=== PATIENT | male | born 1985 | race Caucasian/White ===

== ENCOUNTER 2020-06-05 14:07 | Outpatient (REF) | payer OTHER, SELFPAY | END 2020-06-05 14:08 | disposition home or self-care (01) | LOC: HO.LAB 14:07 | PROVIDERS: PCP Internal Medicine; Visit Provider Internal Medicine | DX: Z20.822 Contact with and (suspected) exposure to COVID-19 (principal) | CPT/HCPCS: 36415; C9803; U0003 ==

== ENCOUNTER → 2021-06-15 13:44 | Outpatient (BNVA) | payer OTHER, SELFPAY | PROVIDERS: PCP Internal Medicine; Referring Provider Internal Medicine; Visit Provider Surgery | DX: L98.9 Disorder of the skin and subcutaneous tissue, unspecified (principal) | CPT/HCPCS: 99202 ==

== ENCOUNTER 2021-09-10 14:43 | Outpatient (REF) | payer OTHER, SELFPAY ==
[2021-09-10 15:01] LABS: MANUAL DIFF FLAG NO
[2021-09-10 15:55] LABS: Basophils Absolute Auto 0.1 X10*3/uL (0.0-0.2); Basophils Percent Auto 0.8 % (0-2); Eosinophils Absolute Auto 0.3 X10*3/uL (0.0-0.4); Eosinophils Percent Auto 2.7 % (0-4); Hematocrit 44.1 % (42.0-52.0); Hemoglobin 14.3 g/dl (14.0-18.0); Imm Gran Abs Auto 0.04 X10*3/uL (0.00-0.03); Imm Gran Pct Auto 0.4 % (0.0-0.4); Lymphocytes Absolute Auto 3.7 X10*3/uL (1.2-4.9); Lymphocytes Percent Auto 33.4 % (20-40); Mean Corpuscular HGB Conc 32.4 g/dl (31.0-36.0); Mean Corpuscular Hemoglobin 27.6 pg (27.0-33.0); Mean Platelet Volume 10.3 fL (9.4-12.4); Monocytes Absolute Auto 1.1 X10*3/uL (0.1-1.2); Monocytes Percent Auto 10.2 % (2-11); Neutrophils Absolute Auto 5.8 x10*3/uL (2.0-8.3); Neutrophils Percent Auto 52.5 % (45-73); Platelet Count 302 X10*3/uL (160-400); Red Blood Count 5.19 X10*6/uL (4.60-5.80); Red Cell Distribution Width 13.8 % (11.0-16.0)
[2021-09-10 16:13] LABS: Alanine Aminotransferase 250 U/L (0-40); Albumin Level 4.4 g/dL (3.5-5.0); Alkaline Phosphatase 100 U/L (39-117); Anion Gap 15 (12-20); Aspartate Amino Transferase 66 U/L (5-37); Bilirubin Total 0.9 mg/dL (0.0-1.0); Blood Urea Nitrogen 9 mg/dL (9-16); Carbon Dioxide 25 mmol/L (22-29); Chloride 103 mmol/L (96-108); Cholesterol 190 mg/dL; Estimated Glomerular Filt Rate > 60; Glucose Fasting 116 mg/dL (60-99); HDL Cholesterol 30 mg/dL; LDL Cholesterol Calculated 91 mg/dl; Potassium 4.6 mmol/L (3.3-5.1); Sodium 138 mmol/L (135-145); Total Protein 8.1 g/dL (6.5-8.0); Triglycerides 349 mg/dL
[2021-09-10 16:15] LABS: Appearance Urine CLEAR; Color Urine YELLOW; Glucose Urine UA NEG (NEG); Leukocyte Esterase Urine 2+ (NEG); Nitrite Urine NEG (NEG); PH 6.5 (5.0-8.0); Specific Gravity - Urine 1.025 (1.005-1.025); UACC Culture Trigger YES; Urine Blood NEG (NEG); Urine Ketones NEG (NEG); Urine Protein NEG (NEG-TRACE)
[2021-09-10 16:33] LABS: TSH reflex Free T4 0.75 uIU/mL (0.32-4.0)
[2021-09-10 16:42] LABS: RBC Urine 0 /HPF (0); WBC Urine 30-49 /HPF (0-4)
[2021-09-10 16:43] LABS: Bacteria Urine TRACE /LPF
== END 2021-09-10 14:44 | disposition home or self-care (01) ==
LOC: HO.LAB 14:43
PROVIDERS: PCP Internal Medicine; Visit Provider Internal Medicine
DX: J45.40 Moderate persistent asthma, uncomplicated (principal); E55.9 Vitamin D deficiency, unspecified; E78.00 Pure hypercholesterolemia, unspecified
CPT/HCPCS: 36415; 80053; 80061; 81001; 82306; 84443; 85025; 87086

== ENCOUNTER 2022-01-07 12:56 | Outpatient (REF) | payer OTHER, SELFPAY ==
[2022-01-07 13:09] LABS: MANUAL DIFF FLAG NO
[2022-01-07 13:40] LABS: Basophils Absolute Auto 0.1 X10*3/uL (0.0-0.2); Basophils Percent Auto 0.9 % (0-2); Eosinophils Absolute Auto 0.3 X10*3/uL (0.0-0.4); Eosinophils Percent Auto 3.2 % (0-4); Hematocrit 43.3 % (42.0-52.0); Hemoglobin 14.2 g/dl (14.0-18.0); Imm Gran Abs Auto 0.03 X10*3/uL (0.00-0.03); Imm Gran Pct Auto 0.4 % (0.0-0.4); Lymphocytes Absolute Auto 3.6 X10*3/uL (1.2-4.9); Lymphocytes Percent Auto 42.7 % (20-40); Mean Corpuscular HGB Conc 32.8 g/dl (31.0-36.0); Mean Corpuscular Hemoglobin 27.6 pg (27.0-33.0); Mean Corpuscular Volume 84.1 fL (80.0-98.0); Mean Platelet Volume 9.8 fL (9.4-12.4); Monocytes Absolute Auto 0.7 X10*3/uL (0.1-1.2); Monocytes Percent Auto 8.8 % (2-11); Neutrophils Absolute Auto 3.7 x10*3/uL (2.0-8.3); Platelet Count 328 X10*3/uL (160-400); Red Blood Count 5.15 X10*6/uL (4.60-5.80); Red Cell Distribution Width 14.7 % (11.0-16.0); White Blood Count 8.4 X10*3/uL (4.8-10.8)
[2022-01-07 14:02] LABS: Alanine Aminotransferase 121 U/L (0-40); Albumin Level 4.2 g/dL (3.5-5.0); Alkaline Phosphatase 81 U/L (39-117); Anion Gap 14 (12-20); Aspartate Amino Transferase 55 U/L (5-37); Bilirubin Total 0.6 mg/dL (0.0-1.0); Blood Urea Nitrogen 9 mg/dL (9-16); Carbon Dioxide 21 mmol/L (22-29); Chloride 108 mmol/L (96-108); Cholesterol 166 mg/dL; Estimated Glomerular Filt Rate > 60; Glucose Fasting 97 mg/dL (60-99); HDL Cholesterol 34 mg/dL; LDL Cholesterol Calculated 98 mg/dl; Potassium 4.3 mmol/L (3.3-5.1); Sodium 139 mmol/L (135-145); Total Protein 7.6 g/dL (6.5-8.0); Triglycerides 172 mg/dL
[2022-01-07 14:23] LABS: TSH reflex Free T4 0.96 uIU/mL (0.32-4.0); Vitamin D 25-OH Total 13.8 ng/mL (>30)
[2022-01-07 14:24] LABS: Appearance Urine Clear; Color Urine Yellow; Glucose Urine UA Negative (Negative); Leukocyte Esterase Urine Negative (Negative); Nitrite Urine Negative (Negative); PH 5.5 (5.0-8.0); Urine Blood Negative (Negative); Urine Ketones Negative (Negative); Urine Protein Negative (Neg-Trace)
== END 2022-01-07 12:57 | disposition home or self-care (01) ==
LOC: HO.LAB 12:56
PROVIDERS: PCP Internal Medicine; Visit Provider Internal Medicine
DX: E78.00 Pure hypercholesterolemia, unspecified (principal); E55.9 Vitamin D deficiency, unspecified; I10 Essential (primary) hypertension
CPT/HCPCS: 36415; 80053; 80061; 81003; 82306; 84443; 85025

== ENCOUNTER 2022-01-24 10:24 | Outpatient (REF) | payer OTHER, SELFPAY ==
--- NOTE | ~2022-01-24 | US_ITS ---
EXAMINATION: US ABDOMEN COMPLETE CLINICAL INFORMATION: Other specified abnormal findings of blood chemistry. Elevated LFTs. COMPARISON: None TECHNIQUE: Real-time imaging of the abdominal viscera. FINDINGS: PANCREAS: Normal. ABDOMINAL AORTA: The proximal, mid, and distal segments are normal in caliber. INFERIOR VENA CAVA: Visualized portions are normal. LIVER: The liver is normal in size. The liver contour is normal. There is increased liver echogenicity. No focal hepatic lesion. There is no intrahepatic biliary duct dilatation seen. GALLBLADDER: Gallbladder wall thickness is 0.19 cm The gallbladder is physiologically distended without evidence of stones, sludge, polyps, wall thickening or pericholecystic fluid. COMMON BILE DUCT: Normal in caliber measuring 0.3 cm in diameter. RIGHT KIDNEY: Normal. No hydronephrosis. No renal calculi or focal parenchymal lesions. The kidney measures 11.2 cm in maximum dimension. LEFT KIDNEY: Normal. No hydronephrosis. No renal calculi or focal parenchymal lesions. The kidney measures 11.8 cm in maximum dimension. SPLEEN: Normal. The spleen measures 10.7 cm in maximum dimension. FREE FLUID: None. US/US abdomen complete IMPRESSION: There is diffuse hepatic echogenicity. No focal liver lesion seen. Rest of the abdominal ultrasound is unremarkable.
== END 2022-01-24 10:25 | disposition home or self-care (01) ==
LOC: HO.HMGCX 10:24
PROVIDERS: PCP Internal Medicine; Visit Provider Internal Medicine
DX: R79.89 Other specified abnormal findings of blood chemistry (principal)
CPT/HCPCS: 76700

== ENCOUNTER 2022-04-18 13:43 | Outpatient (REF) | payer OTHER, SELFPAY ==
[2022-04-18 13:55] LABS: MANUAL DIFF FLAG NO
[2022-04-18 14:11] LABS: Basophils Absolute Auto 0.1 X10*3/uL (0.0-0.2); Basophils Percent Auto 0.9 % (0-2); Eosinophils Absolute Auto 0.2 X10*3/uL (0.0-0.4); Eosinophils Percent Auto 2.9 % (0-4); Hematocrit 42.5 % (42.0-52.0); Imm Gran Abs Auto 0.04 X10*3/uL (0.00-0.03); Imm Gran Pct Auto 0.5 % (0.0-0.4); Lymphocytes Absolute Auto 3.1 X10*3/uL (1.2-4.9); Lymphocytes Percent Auto 39.7 % (20-40); Mean Corpuscular HGB Conc 32.9 g/dl (31.0-36.0); Mean Corpuscular Hemoglobin 27.6 pg (27.0-33.0); Mean Corpuscular Volume 83.8 fL (80.0-98.0); Mean Platelet Volume 9.9 fL (9.4-12.4); Monocytes Absolute Auto 0.7 X10*3/uL (0.1-1.2); Monocytes Percent Auto 8.8 % (2-11); Neutrophils Absolute Auto 3.7 x10*3/uL (2.0-8.3); Neutrophils Percent Auto 47.2 % (45-73); Platelet Count 315 X10*3/uL (160-400); Red Blood Count 5.07 X10*6/uL (4.60-5.80); Red Cell Distribution Width 13.2 % (11.0-16.0); White Blood Count 7.8 X10*3/uL (4.8-10.8)
[2022-04-18 15:20] LABS: Alanine Aminotransferase 52 U/L (0-40); Albumin Level 4.6 g/dL (3.5-5.0); Alkaline Phosphatase 78 U/L (39-117); Anion Gap 12 (12-20); Aspartate Amino Transferase 25 U/L (5-37); Bilirubin Total 0.5 mg/dL (0.0-1.0); Blood Urea Nitrogen 9 mg/dL (9-16); Calcium 9.8 mg/dL (8.4-10.2); Carbon Dioxide 26 mmol/L (22-29); Chloride 108 mmol/L (96-108); Cholesterol 179 mg/dL; Estimated Glomerular Filt Rate > 60; Glucose Fasting 89 mg/dL (60-99); HDL Cholesterol 29 mg/dL; LDL Cholesterol Calculated 108 mg/dl; Potassium 4.3 mmol/L (3.3-5.1); Sodium 142 mmol/L (135-145); Total Protein 7.8 g/dL (6.5-8.0); Triglycerides 210 mg/dL; Vitamin D 25-OH Total 15.3 ng/mL (>30)
== END 2022-04-18 13:44 | disposition home or self-care (01) ==
LOC: HO.LAB 13:43
PROVIDERS: PCP Internal Medicine; Visit Provider Internal Medicine
DX: E78.00 Pure hypercholesterolemia, unspecified (principal); E55.9 Vitamin D deficiency, unspecified; I10 Essential (primary) hypertension
CPT/HCPCS: 36415; 80053; 80061; 82306; 84443; 85025

== ENCOUNTER 2022-05-31 13:27 | Emergency (ER) | payer OTHER, SELFPAY ==
--- NOTE | ~2022-05-31 | XR_ITS ---
EXAMINATION: XR LUMBOSACRAL SPINE CLINICAL INFORMATION: Pain COMPARISON: None TECHNIQUE: Three views of the lumbosacral spine. FINDINGS: The vertebral bodies and posterior elements are normal. The disc spaces are preserved and the vertebral alignment is normal. The paraspinal soft tissues are normal. XR/XR lumbar spine 2-3V IMPRESSION: No fracture or dislocation.
--- NOTE | ~2022-05-31 | XR_ITS ---
EXAMINATION:XR ankle LT min 3V, XR foot LT 2V VIEWS ACQUIRED: Frontal and lateral left foot and ankle. CLINICAL INFORMATION: Reason for Exam ankle pain. fall COMPARISON: None available at the time of this dictation. FINDINGS: There is no evidence of acute fracture or dislocation. Intertarsal, tarsometatarsal, metatarsophalangeal and interphalangeal joints are intact. Surrounding soft tissues is normal. , Ankle mortise is preserved. Talar dome and tibial plafonds are intact. There is soft tissue swelling around lateral malleolus. There is accessory ossicle near the tip of the lateral malleolus. XR/XR ankle LT min 3V IMPRESSION: Soft tissue swelling around lateral malleolus. No radiographic evidence of acute fracture.
--- NOTE | ~2022-05-31 | XR_ITS ---
EXAMINATION:XR ankle LT min 3V, XR foot LT 2V VIEWS ACQUIRED: Frontal and lateral left foot and ankle. CLINICAL INFORMATION: Reason for Exam ankle pain. fall COMPARISON: None available at the time of this dictation. FINDINGS: There is no evidence of acute fracture or dislocation. Intertarsal, tarsometatarsal, metatarsophalangeal and interphalangeal joints are intact. Surrounding soft tissues is normal. , Ankle mortise is preserved. Talar dome and tibial plafonds are intact. There is soft tissue swelling around lateral malleolus. There is accessory ossicle near the tip of the lateral malleolus. XR/XR foot LT 2V IMPRESSION: Soft tissue swelling around lateral malleolus. No radiographic evidence of acute fracture.
--- NOTE | ~2022-05-31 | XR_ITS ---
EXAMINATION: XR KNEE, LEFT CLINICAL INFORMATION: Pain COMPARISON: None TECHNIQUE: Four views of the left knee. FINDINGS: Bones and soft tissues are normal. No fracture or joint effusion. Alignment is anatomic. Joint spaces are well maintained. No abnormal soft tissue calcification. XR/XR knee LT 4V IMPRESSION: No fracture or dislocation.
[2022-05-31 14:43] VITALS: BP 123/82; PULSE 101; RESP 20; TEMP 35.7; O2SAT 96; BMI 33.2
--- NOTE | 2022-05-31 14:45 | ED.GENADULT ---
HPI - General Adult General Chief complaint: Back Pain/Injury <KALLI Gutierrez - Last Filed: 05/31/22 19:50> Stated complaint: Fall/Lower back pain/L ankle inj <KALLI Gutierrez - Last Filed: 05/31/22 19:50> Time Seen by Provider: 05/31/22 16:16 <KALLI Gutierrez - Last Filed: 05/31/22 19:50> Source: patient <KALLI Vega - Last Filed: 05/31/22 18:56> Mode of arrival: ambulatory <KALLI Vega - Last Filed: 05/31/22 18:56> History of Present Illness HPI narrative: 36-year-old male with a past medical history of asthma, HLD, paranoid schizophrenia, vitamin-D deficiency, presenting to the ED complaining of low back pain, left knee and left ankle pain s/p mechanical trip and fall 5 days ago. Denies symptoms prior to fall, denies head trauma or LOC. reports difficulty ambulating secondary to pain. Denies headache, chest pain/shortness of breath, numbness/tingling, urinary incontinence/retention, fever <KALLI Vega - Last Filed: 05/31/22 18:56> Onset (ago): day(s) <KALLI Vega - Last Filed: 05/31/22 18:56> Related Data Home medications: Home Medications Medication Instructions Recorded Confirmed albuterol sulfate 90 mcg/actuation 2 puff inhalation Q6H PRN 09/15/21 01/10/22 aerosol inhaler docusate sodium 100 mg capsule 100 mg PO BID PRN constipation 09/15/21 01/10/22 fluticasone 100 mcg-salmeterol 50 1 inh inhalation BID 09/15/21 01/10/22 mcg/dose blistr powdr for inhalation (Advair Diskus) haloperidol decanoate 100 mg/mL 100 mg IM .COMPLEX 09/15/21 01/10/22 intramuscular solution naloxone 4 mg/actuation nasal 4 mg intranasal Q2M PRN 09/15/21 01/10/22 spray (Narcan) Previous Rx's Medication Instructions Recorded omeprazole 20 mg capsule,delayed 20 mg PO BID #180 caps 10/03/20 release cholecalciferol (vitamin D3) 50 50 mcg PO DAILY 90 days #90 caps 09/15/21 mcg (2,000 unit) capsule sertraline 100 mg tablet 100 mg PO DAILY #30 tabs 11/08/21 cholecalciferol (vitamin D3) 50 50 mcg PO DAILY 90 days #90 caps 01/10/22 mcg (2,000 unit) capsule fenofibrate 160 mg tablet 160 mg PO DAILY 90 days #90 tabs 02/02/22 benztropine 2 mg tablet 2 mg PO BEDTIME #30 tabs 04/12/22 acetaminophen 500 mg tablet 500 mg PO Q6H PRN fever or pain 05/31/22 (Tylenol Extra Strength) #14 tabs cyclobenzaprine 5 mg tablet 5 mg PO Q8H PRN pain (scale score 05/31/22 7-10) 5 days #14 tabs lidocaine 5 % topical patch 1 patch topical DAILY PRN pain #30 05/31/22 (Lidoderm) ea <KALLI Gutierrez - Last Filed: 05/31/22 19:50> Allergies/adverse reactions: Allergies Allergy/AdvReac Type Severity Reaction Status Date / Time paprika Allergy Severe DIFFICULTY Verified 01/10/22 15:28 BREATHING shrimp Allergy Severe ANAPHYLAXIS Verified 01/10/22 15:28 cranberry [CRANBERRY] Allergy Mild SWELLING Verified 01/10/22 15:28 OF HIS EAR strawberry [STRAWBERRY] Allergy Mild SWELLING Verified 01/10/22 15:28 OF HIS EAR cat dander [CATS] Allergy Unknown WATERY,ITCHY Verified 01/10/22 15:28 EYES clams [CLAMS] Allergy Unknown UNK Verified 01/10/22 15:28 MARINARA Allergy Severe ANAPHYLAXIS Uncoded 01/10/22 15:28 ibuprofes Allergy Unknown renal Uncoded 01/10/22 15:28 insufficiency paprika, seafood, Allergy Unknown unknown Uncoded 01/10/22 15:28 strawberries SEAFOOD Allergy Unknown UNKNOWN Uncoded 01/10/22 15:28 <KALLI Gutierrez - Last Filed: 05/31/22 19:50> Review of Systems Review of Systems: Constitutional: No Fever, No Chills ENT/Mouth: No Ear Pain, No Nasal Congestion, No sore throat, No Rhinorrhea, No Swallowing Difficulty Cardiovascular: No Chest Pain, No SOB Respiratory: No Cough, No Sputum, No Wheezing Gastrointestinal: No Nausea, No Vomiting, No Diarrhea, No Constipation, No Abdominal pain Genitourinary: No Dysuria, No Urinary Frequency, No Hematuria, No Urinary Incontinence/retention Musculoskeletal: + joint pain, No Myalgias, + Joint Swelling Skin: No Skin Lesions, No rash Neuro: No Weakness, No Numbness, No Paresthesias <KALLI Vega - Last Filed: 05/31/22 18:56> Yes all other systems are reviewed and are negative <KALLI Vega - Last Filed: 05/31/22 18:56> Constitutional: Constitutional: Reports as per HPI <KALLI eVga - Last Filed: 05/31/22 18:56> Neurologic: Denies Sensory deficit (Neuro) <KALLI Vega - Last Filed: 05/31/22 18:56> PMFSH Past Medical History Attestation statement: The following information was validated with the patient. <KALLI Vega - Last Filed: 05/31/22 18:56> Medical History: Medical History Asthma Hypertriglyceridemia Obesity (BMI 30-39.9) Paranoid schizophrenia Smoker Vitamin D deficiency <KALLI Gutierrez - Last Filed: 05/31/22 19:50> Surgical History: Surgical History No pertinent past surgical history <KALLI Gutierrez - Last Filed: 05/31/22 19:50> Family History Family History: Family History Father Medical history unknown Mother Medical history unknown Family/Other FH: mental illness <KALLI Gutierrez - Last Filed: 05/31/22 19:50> Social History Social History: Social History Housing: Apartment Alcohol intake: current Alcohol intake frequency: holidays/special occasions only Patient Tobacco Use Status: Current everyday Tobacco user Cigarettes Per Day: 3 Second Hand Smoke Exposure: Yes Advance Directives: No Advance Directives Information Provided: No service: No Current occupational status: disabled Cognitive needs: No Hearing needs: No Vision needs: No <KALLI Gutierrez Last Filed: 05/31/22 19:50> Physical Exam ED Vital Signs: Vital Signs - 24 hr 05/31/22 14:43 Temperature 96.3 F L Pulse Rate 101 H Respiratory Rate 20 Blood Pressure 123/82 Pulse Oximetry 96 Oxygen Delivery Method Room Air BMI result Body Mass Index 33.2 <KALLI Gutierrez - Last Filed: 05/31/22 19:50> Vital Signs - 24 hr 05/31/22 14:43 Temperature 96.3 F L Pulse Rate 101 H Respiratory Rate 20 Blood Pressure 123/82 Pulse Oximetry 96 Oxygen Delivery Method Room Air BMI result Body Mass Index 33.2 <KALLI Vega - Last Filed: 05/31/22 18:56> Const General: cooperative, healthy appearing and no acute distress <KALLI Vega - Last Filed: 05/31/22 18:56> Orientation/consciousness: patient oriented x3 <KALLI Vega - Last Filed: 05/31/22 18:56> Limitations: no limitations <KALLI Vega - Last Filed: 05/31/22 18:56> HENMT Head: Yes normal to inspection and Yes atraumatic <KALLI Vega - Last Filed: 05/31/22 18:56> Ears: hearing grossly normal bilaterally <KALLI Vega - Last Filed: 05/31/22 18:56> General nose exam: Normal external nose present <KALLI Vega - Last Filed: 05/31/22 18:56> Face and sinus: Yes normal facial exam <KALLI Vega - Last Filed: 05/31/22 18:56> Eyes General: appearance normal, both eyes and all related structures <KALLI Vega - Last Filed: 05/31/22 18:56> EOM: EOMs intact bilaterally <KALLI Vega - Last Filed: 05/31/22 18:56> Neck Neck: Yes normal visual inspection and Yes no meningeal signs <KALLI Vega - Last Filed: 05/31/22 18:56> Resp Effort & Inspection: normal respiratory effort and no respiratory distress <Gail Santos PA - Last Filed: 05/31/22 18:56> Cardio Rate: regular rate <Gail Danielle PA - Last Filed: 05/31/22 18:56> Heart sounds: S1 normal heart sound present and S2 normal heart sound present <Gail Santos PA - Last Filed: 05/31/22 18:56> GI Inspection: Yes normal to inspection <Gail Santos PA - Last Filed: 05/31/22 18:56> Palpation (GI): Soft to palpation, nontender, no guarding and not rigid <Gail Poulteresat PA - Last Filed: 05/31/22 18:56> Back/Spine/Pelvis Other: No midline thoracic/lumbar spinous tenderness/step-off or deformity. + bilateral lower lumbar MSK tenderness <Gail Santos PA - Last Filed: 05/31/22 18:56> Skin Rashes: no rashes <Gail Santos PA - Last Filed: 05/31/22 18:56> Wounds: no wounds <Gail Santos, PA - Last Filed: 05/31/22 18:56> Neuro Other: Strength intact throughout. No saddle anesthesia. Sensation intact to light touch. Neurovascular intact distally. Ambulating with limping gait <Gail Santos PA - Last Filed: 05/31/22 18:56> General: patient oriented x3, tone normal and no meningeal signs <Gail Santos PA - Last Filed: 05/31/22 18:56> Gait exam (Neuro): Normal gait present <Gail Santos PA - Last Filed: 05/31/22 18:56> Motor exam (neuro): 5/5 motor strength present throughout <Gail Samsont PA - Last Filed: 05/31/22 18:56> Sensory Exam: No Sensory deficit (Neuro) <Gail Santos PA - Last Filed: 05/31/22 18:56> Extrem Other: Left ankle with noted swelling and diffuse tenderness greatest to lateral malleolus. Mild healing ecchymosis. Foot, tib/fib and knee nontender. Neurovascular intact distally. <Gail Santos PA - Last Filed: 05/31/22 18:56> Course Course Course Narrative: RME: 36 yold male presents to the ED lower back pain/left ankle/knee pain since monday due to falling after tripping on the street. Patient denies any head injury or LOC. Images ordered <KALLI Gutierrez - Last Filed: 05/31/22 19:50> RME: 36 yold male presents to the ED lower back pain/left ankle/knee pain since monday due to falling after tripping on the street. Patient denies any head injury or LOC. Images ordered XR lumbar spine 2-3V IMPRESSION: No fracture or dislocation. XR knee LT 4V IMPRESSION: No fracture or dislocation. XR ankle LT min 3V/XR foot LT 2V IMPRESSION: Soft tissue swelling around lateral malleolus. ? No radiographic evidence of acute fracture >> patient placed in Aircast Results discussed with patient including worrisome signs and symptoms and strict return precautions, and when to return to the emergency department. They verbalized understanding and feel safe for discharge at this time. <KALLI Vega - Last Filed: 05/31/22 18:56> Medications Administered Discontinued Medications Generic Name Dose Route Start Last Admin Trade Name Freq PRN Reason Stop Dose Admin Cyclobenzaprine HCl 10 mg 05/31/22 16:44 05/31/22 17:12 Cyclobenzaprine Hcl 10 Mg Tablet PO 05/31/22 16:45 10 mg ONCE ONE Administration Ketorolac Tromethamine 30 mg 05/31/22 16:44 05/31/22 17:13 Ketorolac Tromethamine 30 Mg/Ml Vial IM 05/31/22 16:45 30 mg ONCE ONE Administration Lidocaine 1 patch 05/31/22 16:44 05/31/22 17:16 Lidocaine 4 % Patch Adh..Patch TRANSDERMA 05/31/22 16:45 1 patch ONCE ONE Administration Protocol <KALLI Gutierrez - Last Filed: 05/31/22 19:50> Medications Administered Discontinued Medications Generic Name Dose Route Start Last Admin Trade Name Freq PRN Reason Stop Dose Admin Cyclobenzaprine HCl 10 mg 05/31/22 16:44 05/31/22 17:12 Cyclobenzaprine Hcl 10 Mg Tablet PO 05/31/22 16:45 10 mg ONCE ONE Administration Ketorolac Tromethamine 30 mg 05/31/22 16:44 05/31/22 17:13 Ketorolac Tromethamine 30 Mg/Ml Vial IM 05/31/22 16:45 30 mg ONCE ONE Administration Lidocaine 1 patch 05/31/22 16:44 05/31/22 17:16 Lidocaine 4 % Patch Adh..Patch TRANSDERMA 05/31/22 16:45 1 patch ONCE ONE Administration Protocol <KALLI Vega Last Filed: 05/31/22 18:56> Procedures Orthopedic Splinting/Casting Injury #1: Side: left <KALLI Vega - Last Filed: 05/31/22 18:56> Lower Extremity Injury Location: ankle <KALLI Vega Last Filed: 05/31/22 18:56> Lower Extremity Immobilizer: AirCast <KALLI Vega Last Filed: 05/31/22 18:56> Other Orthopedic Equipment: crutches <KALLI Vega Last Filed: 05/31/22 18:56> Medical Decision Making Medical Decision Making MDM Narrative: 36-year-old male with a past medical history of asthma, HLD, paranoid schizophrenia, vitamin-D deficiency, presenting to the ED complaining of low back pain, left knee and left ankle pain s/p mechanical trip and fall 5 days ago. On exam mildly tachycardic likely from pain, no midline spinous tenderness throughout, no red flag symptoms, ambulating with limping gait, left ankle swelling noted as above. Concern for MSK pain/strain vs tendon/ligamental injuries. Rule out fracture. Low suspicion for cauda equina/cord compression or epidural abscess Plan: X-rays ordered in triage Please refer to course for remaining clinical decision making, interpretation of labs/imaging results, and discussions with consultants and/or family members. <KALLI Vega Last Filed: 05/31/22 18:56> Differential Diagnosis Differential Diagnoses: The differential diagnosis associated with the presentation includes <KALLI Vega Last Filed: 05/31/22 18:56> As above <KALLI Vega Last Filed: 05/31/22 18:56> Radiology Impression Discussion of test interpretation with radiology: I have reviewed the radiologist's reading. <KALLI Vega Last Filed: 05/31/22 18:56> Prescription Management I considered prescription management with: Pain Medication <KALLI Vega - Last Filed: 05/31/22 18:56> Discharge Plan Discharge Clinical Impression: Ankle sprain, Back pain <KALLI Gutierrez Last Filed: 05/31/22 19:50> Patient Disposition: Home, Self-Care <KALLI Gutierrez Last Filed: 05/31/22 19:50> Instructions: Ankle Sprain (ED), Back Pain (ED) <KALLI Gutierrez Last Filed: 05/31/22 19:50> Additional Instructions: Your x-rays do not show any fractures. you sprained your ankle. Wear Aircast at home as needed. Use crutches as needed. Ice and elevated Follow up with your doctor Your pain is likely musculoskeletal Flexeril is a muscle relaxer, take at night as it makes you drowsy, do not drive, drink alcohol, or operate machinery while taking it Lidoderm patches are numbing patches, apply to painful area In addition take Tylenol at home If symptoms persist or worsen, pain becomes unbearable, you developed urinary retention or incontinence, or weakness return to the ED <KALLI Gutierrez Last Filed: 05/31/22 19:50> Prescriptions: New acetaminophen [Tylenol Extra Strength] 500 mg tablet 500 mg PO Q6H PRN (Reason: fever or pain) Qty: 14 0RF lidocaine [Lidoderm] 5 % adhesive patch,medicated 1 patch topical DAILY MDD remove after 12 hours PRN (Reason: pain) Qty: 30 0RF Rx Instructions: leave on most painful area for up to 12 hrs cyclobenzaprine 5 mg tablet 5 mg PO Q8H PRN (Reason: pain (scale score 7-10)) 5 Days Qty: 14 0RF No Action omeprazole 20 mg capsule,delayed release(DR/EC) 20 mg PO BID Qty: 180 1RF sertraline 100 mg tablet 100 mg PO DAILY Qty: 30 5RF fenofibrate 160 mg tablet 160 mg PO DAILY 90 Days Qty: 90 3RF benztropine 2 mg tablet 2 mg PO BEDTIME Qty: 30 0RF Label Comments: EPS Rx Instructions: Kemal - for EPS cholecalciferol (vitamin D3) 50 mcg (2,000 unit) capsule 50 mcg PO DAILY 90 Days Qty: 90 3RF docusate sodium 100 mg capsule 100 mg PO BID PRN (Reason: constipation) fluticasone propion-salmeterol [Advair Diskus] 100-50 mcg/dose blister with device 1 inh inhalation BID albuterol sulfate 90 mcg/actuation HFA aerosol inhaler 2 puff inhalation Q6H PRN naloxone [Narcan] 4 mg/actuation spray,non-aerosol 4 mg intranasal Q2M PRN Rx Instructions: spray 1 dose into ONE nostril; alternate nostrils w each dose until help arrives haloperidol decanoate 100 mg/mL solution 100 mg IM .COMPLEX Label Comments: thought disorder Rx Instructions: 100 mg IM ONCE EVERY 28 DAYS; cholecalciferol (vitamin D3) 50 mcg (2,000 unit) capsule 50 mcg PO DAILY 90 Days Qty: 90 3RF <KALLI Gutierrez - Last Filed: 05/31/22 19:50> Referrals: Cresencio Monahan MD [Primary Care Provider] - 3 days <KALLI Gutierrez - Last Filed: 05/31/22 19:50> Stand Alone Forms: Work/School Release <KALLI Gutierrez - Last Filed: 05/31/22 19:50> Interventions: ED Discharge Assessment Last Done: 05/31/22 17:40 <KALLI Gutierrez - Last Filed: 05/31/22 19:50> Discharge Date/Time: 05/31/22 17:41 <KALLI Gutierrez - Last Filed: 05/31/22 19:50>
[2022-05-31] MEDS: Cyclobenzaprine HCl 10 MG TABLET PO (17:12)
[2022-05-31] MEDS: Ketorolac Tromethamine 30 MG/ML VIAL IM (17:13)
--- NOTE | 2022-05-31 17:15 | MHC.EDTECH ---
pt was asked if he knew how to use crutches upon crutch training pt stated they he already knows how to use them. RN and provider aware
[2022-05-31] MEDS: Lidocaine 4 % Patch ADH..PATCH 1 PATCH TRANSDERMA (17:16)
== END 2022-05-31 17:41 | disposition home or self-care (01) ==
PROVIDERS: Emergency Provider Internal Medicine; PCP Internal Medicine
DX: S93.402A Sprain of unspecified ligament of left ankle, initial encounter (principal); M54.50 Low back pain, unspecified; F20.0 Paranoid schizophrenia; W01.0XXA Fall on same level from slipping, tripping and stumbling without subsequent striking against object, initial encounter; Y93.9 Activity, unspecified; Y92.9 Unspecified place or not applicable; Y99.9 Unspecified external cause status; Z79.899 Other long term (current) drug therapy; F17.210 Nicotine dependence, cigarettes, uncomplicated; Z71.6 Tobacco abuse counseling
CPT/HCPCS: 29515; 72100; 73564; 73610; 73620; 96372; 99283; 99284; J1885

== ENCOUNTER 2022-09-27 11:08 | Outpatient (REF) | payer OTHER, SELFPAY ==
[2022-09-27 11:24] LABS: MANUAL DIFF FLAG NO
[2022-09-27 12:21] LABS: Basophils Absolute Auto 0.1 X10*3/uL (0.0-0.2); Basophils Percent Auto 1.1 % (0-2); Eosinophils Absolute Auto 0.3 X10*3/uL (0.0-0.4); Eosinophils Percent Auto 2.9 % (0-4); Hematocrit 41.5 % (42.0-52.0); Hemoglobin 13.5 g/dl (14.0-18.0); Imm Gran Abs Auto 0.03 X10*3/uL (0.00-0.03); Imm Gran Pct Auto 0.3 % (0.0-0.4); Lymphocytes Absolute Auto 3.8 X10*3/uL (1.2-4.9); Lymphocytes Percent Auto 39.8 % (20-40); Mean Corpuscular HGB Conc 32.5 g/dl (31.0-36.0); Mean Corpuscular Hemoglobin 27.3 pg (27.0-33.0); Mean Corpuscular Volume 83.8 fL (80.0-98.0); Mean Platelet Volume 10.3 fL (9.4-12.4); Monocytes Absolute Auto 0.7 X10*3/uL (0.1-1.2); Monocytes Percent Auto 6.8 % (2-11); Neutrophils Absolute Auto 4.7 x10*3/uL (2.0-8.3); Neutrophils Percent Auto 49.1 % (45-73); Platelet Count 358 X10*3/uL (160-400); Red Blood Count 4.95 X10*6/uL (4.60-5.80); Red Cell Distribution Width 14.1 % (11.0-16.0); White Blood Count 9.6 X10*3/uL (4.8-10.8)
[2022-09-27 12:33] LABS: Appearance Urine Clear; Color Urine Yellow; Glucose Urine UA Negative (Negative); Leukocyte Esterase Urine Trace (Negative); Nitrite Urine Negative (Negative); PH 6.5 (5.0-9.0); Specific Gravity - Urine 1.015 (1.005-1.025); UMIC TRIGGER UACC YES; Urine Blood Negative (Negative); Urine Ketones Negative (Negative); Urine Protein Negative (Neg-Trace)
[2022-09-27 12:38] LABS: Bacteria Urine None Seen (None Seen); Hyaline Casts Urine 0-2 /LPF (0-2); RBC Urine 0-2 /HPF (0-2); Squamous Epithelial Cell Urine 0-2 /HPF (0-2); WBC Urine 0-5 /HPF (0-5)
[2022-09-27 13:20] LABS: Alanine Aminotransferase 23 U/L (0-40); Albumin Level 4.3 g/dL (3.5-5.0); Alkaline Phosphatase 63 U/L (39-117); Anion Gap 12 (12-20); Aspartate Amino Transferase 15 U/L (5-37); Bilirubin Total 0.6 mg/dL (0.0-1.0); Blood Urea Nitrogen 9 mg/dL (9-16); Calcium 9.5 mg/dL (8.4-10.2); Carbon Dioxide 24 mmol/L (22-29); Chloride 106 mmol/L (96-108); Cholesterol 189 mg/dL; Estimated Glomerular Filt Rate > 60; Glucose Fasting 124 mg/dL (60-99); HDL Cholesterol 28 mg/dL; LDL Cholesterol Calculated 127 mg/dl; Potassium 4.1 mmol/L (3.3-5.1); Sodium 138 mmol/L (135-145); Total Protein 7.4 g/dL (6.5-8.0); Triglycerides 172 mg/dL; Vitamin D 25-OH Total 25.1 ng/mL (>30)
== END 2022-09-27 11:09 | disposition home or self-care (01) ==
LOC: HO.LAB 11:08
PROVIDERS: PCP Internal Medicine; Visit Provider Internal Medicine
DX: I10 Essential (primary) hypertension (principal); E55.9 Vitamin D deficiency, unspecified; E78.00 Pure hypercholesterolemia, unspecified
CPT/HCPCS: 36415; 80053; 80061; 81001; 82306; 84443; 85025

== ENCOUNTER 2022-11-25 20:26 | Inpatient (IN) | payer OTHER, SELFPAY ==
--- NOTE | 2022-11-25 20:53 | ED_ITS ---
HPI - Chest Pain General Chief Complaint: Psychiatric Symptoms Stated Complaint: Chest pain/possible od? Time Seen by Provider: 11/26/22 03:16 Source: patient Mode of arrival: ambulatory Limitations: no limitations History of Present Illness HPI narrative: Patient smoked marijuana and felt his body get tight and was concerned that he was going to Timing of current episode: constant Risk Factors Coronary artery disease risk factors: none Related Data Home Medications Medication Instructions Recorded Confirmed benztropine 2 mg tablet 2 mg PO BEDTIME 11/26/22 11/26/22 fenofibrate 160 mg tablet 160 mg PO DAILY 11/26/22 11/26/22 haloperidol 10 mg tablet 10 mg PO BEDTIME 11/26/22 11/26/22 haloperidol decanoate 100 mg/mL 100 mg IM Q4W 11/26/22 11/26/22 intramuscular solution sertraline 100 mg tablet 100 mg PO DAILY 11/26/22 11/26/22 Allergies Allergy/AdvReac Type Severity Reaction Status Date / Time paprika Allergy Severe DIFFICULTY Verified 11/25/22 20:54 BREATHING shrimp Allergy Severe ANAPHYLAXIS Verified 11/25/22 20:54 cranberry [CRANBERRY] Allergy Mild SWELLING Verified 11/25/22 20:54 OF HIS EAR strawberry [STRAWBERRY] Allergy Mild SWELLING Verified 11/25/22 20:54 OF HIS EAR cat dander [CATS] Allergy Unknown WATERY,ITCHY Verified 11/25/22 20:54 EYES clams [CLAMS] Allergy Unknown UNK Verified 11/25/22 20:54 MARINARA Allergy Severe ANAPHYLAXIS Uncoded 11/25/22 20:54 ibuprofes Allergy Unknown renal Uncoded 11/25/22 20:54 insufficiency paprika, seafood, Allergy Unknown unknown Uncoded 11/25/22 20:54 strawberries SEAFOOD Allergy Unknown UNKNOWN Uncoded 11/25/22 20:54 Review of Systems Review of Systems: Yes all other systems are reviewed and are negative Neurologic: Denies Sensory deficit (Neuro) PMFSH Past Medical History Medical History Asthma Hypertriglyceridemia Obesity (BMI 30-39.9) Paranoid schizophrenia Smoker Vitamin D deficiency Surgical History No pertinent past surgical history Family History Family History Father Medical history unknown Mother Medical history unknown Family/Other FH: mental illness Social History Social History Housing: Apartment Alcohol intake: current Alcohol intake frequency: a few times a week Patient Tobacco Use Status: Current everyday Tobacco user Cigarettes Per Day: 1 Smoked in Last 30 Days: Yes e-Cigarette/Vaping Use: Never Used Second Hand Smoke Exposure: Yes Use of substances other than those prescribed or required for medical reasons: Yes Substance Use Type: Crack/Cocaine, Heroin and Marijuana Advance Directives: No Advance Directives Information Provided: Yes Healthcare Proxy: No Guardian: Yes service: No Current occupational status: disabled Cognitive needs: No Hearing needs: No Vision needs: No Physical Exam Vital Signs: Vital Signs: Last Vital Signs Temp 97.2 F 11/26/22 14:58 Pulse 53 11/26/22 14:58 Resp 16 11/26/22 14:58 BP 112/68 11/26/22 14:58 Pulse Ox 99 11/26/22 14:58 O2 Del Method Room Air 11/26/22 14:58 BMI result Body Mass Index 33.2 Const: Other: flat affect Nutritional Appearance: average body habitus Orientation/consciousness: oriented to person and patient oriented x3 Limitations: no limitations HEENT: Head: Yes normal to inspection Ears: external ears normal General nose exam: Normal external nose present Mouth: Normal oral and palatal mucosa present and oropharynx normal Throat: Yes posterior oropharynx normal Eyes: General: appearance normal, both eyes and all related structures Neck: Other: supple Neck: Yes normal visual inspection Chest: Chest palpation & inspection: normal inspection of the chest Resp: Auscultation: clear to auscultation bilaterally Cardio: Jugular venous distension: no JVD Rate: regular rate Rhythm: regular rhythm Heart sounds: S1 normal heart sound present and S2 normal heart sound present GI: Inspection: Yes normal to inspection Palpation (GI): Soft to palpation, nontender and No hepatosplenomegaly present Auscultation: normal bowel sounds : General: Yes no CVA tenderness Back/Spine/Pelvis: Back: no CVA tenderness Skin: General skin exam: no rashes or lesions noted Neuro: General: oriented to person and patient oriented x3 Cranial nerves: Yes CN's II-XII intact bilaterally Motor exam (neuro): 5/5 motor strength present throughout Sensory Exam: No Sensory deficit (Neuro) Extrem: General: Yes normal to inspection Psych: Other: flat blunted affect Course Course Course Narrative: RME: 37yo M w/PMHx anemia, asthma, paranoid schizophrenia, c/o chest tightness, tight body s/p smoking marijuana that he believes was laced w/heroin. Denies IVDA or ETOH. I think someone is casting a spell on me, also reports AH. denies SI/HI EKG, labs, [place], Tox screen ordered Full HPI, ROS and PE to be performed by primary ED provider. Reevaluation(s) Reevaluation #1: physician observation started at 7:15am. The reason is to see if his paranoia improves or if he will need to be admitted Time: 07:19 Reevaluation #2: Continue physician observation, patient with auditory hallucinations and a positive UDS, no acute events overnight, pending care team evaluation. Time: 07:22 Medications Administered Generic Name Dose Route Start Last Admin Trade Name Freq PRN Reason Stop Dose Admin Fenofibrate 160 mg 11/26/22 09:00 11/26/22 09:42 Fenofibrate 160 Mg Tablet PO 160 mg DAILY LOGAN Administration Sertraline HCl 100 mg 11/26/22 09:00 11/26/22 08:15 Sertraline Hcl 100 Mg Tablet PO 100 mg DAILY LOGAN Administration Medical Decision Making Differential Diagnosis Differential Diagnoses: The differential diagnosis associated with the presentation includes (polysubstance abuse, cardiac ischemia, schizophrenia were all considered) Admission/Observation Consideration of admission/observation: Escalation of care including admission/observation considered (upon arrival this patient who is hearing voices and using drugs was considered for admission) Consult Healthcare Provider Management of the patient was discussed with: Behavioral Health Provider Lab Data MDM Lab Attestation statement: I reviewed the patient's lab results. (no evidence of cardiac ischemia, multiple drug use) 11/25/22 21:22 11/25/22 21: Labs: Lab Results 11/25/22 11/25/22 11/25/22 Range/Units 21:22 21:22 21: WBC 10.1 (4.8-10.8) X10*3/uL RBC 4.84 (4.60-5.80) X10*6/uL Hgb 13.3 L (14.0-18.0) g/dl Hct 40.2 L (42.0-52.0) % MCV 83.1 (80.0-98.0) fL MCH 27.5 (27.0-33.0) pg MCHC 33.1 (31.0-36.0) g/dl RDW 14.3 (11.0-16.0) % Plt Count 309 (160-400) X10*3/uL MPV 10.0 (9.4-12.4) fL Immature Gran % (Auto) 0.3 (0.0-0.4) % Neut % (Auto) 67.7 (45-73) % Lymph % (Auto) 22.6 (20-40) % [place] % (Auto) 8.1 (2-11) % Eos % (Auto) 0.8 (0-4) % Baso % (Auto) 0.5 (0-2) % Lymph # (Auto) 2.3 (1.2-4.9) X10*3/uL [place] # (Auto) 0.8 (0.1-1.2) X10*3/uL Eos # (Auto) 0.1 (0.0-0.4) X10*3/uL Baso # (Auto) 0.1 (0.0-0.2) X10*3/uL Abs Immat Gran (auto) 0.03 (0.00-0.03) X10*3/uL Absolute Neuts (auto) 6.9 (2.0-8.3) x10*3/uL Absolute Nucleated RBC 0.000 (0.0-0.012) X10*3/uL Nucleated RBC % (auto) 0.0 (0.0-0.2) /100WBC Sodium 137 (135-145) mmol/L Potassium 3.4 (3.3-5.1) mmol/L Chloride 106 (96-108) mmol/L Carbon Dioxide 21 L (22-29) mmol/L Anion Gap 13 (12-20) BUN 14 (9-16) mg/dL Creatinine 1.18 (0.5-1.4) mg/dL Estim Creat Clear Calc 98.9 Estimated GFR > 60 Random Glucose 110 (60-115) mg/dL Calcium 10.1 D (8.4-10.2) mg/dL Magnesium 2.0 (1.6-2.6) mg/dL Total Bilirubin 0.3 (0.0-1.0) mg/dL Direct Bilirubin 0.2 (0.0-0.5) mg/dL AST 21 (5-37) U/L ALT 17 (0-40) U/L Alkaline Phosphatase 71 (39-117) U/L Total Protein 8.4 H (6.5-8.0) g/dL Albumin 4.8 (3.5-5.0) g/dL Urine Color Urine Appearance Urine pH (5.0-9.0) Ur Specific [place] (1.005-1.025) Urine Protein (Neg-Trace) mg/dL Urine Glucose (UA) (Negative) mg/dL Urine Ketones (Negative) mg/dL Urine Blood (Negative) Urine Nitrite (Negative) Ur Leukocyte Esterase (Negative) Salicylates < 5.0 L (15-30) mg/dL Urine Opiates Screen (Not Detect) Urine Fentanyl Screen (Not Detect) Acetaminophen < 17 (<30) mcg/mL Ur Barbiturates Screen (Not Detect) Ur Phencyclidine Scrn (Not Detect) Ur Amphetamines Screen (Not Detect) U Benzodiazepines Scrn (Not Detect) Urine Cocaine Screen (Not Detect) U Marijuana (THC) Screen (Not Detect) Ethyl Alcohol < 10 mg/dL COVID-19 ([facility]) (Negative) COVID-19 Clin Com 11/26/22 11/26/22 11/26/22 Range/Units 00:04 00:04 12:17 WBC (4.8-10.8) X10*3/uL RBC (4.60-5.80) X10*6/uL Hgb (14.0-18.0) g/dl Hct (42.0-52.0) % MCV (80.0-98.0) fL MCH (27.0-33.0) pg MCHC (31.0-36.0) g/dl RDW (11.0-16.0) % Plt Count (160-400) X10*3/uL MPV (9.4-12.4) fL Immature Gran % (Auto) (0.0-0.4) % Neut % (Auto) (45-73) % Lymph % (Auto) (20-40) % [place] % (Auto) (2-11) % Eos % (Auto) (0-4) % Baso % (Auto) (0-2) % Lymph # (Auto) (1.2-4.9) X10*3/uL [place] # (Auto) (0.1-1.2) X10*3/uL Eos # (Auto) (0.0-0.4) X10*3/uL Baso # (Auto) (0.0-0.2) X10*3/uL Abs Immat Gran (auto) (0.00-0.03) X10*3/uL Absolute Neuts (auto) (2.0-8.3) x10*3/uL Absolute Nucleated RBC (0.0-0.012) X10*3/uL Nucleated RBC % (auto) (0.0-0.2) /100WBC Sodium (135-145) mmol/L Potassium (3.3-5.1) mmol/L Chloride (96-108) mmol/L Carbon Dioxide (22-29) mmol/L Anion Gap (12-20) BUN (9-16) mg/dL Creatinine (0.5-1.4) mg/dL Estim Creat Clear Calc Estimated GFR Random Glucose (60-115) mg/dL Calcium (8.4-10.2) mg/dL Magnesium (1.6-2.6) mg/dL Total Bilirubin (0.0-1.0) mg/dL Direct Bilirubin (0.0-0.5) mg/dL AST (5-37) U/L ALT (0-40) U/L Alkaline Phosphatase (39-117) U/L Total Protein (6.5-8.0) g/dL Albumin (3.5-5.0) g/dL Urine Color Yellow Urine Appearance Clear Urine pH 5.5 (5.0-9.0) Ur Specific [place] >= 1.030 H (1.005-1.025) Urine Protein Trace (Neg-Trace) mg/dL Urine Glucose (UA) Negative (Negative) mg/dL Urine Ketones Trace (Negative) mg/dL Urine Blood Negative (Negative) Urine Nitrite Negative (Negative) Ur Leukocyte Esterase Negative (Negative) Salicylates (15-30) mg/dL Urine Opiates Screen Not Detected (Not Detect) Urine Fentanyl Screen POSITIVE H (Not Detect) Acetaminophen (<30) mcg/mL Ur Barbiturates Screen Not Detected (Not Detect) Ur Phencyclidine Scrn POSITIVE H (Not Detect) Ur Amphetamines Screen Not Detected (Not Detect) U Benzodiazepines Scrn Not Detected (Not Detect) Urine Cocaine Screen POSITIVE H (Not Detect) U Marijuana (THC) Screen POSITIVE H (Not Detect) Ethyl Alcohol mg/dL COVID-19 ([facility]) Negative (Negative) COVID-19 Clin Com See Note Independent Interpretation I performed an independent interpretation of an: EKG (sinus [address] or twave changes) Independent Historian Clinical information obtained from an independent historian. History obtained from or confirmed by: EMS Chronic Conditions Patient?s care impacted by: Other (schizophrenia) Discharge Plan Discharge Clinical Impression: Paranoid schizophrenia, Acute paranoia Patient Disposition: Admitted As Inpatient Interventions: Bartholomew-Suicide Risk Severity Scale Last Done: 11/26/22 13:31
[2022-11-25 20:54] VITALS: BP 133/86; PULSE 103; RESP 17; TEMP 36.6; O2SAT 96; BMI 33.2
--- NOTE | 2022-11-25 20:57 | ECG_ITS ---
Test Reason : CHEST PAIN Blood Pressure : / mmHG Vent. Rate : 090 BPM Atrial Rate : 090 BPM P-R Int : 140 ms QRS Dur : 082 ms QT Int : 376 ms P-R-T Axes : 080 019 057 degrees QTc Int : 459 ms Normal sinus rhythm Normal ECG When compared with ECG of 19-AUG-2019 12:15, Vent. rate has increased BY 30 BPM Referred By: Gail Santos Electronically Signed By:MARCELA APNDA MD
[2022-11-25 21:42] LABS: MANUAL DIFF FLAG NO
[2022-11-25 21:53] LABS: Basophils Absolute Auto 0.1 X10*3/uL (0.0-0.2); Basophils Percent Auto 0.5 % (0-2); Eosinophils Absolute Auto 0.1 X10*3/uL (0.0-0.4); Eosinophils Percent Auto 0.8 % (0-4); Hematocrit 40.2 % (42.0-52.0); Hemoglobin 13.3 g/dl (14.0-18.0); Imm Gran Abs Auto 0.03 X10*3/uL (0.00-0.03); Imm Gran Pct Auto 0.3 % (0.0-0.4); Lymphocytes Absolute Auto 2.3 X10*3/uL (1.2-4.9); Lymphocytes Percent Auto 22.6 % (20-40); Mean Corpuscular HGB Conc 33.1 g/dl (31.0-36.0); Mean Corpuscular Hemoglobin 27.5 pg (27.0-33.0); Mean Corpuscular Volume 83.1 fL (80.0-98.0); Monocytes Absolute Auto 0.8 X10*3/uL (0.1-1.2); Monocytes Percent Auto 8.1 % (2-11); Neutrophils Absolute Auto 6.9 x10*3/uL (2.0-8.3); Neutrophils Percent Auto 67.7 % (45-73); Platelet Count 309 X10*3/uL (160-400); Red Blood Count 4.84 X10*6/uL (4.60-5.80); Red Cell Distribution Width 14.3 % (11.0-16.0); White Blood Count 10.1 X10*3/uL (4.8-10.8)
[2022-11-25 21:59] LABS: Acetaminophen LAB < 17 mcg/mL (<30); Salicylate < 5.0 mg/dL (15-30)
[2022-11-25 22:04] LABS: Alanine Aminotransferase 17 U/L (0-40); Albumin Level 4.8 g/dL (3.5-5.0); Alkaline Phosphatase 71 U/L (39-117); Anion Gap 13 (12-20); Aspartate Amino Transferase 21 U/L (5-37); Bilirubin Direct 0.2 mg/dL (0.0-0.5); Bilirubin Total 0.3 mg/dL (0.0-1.0); Blood Urea Nitrogen 14 mg/dL (9-16); Calcium 10.1 mg/dL (8.4-10.2); Carbon Dioxide 21 mmol/L (22-29); Chloride 106 mmol/L (96-108); Creatinine Clr Calc Pharmacy 98.9; Estimated Glomerular Filt Rate > 60; Ethanol < 10 mg/dL; Glucose Random 110 mg/dL (60-115); Potassium 3.4 mmol/L (3.3-5.1); Sodium 137 mmol/L (135-145); Total Protein 8.4 g/dL (6.5-8.0)
[2022-11-26 00:23] LABS: Amphetamine Screen Urine Not Detected (Not Detect); Barbiturates, Urine Not Detected (Not Detect); Benzodiazepines Screen Urine Not Detected (Not Detect); Cannabinoid Screen Urine POSITIVE (Not Detect); Cocaine Screen Urine POSITIVE (Not Detect); Fentanyl, urine POSITIVE (Not Detect); Opiate Screen Urine Not Detected (Not Detect); Phencyclidine Screen Urine POSITIVE (Not Detect)
[2022-11-26 02:14] VITALS: BP 114/68; PULSE 60; RESP 18; TEMP 36.6; O2SAT 98
--- NOTE | 2022-11-26 04:01 | PC.NURSE ---
pt rang call noble. pt reports hearing voices, states voices are telling him someone is trying to kill me . this rn made dr chapa aware of pt statement as well as charge manager. pt moved to pod
[2022-11-26 04:23] LABS: Appearance Urine Clear; Color Urine Yellow; Glucose Urine UA Negative (Negative); Leukocyte Esterase Urine Negative (Negative); Nitrite Urine Negative (Negative); PH 5.5 (5.0-9.0); Specific Gravity - Urine >= 1.030 (1.005-1.025); Urine Blood Negative (Negative); Urine Ketones Trace mg/dL (Negative); Urine Protein Trace mg/dL (Neg-Trace)
--- NOTE | 2022-11-26 05:36 | PC.NURSE ---
Patient just got transferred from main ED, independent ambulation, appetite good, med rec completed/pending provider's approval, patient reported he was compliant with his medication, labs completed/resulted, care consult ordered for /pending evaluation, VSS, will continue to monitor.
--- NOTE | 2022-11-26 07:40 | PC.NURSE ---
Resumed care of patient, he is currently resting, but he has been up walking the unit and eating breakfast, all needs met at this time, Safety measures in place, awaiting care team ritesh
[2022-11-26 07:48] VITALS: BP 123/71; PULSE 62; RESP 16; TEMP 37.1; O2SAT 98
[2022-11-26] MEDS: Sertraline HCL 100 MG TABLET PO (08:15)
[2022-11-26] MEDS: Fenofibrate 160 MG TABLET PO (09:42)
[2022-11-26 12:53] LABS: IDNOW Serial# BCCEAD1C
[2022-11-26 12:54] LABS: COVID-19 Test Negative (Negative)
[2022-11-26 14:58] VITALS: BP 112/68; PULSE 53; RESP 16; TEMP 36.2; O2SAT 99
[2022-11-26] MEDS: HaloperidoL 5 MG TABLET 10 MG PO (21:40)
[2022-11-26] MEDS: Benztropine Mesylate 1 MG TABLET 2 MG PO (21:40)
[2022-11-26] MEDS: hydrOXYzine HCL 25 MG TABLET PO (21:40)
--- NOTE | 2022-11-26 23:40 | PC.ADMIT ---
Patient is a 37 year old male, admitted from [facility] on at 2115 on a CV due to increasing paranoia and delusions.Patient reports auditory and visual hallucinations, stating ?people are after me, they?re casting spells.? Patient believes that the marijuana that he recently smoked was laced. No other substance use. Patient reports social drinking, last drink having been on November 15, 2022. Toxicology came back positive for? Patient has been admitted to in 2014, 2016 and 2019. Patient has documented history of schizophrenia. Upon arrival to the unit, patient has neat appearance, alert and oriented x 3, pleasant upon approach, appears anxious. Denies SI/HI, reports AH/VH, seeing shadows and animals, and hearing whispers around him. Cooperative throughout admission process. Medication compliant.
[2022-11-27 06:00] VITALS: BP 119/62; PULSE 92; RESP 16; TEMP 36.4; O2SAT 96
[2022-11-27 07:24] LABS: Alanine Aminotransferase 16 U/L (0-40); Albumin Level 4.4 g/dL (3.5-5.0); Alkaline Phosphatase 71 U/L (39-117); Anion Gap 14 (12-20); Aspartate Amino Transferase 18 U/L (5-37); Bilirubin Total 0.4 mg/dL (0.0-1.0); Blood Urea Nitrogen 12 mg/dL (9-16); Calcium 9.8 mg/dL (8.4-10.2); Carbon Dioxide 23 mmol/L (22-29); Chloride 108 mmol/L (96-108); Cholesterol 147 mg/dL; Creatinine Clr Calc Pharmacy 104.2; Estimated Glomerular Filt Rate > 60; Glucose Fasting 85 mg/dL (60-99); HDL Cholesterol 34 mg/dL; LDL Cholesterol Calculated 89 mg/dl; Sodium 141 mmol/L (135-145); Total Protein 7.8 g/dL (6.5-8.0); Triglycerides 122 mg/dL
[2022-11-27] MEDS: Sertraline HCL 100 MG TABLET PO (08:43)
[2022-11-27] MEDS: Fenofibrate 160 MG TABLET PO (08:43)
--- NOTE | 2022-11-27 10:07 | HO.PSYADMNOT ---
HPI Date of Service: 11/27/22 Chief Complaint: Paranoia Sources of Information: patient interviewed, chart reviewed and crisis/core team assessment reviewed HPI Subjective Notes: [place] Warning and Conditional Voluntary Narrative: Patient is a 37-year-old male with history of schizophrenia, anemia, typically stable on Haldol Decanoate who presents for acute increase in paranoid delusions and auditory hallucinations in the face of having smoked a blunt that was laced. Patient reports that over the past months he has been overall fine, his regular self. He says that typically auditory hallucinations are almost absent and that he is up-to-date on his Haldol Decanoate. Patient says that this past Monday after smoking cannabis, with what he believes was laced with fentanyl (and apparently PCP which was on his UDS) he suddenly started having paranoid delusions that someone was cast is spell on him, that he was being followed and started hearing voices about casting spells. He said his body got tight and he felt as if he was going to , thus coming to the emergency room. Patient says that he is feeling more calm now and auditory hallucinations are starting to subside back to low levels. He denies any SI and denies any history of attempts. Patient denies any other substance abuse other than cannabis; he denies any manic type episodes or behaviors. He reports he has a history of depression and anxiety but both of these are fairly well controlled; he reports history of trauma but denies PTSD symptoms. Patient said he got his last Haldol deck on 11/11. He is not sure if he also takes p.o. Haldol. Past Psychiatric History: Past psychiatric admissions, several at [facility], last [address] Rico Medical Evaluation Reviewed: Yes [facility] Medical History (Updated 11/28/22 @ 11:39 by Magno Velazquez MD) Asthma Cannabis use disorder Hypertriglyceridemia Obesity (BMI 30-39.9) Paranoid schizophrenia Schizoaffective disorder, depressive type Smoker Vitamin D deficiency Surgical History No pertinent past surgical history Family History: Sister: Bipolar Social History: Has children, 8 and 10 years old; not sure of involvement Patient has a good relationship with his mother who lives locally; good relationship with his father who lives in [place] Patient lives alone in his own apartment; collects SSDI Substance History: Cannabis Trauma History: Endorses history of trauma but does not disclose Diagnostics Vital Signs (24Hr): Vital Signs - 24 hr 11/26/22 14:58 11/27/22 06:00 Temperature 97.2 F 97.6 F Pulse Rate 53 92 Respiratory Rate 16 16 Blood Pressure 112/68 119/62 Pulse Oximetry 99 96 Oxygen Delivery Method Room Air Room Air BMI result Body Mass Index 33.2 Labs 11/25/22 21:22 11/27/22 06:44 Labs: Laboratory Results - last 48 hr 11/25/22 11/25/22 11/25/22 21:22 21:22 21:22 WBC 10.1 RBC 4.84 Hgb 13.3 L Hct 40.2 L MCV 83.1 MCH 27.5 MCHC 33.1 RDW 14.3 Plt Count 309 MPV 10.0 Immature Gran % (Auto) 0.3 Neut % (Auto) 67.7 Lymph % (Auto) 22.6 [place] % (Auto) 8.1 Eos % (Auto) 0.8 Baso % (Auto) 0.5 Lymph # (Auto) 2.3 [place] # (Auto) 0.8 Eos # (Auto) 0.1 Baso # (Auto) 0.1 Abs Immat Gran (auto) 0.03 Absolute Neuts (auto) 6.9 Absolute Nucleated RBC 0.000 Nucleated RBC % (auto) 0.0 Sodium 137 Potassium 3.4 Chloride 106 Carbon Dioxide 21 L Anion Gap 13 BUN 14 Creatinine 1.18 Estim Creat Clear Calc 98.9 Estimated GFR > 60 Random Glucose 110 Fasting Glucose Calcium 10.1 D Magnesium 2.0 Total Bilirubin 0.3 Direct Bilirubin 0.2 AST 21 ALT 17 Alkaline Phosphatase 71 Total Protein 8.4 H Albumin 4.8 Triglycerides Cholesterol LDL Cholesterol, Calc HDL Cholesterol Urine Color Urine Appearance Urine pH Ur Specific [place] Urine Protein Urine Glucose (UA) Urine Ketones Urine Blood Urine Nitrite Ur Leukocyte Esterase Salicylates < 5.0 L Urine Opiates Screen Urine Fentanyl Screen Acetaminophen < 17 Ur Barbiturates Screen Ur Phencyclidine Scrn Ur Amphetamines Screen U Benzodiazepines Scrn Urine Cocaine Screen U Marijuana (THC) Screen Ethyl Alcohol < 10 COVID-19 ([facility]) COVID-19 Clin Com 11/26/22 11/26/22 11/26/22 00:04 00:04 12:17 WBC RBC Hgb Hct MCV MCH MCHC RDW Plt Count MPV Immature Gran % (Auto) Neut % (Auto) Lymph % (Auto) [place] % (Auto) Eos % (Auto) Baso % (Auto) Lymph # (Auto) [place] # (Auto) Eos # (Auto) Baso # (Auto) Abs Immat Gran (auto) Absolute Neuts (auto) Absolute Nucleated RBC Nucleated RBC % (auto) Sodium Potassium Chloride Carbon Dioxide Anion Gap BUN Creatinine Estim Creat Clear Calc Estimated GFR Random Glucose Fasting Glucose Calcium Magnesium Total Bilirubin Direct Bilirubin AST ALT Alkaline Phosphatase Total Protein Albumin Triglycerides Cholesterol LDL Cholesterol, Calc HDL Cholesterol Urine Color Yellow Urine Appearance Clear Urine pH 5.5 Ur Specific [place] >= 1.030 H Urine Protein Trace Urine Glucose (UA) Negative Urine Ketones Trace Urine Blood Negative Urine Nitrite Negative Ur Leukocyte Esterase Negative Salicylates Urine Opiates Screen Not Detected Urine Fentanyl Screen POSITIVE H Acetaminophen Ur Barbiturates Screen Not Detected Ur Phencyclidine Scrn POSITIVE H Ur Amphetamines Screen Not Detected U Benzodiazepines Scrn Not Detected Urine Cocaine Screen POSITIVE H U Marijuana (THC) Screen POSITIVE H Ethyl Alcohol COVID-19 ([facility]) Negative COVID-19 Clin Com See Note 11/27/22 06:44 WBC RBC Hgb Hct MCV MCH MCHC RDW Plt Count MPV Immature Gran % (Auto) Neut % (Auto) Lymph % (Auto) [place] % (Auto) Eos % (Auto) Baso % (Auto) Lymph # (Auto) [place] # (Auto) Eos # (Auto) Baso # (Auto) Abs Immat Gran (auto) Absolute Neuts (auto) Absolute Nucleated RBC Nucleated RBC % (auto) Sodium 141 Potassium 4.0 Chloride 108 Carbon Dioxide 23 Anion Gap 14 BUN 12 Creatinine 1.12 Estim Creat Clear Calc 104.2 Estimated GFR > 60 Random Glucose Fasting Glucose 85 Calcium 9.8 Magnesium Total Bilirubin 0.4 Direct Bilirubin AST 18 ALT 16 Alkaline Phosphatase 71 Total Protein 7.8 Albumin 4.4 Triglycerides 122 Cholesterol 147 LDL Cholesterol, Calc 89 HDL Cholesterol 34 Urine Color Urine Appearance Urine pH Ur Specific [place] Urine Protein Urine Glucose (UA) Urine Ketones Urine Blood Urine Nitrite Ur Leukocyte Esterase Salicylates Urine Opiates Screen Urine Fentanyl Screen Acetaminophen Ur Barbiturates Screen Ur Phencyclidine Scrn Ur Amphetamines Screen U Benzodiazepines Scrn Urine Cocaine Screen U Marijuana (THC) Screen Ethyl Alcohol COVID-19 ([facility]) COVID-19 Clin Com Meds/Allergies Meds Home Medications Medication Instructions Recorded Confirmed Type benztropine 2 mg tablet 2 mg PO BEDTIME 11/26/22 11/26/22 History fenofibrate 160 mg tablet 160 mg PO DAILY 11/26/22 11/26/22 History haloperidol 10 mg tablet 10 mg PO BEDTIME 11/26/22 11/26/22 History haloperidol decanoate 100 mg/mL 100 mg IM Q4W 11/26/22 11/26/22 History intramuscular solution sertraline 100 mg tablet 100 mg PO DAILY 11/26/22 11/26/22 History Allergies Allergies Allergy/AdvReac Type Severity Reaction Status Date / Time paprika Allergy Severe DIFFICULTY Verified 11/25/22 20:54 BREATHING shrimp Allergy Severe ANAPHYLAXIS Verified 11/25/22 20:54 cranberry [CRANBERRY] Allergy Mild SWELLING Verified 11/25/22 20:54 OF HIS EAR strawberry [STRAWBERRY] Allergy Mild SWELLING Verified 11/25/22 20:54 OF HIS EAR cat dander [CATS] Allergy Unknown WATERY,ITCHY Verified 11/25/22 20:54 EYES clams [CLAMS] Allergy Unknown UNK Verified 11/25/22 20:54 MARINARA Allergy Severe ANAPHYLAXIS Uncoded 11/25/22 20:54 ibuprofes Allergy Unknown renal Uncoded 11/25/22 20:54 insufficiency paprika, seafood, Allergy Unknown unknown Uncoded 11/25/22 20:54 strawberries SEAFOOD Allergy Unknown UNKNOWN Uncoded 11/25/22 20:54 Mental Status Exam Mental Status Exam Narrative: Pt is alert and oriented; behavior is cooperative calm; patient is not in distress; dressed in hospital attire with full, unkempt villar, marginal hygiene; mood is described as okay and affect blunted; eye contact staring but not intensely; Speech is with some latency; otherwise a little soft but normal rate and prosody; some psychomotor retardation present; thought process with thought blocking but otherwise goal directed; Thought content is on tx, understanding context of increased psychotic symptoms; otherwise pertinent to relevant topics and dissipating delusional paranoid ideations; denies any SI/HI. Intermittent AH. Patients insight and judgment appear impaired but improving. Assessment & Plan Assessment & Plan (1) Schizoaffective disorder, depressive type: Status: Acute Code(s): F25.1 - Schizoaffective disorder, depressive type (2) Cannabis use disorder: Status: Acute Code(s): F12.90 - Cannabis use, unspecified, uncomplicated Plan Patient is a 37-year-old male with history of schizophrenia, anemia, typically stable on Haldol Decanoate who presents for acute increase in paranoid delusions and auditory hallucinations in the face of having smoked a blunt that was laced. -patient reports that he is normally stable on Haldol Decanoate which she is up-to-date on; reports sudden increased severe psychotic symptoms due to laced cannabis. Reports he started to feel back to his regular self. Will diagnosed with schizoaffective disorder since he reports history of depression in addition to chronic psychotic symptoms -no SI, no HI; AH resolving; paranoid delusions resolving. Has outpatient providers set up has his own apartment. Supportive mother -will gather collateral and monitor Plan: CV Q 15 minute checks Continue Haldol deck Q monthly; next dose due at end of November Continue Haldol 10 mg q.h.s.; recent script for this Continue Zoloft 100 mg daily Continue benztropine 2 mg q.h.s. Will gather collateral Patient educated on: diagnosis and medication risk/benefits Informed Consent: understands Reason for continued inpatient stay Substantial Risk for: rapid decompensation Statement Statement: I have reviewed the history and physical and performed a pertinent examination on my patient. No changes have occurred unless specified. If the History and Physical was not performed prior to admission, the Hospitalist's service will be consulted for completing the admission physical. Time Spent With Patient Time: Total time managing care of this patient today ____ minutes.
[2022-11-27] MEDS: Benztropine Mesylate 1 MG TABLET 2 MG PO (21:10)
[2022-11-27] MEDS: HaloperidoL 5 MG TABLET 10 MG PO (21:10)
[2022-11-27 22:08] VITALS: BP 135/72; PULSE 65; RESP 16; TEMP 36.1; O2SAT 97
[2022-11-27] MEDS: traZODone HCL 50 MG TABLET PO (23:02)
[2022-11-28 08:00] VITALS: BP 118/74; PULSE 60; RESP 16; TEMP 36.4; O2SAT 98
[2022-11-28] MEDS: Sertraline HCL 100 MG TABLET PO (08:48)
[2022-11-28] MEDS: Fenofibrate 160 MG TABLET PO (08:48)
--- NOTE | 2022-11-28 10:19 | P.PNPSI_ITS ---
Subjective Subjective Date of Service: 11/28/22 Reason For Visit: Paranoia Interim History: met with patient; discussed with team No change in presentation; pt says AH resolved and doing better; put in 3 day notice. Says he's on [facility] order for Haldol. Discussed recent script for Haldol 10 mg q.h.s. which patient says he is not remembering but says if the prescriptions there he will continue to take it and discussed with outpatient provider Mental Status Exam Mental Status Exam Narrative: Pt is alert and oriented; behavior is cooperative, calm; patient is not in dist ress; dressed in hospital attire with full, unkempt villar, marginal hygiene; mood is described as okay and affect blunted; eye contact staring but not intensely; Speech is with some latency; otherwise a little soft but normal rate and prosody; some psychomotor retardation present; thought process with thought blocking but otherwise goal directed; Thought content is on tx; otherwise pertinent to relevant topics; no expressed delusional thinking; denies any SI/HI. Denies AH. Patients insight and judgment appear impaired but improving and likely at baseline. Diagnostics Vital Signs (24Hr): Vital Signs - 24 hr 11/27/22 22:08 11/28/22 08:00 Temperature 96.9 F 97.6 F Pulse Rate 65 60 Respiratory Rate 16 16 Blood Pressure 135/72 118/74 Pulse Oximetry 97 98 Oxygen Delivery Method Room Air Room Air BMI result Body Mass Index 33.2 Labs 11/25/22 21:22 11/27/22 06:44 Labs: Laboratory Results - last 48 hr 11/26/22 11/27/22 12:17 06:44 Sodium 141 Potassium 4.0 Chloride 108 Carbon Dioxide 23 Anion Gap 14 BUN 12 Creatinine 1.12 Estim Creat Clear Calc 104.2 Estimated GFR > 60 Fasting Glucose 85 Calcium 9.8 Total Bilirubin 0.4 AST 18 ALT 16 Alkaline Phosphatase 71 Total Protein 7.8 Albumin 4.4 Triglycerides 122 Cholesterol 147 LDL Cholesterol, Calc 89 HDL Cholesterol 34 COVID-19 ([facility]) Negative COVID-19 Clin Com See Note Medications Medications Current Medications Acetaminophen (Acetaminophen 325 Mg Tablet) 650 mg PO Q6H PRN PRN Reason: Headache/Pain Mild Scale (1-3) Al Hydroxide/Mg Hydroxide (Magnesium Hydrox/Alum Hydrox 30 Ml Oral.Susp) 30 ml PO Q6H PRN PRN Reason: Heartburn/Nausea Benztropine Mesylate (Benztropine Mesylate 1 Mg Tablet) 2 mg PO BEDTIME [facility] Last Admin: 11/27/22 21:10 Dose: 2 mg Fenofibrate (Fenofibrate 160 Mg Tablet) 160 mg PO DAILY [facility] Last Admin: 11/28/22 08:48 Dose: 160 mg Haloperidol (Haloperidol 5 Mg Tablet) 10 mg PO BEDTIME [facility] Last Admin: 11/27/22 21:10 Dose: 10 mg Haloperidol Decanoate (Haloperidol Decanoate 50 Mg/Ml Ampul) 100 mg IM Q28D [facility] Hydroxyzine HCl (Hydroxyzine Hcl 25 Mg Tablet) 25 mg PO Q6H PRN PRN Reason: Anxiety Last Admin: 11/26/22 21:40 Dose: 25 mg Magnesium Hydroxide (Milk Of Magnesia 30 Ml Oral.Susp) 30 ml PO DAILY PRN PRN Reason: Constipation Nicotine Polacrilex (Nicotine Polacrilex 2 Mg Gum) 2 mg BUCCAL Q2H PRN PRN Reason: Nicotine Cravings Sertraline HCl (Sertraline Hcl 100 Mg Tablet) 100 mg PO DAILY [facility] Last Admin: 11/28/22 08:48 Dose: 100 mg Trazodone HCl (Trazodone Hcl 50 Mg Tablet) 50 mg PO BEDTIME MRX1 PRN PRN Reason: Insomnia Last Admin: 11/27/22 23:02 Dose: 50 mg Allergies Allergies Allergy/AdvReac Type Severity Reaction Status Date / Time paprika Allergy Severe DIFFICULTY Verified 11/25/22 20:54 BREATHING shrimp Allergy Severe ANAPHYLAXIS Verified 11/25/22 20:54 cranberry [CRANBERRY] Allergy Mild SWELLING Verified 11/25/22 20:54 OF HIS EAR strawberry [STRAWBERRY] Allergy Mild SWELLING Verified 11/25/22 20:54 OF HIS EAR cat dander [CATS] Allergy Unknown WATERY,ITCHY Verified 11/25/22 20:54 EYES clams [CLAMS] Allergy Unknown UNK Verified 11/25/22 20:54 MARINARA Allergy Severe ANAPHYLAXIS Uncoded 11/25/22 20:54 ibuprofes Allergy Unknown renal Uncoded 11/25/22 20:54 insufficiency paprika, seafood, Allergy Unknown unknown Uncoded 11/25/22 20:54 strawberries SEAFOOD Allergy Unknown UNKNOWN Uncoded 07/14/23 20:54 Assessment & Plan Assessment & Plan (1) Schizoaffective disorder, depressive type: Status: Acute Code(s): F25.1 - Schizoaffective disorder, depressive type (2) Cannabis use disorder: Status: Acute Code(s): F12.90 - Cannabis use, unspecified, uncomplicated Plan Patient is a 37-year-old male with history of schizophrenia, anemia, typically stable on Haldol Decanoate who presents for acute increase in paranoid delusions and auditory hallucinations in the face of having smoked a blunt that was laced. -patient reports that he is normally stable on Haldol Decanoate which she is up-to-date on; reports sudden increased severe psychotic symptoms due to laced cannabis. Reports he started to feel back to his regular self. Will diagnosed with schizoaffective disorder since he reports history of depression in addition to chronic psychotic symptoms -no SI, no HI; AH resolving; paranoid delusions resolving. Has outpatient providers set up has his own apartment. Supportive mother -will gather collateral and monitor Hospital course: 11/28 patient reports AVH remains resolved; no paranoid concerns and no expressed delusional thinking. Remains reticent but patient says this is his regular self. He signed a 3 day notice. It is possible that patient is at baseline however he remains with thought blocking and speech latency so will continue treatment to make sure he remains stable. Plan: Three day notice Q 15 minute checks Continue Haldol deck Q monthly; next dose due at end of November Continue Haldol 10 mg q.h.s.; recent script for this Continue Zoloft 100 mg daily Continue benztropine 2 mg q.h.s. Patient educated on: diagnosis and medication risk/benefits Informed Consent: understands Reason for continued inpatient stay Substantial Risk for: rapid decompensation and med/psych decompensation Time Spent With Patient Time: Total time managing care of this patient today ____ minutes.
--- NOTE | 2022-11-28 13:28 | PC.NURSE ---
pt signed a 3day notice 11/28/22, up on 12/01/22. MIKY, BELEM, and aware
[2022-11-28] MEDS: hydrOXYzine HCL 25 MG TABLET PO (14:24)
[2022-11-28 16:16] VITALS: BP 131/79; PULSE 59; RESP 18; TEMP 36.4; O2SAT 98
[2022-11-28] MEDS: Benztropine Mesylate 1 MG TABLET 2 MG PO (21:23)
[2022-11-28] MEDS: HaloperidoL 5 MG TABLET 10 MG PO (21:24)
[2022-11-28] MEDS: traZODone HCL 50 MG TABLET PO (23:06)
[2022-11-29 06:00] VITALS: BP 117/73; PULSE 59; RESP 16; TEMP 36.1; O2SAT 97
[2022-11-29] MEDS: Fenofibrate 160 MG TABLET PO (08:36)
[2022-11-29] MEDS: Sertraline HCL 100 MG TABLET PO (08:36)
--- NOTE | 2022-11-29 10:23 | HO.PSYCHPN ---
Subjective Subjective Date of Service: 11/29/22 Reason For Visit: Paranoia Interim History: Met with patient; discussed with team Patient reports that he is doing fine. Denies AH, says he is at his regular self. Intermittently said in the milieu with peers though not much interaction. No complaints and no requests Mental Status Exam Mental Status Exam Narrative: Pt is alert and oriented; behavior is calm, cooperative though difficult with which to engage; patient is not in distress; dressed in hospital attire with full, unkempt villar, marginal hygiene; mood is described as okay and affect blunted; eye contact staring but not intensely; Speech is with some latency; otherwise a little soft but normal rate and prosody; some psychomotor retardation present; thought process with thought blocking but otherwise goal directed; Thought content is on tx; otherwise pertinent to relevant topics; no expressed delusional thinking; denies any SI/HI. Denies AH. Patients insight and judgment appear impaired but improving and likely at baseline. Diagnostics Vital Signs (24Hr): Vital Signs - 24 hr 11/28/22 16:16 11/29/22 06:00 Temperature 97.6 F 96.9 F Pulse Rate 59 59 Respiratory Rate 18 16 Blood Pressure 131/79 117/73 Pulse Oximetry 98 97 Oxygen Delivery Method Room Air Room Air BMI result Body Mass Index 33.2 Labs 11/25/22 21:22 11/27/22 06:44 Medications Medications Current Medications Acetaminophen (Acetaminophen 325 Mg Tablet) 650 mg PO Q6H PRN PRN Reason: Headache/Pain Mild Scale (1-3) Al Hydroxide/Mg Hydroxide (Magnesium Hydrox/Alum Hydrox 30 Ml Oral.Susp) 30 ml PO Q6H PRN PRN Reason: Heartburn/Nausea Benztropine Mesylate (Benztropine Mesylate 1 Mg Tablet) 2 mg PO BEDTIME [facility] Last Admin: 11/28/22 21:23 Dose: 2 mg Fenofibrate (Fenofibrate 160 Mg Tablet) 160 mg PO DAILY [facility] Last Admin: 11/29/22 08:36 Dose: 160 mg Haloperidol (Haloperidol 5 Mg Tablet) 10 mg PO BEDTIME [facility] Last Admin: 11/28/22 21:24 Dose: 10 mg Haloperidol Decanoate (Haloperidol Decanoate 50 Mg/Ml Ampul) 100 mg IM Q28D [facility] Hydroxyzine HCl (Hydroxyzine Hcl 25 Mg Tablet) 25 mg PO Q6H PRN PRN Reason: Anxiety Last Admin: 11/28/22 14:24 Dose: 25 mg Magnesium Hydroxide (Milk Of Magnesia 30 Ml Oral.Susp) 30 ml PO DAILY PRN PRN Reason: Constipation Nicotine Polacrilex (Nicotine Polacrilex 2 Mg Gum) 2 mg BUCCAL Q2H PRN PRN Reason: Nicotine Cravings Sertraline HCl (Sertraline Hcl 100 Mg Tablet) 100 mg PO DAILY [facility] Last Admin: 11/29/22 08:36 Dose: 100 mg Trazodone HCl (Trazodone Hcl 50 Mg Tablet) 50 mg PO BEDTIME MRX1 PRN PRN Reason: Insomnia Last Admin: 11/28/22 23:06 Dose: 50 mg Allergies Allergies Allergy/AdvReac Type Severity Reaction Status Date / Time paprika Allergy Severe DIFFICULTY Verified 11/25/22 20:54 BREATHING shrimp Allergy Severe ANAPHYLAXIS Verified 11/25/22 20:54 cranberry [CRANBERRY] Allergy Mild SWELLING Verified 11/25/22 20:54 OF HIS EAR strawberry [STRAWBERRY] Allergy Mild SWELLING Verified 11/25/22 20:54 OF HIS EAR cat dander [CATS] Allergy Unknown WATERY,ITCHY Verified 11/25/22 20:54 EYES clams [CLAMS] Allergy Unknown UNK Verified 11/25/22 20:54 MARINARA Allergy Severe ANAPHYLAXIS Uncoded 11/25/22 20:54 ibuprofes Allergy Unknown renal Uncoded 11/25/22 20:54 insufficiency paprika, seafood, Allergy Unknown unknown Uncoded 11/25/22 20:54 strawberries SEAFOOD Allergy Unknown UNKNOWN Uncoded 11/25/22 20:54 Assessment & Plan Assessment & Plan (1) Schizoaffective disorder, depressive type: Status: Acute Code(s): F25.1 - Schizoaffective disorder, depressive type (2) Cannabis use disorder: Status: Acute Code(s): F12.90 - Cannabis use, unspecified, uncomplicated Plan Patient is a 37-year-old male with history of schizophrenia, anemia, typically stable on Haldol Decanoate who presents for acute increase in paranoid delusions and auditory hallucinations in the face of having smoked a blunt that was laced. -patient reports that he is normally stable on Haldol Decanoate which she is up-to-date on; reports sudden increased severe psychotic symptoms due to laced cannabis. Reports he started to feel back to his regular self. Will diagnosed with schizoaffective disorder since he reports history of depression in addition to chronic psychotic symptoms -no SI, no HI; AH resolving; paranoid delusions resolving. Has outpatient providers set up has his own apartment. Supportive mother -will gather collateral and monitor Hospital course: 11/28 patient reports AVH remains resolved; no paranoid concerns and no expressed delusional thinking. Remains reticent but patient says this is his regular self. He signed a 3 day notice. It is possible that patient is at baseline however he remains with thought blocking and speech latency so will continue treatment to make sure he remains stable. 11/29 no change in presentation; continue current treatment plan Plan: CV Q 15 minute checks Continue Haldol deck Q monthly; next dose due at end of November Continue Haldol 10 mg q.h.s.; recent script for this Continue Zoloft 100 mg daily Continue benztropine 2 mg q.h.s. Will gather collateral Patient educated on: diagnosis Informed Consent: understands Reason for continued inpatient stay Substantial Risk for: stable for discharge Time Spent With Patient Time: Total time managing care of this patient today ____ minutes.
[2022-11-29] MEDS: hydrOXYzine HCL 25 MG TABLET PO (16:07)
[2022-11-29 17:02] VITALS: BP 121/72; PULSE 71; RESP 16; TEMP 36.2; O2SAT 97
[2022-11-29] MEDS: Benztropine Mesylate 1 MG TABLET 2 MG PO (20:01)
[2022-11-29] MEDS: HaloperidoL 5 MG TABLET 10 MG PO (20:01)
[2022-11-29] MEDS: traZODone HCL 50 MG TABLET PO (23:15)
[2022-11-30 09:18] VITALS: BP 118/74; PULSE 68; RESP 18; TEMP 36.4; O2SAT 98
[2022-11-30] MEDS: Sertraline HCL 100 MG TABLET PO (09:30)
[2022-11-30] MEDS: Fenofibrate 160 MG TABLET PO (09:30)
--- NOTE | 2022-11-30 13:04 | P.PNPSI_ITS ---
Subjective Subjective Date of Service: 11/30/22 Reason For Visit: Paranoia Interim History: Met with patient; discussed with team Patient lying in bed awake. Says he is fine and remains without AH and feeling ready to discharge tomorrow. Patient had reported depression to other staff. Combustion Engineer inquired and patient said he is always a little depressed. Combustion Engineer discussed medication management and offered to increase his Zoloft however patient declined and says he wants to leave his medications as they are. No other requests or complaints Mental Status Exam Mental Status Exam Narrative: Pt is alert and oriented; behavior is calm, cooperative though difficult with which to engage; patient is not in distress; dressed in hospital attire with full, unkempt villar, marginal hygiene; mood is described as okay and affect blunted; eye contact staring but not intensely; Speech is with some latency; otherwise a little soft but normal rate and prosody; some psychomotor ret ardation present; thought process with thought blocking but otherwise goal directed; Thought content is on tx; otherwise pertinent to relevant topics; no expressed delusional thinking; denies any SI/HI. Denies AH. Patients insight and judgment appear impaired but adequate and at baseline. Diagnostics Vital Signs (24Hr): Vital Signs - 24 hr 11/29/22 17:02 11/30/22 09:18 Temperature 97.1 F 97.6 F Pulse Rate 71 68 Respiratory Rate 16 18 Blood Pressure 121/72 118/74 Pulse Oximetry 97 98 Oxygen Delivery Method Room Air Room Air BMI result Body Mass Index 33.2 Labs 11/25/22 21:22 11/27/22 06:44 Medications Medications Current Medications Acetaminophen (Acetaminophen 325 Mg Tablet) 650 mg PO Q6H PRN PRN Reason: Headache/Pain Mild Scale (1-3) Al Hydroxide/Mg Hydroxide (Magnesium Hydrox/Alum Hydrox 30 Ml Oral.Susp) 30 ml PO Q6H PRN PRN Reason: Heartburn/Nausea Benztropine Mesylate (Benztropine Mesylate 1 Mg Tablet) 2 mg PO BEDTIME [facility] Last Admin: 11/29/22 20:01 Dose: 2 mg Fenofibrate (Fenofibrate 160 Mg Tablet) 160 mg PO DAILY [facility] Last Admin: 11/30/22 09:30 Dose: 160 mg Haloperidol (Haloperidol 5 Mg Tablet) 10 mg PO BEDTIME [facility] Last Admin: 11/29/22 20:01 Dose: 10 mg Haloperidol Decanoate (Haloperidol Decanoate 50 Mg/Ml Ampul) 100 mg IM Q28D [facility] Hydroxyzine HCl (Hydroxyzine Hcl 25 Mg Tablet) 25 mg PO Q6H PRN PRN Reason: Anxiety Last Admin: 11/29/22 16:07 Dose: 25 mg Magnesium Hydroxide (Milk Of Magnesia 30 Ml Oral.Susp) 30 ml PO DAILY PRN PRN Reason: Constipation Nicotine Polacrilex (Nicotine Polacrilex 2 Mg Gum) 2 mg BUCCAL Q2H PRN PRN Reason: Nicotine Cravings Sertraline HCl (Sertraline Hcl 100 Mg Tablet) 100 mg PO DAILY [facility] Last Admin: 11/30/22 09:30 Dose: 100 mg Trazodone HCl (Trazodone Hcl 50 Mg Tablet) 50 mg PO BEDTIME MRX1 PRN PRN Reason: Insomnia Last Admin: 11/29/22 23:15 Dose: 50 mg Allergies Allergies Allergy/AdvReac Type Severity Reaction Status Date / Time paprika Allergy Severe DIFFICULTY Verified 11/25/22 20:54 BREATHING shrimp Allergy Severe ANAPHYLAXIS Verified 11/25/22 20:54 cranberry [CRANBERRY] Allergy Mild SWELLING Verified 11/25/22 20:54 OF HIS EAR strawberry [STRAWBERRY] Allergy Mild SWELLING Verified 11/25/22 20:54 OF HIS EAR cat dander [CATS] Allergy Unknown WATERY,ITCHY Verified 11/25/22 20:54 EYES clams [CLAMS] Allergy Unknown UNK Verified 11/25/22 20:54 MARINARA Allergy Severe ANAPHYLAXIS Uncoded 11/25/22 20:54 ibuprofes Allergy Unknown renal Uncoded 11/25/22 20:54 insufficiency paprika, seafood, Allergy Unknown unknown Uncoded 11/25/22 20:54 strawberries SEAFOOD Allergy Unknown UNKNOWN Uncoded 11/25/22 20:54 Assessment & Plan Assessment & Plan (1) Schizoaffective disorder, depressive type: Status: Acute Code(s): F25.1 - Schizoaffective disorder, depressive type (2) Cannabis use disorder: Status: Acute Code(s): F12.90 - Cannabis use, unspecified, uncomplicated Plan Patient is a 37-year-old male with history of schizophrenia, anemia, typically stable on Haldol Decanoate who presents for acute increase in paranoid delusions and auditory hallucinations in the face of having smoked a blunt that was laced. -patient reports that he is normally stable on Haldol Decanoate which she is up-to-date on; reports sudden increased severe psychotic symptoms due to laced cannabis. Reports he started to feel back to his regular self. Will diagnosed with schizoaffective disorder since he reports history of depression in addition to chronic psychotic symptoms -no SI, no HI; AH resolving; paranoid delusions resolving. Has outpatient providers set up has his own apartment. Supportive mother -will gather collateral and monitor Hospital course: 11/28 patient reports AVH remains resolved; no paranoid concerns and no expressed delusional thinking. Remains reticent but patient says this is his regular self. He signed a 3 day notice. It is possible that patient is at baseline however he remains with thought blocking and speech latency so will continue treatment to make sure he remains stable. 11/29 no change in presentation; continue current treatment plan 11/30 patient remains in good behavioral and impulse control; very likely at [facility]. Does not want any medication management. Patient feels he has returned to his regular self; 3 day notice due tomorrow and he is not in imminent risk for harm to self or others. Has appointments in the community; will proceed with discharge planning -patient has [facility] Plan: Three day notice Q 15 minute checks may have [facility] order Continue Haldol deck Q monthly; next dose due at end of November Continue Haldol 10 mg q.h.s.; recent script for this Continue Zoloft 100 mg daily Continue benztropine 2 mg q.h.s. Patient educated on: diagnosis and medication risk/benefits Informed Consent: understands Reason for continued inpatient stay Substantial Risk for: stable for discharge Time Spent With Patient Time: Total time managing care of this patient today ____ minutes.
[2022-11-30 19:21] VITALS: BP 110/70; PULSE 68; TEMP 36.4
[2022-11-30] MEDS: Benztropine Mesylate 1 MG TABLET 2 MG PO (20:51)
[2022-11-30] MEDS: HaloperidoL 5 MG TABLET 10 MG PO (20:51)
[2022-11-30] MEDS: traZODone HCL 50 MG TABLET PO (23:07)
[2022-12-01 06:00] VITALS: BP 117/77; PULSE 86; RESP 18
[2022-12-01] MEDS: Fenofibrate 160 MG TABLET PO (08:29)
[2022-12-01] MEDS: Sertraline HCL 100 MG TABLET PO (08:29)
--- NOTE | 2022-12-01 10:34 | PM.PSYDC ---
DS: Providers Provider Date of Service: 12/01/22 Date of admission: 11/26/22 20:03 Date of discharge: 12/01/22 Primary care physician: Cresencio Monahan MD Attending physician on admission: Magno Velazquez Consults: 11/26/22 03:23 Consult to Crisis Stat Reason for consultation: paranoid schizophrenia hearing voices Has provider been notified: No Attending physician on discharge: Magno Velazquez DS: Diagnosis Discharge Diagnosis (1) Schizoaffective disorder, depressive type: Status: Acute (2) Cannabis use disorder: Status: Acute DS: Medications Discharge Medications Home Medications: Home Medications Medication Instructions Recorded Confirmed benztropine 2 mg tablet 2 mg PO BEDTIME 11/26/22 11/26/22 fenofibrate 160 mg tablet 160 mg PO DAILY 11/26/22 11/26/22 haloperidol 10 mg tablet 10 mg PO BEDTIME 11/26/22 11/26/22 haloperidol decanoate 100 mg/mL 100 mg IM Q4W 11/26/22 11/26/22 intramuscular solution sertraline 100 mg tablet 100 mg PO DAILY 11/26/22 11/26/22 Mental Status Exam Mental Status Exam Narrative: Pt is alert and oriented; behavior is calm, cooperative though difficult with which to engage; patient is not in distress; dressed in hospital attire with full, unkempt villar; mood is described as okay and affect blunted; eye contact stares but not intense; Speech is with some latency; otherwise a little soft but normal rate and prosody; some psychomotor retardation present; thought process with thought blocking but otherwise goal directed; Thought content is on tx; otherwise pertinent to relevant topics; no expressed delusional thinking; denies any SI/HI. Denies AH. Patients insight and judgment appear impaired but adequate and at baseline. Data Data Completed and Pending Completed studies during hospitalization [Text1]: 11/25/22 11/25/22 11/25/22 21:22 21:22 21:22 WBC 10.1 RBC 4.84 Hgb 13.3 L Hct 40.2 L MCV 83.1 MCH 27.5 MCHC 33.1 RDW 14.3 Plt Count 309 MPV 10.0 Immature Gran % (Auto) 0.3 Neut % (Auto) 67.7 Lymph % (Auto) 22.6 [place] % (Auto) 8.1 Eos % (Auto) 0.8 Baso % (Auto) 0.5 Lymph # (Auto) 2.3 [place] # (Auto) 0.8 Eos # (Auto) 0.1 Baso # (Auto) 0.1 Abs Immat Gran (auto) 0.03 Absolute Neuts (auto) 6.9 Absolute Nucleated RBC 0.000 Nucleated RBC % (auto) 0.0 Sodium 137 Potassium 3.4 Chloride 106 Carbon Dioxide 21 L Anion Gap 13 BUN 14 Creatinine 1.18 Estim Creat Clear Calc 98.9 Estimated GFR > 60 Random Glucose 110 Fasting Glucose Calcium 10.1 D Magnesium 2.0 Total Bilirubin 0.3 Direct Bilirubin 0.2 AST 21 ALT 17 Alkaline Phosphatase 71 Total Protein 8.4 H Albumin 4.8 Triglycerides Cholesterol LDL Cholesterol, Calc HDL Cholesterol Urine Color Urine Appearance Urine pH Ur Specific [place] Urine Protein Urine Glucose (UA) Urine Ketones Urine Blood Urine Nitrite Ur Leukocyte Esterase Salicylates < 5.0 L Urine Opiates Screen Urine Fentanyl Screen Acetaminophen < 17 Ur Barbiturates Screen Ur Phencyclidine Scrn Ur Amphetamines Screen U Benzodiazepines Scrn Urine Cocaine Screen U Marijuana (THC) Screen Ethyl Alcohol < 10 COVID-19 ([facility]) COVID-19 Clin Com 11/26/22 11/26/22 11/26/22 00:04 00:04 12:17 WBC RBC Hgb Hct MCV MCH MCHC RDW Plt Count MPV Immature Gran % (Auto) Neut % (Auto) Lymph % (Auto) [place] % (Auto) Eos % (Auto) Baso % (Auto) Lymph # (Auto) [place] # (Auto) Eos # (Auto) Baso # (Auto) Abs Immat Gran (auto) Absolute Neuts (auto) Absolute Nucleated RBC Nucleated RBC % (auto) Sodium Potassium Chloride Carbon Dioxide Anion Gap BUN Creatinine Estim Creat Clear Calc Estimated GFR Random Glucose Fasting Glucose Calcium Magnesium Total Bilirubin Direct Bilirubin AST ALT Alkaline Phosphatase Total Protein Albumin Triglycerides Cholesterol LDL Cholesterol, Calc HDL Cholesterol Urine Color Yellow Urine Appearance Clear Urine pH 5.5 Ur Specific [place] >= 1.030 H Urine Protein Trace Urine Glucose (UA) Negative Urine Ketones Trace Urine Blood Negative Urine Nitrite Negative Ur Leukocyte Esterase Negative Salicylates Urine Opiates Screen Not Detected Urine Fentanyl Screen POSITIVE H Acetaminophen Ur Barbiturates Screen Not Detected Ur Phencyclidine Scrn POSITIVE H Ur Amphetamines Screen Not Detected U Benzodiazepines Scrn Not Detected Urine Cocaine Screen POSITIVE H U Marijuana (THC) Screen POSITIVE H Ethyl Alcohol COVID-19 ([facility]) Negative COVID-19 Clin Com See Note 11/27/22 06:44 WBC RBC Hgb Hct MCV MCH MCHC RDW Plt Count MPV Immature Gran % (Auto) Neut % (Auto) Lymph % (Auto) [place] % (Auto) Eos % (Auto) Baso % (Auto) Lymph # (Auto) [place] # (Auto) Eos # (Auto) Baso # (Auto) Abs Immat Gran (auto) Absolute Neuts (auto) Absolute Nucleated RBC Nucleated RBC % (auto) Sodium 141 Potassium 4.0 Chloride 108 Carbon Dioxide 23 Anion Gap 14 BUN 12 Creatinine 1.12 Estim Creat Clear Calc 104.2 Estimated GFR > 60 Random Glucose Fasting Glucose 85 Calcium 9.8 Magnesium Total Bilirubin 0.4 Direct Bilirubin AST 18 ALT 16 Alkaline Phosphatase 71 Total Protein 7.8 Albumin 4.4 Triglycerides 122 Cholesterol 147 LDL Cholesterol, Calc 89 HDL Cholesterol 34 Urine Color Urine Appearance Urine pH Ur Specific [place] Urine Protein Urine Glucose (UA) Urine Ketones Urine Blood Urine Nitrite Ur Leukocyte Esterase Salicylates Urine Opiates Screen Urine Fentanyl Screen Acetaminophen Ur Barbiturates Screen Ur Phencyclidine Scrn Ur Amphetamines Screen U Benzodiazepines Scrn Urine Cocaine Screen U Marijuana (THC) Screen Ethyl Alcohol COVID-19 ([facility]) COVID-19 Clin Com DS: Summary Hospital Course Hospital Course: HPI: Patient is a 37-year-old male with history of schizophrenia, anemia, typically stable on Haldol Decanoate who presents for acute increase in paranoid delusions and auditory hallucinations in the face of having smoked a blunt that was laced. -patient reports that he is normally stable on Haldol Decanoate on which he is up-to-date; reports sudden increased severe psychotic symptoms due to laced cannabis.? Reports he is starting to feel back to his regular self.? Will diagnose with schizoaffective disorder since he reports history of depression in addition to chronic psychotic symptoms -no SI/HI; AH resolving; paranoid delusions resolving.? Has outpatient providers set up has his own apartment.? Supportive mother Hospital course: 11/28 patient reports AVH remains resolved; no paranoid concerns and no expressed delusional thinking.? Remains reticent but patient says this is his regular self.? He signed a 3 day notice.?He remains with thought blocking and speech latency though this is likely baseline. Throughout his time on the unit, he was in good behavioral and impulse control. He mostly kept to himself, sitting around peers but not really engaging with others. He maintained that he is back to his regular self and that AVH resolved. Pt did share he has depression, but he did not want any increase in Zoloft or further medication management. Pt's 3 day notice came due. Pt remained in good behavioral control, has outpatient support and VNA already in place. His mother is picking him up and returning home. Patient is not in imminent risk for harm to himself or others and request for discharge honored. Time spent discussing smoking cessation with patient: 3 to 10 minutes Status at Discharge Functional status at discharge: independent ambulation Overall status at discharge: patient is back to baseline Time Spent with Patient Time attestation: Total time managing care of this patient today ____ minutes. Time spent: Less than 30 minutes Discharge Plan Discharge Anticipated Discharge Date/Time: 12/01/22 11:30 Patient Disposition: Home, Self-Care Discharge Diagnosis: Schizoaffective disorder, depressed type Referrals: [facility] [Other] - 1 Week (fax- Visiting RN to restart at D/C ) [facility] Intake for Services Cyndi Padron [Other] - 12/05/22 8:00 am [facility] Psychiatry Cesar Rico [Other] - 12/23/22 9:00 am (Telehealth) Cresencio Monahan MD [Primary Care Provider] - 1 Week Discharge Medications: Continued haloperidol decanoate 100 mg/mL solution 100 mg IM Q4W sertraline 100 mg tablet 100 mg PO DAILY haloperidol 10 mg tablet 10 mg PO BEDTIME benztropine 2 mg tablet 2 mg PO BEDTIME fenofibrate 160 mg tablet 160 mg PO DAILY Discharge Orders: Discharge Order (Routine); Ordered 12/01/22 Ordered By: Magno Velazquez Diet: Regular diet Activity on Discharge: As tolerated Stand Alone Forms: Patient Portal Discharge page Care Plan Goals: Maintain mood and safe behaviors Take medications as prescribed Continue to pursue sobriety Practice coping skills Continue with outpatient providers and reach out to them as needed Health Concerns: Mood stability and behaviors Cannabis abuse Plan of Treatment: Follow up with your Psychiatric provider and other outpatient providers regarding above concerns Take medications as prescribed Assessment: Risk assessment at time of discharge:? Patient was interviewed prior to discharge and found to be fully oriented and without any SI or HI. Patient has insight and demonstrates good judgment in terms of wanting to pursue treatment. Patient is not in imminent risk of harm to self or others and has a safety plan that includes presenting to the closest ER or calling 911 if feeling unsafe.? Patient has been observed closely by nursing and unit staff throughout admission; patient has not engaged in any behaviors that suggest dangerousness to self or others and has demonstrated appropriate behaviors and impulse control
== END 2022-12-01 11:25 | disposition home or self-care (01) | DRG 885 ==
LOC: HO.ED 11-26 12:54 → HO.PM5 11-26 20:30
PROVIDERS: Physician Assistant; Student in an Organized Health Care Education/Training Program; Admitting Provider Psychiatry & Neurology Psychiatry; Emergency Provider Emergency Medicine; PCP Internal Medicine; Visit Provider Psychiatry & Neurology Psychiatry
DX: F25.1 Schizoaffective disorder, depressive type (principal); F12.10 Cannabis abuse, uncomplicated; Z79.899 Other long term (current) drug therapy
CPT/HCPCS: 36415; 80048; 80053; 80061; 80076; 80143; 80179; 80307; 81003; 83735; 85025; 87635; 93005; 99285; S9485

== ENCOUNTER → 2022-11-25 20:57 | Outpatient (BNV) | payer OTHER, SELFPAY | PROVIDERS: Emergency Provider Emergency Medicine; PCP Internal Medicine; Visit Provider Internal Medicine Cardiovascular Disease | DX: R07.9 Chest pain, unspecified (principal) | CPT/HCPCS: 93010 ==

== ENCOUNTER → 2022-11-26 20:03 | Outpatient (BNV) | payer OTHER, SELFPAY | PROVIDERS: Admitting Provider Psychiatry & Neurology Psychiatry; Emergency Provider Emergency Medicine; PCP Internal Medicine; Visit Provider Psychiatry & Neurology Psychiatry | DX: F25.1 Schizoaffective disorder, depressive type (principal); F12.90 Cannabis use, unspecified, uncomplicated | CPT/HCPCS: 90792; 99232; 99238 ==

== ENCOUNTER 2022-12-21 10:27 | Outpatient (AMB) | payer OTHER, SELFPAY ==
[2022-12-21 10:30] VITALS: BP 120/82; PULSE 72; O2SAT 99; BMI 32.5
--- NOTE | 2022-12-21 10:30 | MHC.PC.OV ---
Vital Signs 12/21/22 10:30 Height 5 ft 9 in Weight 99.79 kg BMI 32.5 BP 120/82 Blood Pressure Location Lt brachial Position Sitting Pulse 72 Pulse Source Pulse Oximeter Temp Source Skin Pulse Oximetry (%) 99 Oxygen Delivery Method Room Air Intake Visit Reasons: discharge follow up Intake Note: Patient is here to follow-up after [place] [facility] [place] Crm Analyst Required: No Allergies paprika Allergy (Severe, Verified 12/21/22 10:30) DIFFICULTY BREATHING shrimp Allergy (Severe, Verified 12/21/22 10:30) ANAPHYLAXIS cranberry [CRANBERRY] Allergy (Mild, Verified 12/21/22 10:30) SWELLING OF HIS EAR strawberry [STRAWBERRY] Allergy (Mild, Verified 12/21/22 10:30) SWELLING OF HIS EAR cat dander [CATS] Allergy (Unknown, Verified 12/21/22 10:30) WATERY,ITCHY EYES clams [CLAMS] Allergy (Unknown, Verified 12/21/22 10:30) UNK MARINARA Allergy (Severe, Uncoded 12/21/22 10:30) ANAPHYLAXIS ibuprofes Allergy (Unknown, Uncoded 12/21/22 10:30) renal insufficiency paprika, seafood, strawberries Allergy (Unknown, Uncoded 12/21/22 10:30) unknown SEAFOOD Allergy (Unknown, Uncoded 12/21/22 10:30) UNKNOWN Tobacco use date assessed: 12/21/22 Dental Screening Dental Screen Date: 12/21/22 HPI HPI Comments History of Present Illness Details 37-year-old male with history of schizoaffective disorder presents to the office for post hospital evaluation. He was admitted to [facility] from 11/26- due to increased paranoia with auditory hallucinations. He had been compliant on both his Haldol and Decanoate but reports having smoked marijuana that he felt was laced. Auditory hallucinations resolved without further medication adjustment and he felt well on discharge without any auditory or visual hallucinations or suicidal ideation. He was discharged on decanoate and Haldol. He states he is always depressed but does not feel overly bothered by this and continues to deny any SI/HI in the office today. He does follow outpatient with Dr. Rico in psychiatry and currently is scheduled for intake for therapy at [facility] [place]]. He does not work as he is on disability but does feel he has good social supports and hobbies that include movies, TV, and sports. [facility] Medical History Asthma Cannabis use disorder Hypertriglyceridemia Obesity (BMI 30-39.9) Paranoid schizophrenia Schizoaffective disorder, depressive type Smoker Vitamin D deficiency Surgical History No pertinent past surgical history Family History Father Medical history unknown Mother Medical history unknown Family/Other FH: mental illness Social History Household Members: None Housing: Apartment Do you presently have visiting nurse or other home services: No Alcohol intake: current Alcohol intake frequency: a few times a week Patient Tobacco Use Status: Current everyday Tobacco user Tobacco use type: Cigarette Cigarettes Per Day: 3 e-Cigarette/Vaping Use: Never Used Second Hand Smoke Exposure: Yes Substance Use Type: Former Substance User and Marijuana Advance Directives: No Advance Directives Information Provided: No service: No Current occupational status: disabled Sexual orientation: Straight/Heterosexual Cognitive needs: No Hearing needs: No Vision needs: No Questionnaire Thrive Questionnaire Date Thrive assessed: 10/28/22 AUDIT C Alcohol Use Questionnaire (AUDIT-C) 1. How often do you have a drink containing alcohol?: Never 3. How often do you have six or more drinks on one occasion?: Never Total Score: 0 Score Reviewed/Action Taken: Yes JULIA-7 AMB Questionnaire JULIA-7 Date JULIA - 7 assessed: 10/28/22 Source: Developed by Drs. Tye Garcia, Yoanna White, Tio Richards and colleagues, with an educational alejandro from [employer]. Physical exam (Primary Care) Vital Signs: Last Vital Signs Pulse 72 12/21/22 10:30 BP 120/82 12/21/22 10:30 Pulse Ox 99 12/21/22 10:30 Oxygen Delivery Method Room Air 12/21/22 10:30 BMI result Body Mass Index 32.5 Tobacco/Smoking Status: Tobacco use Status Tobacco use date assessed 12/21/22 12/21/22 10:31 Patient Tobacco Use Status Current everyday Tobacco 12/21/22 10:31 Tobacco use type Cigarette 12/21/22 10:31 e-Cigarette/Vaping Use Never Used 12/21/22 10:31 Thrive Assessment: Date of Thrive Assessment Date Thrive assessed 10/28/22 12/21/22 10:31 Const Other: Constitutional - Awake and Alert, No apparent distress Eyes - PERRLA, EOMI Cardiovascular - S1S2, RRR, No edema Respiratory - Normal lung expansion, Normal respiratory effort, No respiratory distress, CTA bilaterally Extremities - no calf tenderness bilaterally, no swelling Skin - Warm/Dry Neurological - Alert & oriented x3 Psychological - flat affect, mood appropriate,no ah.vh Results Reviewed Results Reviewed: Reviewed DC summary, cbc, bmp, ekg Assessment and Plan Assessment & Plan (1) Schizoaffective disorder, depressive type: Code(s): F25.1 - Schizoaffective disorder, depressive type Plan: Pt reports feeling stable at this time. Denying any SI/HI or AH.VH currently. He has upcoming appointment with Dr. Rico as well as intake at [facility] [place] which she is advised to attend. He will continue on haloperidol decanoate and Haldol nightly along with benztropine. No evidence of tardive dyskinesia at visit. Follow-up with PCP as scheduled Coding Level of Care Code Est Pt Level 4 (71955) Diagnoses Schizoaffective disorder, depressive type F25.1
== END 2022-12-21 11:33 | disposition home or self-care (01) ==
PROVIDERS: PCP Internal Medicine; Visit Provider Physician Assistant
DX: F25.1 Schizoaffective disorder, depressive type (principal)
CPT/HCPCS: 99214

== ENCOUNTER 2022-12-23 01:21 | Emergency (ER) | payer OTHER, SELFPAY ==
[2022-12-23 01:27] VITALS: BP 131/70; PULSE 79; RESP 18; TEMP 36.7; O2SAT 98
[2022-12-23 02:29] LABS: Amphetamine Screen Urine Not Detected (Not Detect); Barbiturates, Urine Not Detected (Not Detect); Benzodiazepines Screen Urine Not Detected (Not Detect); Cannabinoid Screen Urine POSITIVE (Not Detect); Cocaine Screen Urine POSITIVE (Not Detect); Fentanyl, urine POSITIVE (Not Detect); Opiate Screen Urine Not Detected (Not Detect); Phencyclidine Screen Urine Not Detected (Not Detect)
--- NOTE | 2022-12-23 02:44 | ED_ITS ---
HPI - Overdose General Chief Complaint: Overdose Stated Complaint: Overdose Time Seen by Provider: 12/23/22 01:53 Source: patient Mode of arrival: ambulatory Limitations: no limitations History of Present Illness HPI Narrative: Patient with history of substance abuse took heroin earlier today does not remember after that EMS gave him 4 mg of Narcan after arrival patient is saturating 95% at room air Related Data Home Medications Medication Instructions Recorded Confirmed benztropine 2 mg tablet 2 mg PO BEDTIME 11/26/22 11/26/22 fenofibrate 160 mg tablet 160 mg PO DAILY 11/26/22 11/26/22 haloperidol 10 mg tablet 10 mg PO BEDTIME 11/26/22 11/26/22 haloperidol decanoate 100 mg/mL 100 mg IM Q4W 11/26/22 11/26/22 intramuscular solution sertraline 100 mg tablet 100 mg PO DAILY 11/26/22 11/26/22 Allergies Allergy/AdvReac Type Severity Reaction Status Date / Time paprika Allergy Severe DIFFICULTY Verified 12/21/22 10:30 BREATHING shrimp Allergy Severe ANAPHYLAXIS Verified 12/21/22 10:30 cranberry [CRANBERRY] Allergy Mild SWELLING Verified 12/21/22 10:30 OF HIS EAR strawberry [STRAWBERRY] Allergy Mild SWELLING Verified 12/21/22 10:30 OF HIS EAR cat dander [CATS] Allergy Unknown WATERY,ITCHY Verified 12/21/22 10:30 EYES clams [CLAMS] Allergy Unknown UNK Verified 12/21/22 10:30 MARINARA Allergy Severe ANAPHYLAXIS Uncoded 12/21/22 10:30 ibuprofes Allergy Unknown renal Uncoded 12/21/22 10:30 insufficiency paprika, seafood, Allergy Unknown unknown Uncoded 12/21/22 10:30 strawberries SEAFOOD Allergy Unknown UNKNOWN Uncoded 12/21/22 10:30 Review of Systems Review of Systems: Yes all other systems are reviewed and are negative PMFSH Past Medical History Medical History Asthma Cannabis use disorder Hypertriglyceridemia Obesity (BMI 30-39.9) Paranoid schizophrenia Schizoaffective disorder, depressive type Smoker Vitamin D deficiency Surgical History No pertinent past surgical history Family History Family History Father Medical history unknown Mother Medical history unknown Family/Other FH: mental illness Social History Social History Household Members: None Housing: Apartment Do you presently have visiting nurse or other home services: No Alcohol intake: current Alcohol intake frequency: a few times a week Patient Tobacco Use Status: Current everyday Tobacco user Tobacco use type: Cigarette Cigarettes Per Day: 3 e-Cigarette/Vaping Use: Never Used Second Hand Smoke Exposure: Yes Substance Use Type: Former Substance User and Marijuana Advance Directives: No Advance Directives Information Provided: No service: No Current occupational status: disabled Sexual orientation: Straight/Heterosexual Cognitive needs: No Hearing needs: No Vision needs: No Physical Exam Vital Signs: Vital Signs: Last Vital Signs Temp 98.1 F 12/23/22 02:48 Pulse 68 12/23/22 02:48 Resp 18 12/23/22 02:48 BP 105/64 12/23/22 02:48 Pulse Ox 95 12/23/22 02:48 O2 Del Method Room Air 12/23/22 02:48 BMI result Body Mass Index 32.5 Appearance: Alert. Oriented X3. No acute distress. Eyes: PERRLA, No Nystagmus ENT: Pharynx normal. Oral Mucosa moist Neck: Normal inspection. Neck supple. CVS: Normal heart rate and rhythm. Pulses normal. Respiratory: No respiratory distress. Equal air entry bilateral, no wheezing/rales/rhonchi Abdomen: Soft and nontender. Bowel sounds are present, no mass palpable, no CVA tenderness Skin: Skin warm and dry. Normal skin color. Normal skin turgor. Extremities: No lower extremity edema. No calf tenderness Neuro: Oriented X 3. No motor deficit. No sensory deficit.No cerebellar signs , cranial nerves II-XII intact Medical Decision Making Medical Decision Making MDM Narrative: Patient accidental opiate overdose responded to Narcan saturating 95% on room air ambulatory at this time will discharge patient home advised to follow a detox Lab Data [facility] Lab Attestation statement: I reviewed the patient's lab results. Labs: Lab Results 12/23/22 Range/Units 02:13 Urine Opiates Screen Not Detected (Not Detect) Urine Fentanyl Screen POSITIVE H (Not Detect) Ur Barbiturates Screen Not Detected (Not Detect) Ur Phencyclidine Scrn Not Detected (Not Detect) Ur Amphetamines Screen Not Detected (Not Detect) U Benzodiazepines Scrn Not Detected (Not Detect) Urine Cocaine Screen POSITIVE H (Not Detect) U Marijuana (THC) Screen POSITIVE H (Not Detect) Discharge Plan Discharge Clinical Impression: Polysubstance abuse Patient Disposition: Home, Self-Care Instructions: Polysubstance Abuse (ED) Additional Instructions: Follow-up with detox Do not use opiates/fentanyl Prescriptions: No Action haloperidol decanoate 100 mg/mL solution 100 mg IM Q4W sertraline 100 mg tablet 100 mg PO DAILY haloperidol 10 mg tablet 10 mg PO BEDTIME benztropine 2 mg tablet 2 mg PO BEDTIME fenofibrate 160 mg tablet 160 mg PO DAILY Interventions: ED Discharge Assessment Last Done: 12/23/22 03:30 Discharge Date/Time: 12/23/22 03:33
[2022-12-23 02:48] VITALS: BP 105/64; PULSE 68; RESP 18; TEMP 36.7; O2SAT 95
[2022-12-23 02:51] VITALS: BP 125/86; PULSE 100; O2SAT 95; BMI 32.5
--- NOTE | 2022-12-23 03:09 | PC.NURSE ---
Took report from off-going RN. Pt is presently sleeping, appears comfortable in bed. Arousable with verbal stimuli. Will continue to monitor.
== END 2022-12-23 03:33 | disposition home or self-care (01) ==
PROVIDERS: Emergency Provider Internal Medicine; PCP Internal Medicine
DX: F19.10 Other psychoactive substance abuse, uncomplicated (principal); F25.1 Schizoaffective disorder, depressive type; D64.9 Anemia, unspecified; J45.909 Unspecified asthma, uncomplicated; F17.210 Nicotine dependence, cigarettes, uncomplicated; F12.90 Cannabis use, unspecified, uncomplicated; E66.9 Obesity, unspecified; Z68.32 Body mass index [BMI] 32.0-32.9, adult; Z79.899 Other long term (current) drug therapy
CPT/HCPCS: 80307; 99284; 99285

== ENCOUNTER 2023-02-07 12:36 | Outpatient (REF) | payer OTHER, SELFPAY ==
[2023-02-07 12:48] LABS: MANUAL DIFF FLAG NO
[2023-02-07 13:20] LABS: Basophils Absolute Auto 0.1 X10*3/uL (0.0-0.2); Basophils Percent Auto 0.8 % (0-2); Eosinophils Absolute Auto 0.3 X10*3/uL (0.0-0.4); Eosinophils Percent Auto 2.3 % (0-4); Hematocrit 42.4 % (42.0-52.0); Hemoglobin 13.8 g/dl (14.0-18.0); Imm Gran Abs Auto 0.03 X10*3/uL (0.00-0.03); Imm Gran Pct Auto 0.3 % (0.0-0.4); Lymphocytes Absolute Auto 4.7 X10*3/uL (1.2-4.9); Lymphocytes Percent Auto 43.4 % (20-40); Mean Corpuscular HGB Conc 32.5 g/dl (31.0-36.0); Mean Corpuscular Hemoglobin 27.6 pg (27.0-33.0); Mean Corpuscular Volume 84.8 fL (80.0-98.0); Mean Platelet Volume 10.3 fL (9.4-12.4); Monocytes Absolute Auto 0.8 X10*3/uL (0.1-1.2); Monocytes Percent Auto 7.4 % (2-11); Neutrophils Absolute Auto 4.9 x10*3/uL (2.0-8.3); Neutrophils Percent Auto 45.8 % (45-73); Platelet Count 317 X10*3/uL (160-400); Red Cell Distribution Width 13.8 % (11.0-16.0); White Blood Count 10.8 X10*3/uL (4.8-10.8)
[2023-02-07 13:39] LABS: Appearance Urine Clear; Color Urine Yellow; Glucose Urine UA Negative (Negative); Leukocyte Esterase Urine Trace (Negative); Nitrite Urine Negative (Negative); Specific Gravity - Urine <= 1.005 (1.005-1.025); UMIC TRIGGER UACC YES; Urine Blood Negative (Negative); Urine Ketones Negative (Negative); Urine Protein Negative (Neg-Trace)
[2023-02-07 13:43] LABS: Bacteria Urine None Seen (None Seen); Hyaline Casts Urine 0-2 /LPF (0-2); RBC Urine 0-2 /HPF (0-2); Squamous Epithelial Cell Urine 0-2 /HPF (0-2); WBC Urine 0-5 /HPF (0-5)
[2023-02-07 14:50] LABS: Alanine Aminotransferase 11 U/L (0-40); Albumin Level 4.5 g/dL (3.5-5.0); Alkaline Phosphatase 76 U/L (39-117); Anion Gap 13 (12-20); Aspartate Amino Transferase 15 U/L (5-37); Bilirubin Total 0.8 mg/dL (0.0-1.0); Blood Urea Nitrogen 6 mg/dL (9-16); Calcium 9.7 mg/dL (8.4-10.2); Carbon Dioxide 25 mmol/L (22-29); Chloride 106 mmol/L (96-108); Cholesterol 161 mg/dL (<200); Estimated Glomerular Filt Rate > 60; Glucose Fasting 91 mg/dL (60-99); HDL Cholesterol 32 mg/dL (>40); LDL Cholesterol Calculated 84 mg/dL (<100); Potassium 3.5 mmol/L (3.3-5.1); Sodium 140 mmol/L (135-145); Total Protein 7.8 g/dL (6.5-8.0); Triglycerides 228 mg/dL (<150)
[2023-02-07 14:57] LABS: TSH reflex Free T4 1.57 uIU/mL (0.32-4.0)
[2023-02-07 15:03] LABS: Estimated Average Glucose 97 mg/dL
== END 2023-02-07 12:37 | disposition home or self-care (01) ==
LOC: HO.LAB 12:36
PROVIDERS: PCP Internal Medicine; Visit Provider Internal Medicine
DX: I10 Essential (primary) hypertension (principal); R73.01 Impaired fasting glucose; E78.00 Pure hypercholesterolemia, unspecified; E55.9 Vitamin D deficiency, unspecified
CPT/HCPCS: 36415; 80053; 80061; 81001; 82306; 83036; 84443; 85025

== ENCOUNTER 2023-02-14 12:11 | Outpatient (REF) | payer OTHER, SELFPAY ==
[2023-02-14 14:52] LABS: Appearance Urine Clear; Color Urine Yellow; Glucose Urine UA Negative (Negative); Leukocyte Esterase Urine Negative (Negative); Nitrite Urine Negative (Negative); PH 5.5 (5.0-9.0); Specific Gravity - Urine 1.025 (1.005-1.025); Urine Blood Negative (Negative); Urine Ketones Negative (Negative); Urine Protein Trace mg/dL (Neg-Trace)
== END 2023-02-14 12:12 | disposition home or self-care (01) ==
LOC: HO.LAB 12:11
PROVIDERS: PCP Internal Medicine; Visit Provider Internal Medicine
DX: R30.0 Dysuria (principal)
CPT/HCPCS: 81003

== ENCOUNTER 2023-02-24 11:35 | Outpatient (REF) | payer OTHER, SELFPAY ==
[2023-02-24 14:33] LABS: Amphetamine Screen Urine Not Detected (Not Detect); Barbiturates, Urine Not Detected (Not Detect); Benzodiazepines Screen Urine Not Detected (Not Detect); Cannabinoid Screen Urine POSITIVE (Not Detect); Cocaine Screen Urine POSITIVE (Not Detect); Fentanyl, urine POSITIVE (Not Detect); Opiate Screen Urine Not Detected (Not Detect); Phencyclidine Screen Urine Not Detected (Not Detect)
== END 2023-02-24 11:36 | disposition home or self-care (01) ==
LOC: HO.LAB 11:35
PROVIDERS: Visit Provider Psychiatry & Neurology Psychiatry
DX: F19.11 Other psychoactive substance abuse, in remission (principal); Z79.899 Other long term (current) drug therapy
CPT/HCPCS: 80307

== ENCOUNTER 2023-03-10 14:13 | Outpatient (REF) | payer OTHER, SELFPAY ==
[2023-03-10 15:32] LABS: Appearance Urine Clear; Color Urine Yellow; Glucose Urine UA Negative (Negative); Leukocyte Esterase Urine Negative (Negative); Nitrite Urine Negative (Negative); PH 7.5 (5.0-9.0); Specific Gravity - Urine 1.015 (1.005-1.025); Urine Blood Negative (Negative); Urine Ketones Negative (Negative); Urine Protein Negative (Neg-Trace)
== END 2023-03-10 14:14 | disposition home or self-care (01) ==
LOC: HO.LAB 14:13
PROVIDERS: PCP Internal Medicine; Visit Provider Internal Medicine
DX: Z13.89 Encounter for screening for other disorder (principal)
CPT/HCPCS: 81003

== ENCOUNTER 2023-03-13 12:18 | Outpatient (AMB) | payer OTHER, SELFPAY ==
[2023-03-13 12:23] VITALS: BP 120/72; PULSE 96; O2SAT 98; BMI 29.8
--- NOTE | 2023-03-13 12:23 | A.OFFPC_ITS ---
Vital Signs 03/13/23 12:23 Height 5 ft 9 in Weight 202 lb BMI 29.8 BP 120/72 Blood Pressure Location Lt brachial Position Sitting Pulse 96 Pulse Source Pulse Oximeter Pulse Oximetry (%) 98 Oxygen Delivery Method Room Air Intake Visit Reasons: 3 Month Follow Up Intake Note: Patient here for a 3 month follow up Dressing Room Attendant Required: No Accompanied by: Self / Same As Patient Allergies paprika Allergy (Severe, Verified 03/13/23 12:33) DIFFICULTY BREATHING shrimp Allergy (Severe, Verified 03/13/23 12:33) ANAPHYLAXIS cranberry [CRANBERRY] Allergy (Mild, Verified 03/13/23 12:33) SWELLING OF HIS EAR strawberry [STRAWBERRY] Allergy (Mild, Verified 03/13/23 12:33) SWELLING OF HIS EAR cat dander [CATS] Allergy (Unknown, Verified 03/13/23 12:33) WATERY,ITCHY EYES clams [CLAMS] Allergy (Unknown, Verified 03/13/23 12:33) UNK MARINARA Allergy (Severe, Uncoded 12/21/22 10:30) ANAPHYLAXIS ibuprofes Allergy (Unknown, Uncoded 12/21/22 10:30) renal insufficiency paprika, seafood, strawberries Allergy (Unknown, Uncoded 12/21/22 10:30) unknown SEAFOOD Allergy (Unknown, Uncoded 12/21/22 10:30) UNKNOWN Medication List - Last Reconciled 03/13/23 by PENNY Cornejo benztropine 2 mg PO BEDTIME haloperidol 10 mg PO BEDTIME haloperidol decanoate 100 mg IM Q4W sertraline 100 mg PO DAILY Tobacco use date assessed: 12/21/22 Dental Screening Dental Screen Date: 03/13/23 Did you have a dental visit in the last 12 months?: No Did you have a dental problem in the last 6 months where you did not have access to dental care?: No Was dental information given to patient?: Yes HPI HPI Comments History of Present Illness Details 37-year-old male past medical history si gnificant for asthma, hypertriglyceridemia, obesity, impaired glucose tolerance, elevated lfts, schizoaffective disorder. Labs reviewed with patient in office. Patient advised follow low-cholesterol diet and decrease alcohol consumption due to elevated triglycerides. Patient continues to follow with psychiatry. Patient presents today for follow-up visit. Patient denies any acute concerns. [facility] Medical History Asthma Cannabis use disorder Hypertriglyceridemia Obesity (BMI 30-39.9) Paranoid schizophrenia Schizoaffective disorder, depressive type Smoker Vitamin D deficiency Surgical History No pertinent past surgical history Family History (Updated 03/13/23 @ 12:25 by LEON Manzanares) Father Medical history unknown Mother Medical history unknown Family/Other FH: mental illness Social History Household Members: None Housing: Apartment Do you presently have visiting nurse or other home services: No Alcohol intake: current Alcohol intake frequency: a few times a week Patient Tobacco Use Status: Current everyday Tobacco user Tobacco use type: Cigarette Cigarettes Per Day: 3 e-Cigarette/Vaping Use: Never Used Second Hand Smoke Exposure: Yes Substance Use Type: Former Substance User and Marijuana service: No Current occupational status: disabled Sexual orientation: Straight/Heterosexual Cognitive needs: No Hearing needs: No Vision needs: No Questionnaire Thrive Questionnaire Date Thrive assessed: 10/28/22 JULIA-7 AMB Questionnaire JULIA-7 Date JULIA - 7 assessed: 10/28/22 Source: Developed by Drs. Tye Garcia, Yoanna White, Tio Richards and colleagues, with an educational alejandro from [employer]. Review of Systems Const Denies chills, Denies fatigue, Denies fever(s) and Denies poor appetite Eyes Denies no additional complaints ENT Reports Normal hearing present Card Denies chest pain, Denies syncope, Denies rapid heart rate and Denies dyspnea Resp Denies cough and Denies dyspnea GI Denies change in stool character, Denies constipation, Denies diarrhea, Denies nausea and Denies vomiting Denies dysuria, Denies urinary frequency and Denies urinary urgency Neuro Reports Normal hearing present, Denies confusion and Denies syncope Psych Denies confusion Endo Denies fatigue Physical exam (Primary Care) Vital Signs: Last Vital Signs Pulse 96 03/13/23 12:23 BP 120/72 03/13/23 12:23 Pulse Ox 98 03/13/23 12:23 Oxygen Delivery Method Room Air 03/13/23 12:23 BMI result Body Mass Index 29.8 Tobacco/Smoking Status: Tobacco use Status Tobacco use date assessed 12/21/22 03/13/23 12:27 Patient Tobacco Use Status Current everyday Tobacco 03/13/23 12:27 Tobacco use type Cigarette 03/13/23 12:27 e-Cigarette/Vaping Use Never Used 03/13/23 12:27 Thrive Assessment: Date of Thrive Assessment Date Thrive assessed 10/28/22 03/13/23 12:27 Const General: No confusion Orientation/consciousness: No confusion HENMT Head: Yes normocephalic and Yes atraumatic Eyes Conjunctivae: conjunctivae normal Chest Chest palpation & inspection: normal inspection of the chest Resp Effort & Inspection: normal respiratory effort Auscultation: clear to auscultation bilaterally, no crackles, no rhonchi and no wheezes Cardio Rate: regular rate Rhythm: regular rhythm Heart sounds: S1 normal heart sound present and S2 normal heart sound present Peripheral pulses: dorsalis pedis present GI Inspection: Yes normal to inspection General: Yes no CVA tenderness Back/Spine/Pelvis Back: no CVA tenderness Neuro General: No confusion Cranial nerves: Yes Normal hearing present Extrem General: No edema Office Procedures Flu Questionnaire Does the patient have a severe egg allergy?: No Immunizations flu vacc [id number] 6mos up(PF) 60 mcg(15 mcgx4)/0.5 mL IM syringe Performing Provider: PENNY Cornejo [facility] Documented (not given) by: LEON Manzanares on 03/13/23 12:29 Reason Not Given: Patient Refused Assessment and Plan Assessment & Plan (1) Schizoaffective disorder, depressive type: Code(s): F25.1 - Schizoaffective disorder, depressive type Plan: Continue to follow with psychiatry. Continue on current medications. (2) Hypertriglyceridemia: Code(s): E78.1 - Pure hyperglyceridemia Plan: Patient advised to follow low-cholesterol diet and refrain from alcohol consumption to decrease triglyceride levels (3) Smoker: Code(s): F17.200 - Nicotine dependence, unspecified, uncomplicated Plan: Strongly advised to stop. Plan Follow-up with PCP in 4 months Orders: Orders Influenza [id number] Immunization Today Z23 - Encounter for immunization Coding Level of Care Code Est Pt Level 3 (99619) Diagnoses Schizoaffective disorder, depressive type F25.1 Hypertriglyceridemia E78.1 Smoker F17.200
== END 2023-03-13 12:38 | disposition home or self-care (01) ==
PROVIDERS: PCP Internal Medicine; Visit Provider Nurse Practitioner Family
DX: F25.1 Schizoaffective disorder, depressive type (principal); E78.1 Pure hyperglyceridemia; F17.200 Nicotine dependence, unspecified, uncomplicated
CPT/HCPCS: 99213

== ENCOUNTER 2023-03-21 13:28 | Outpatient (REF) | payer OTHER, SELFPAY ==
[2023-03-21 14:27] LABS: Amphetamine Screen Urine Not Detected (Not Detect); Barbiturates, Urine Not Detected (Not Detect); Benzodiazepines Screen Urine Not Detected (Not Detect); Cannabinoid Screen Urine POSITIVE (Not Detect); Cocaine Screen Urine POSITIVE (Not Detect); Fentanyl, urine POSITIVE (Not Detect); Opiate Screen Urine Not Detected (Not Detect); Phencyclidine Screen Urine Not Detected (Not Detect)
== END 2023-03-21 13:29 | disposition home or self-care (01) ==
LOC: HO.LAB 13:28
PROVIDERS: PCP Internal Medicine; Visit Provider Psychiatry & Neurology Psychiatry
DX: F19.11 Other psychoactive substance abuse, in remission (principal); Z79.899 Other long term (current) drug therapy
CPT/HCPCS: 80307

== ENCOUNTER 2023-04-12 12:10 | Outpatient (REF) | payer OTHER, SELFPAY ==
[2023-04-12 14:14] LABS: Amphetamine Screen Urine Not Detected (Not Detect); Barbiturates, Urine Not Detected (Not Detect); Benzodiazepines Screen Urine Not Detected (Not Detect); Cannabinoid Screen Urine POSITIVE (Not Detect); Cocaine Screen Urine POSITIVE (Not Detect); Fentanyl, urine POSITIVE (Not Detect); Opiate Screen Urine Not Detected (Not Detect); Phencyclidine Screen Urine Not Detected (Not Detect)
== END 2023-04-12 12:11 | disposition home or self-care (01) ==
LOC: HO.LABR 12:10
PROVIDERS: PCP Internal Medicine; Visit Provider Psychiatry & Neurology Psychiatry
DX: Z79.899 Other long term (current) drug therapy (principal); F19.11 Other psychoactive substance abuse, in remission
CPT/HCPCS: 80307

== ENCOUNTER 2023-04-14 13:37 | Inpatient (IN) | payer OTHER, SELFPAY ==
--- NOTE | ~2023-04-14 | XR_ITS ---
EXAMINATION: XR CHEST CLINICAL INFORMATION: Chest pain. COMPARISON: 12/20/2017. TECHNIQUE: Frontal view of the chest was obtained. FINDINGS: The cardiomediastinal silhouette is within normal limits and stable. There is no focal lung consolidation or pleural effusion. There is a healing or partially healed fracture of the distal right clavicle. Soft tissues are unremarkable. XR/XR chest 1V IMPRESSION: No active cardiopulmonary disease.
--- NOTE | 2023-04-14 13:51 | ECG_ITS ---
Test Reason : CP Blood Pressure : / mmHG Vent. Rate : 074 BPM Atrial Rate : 074 BPM P-R Int : 144 ms QRS Dur : 084 ms QT Int : 396 ms P-R-T Axes : 064 031 058 degrees QTc Int : 439 ms Normal sinus rhythm Normal ECG When compared with ECG of 25-NOV-2022 21:12, No significant change was found Referred By: Kerry Arroyo Electronically Signed By:MARCELA PANDA MD
[2023-04-14 13:55] VITALS: BP 180/108; PULSE 99; O2SAT 97
[2023-04-14 14:06] VITALS: BP 156/86; PULSE 82; RESP 18; TEMP 36.8; O2SAT 99; BMI 30.4
--- NOTE | 2023-04-14 14:18 | ED.GENADULT ---
HPI - General Adult General Chief complaint: Behavioral Concerns Stated complaint: DRUG USE Time Seen by Provider: 04/14/23 14:36 Source: patient Mode of arrival: ambulatory Limitations: no limitations History of Present Illness HPI narrative: This is a 37-year-old male presenting to the emergency department with substernal chest discomfort since last night, patient reports he has been using cocaine since last night last use was prior to arrival he used ?1 bump ?. He reports he wants to stop using cocaine. According to EMS patient's home nurse went to go in they were concerned he was having an acute psychotic episode such as schizophrenia patient comes into the department with a bizarre affect. They complaints of current substernal chest pressure nonradiating, reports this started yesterday. Not associated with shortness of breath. Denies any other drugs, tobacco, alcohol. Denies medical complaints other than chest pain. Denies fevers, chills, shortness of breath, nausea, vomiting, abdominal pain. Denies SI/HI Related Data Home Medications Medication Instructions Recorded Confirmed benztropine 2 mg tablet 2 mg PO BEDTIME 04/14/23 04/14/23 buprenorphine 8 mg-naloxone 2 mg 30 mg sublingual DAILY 04/14/23 04/14/23 sublingual film haloperidol 10 mg tablet 10 mg PO BEDTIME 04/14/23 04/14/23 sertraline 100 mg tablet 100 mg PO DAILY 04/14/23 04/14/23 Allergies Allergy/AdvReac Type Severity Reaction Status Date / Time paprika Allergy Severe DIFFICULTY Verified 03/13/23 12:33 BREATHING shrimp Allergy Severe ANAPHYLAXIS Verified 03/13/23 12:33 cranberry [CRANBERRY] Allergy Mild SWELLING Verified 03/13/23 12:33 OF HIS EAR strawberry [STRAWBERRY] Allergy Mild SWELLING Verified 03/13/23 12:33 OF HIS EAR cat dander [CATS] Allergy Unknown WATERY,ITCHY Verified 03/13/23 12:33 EYES clams [CLAMS] Allergy Unknown UNK Verified 03/13/23 12:33 MARINARA Allergy Severe ANAPHYLAXIS Uncoded 12/21/22 10:30 ibuprofes Allergy Unknown renal Uncoded 12/21/22 10:30 insufficiency paprika, seafood, Allergy Unknown unknown Uncoded 12/21/22 10:30 strawberries SEAFOOD Allergy Unknown UNKNOWN Uncoded 12/21/22 10:30 Review of Systems Review of Systems: Constitutional : No Weight loss, No Fever, No Chills, No Fatigue, No Malaise ENT/Mouth : No sore throat, No Rhinorrhea Eyes: No Eye Pain, No Swelling, No Redness Cardiovascular : + Chest Pain, No SOB, No Dyspnea on Exertion, No Orthopnea, No Edema, No Palpitations Respiratory : No Cough, No Sputum, No Wheezing Gastrointestinal : No Nausea, No Vomiting, No Diarrhea, No Constipation, No abdominal Pain, No Hematochezia, No Melena Genitourinary : No Dysuria, No Urinary Frequency, No Hematuria, Musculoskeletal : No joint pain, No Myalgias, No Joint Swelling Skin : No Skin Lesions, No rash Neuro : No Weakness, No Numbness, No Dizziness, No Headache Psych : No Anxiety/Panic, No Depression, No SI/HI All other systems reviewed and are negative Yes all other systems are reviewed and are negative PMFSH Past Medical History Attestation statement: The following information was validated with the patient. Source: old records reviewed and nursing notes reviewed Medical History Asthma Cannabis use disorder Hypertriglyceridemia Obesity (BMI 30-39.9) Paranoid schizophrenia Schizoaffective disorder, depressive type Smoker Vitamin D deficiency Surgical History No pertinent past surgical history Family History Family History (Updated 03/13/23 @ 12:25 by LEON Manzanares) Father Medical history unknown Mother Medical history unknown Family/Other FH: mental illness Social History Social History Household Members: None Housing: Apartment Do you presently have visiting nurse or other home services: No Alcohol intake: current Alcohol intake frequency: a few times a week Patient Tobacco Use Status: Current everyday Tobacco user Tobacco use type: Cigarette Cigarettes Per Day: 3 e-Cigarette/Vaping Use: Never Used Second Hand Smoke Exposure: Yes Substance Use Type: Former Substance User and Marijuana Advance Directives: No Advance Directives Information Provided: No service: No Current occupational status: disabled Sexual orientation: Straight/Heterosexual Cognitive needs: No Hearing needs: No Vision needs: No Physical Exam ED Vital Signs: Vital Signs - 24 hr 04/14/23 14:06 Temperature 98.3 F Pulse Rate 82 Respiratory Rate 18 Blood Pressure 156/86 H Pulse Oximetry 99 Oxygen Delivery Method Room Air BMI result Body Mass Index 30.4 vss Appearance: Alert.? Oriented X3.? No acute distress.?Bizzare Affect Head: Normocephalic, atraumatic, no step-offs or deformities Eyes: Pupils equal, round and reactive to light.? ENT: Pharynx normal.? Neck: Normal inspection.? Neck supple.? CVS: Normal heart rate and rhythm.? Pulses normal.? Respiratory: No respiratory distress.? Breath sounds normal.? Abdomen: Soft and nontender.? Skin: Skin warm and dry.? Normal skin color.? Normal skin turgor.? Extremities: No lower extremity edema.? No calf ttp. 5/5 strength to bilateral upper and lower extremities Neuro: Oriented X 3.? No motor deficit.? No sensory deficit. CN 2-12 intact Course Reevaluation(s) Reevaluation #1: CBC appears to be around patient's baseline. Chemistry unremarkable. Troponin negative, EKG nonischemic. Chest x-ray unremarkable. Patient's urine pending. Time: 15:06 Reevaluation #2: At this time patient to be placed into observation to allow more time to be evaluated by care team. Patient common cooperative alert and oriented x4, not suicidal or homicidal. Plan is for care team evaluation Sign out to Brandon VYAS Time: 15:51 Medical Decision Making Medical Decision Making [facility] Narrative: 1421 37-year-old male presents status post drug use, requesting detox, complaining of substernal chest pressure Physical examination benign Concerns for cocaine induced chest pain versus noncardiac related chest pain versus acute schizophrenia versus acute psychosis versus paranoia vs polysubstance. Unlikely metabolic derangements, ACS, pulmonary embolism, endocarditis. Plan at this time medical clearance evaluation by behavioral health team Differential Diagnosis Differential Diagnoses: The differential diagnosis associated with the presentation includes Concerns for cocaine induced chest pain versus noncardiac related chest pain versus acute schizophrenia versus acute psychosis versus paranoia vs polysubstance. . Unlikely metabolic derangements, ACS, pulmonary embolism, endocarditis. Admission/Observation Consideration of admission/observation: Escalation of care including admission/observation considered possible psychh Consult Healthcare Provider Management of the patient was discussed with: Behavioral Health Provider Lab Data [facility] Lab Attestation statement: I reviewed the patient's lab results. 04/14/23 14:25 04/14/23 14:25 Labs: Lab Results 04/14/23 Range/Units 14:25 WBC 9.8 (4.8-10.8) X10*3/uL RBC 4.23 L (4.60-5.80) X10*6/uL Hgb 11.7 L (14.0-18.0) g/dl Hct 35.8 L (42.0-52.0) % MCV 84.6 (80.0-98.0) fL MCH 27.7 (27.0-33.0) pg MCHC 32.7 (31.0-36.0) g/dl RDW 14.4 (11.0-16.0) % Plt Count 277 (160-400) X10*3/uL MPV 9.7 (9.4-12.4) fL Immature Gran % (Auto) 0.2 (0.0-0.4) % Neut % (Auto) 69.5 (45-73) % Lymph % (Auto) 19.1 L (20-40) % [place] % (Auto) 10.2 (2-11) % Eos % (Auto) 0.5 (0-4) % Baso % (Auto) 0.5 (0-2) % Lymph # (Auto) 1.9 (1.2-4.9) X10*3/uL [place] # (Auto) 1.0 (0.1-1.2) X10*3/uL Eos # (Auto) 0.1 (0.0-0.4) X10*3/uL Baso # (Auto) 0.1 (0.0-0.2) X10*3/uL Abs Immat Gran (auto) 0.02 (0.00-0.03) X10*3/uL Absolute Neuts (auto) 6.8 (2.0-8.3) x10*3/uL Absolute Nucleated RBC 0.000 (0.0-0.012) X10*3/uL Nucleated RBC % (auto) 0.0 (0.0-0.2) /100WBC Sodium 140 (135-145) mmol/L Potassium 3.7 (3.3-5.1) mmol/L Chloride 106 (96-108) mmol/L Carbon Dioxide 26 (22-29) mmol/L Anion Gap 12 (12-20) BUN 11 (9-16) mg/dL Creatinine 1.06 (0.5-1.4) mg/dL Estim Creat Clear Calc 102.3 Estimated GFR > 60 Random Glucose 89 (60-115) mg/dL Calcium 9.8 (8.4-10.2) mg/dL Magnesium 2.1 (1.6-2.6) mg/dL Total Bilirubin 0.4 (0.0-1.0) mg/dL AST 15 (5-37) U/L ALT 10 (0-40) U/L Alkaline Phosphatase 64 (39-117) U/L Troponin I High Sens 8.0 (<3.5-35.0) ng/L Total Protein 7.5 (6.5-8.0) g/dL Albumin 4.3 (3.5-5.0) g/dL Independent Interpretation I performed an independent interpretation of an: EKG Radiology Impression Discussion of test interpretation with radiology: I have reviewed the radiologist's reading. Critical Care Time Critical Care Time Critical Care Time: No Discharge Plan Discharge Clinical Impression: Chest pain, Cocaine abuse Patient Disposition: Still a Patient Prescriptions: No Action sertraline 100 mg tablet 100 mg PO DAILY haloperidol 10 mg tablet 10 mg PO BEDTIME benztropine 2 mg tablet 2 mg PO BEDTIME buprenorphine-naloxone 8-2 mg film 30 mg sublingual DAILY
[2023-04-14 14:30] LABS: MANUAL DIFF FLAG NO
[2023-04-14 14:32] LABS: Basophils Absolute Auto 0.1 X10*3/uL (0.0-0.2); Basophils Percent Auto 0.5 % (0-2); Eosinophils Absolute Auto 0.1 X10*3/uL (0.0-0.4); Eosinophils Percent Auto 0.5 % (0-4); Hematocrit 35.8 % (42.0-52.0); Hemoglobin 11.7 g/dl (14.0-18.0); Imm Gran Abs Auto 0.02 X10*3/uL (0.00-0.03); Imm Gran Pct Auto 0.2 % (0.0-0.4); Lymphocytes Absolute Auto 1.9 X10*3/uL (1.2-4.9); Lymphocytes Percent Auto 19.1 % (20-40); Mean Corpuscular HGB Conc 32.7 g/dl (31.0-36.0); Mean Corpuscular Hemoglobin 27.7 pg (27.0-33.0); Mean Corpuscular Volume 84.6 fL (80.0-98.0); Mean Platelet Volume 9.7 fL (9.4-12.4); Monocytes Percent Auto 10.2 % (2-11); Neutrophils Absolute Auto 6.8 x10*3/uL (2.0-8.3); Neutrophils Percent Auto 69.5 % (45-73); Platelet Count 277 X10*3/uL (160-400); Red Blood Count 4.23 X10*6/uL (4.60-5.80); Red Cell Distribution Width 14.4 % (11.0-16.0); White Blood Count 9.8 X10*3/uL (4.8-10.8)
[2023-04-14 14:44] LABS: Alanine Aminotransferase 10 U/L (0-40); Albumin Level 4.3 g/dL (3.5-5.0); Alkaline Phosphatase 64 U/L (39-117); Anion Gap 12 (12-20); Aspartate Amino Transferase 15 U/L (5-37); Bilirubin Total 0.4 mg/dL (0.0-1.0); Blood Urea Nitrogen 11 mg/dL (9-16); Calcium 9.8 mg/dL (8.4-10.2); Carbon Dioxide 26 mmol/L (22-29); Chloride 106 mmol/L (96-108); Creatinine Clr Calc Pharmacy 102.3; Estimated Glomerular Filt Rate > 60; Glucose Random 89 mg/dL (60-115); Magnesium 2.1 mg/dL (1.6-2.6); Potassium 3.7 mmol/L (3.3-5.1); Sodium 140 mmol/L (135-145); Total Protein 7.5 g/dL (6.5-8.0)
--- NOTE | 2023-04-14 15:46 | PC.NURSE ---
patient is alert and able to make needs known. Patient came from main ED. Changeover completed. Belongings secured. Patient in room resting at this time.
[2023-04-14 16:19] LABS: Appearance Urine Clear; Color Urine Yellow; Glucose Urine UA Negative (Negative); Leukocyte Esterase Urine Negative (Negative); Nitrite Urine Negative (Negative); PH 5.5 (5.0-9.0); Specific Gravity - Urine >= 1.030 (1.005-1.025); Urine Blood Negative (Negative); Urine Ketones Negative (Negative); Urine Protein Trace mg/dL (Neg-Trace)
[2023-04-14 16:31] LABS: Amphetamine Screen Urine Not Detected (Not Detect); Barbiturates, Urine Not Detected (Not Detect); Benzodiazepines Screen Urine Not Detected (Not Detect); Cannabinoid Screen Urine POSITIVE (Not Detect); Cocaine Screen Urine POSITIVE (Not Detect); Fentanyl, urine POSITIVE (Not Detect); Opiate Screen Urine POSITIVE (Not Detect); Phencyclidine Screen Urine Not Detected (Not Detect)
--- NOTE | 2023-04-14 16:51 | MHC.CARE ---
Zaida is the nurse that works with the pt and was concerned about him as he appeared to be off his baseline as he was more talkative than usual and under the influence. She is concerned about his housing situation as she believes it would not be safe for him to return there. There were talks that the pt may move back n with his mother. Zaida and the pt talked about possible detox. Zaida's number is [phone].
--- NOTE | 2023-04-14 19:41 | PC.NURSE ---
This RN spoke with pts mother. Pts mother called stating that someone called her and said it was Nunu Subramanian. Per Dr. Subramanian did not call pts mom and has not been following pt. This RN explained to pts mom not sure who called her as there are no notes in the system. Pts mom asking for son to call her. Pt currently resting. Plan of care ongoing.
--- NOTE | 2023-04-14 20:09 | PC.NURSE ---
Pt ambulates to the restroom with a steady gait. Pt given phone to call mom. Plan of care ongoing.
[2023-04-14 20:15] LABS: Ethanol < 10 mg/dL
[2023-04-14 20:31] LABS: Acetaminophen LAB < 3 mcg/mL (<30); Salicylate < 5.0 mg/dL (15-30)
[2023-04-14 20:58] LABS: COVID-19 Test Negative (Negative); IDNOW Serial# 08D9AD1C
[2023-04-14] MEDS: hydrOXYzine HCL 25 MG TABLET PO (23:47)
[2023-04-14] MEDS: traZODone HCL 50 MG TABLET PO (23:47)
[2023-04-14 23:49] VITALS: BMI 30.6
[2023-04-14 23:50] VITALS: BP 118/71; PULSE 56; RESP 14; TEMP 36.1; O2SAT 97
--- NOTE | 2023-04-15 03:39 | PC.ADMIT ---
this is one of many inpatient behavioral health admissions for this 37 year old male. legal:CV. DX: schizoaffective d/o, stimulant use d/o. patient was a referral to [facility] VIA the CARE team from the ER. nurse to nurse, collateral information obtained prior to admission. patient was referred to crisis by his VNA. patient lives with his mother and has multiple providers. patient is delusional, speaking of his ''kidney's dying'' ''I need to be careful, I know there are elements out there waiting to harm us all'' patient has a [place] + for marijuana, opiates, fentanyl, cocaine. denies drinking. reports that he does not use pills or heroin and [place]OD results reviewed stated ''it's probably in the marijuana I use'' was wide eyed during assessment, was able to sit and tolerate interview. some restlessness noted in legs bouncing legs noted. reported + AH but did not elaborate other than stating ''they are with me all the time'' denies SI/HI. no new medical issues. oriented to unit. treatment plan issues review. safety tool initiated.
--- NOTE | 2023-04-15 03:47 | PC.ADMIT ---
skin check done on admission. medication reconciliation completed in the emergency room.
[2023-04-15 06:00] VITALS: BP 111/70; PULSE 70; TEMP 36.1; O2SAT 99
[2023-04-15 08:25] LABS: Estimated Average Glucose 100 mg/dL; Hemoglobin A1c % 5.1 % (<6.0)
[2023-04-15] MEDS: Sertraline HCL 100 MG TABLET PO (08:52)
[2023-04-15 08:53] LABS: Alanine Aminotransferase 15 U/L (0-40); Albumin Level 3.7 g/dL (3.5-5.0); Alkaline Phosphatase 63 U/L (39-117); Anion Gap 13 (12-20); Aspartate Amino Transferase 17 U/L (5-37); Bilirubin Total 0.3 mg/dL (0.0-1.0); Blood Urea Nitrogen 12 mg/dL (9-16); Calcium 8.9 mg/dL (8.4-10.2); Carbon Dioxide 26 mmol/L (22-29); Chloride 108 mmol/L (96-108); Cholesterol 138 mg/dL (<200); Creatinine Clr Calc Pharmacy 107.6; Estimated Glomerular Filt Rate > 60; Glucose Fasting 125 mg/dL (60-99); HDL Cholesterol 32 mg/dL (>40); Iron 73 mcg/dL (45-160); LDL Cholesterol Calculated 80 mg/dL (<100); Magnesium 2.1 mg/dL (1.6-2.6); Percent Iron Saturation 31 % (15-50); Potassium 3.9 mmol/L (3.3-5.1); Sodium 143 mmol/L (135-145); Total Iron Binding Capacity 237 mcg/dL (228-428); Total Protein 6.6 g/dL (6.5-8.0); Triglycerides 131 mg/dL (<150); Unsaturated Iron Binding 164 ug/dL
[2023-04-15 09:11] LABS: Free T4 (Free Thyroxine) 1.04 ng/dL (0.71-1.85); Thyroid Stimulating Hormone 0.79 uIU/mL (0.32-4.0)
[2023-04-15 09:17] LABS: Folate 4.7 ng/mL (> or = 4.0); Vitamin B12 385 pg/mL (200-900)
--- NOTE | 2023-04-15 13:05 | P.HPPS_ITS ---
HPI Date of Service: 04/15/23 Chief Complaint: Schizoaffective disorder Sources of Information: patient interviewed, chart reviewed and crisis/core team assessment reviewed HPI Subjective Notes: Conditional Voluntary Medical Problems Affecting Mental Status: No Narrative: As per ED notes: patient's home nurse went to go in they were concerned he was having an acute psychotic episode such as schizophrenia patient comes into the department with a bizarre affect. Today patient reports that his visiting nurse referred him. He was guarded during evaluation. Did endorse though feeling paranoid that he was being harmed outside of the hospital. Reports he was also worried about his mental state. Did endorse auditory hallucinations and hearing people cast spells on him. Denied command hallucinations. Denies suicidal thoughts. Denied depression. Reports he has not been on medications, did not know what he had been on in the past, was unable to identify most recent prescriber is. Did endorse having a diagnosis of paranoid schizophrenia and that he agreed with this diagnosis. Was unsure when his last hospitalization was. Denies history of suicide attempts. Past Psychiatric History: Reports he has not been on medications, did not know what he had been on in the past, was unable to identify most recent prescriber is. Did endorse having a diagnosis of paranoid schizophrenia and that he agreed with this diagnosis. Was unsure when his last hospitalization was. Denies history of suicide attempts. Medical Evaluation Reviewed: Yes [facility] Medical History Asthma Cannabis use disorder Hypertriglyceridemia Obesity (BMI 30-39.9) Paranoid schizophrenia Schizoaffective disorder, depressive type Smoker Vitamin D deficiency Surgical History No pertinent past surgical history Family History: Sister: Bipolar Social History: patient stated not having any children. Lives with mom. Single. Denied legal issues. Noted in record: Has children, 8 and 10 years old; not sure of involvement......collects SSDI Substance History: Utilizes cocaine and marijuana weekly. Reports fentanyl was found on his tox screen as marijuana was laced. Longest period of sobriety was 9 years up until 5 years ago. Trauma History: Endorses history of trauma but does not disclose Diagnostics Vital Signs (24Hr): Vital Signs - 24 hr 04/14/23 14:06 04/14/23 23:50 04/15/23 06:00 Temperature 98.3 F 97.0 F 97.0 F Pulse Rate 82 56 70 Respiratory Rate 18 14 Blood Pressure 156/86 H 118/71 111/70 Pulse Oximetry 99 97 99 Oxygen Delivery Method Room Air Room Air Room Air BMI result Body Mass Index 30.6 Labs 04/14/23 14:25 04/15/23 07:51 Labs: Laboratory Results - last 48 hr 04/14/23 04/14/23 04/14/23 14:25 16:11 20:35 WBC 9.8 RBC 4.23 L Hgb 11.7 L Hct 35.8 L MCV 84.6 MCH 27.7 MCHC 32.7 RDW 14.4 Plt Count 277 MPV 9.7 Immature Gran % (Auto) 0.2 Neut % (Auto) 69.5 Lymph % (Auto) 19.1 L [place] % (Auto) 10.2 Eos % (Auto) 0.5 Baso % (Auto) 0.5 Lymph # (Auto) 1.9 [place] # (Auto) 1.0 Eos # (Auto) 0.1 Baso # (Auto) 0.1 Abs Immat Gran (auto) 0.02 Absolute Neuts (auto) 6.8 Absolute Nucleated RBC 0.000 Nucleated RBC % (auto) 0.0 Sodium 140 Potassium 3.7 Chloride 106 Carbon Dioxide 26 Anion Gap 12 BUN 11 Creatinine 1.06 Estim Creat Clear Calc 102.3 Estimated GFR > 60 Random Glucose 89 Fasting Glucose Estimat Average Glucose Hemoglobin A1c % Calcium 9.8 Magnesium 2.1 Iron TIBC % Saturation Unsat Iron Binding Total Bilirubin 0.4 AST 15 ALT 10 Alkaline Phosphatase 64 Troponin I High Sens 8.0 Total Protein 7.5 Albumin 4.3 Triglycerides Cholesterol LDL Cholesterol, Calc HDL Cholesterol Vitamin B12 Folate TSH Free T4 Urine Color Yellow Urine Appearance Clear Urine pH 5.5 Ur Specific [place] >= 1.030 H Urine Protein Trace Urine Glucose (UA) Negative Urine Ketones Negative Urine Blood Negative Urine Nitrite Negative Ur Leukocyte Esterase Negative Salicylates < 5.0 L Urine Opiates Screen POSITIVE H Urine Fentanyl Screen POSITIVE H Acetaminophen < 3 Ur Barbiturates Screen Not Detected Ur Phencyclidine Scrn Not Detected Ur Amphetamines Screen Not Detected U Benzodiazepines Scrn Not Detected Urine Cocaine Screen POSITIVE H U Marijuana (THC) Screen POSITIVE H Ethyl Alcohol < 10 COVID-19 ([facility]) Negative COVID-19 Clin Com See Note 04/15/23 07:51 WBC RBC Hgb Hct MCV MCH MCHC RDW Plt Count MPV Immature Gran % (Auto) Neut % (Auto) Lymph % (Auto) [place] % (Auto) Eos % (Auto) Baso % (Auto) Lymph # (Auto) [place] # (Auto) Eos # (Auto) Baso # (Auto) Abs Immat Gran (auto) Absolute Neuts (auto) Absolute Nucleated RBC Nucleated RBC % (auto) Sodium 143 Potassium 3.9 Chloride 108 Carbon Dioxide 26 Anion Gap 13 BUN 12 Creatinine 1.01 Estim Creat Clear Calc 107.6 Estimated GFR > 60 Random Glucose Fasting Glucose 125 H Estimat Average Glucose 100 Hemoglobin A1c % 5.1 Calcium 8.9 D Magnesium 2.1 Iron 73 TIBC 237 % Saturation 31 Unsat Iron Binding 164 Total Bilirubin 0.3 AST 17 ALT 15 Alkaline Phosphatase 63 Troponin I High Sens Total Protein 6.6 Albumin 3.7 Triglycerides 131 Cholesterol 138 LDL Cholesterol, Calc 80 HDL Cholesterol 32 L Vitamin B12 385 Folate 4.7 TSH 0.79 Free T4 1.04 Urine Color Urine Appearance Urine pH Ur Specific [place] Urine Protein Urine Glucose (UA) Urine Ketones Urine Blood Urine Nitrite Ur Leukocyte Esterase Salicylates Urine Opiates Screen Urine Fentanyl Screen Acetaminophen Ur Barbiturates Screen Ur Phencyclidine Scrn Ur Amphetamines Screen U Benzodiazepines Scrn Urine Cocaine Screen U Marijuana (THC) Screen Ethyl Alcohol COVID-19 ([facility]) COVID-19 Clin Com Imaging Radiology Impressions: ITS Impressions Chest X-Ray 04/14/23 14:34 IMPRESSION: No active cardiopulmonary disease. Meds/Allergies Meds Home Medications Medication Instructions Recorded Confirmed Type benztropine 2 mg tablet 2 mg PO BEDTIME 04/14/23 04/14/23 History haloperidol 10 mg tablet 10 mg PO BEDTIME 04/14/23 04/14/23 History sertraline 100 mg tablet 100 mg PO DAILY 04/14/23 04/14/23 History Allergies Allergies Allergy/AdvReac Type Severity Reaction Status Date / Time paprika Allergy Severe DIFFICULTY Verified 03/13/23 12:33 BREATHING shrimp Allergy Severe ANAPHYLAXIS Verified 03/13/23 12:33 cranberry [CRANBERRY] Allergy Mild SWELLING Verified 03/13/23 12:33 OF HIS EAR strawberry [STRAWBERRY] Allergy Mild SWELLING Verified 03/13/23 12:33 OF HIS EAR cat dander [CATS] Allergy Unknown WATERY,ITCHY Verified 03/13/23 12:33 EYES clams [CLAMS] Allergy Unknown UNK Verified 03/13/23 12:33 MARINARA Allergy Severe ANAPHYLAXIS Uncoded 12/21/22 10:30 ibuprofes Allergy Unknown renal Uncoded 12/21/22 10:30 insufficiency paprika, seafood, Allergy Unknown unknown Uncoded 12/21/22 10:30 strawberries SEAFOOD Allergy Unknown UNKNOWN Uncoded 12/21/22 10:30 Mental Status Exam Mental Status Exam Narrative: Pleasant. Guarded. Casually presented. [place]. Denied depression. Flat affect. Denied SI or HI. Did endorse feeling paranoid and hallucinating. Insight and judgment is limited. Assessment & Plan Assessment & Plan (1) Cocaine abuse: Status: Acute Code(s): F14.10 - Cocaine abuse, uncomplicated (2) Schizoaffective disorder, depressive type: Status: Acute Code(s): F25.1 - Schizoaffective disorder, depressive type Plan Overall presents with psychosis in the context of medication non adherence. Comorbid substance use disorder. Restart medications which include Haldol. When able to engage more, can review substance needs. Patient educated on: diagnosis and medication risk/benefits Reason for continued inpatient stay Substantial Risk for: inability to function Statement Statement: I have reviewed the history and physical and performed a pertinent examination on my patient. No changes have occurred unless specified. If the History and Physical was not performed prior to admission, the Hospitalist's service will be consulted for completing the admission physical. Time Spent With Patient Time: Total time managing care of this patient today ____ minutes.
[2023-04-15 21:23] VITALS: BP 136/62; PULSE 61; TEMP 36.5; O2SAT 97
[2023-04-15] MEDS: Benztropine Mesylate 1 MG TABLET 2 MG PO (21:30)
[2023-04-15] MEDS: HaloperidoL 5 MG TABLET 10 MG PO (21:30)
[2023-04-15] MEDS: traZODone HCL 50 MG TABLET PO (21:30)
[2023-04-16] MEDS: Sertraline HCL 100 MG TABLET PO (08:30)
--- NOTE | 2023-04-16 10:16 | P.PNPSI_ITS ---
Subjective Subjective Date of Service: 04/16/23 Reason For Visit: Schizoaffective disorder Interim History: met with patient. Discussed with Nursing. Has been adherent with medications since yesterday. Reports not hearing any voices today. Feeling safe. Sleeping okay no medication concerns. Has been isolative and encouraged to spend some time outside of his room. Medication Compliance: Yes Side effects from medications: No Attending Groups: No Review of Systems Acute medical concerns: No Review of Systems Review of Systems Unremarkable Yes all other systems are reviewed and are negative Mental Status Exam Mental Status Exam Narrative: Pleasant. Guarded. Casually presented. [place]. Denied depression. Flat affect. Denied SI or HI. Feeling safe and denies hallucinations today. Insight and judgment is limited. Diagnostics Vital Signs (24Hr): Vital Signs - 24 hr 04/15/23 21:23 Temperature 97.7 F Pulse Rate 61 Blood Pressure 136/62 Pulse Oximetry 97 Oxygen Delivery Method Room Air BMI result Body Mass Index 30.6 Labs 04/14/23 14:25 04/15/23 07:51 Labs: Laboratory Results - last 48 hr 04/14/23 04/14/23 04/14/23 14:25 16:11 20:35 WBC 9.8 RBC 4.23 L Hgb 11.7 L Hct 35.8 L MCV 84.6 MCH 27.7 MCHC 32.7 RDW 14.4 Plt Count 277 MPV 9.7 Immature Gran % (Auto) 0.2 Neut % (Auto) 69.5 Lymph % (Auto) 19.1 L [place] % (Auto) 10.2 Eos % (Auto) 0.5 Baso % (Auto) 0.5 Lymph # (Auto) 1.9 [place] # (Auto) 1.0 Eos # (Auto) 0.1 Baso # (Auto) 0.1 Abs Immat Gran (auto) 0.02 Absolute Neuts (auto) 6.8 Absolute Nucleated RBC 0.000 Nucleated RBC % (auto) 0.0 Sodium 140 Potassium 3.7 Chloride 106 Carbon Dioxide 26 Anion Gap 12 BUN 11 Creatinine 1.06 Estim Creat Clear Calc 102.3 Estimated GFR > 60 Random Glucose 89 Fasting Glucose Estimat Average Glucose Hemoglobin A1c % Calcium 9.8 Magnesium 2.1 Iron TIBC % Saturation Unsat Iron Binding Total Bilirubin 0.4 AST 15 ALT 10 Alkaline Phosphatase 64 Troponin I High Sens 8.0 Total Protein 7.5 Albumin 4.3 Triglycerides Cholesterol LDL Cholesterol, Calc HDL Cholesterol Vitamin B12 Folate TSH Free T4 Urine Color Yellow Urine Appearance Clear Urine pH 5.5 Ur Specific [place] >= 1.030 H Urine Protein Trace Urine Glucose (UA) Negative Urine Ketones Negative Urine Blood Negative Urine Nitrite Negative Ur Leukocyte Esterase Negative Salicylates < 5.0 L Urine Opiates Screen POSITIVE H Urine Fentanyl Screen POSITIVE H Acetaminophen < 3 Ur Barbiturates Screen Not Detected Ur Phencyclidine Scrn Not Detected Ur Amphetamines Screen Not Detected U Benzodiazepines Scrn Not Detected Urine Cocaine Screen POSITIVE H U Marijuana (THC) Screen POSITIVE H Ethyl Alcohol < 10 COVID-19 ([facility]) Negative COVID-19 Clin Com See Note 04/15/23 07:51 WBC RBC Hgb Hct MCV MCH MCHC RDW Plt Count MPV Immature Gran % (Auto) Neut % (Auto) Lymph % (Auto) [place] % (Auto) Eos % (Auto) Baso % (Auto) Lymph # (Auto) [place] # (Auto) Eos # (Auto) Baso # (Auto) Abs Immat Gran (auto) Absolute Neuts (auto) Absolute Nucleated RBC Nucleated RBC % (auto) Sodium 143 Potassium 3.9 Chloride 108 Carbon Dioxide 26 Anion Gap 13 BUN 12 Creatinine 1.01 Estim Creat Clear Calc 107.6 Estimated GFR > 60 Random Glucose Fasting Glucose 125 H Estimat Average Glucose 100 Hemoglobin A1c % 5.1 Calcium 8.9 D Magnesium 2.1 Iron 73 TIBC 237 % Saturation 31 Unsat Iron Binding 164 Total Bilirubin 0.3 AST 17 ALT 15 Alkaline Phosphatase 63 Troponin I High Sens Total Protein 6.6 Albumin 3.7 Triglycerides 131 Cholesterol 138 LDL Cholesterol, Calc 80 HDL Cholesterol 32 L Vitamin B12 385 Folate 4.7 TSH 0.79 Free T4 1.04 Urine Color Urine Appearance Urine pH Ur Specific [place] Urine Protein Urine Glucose (UA) Urine Ketones Urine Blood Urine Nitrite Ur Leukocyte Esterase Salicylates Urine Opiates Screen Urine Fentanyl Screen Acetaminophen Ur Barbiturates Screen Ur Phencyclidine Scrn Ur Amphetamines Screen U Benzodiazepines Scrn Urine Cocaine Screen U Marijuana (THC) Screen Ethyl Alcohol COVID-19 ([facility]) COVID-19 Clin Com Imaging Radiology Impressions: ITS Impressions Chest X-Ray 04/14/23 14:34 IMPRESSION: No active cardiopulmonary disease. Medications Medications Current Medications Acetaminophen (Acetaminophen 325 Mg Tablet) 650 mg PO Q6H PRN PRN Reason: Headache/Pain Mild Scale (1-3) Al Hydroxide/Mg Hydroxide (Magnesium Hydrox/Alum Hydrox 30 Ml Oral.Susp) 30 ml PO Q6H PRN PRN Reason: Heartburn/Nausea Benztropine Mesylate (Benztropine Mesylate 1 Mg Tablet) 2 mg PO BEDTIME LOGAN Last Admin: 04/15/23 21:30 Dose: 2 mg Haloperidol (Haloperidol 5 Mg Tablet) 10 mg PO BEDTIME LOGAN Last Admin: 04/15/23 21:30 Dose: 10 mg Hydroxyzine HCl (Hydroxyzine Hcl 25 Mg Tablet) 25 mg PO Q6H PRN PRN Reason: Anxiety Last Admin: 04/14/23 23:47 Dose: 25 mg Magnesium Hydroxide (Milk Of Magnesia 30 Ml Oral.Susp) 30 ml PO DAILY PRN PRN Reason: Constipation Sertraline HCl (Sertraline Hcl 100 Mg Tablet) 100 mg PO DAILY LOGAN Last Admin: 04/16/23 08:30 Dose: 100 mg Trazodone HCl (Trazodone Hcl 50 Mg Tablet) 50 mg PO BEDTIME MRX1 PRN PRN Reason: Insomnia Last Admin: 04/15/23 21:30 Dose: 50 mg Allergies Allergies Allergy/AdvReac Type Severity Reaction Status Date / Time paprika Allergy Severe DIFFICULTY Verified 03/13/23 12:33 BREATHING shrimp Allergy Severe ANAPHYLAXIS Verified 03/13/23 12:33 cranberry [CRANBERRY] Allergy Mild SWELLING Verified 03/13/23 12:33 OF HIS EAR strawberry [STRAWBERRY] Allergy Mild SWELLING Verified 03/13/23 12:33 OF HIS EAR cat dander [CATS] Allergy Unknown WATERY,ITCHY Verified 03/13/23 12:33 EYES clams [CLAMS] Allergy Unknown UNK Verified 03/13/23 12:33 MARINARA Allergy Severe ANAPHYLAXIS Uncoded 12/21/22 10:30 ibuprofes Allergy Unknown renal Uncoded 12/21/22 10:30 insufficiency paprika, seafood, Allergy Unknown unknown Uncoded 12/21/22 10:30 strawberries SEAFOOD Allergy Unknown UNKNOWN Uncoded 12/21/22 10:30 Assessment & Plan Assessment & Plan (1) Cocaine abuse: Status: Acute Code(s): F14.10 - Cocaine abuse, uncomplicated (2) Schizoaffective disorder, depressive type: Status: Acute Code(s): F25.1 - Schizoaffective disorder, depressive type Plan Overall presents with psychosis in the context of medication non adherence. Comorbid substance use disorder. Restart medications which include Haldol. When able to engage more, can review substance needs. 04/16/2023: No changes to medication regimen. Reason for continued inpatient stay Substantial Risk for: rapid decompensation Time Spent With Patient Time: Total time managing care of this patient today ____ minutes.
[2023-04-16 10:27] VITALS: BP 122/70; PULSE 55; RESP 20; TEMP 36.4; O2SAT 98
[2023-04-16 19:55] VITALS: BP 119/69; PULSE 87; RESP 18; TEMP 36.8; O2SAT 97
[2023-04-16] MEDS: HaloperidoL 5 MG TABLET 10 MG PO (22:35)
[2023-04-16] MEDS: Benztropine Mesylate 1 MG TABLET 2 MG PO (22:35)
[2023-04-16] MEDS: traZODone HCL 50 MG TABLET PO (23:54)
[2023-04-16] MEDS: hydrOXYzine HCL 25 MG TABLET PO (23:54)
[2023-04-17] MEDS: traZODone HCL 50 MG TABLET PO ×2 (02:13→22:27)
[2023-04-17 07:35] VITALS: BP 128/61; PULSE 72; RESP 16; TEMP 36.8; O2SAT 98
[2023-04-17] MEDS: Sertraline HCL 100 MG TABLET PO (08:20)
[2023-04-17 20:05] VITALS: BP 138/71; PULSE 87; RESP 14; TEMP 36.6; O2SAT 98
[2023-04-17] MEDS: Benztropine Mesylate 1 MG TABLET 2 MG PO (20:20)
[2023-04-17] MEDS: HaloperidoL 5 MG TABLET 10 MG PO (20:21)
--- NOTE | 2023-04-17 21:55 | HO.PSYCHPN ---
Subjective Subjective Date of Service: 04/17/23 Reason For Visit: Schizoaffective disorder Interim History: met with patient. Discussed with Nursing. States he is feeling more stable denies active self harm ahall no c/o side effects Medication Compliance: Yes Side effects from medications: No Attending Groups: No Review of Systems Acute medical concerns: No Mental Status Exam Mental Status Exam Narrative: Patient casually dressed cooperative somewhat flat and blunted denies hallucinations future oriented denied current auditory hallucinations somewhat guarded stated he was feeling better limited insight no thoughts of harm to others or himself Diagnostics Vital Signs (24Hr): Vital Signs - 24 hr 04/17/23 07:35 04/17/23 20:05 Temperature 98.3 F 97.9 F Pulse Rate 72 87 Respiratory Rate 16 14 Blood Pressure 128/61 138/71 Pulse Oximetry 98 98 Oxygen Delivery Method Room Air Room Air BMI result Body Mass Index 30.6 Labs 04/14/23 14:25 04/15/23 07:51 Imaging Radiology Impressions: ITS Impressions Chest X-Ray 04/14/23 14:34 IMPRESSION: No active cardiopulmonary disease. Medications Medications Current Medications Acetaminophen (Acetaminophen 325 Mg Tablet) 650 mg PO Q6H PRN PRN Reason: Headache/Pain Mild Scale (1-3) Al Hydroxide/Mg Hydroxide (Magnesium Hydrox/Alum Hydrox 30 Ml Oral.Susp) 30 ml PO Q6H PRN PRN Reason: Heartburn/Nausea Benztropine Mesylate (Benztropine Mesylate 1 Mg Tablet) 2 mg PO BEDTIME LOGAN Last Admin: 04/17/23 20:20 Dose: 2 mg Haloperidol (Haloperidol 5 Mg Tablet) 10 mg PO BEDTIME LOGAN Last Admin: 04/17/23 20:21 Dose: 10 mg Hydroxyzine HCl (Hydroxyzine Hcl 25 Mg Tablet) 25 mg PO Q6H PRN PRN Reason: Anxiety Last Admin: 04/16/23 23:54 Dose: 25 mg Magnesium Hydroxide (Milk Of Magnesia 30 Ml Oral.Susp) 30 ml PO DAILY PRN PRN Reason: Constipation Sertraline HCl (Sertraline Hcl 100 Mg Tablet) 100 mg PO DAILY LOGAN Last Admin: 04/17/23 08:20 Dose: 100 mg Trazodone HCl (Trazodone Hcl 50 Mg Tablet) 50 mg PO BEDTIME MRX1 PRN PRN Reason: Insomnia Last Admin: 04/17/23 02:13 Dose: 50 mg Allergies Allergies Allergy/AdvReac Type Severity Reaction Status Date / Time paprika Allergy Severe DIFFICULTY Verified 03/13/23 12:33 BREATHING shrimp Allergy Severe ANAPHYLAXIS Verified 03/13/23 12:33 cranberry [CRANBERRY] Allergy Mild SWELLING Verified 03/13/23 12:33 OF HIS EAR strawberry [STRAWBERRY] Allergy Mild SWELLING Verified 03/13/23 12:33 OF HIS EAR cat dander [CATS] Allergy Unknown WATERY,ITCHY Verified 03/13/23 12:33 EYES clams [CLAMS] Allergy Unknown UNK Verified 03/13/23 12:33 MARINARA Allergy Severe ANAPHYLAXIS Uncoded 12/21/22 10:30 ibuprofes Allergy Unknown renal Uncoded 12/21/22 10:30 insufficiency paprika, seafood, Allergy Unknown unknown Uncoded 12/21/22 10:30 strawberries SEAFOOD Allergy Unknown UNKNOWN Uncoded 12/21/22 10:30 Assessment & Plan Assessment & Plan (1) Cocaine abuse: Status: Acute Code(s): F14.10 - Cocaine abuse, uncomplicated (2) Schizoaffective disorder, depressive type: Status: Acute Code(s): F25.1 - Schizoaffective disorder, depressive type Plan Overall presents with psychosis in the context of medication non adherence. Comorbid substance use disorder. Restart medications which include Haldol. When able to engage more, can review substance needs. 04/16/2023: No changes to medication regimen. 04/17/2023 Patient flat guarded not acutely psychotic on presentation not agitated Continue Haldol sertraline Reason for continued inpatient stay Substantial Risk for: harm to self, inability to function and rapid decompensation Time Spent With Patient Time: Total time managing care of this patient today ____ minutes.
[2023-04-18 08:07] VITALS: BP 117/63; PULSE 60; RESP 22; TEMP 36.3; O2SAT 96
[2023-04-18] MEDS: Sertraline HCL 100 MG TABLET PO (10:31)
--- NOTE | 2023-04-18 15:31 | HO.PSYCHPN ---
Subjective Subjective Date of Service: 04/18/23 Reason For Visit: Schizoaffective disorder Interim History: calm, cooperative. feeling pretty good. denies safety concerns. denies any AH since day of admission when somebody was casting spells on me. feels haldol helps him control hallucinations. declines offer of SA Tx referral , saying [facility] will address his substance use concerns. per staff, depressed. no anxiety. +AH. isolative. dep 9. some paranoia. trazodone at HS, slept through the night. Mental Status Exam Mental Status Exam Narrative: Patient casually dressed cooperative somewhat flat and blunted denies hallucinations future oriented denied current auditory hallucinations somewhat guarded stated he was feeling better limited insight no thoughts of harm to others or himself Diagnostics Vital Signs (24Hr): Vital Signs - 24 hr 04/17/23 20:05 04/18/23 08:07 Temperature 97.9 F 97.3 F Pulse Rate 87 60 Respiratory Rate 14 22 H Blood Pressure 138/71 117/63 Pulse Oximetry 98 96 Oxygen Delivery Method Room Air Room Air BMI result Body Mass Index 30.6 Labs 04/14/23 14:25 04/15/23 07:51 Imaging Radiology Impressions: ITS Impressions Chest X-Ray 04/14/23 14:34 IMPRESSION: No active cardiopulmonary disease. Medications Medications Current Medications Acetaminophen (Acetaminophen 325 Mg Tablet) 650 mg PO Q6H PRN PRN Reason: Headache/Pain Mild Scale (1-3) Al Hydroxide/Mg Hydroxide (Magnesium Hydrox/Alum Hydrox 30 Ml Oral.Susp) 30 ml PO Q6H PRN PRN Reason: Heartburn/Nausea Benztropine Mesylate (Benztropine Mesylate 1 Mg Tablet) 2 mg PO BEDTIME LOGAN Last Admin: 04/17/23 20:20 Dose: 2 mg Haloperidol (Haloperidol 5 Mg Tablet) 10 mg PO BEDTIME LOGAN Last Admin: 04/17/23 20:21 Dose: 10 mg Hydroxyzine HCl (Hydroxyzine Hcl 25 Mg Tablet) 25 mg PO Q6H PRN PRN Reason: Anxiety Last Admin: 04/16/23 23:54 Dose: 25 mg Magnesium Hydroxide (Milk Of Magnesia 30 Ml Oral.Susp) 30 ml PO DAILY PRN PRN Reason: Constipation Nicotine Polacrilex (Nicotine Polacrilex 2 Mg Gum) 2 mg [place] Q1H PRN PRN Reason: Nicotine Cravings Sertraline HCl (Sertraline Hcl 100 Mg Tablet) 100 mg PO DAILY LOGAN Last Admin: 04/18/23 10:31 Dose: 100 mg Trazodone HCl (Trazodone Hcl 50 Mg Tablet) 50 mg PO BEDTIME MRX1 PRN PRN Reason: Insomnia Last Admin: 04/17/23 22:27 Dose: 50 mg Allergies Allergies Allergy/AdvReac Type Severity Reaction Status Date / Time paprika Allergy Severe DIFFICULTY Verified 03/13/23 12:33 BREATHING shrimp Allergy Severe ANAPHYLAXIS Verified 03/13/23 12:33 cranberry [CRANBERRY] Allergy Mild SWELLING Verified 03/13/23 12:33 OF HIS EAR strawberry [STRAWBERRY] Allergy Mild SWELLING Verified 03/13/23 12:33 OF HIS EAR cat dander [CATS] Allergy Unknown WATERY,ITCHY Verified 03/13/23 12:33 EYES clams [CLAMS] Allergy Unknown UNK Verified 03/13/23 12:33 MARINARA Allergy Severe ANAPHYLAXIS Uncoded 12/21/22 10:30 ibuprofes Allergy Unknown renal Uncoded 12/21/22 10:30 insufficiency paprika, seafood, Allergy Unknown unknown Uncoded 12/21/22 10:30 strawberries SEAFOOD Allergy Unknown UNKNOWN Uncoded 12/21/22 10:30 Assessment & Plan Assessment & Plan (1) Cocaine abuse: Status: Acute Code(s): F14.10 - Cocaine abuse, uncomplicated (2) Schizoaffective disorder, depressive type: Status: Acute Code(s): F25.1 - Schizoaffective disorder, depressive type Plan Overall presents with psychosis in the context of medication non adherence. Comorbid substance use disorder. Restart medications which include Haldol. When able to engage more, can review substance needs. 04/16: No changes to medication regimen. 04/17: Patient flat guarded not acutely psychotic on presentation not agitated. Continue Haldol, Sertraline. 04/18: much improved from admission, improved insight. feels haldol helpful for AH. denies AH. declines SA Tx. mood improved. Reason for continued inpatient stay Substantial Risk for: inability to function and rapid decompensation Time Spent With Patient Time: Total time managing care of this patient today __35__ minutes.
[2023-04-18 19:15] VITALS: BP 136/84; PULSE 88; RESP 16; TEMP 36.7; O2SAT 96
[2023-04-18] MEDS: Benztropine Mesylate 1 MG TABLET 2 MG PO (21:28)
[2023-04-18] MEDS: HaloperidoL 5 MG TABLET 10 MG PO (21:28)
[2023-04-18] MEDS: hydrOXYzine HCL 25 MG TABLET PO (23:34)
[2023-04-18] MEDS: traZODone HCL 50 MG TABLET PO (23:34)
[2023-04-19 07:35] VITALS: BP 113/63; PULSE 64; TEMP 36.2; O2SAT 97
[2023-04-19] MEDS: Sertraline HCL 100 MG TABLET PO (09:23)
--- NOTE | 2023-04-19 15:32 | HO.PSYCHPN ---
Subjective Subjective Date of Service: 04/19/23 Reason For Visit: Schizoaffective disorder Interim History: tired. napping. mood OK, no questions or complaints. per staff, dep 10. no anx/SI/HI/AVH. constricted. c/o AH eves. didn't eat lunch or dinner. slept about 8 hours. Mental Status Exam Mental Status Exam Narrative: Patient casually dressed cooperative somewhat flat and blunted future oriented denied current auditory hallucinations somewhat guarded stated he was feeling better limited insight no thoughts of harm to others or himself Diagnostics Vital Signs (24Hr): Vital Signs - 24 hr 04/18/23 19:15 04/19/23 07:35 Temperature 98.1 F 97.1 F Pulse Rate 88 64 Respiratory Rate 16 Blood Pressure 136/84 113/63 Pulse Oximetry 96 97 Oxygen Delivery Method Room Air Room Air BMI result Body Mass Index 30.6 Labs 04/14/23 14:25 04/15/23 07:51 Imaging Radiology Impressions: ITS Impressions Chest X-Ray 04/14/23 14:34 IMPRESSION: No active cardiopulmonary disease. Medications Medications Current Medications Acetaminophen (Acetaminophen 325 Mg Tablet) 650 mg PO Q6H PRN PRN Reason: Headache/Pain Mild Scale (1-3) Al Hydroxide/Mg Hydroxide (Magnesium Hydrox/Alum Hydrox 30 Ml Oral.Susp) 30 ml PO Q6H PRN PRN Reason: Heartburn/Nausea Benztropine Mesylate (Benztropine Mesylate 1 Mg Tablet) 2 mg PO BEDTIME LOGAN Last Admin: 04/18/23 21:28 Dose: 2 mg Haloperidol (Haloperidol 5 Mg Tablet) 10 mg PO BEDTIME LOGAN Last Admin: 04/18/23 21:28 Dose: 10 mg Hydroxyzine HCl (Hydroxyzine Hcl 25 Mg Tablet) 25 mg PO Q6H PRN PRN Reason: Anxiety Last Admin: 04/18/23 23:34 Dose: 25 mg Magnesium Hydroxide (Milk Of Magnesia 30 Ml Oral.Susp) 30 ml PO DAILY PRN PRN Reason: Constipation Nicotine Polacrilex (Nicotine Polacrilex 2 Mg Gum) 2 mg BUCCAL Q1H PRN PRN Reason: Nicotine Cravings Sertraline HCl (Sertraline Hcl 100 Mg Tablet) 100 mg PO DAILY LOGAN Last Admin: 04/19/23 09:23 Dose: 100 mg Trazodone HCl (Trazodone Hcl 50 Mg Tablet) 50 mg PO BEDTIME MRX1 PRN PRN Reason: Insomnia Last Admin: 04/18/23 23:34 Dose: 50 mg Allergies Allergies Allergy/AdvReac Type Severity Reaction Status Date / Time paprika Allergy Severe DIFFICULTY Verified 03/13/23 12:33 BREATHING shrimp Allergy Severe ANAPHYLAXIS Verified 03/13/23 12:33 cranberry [CRANBERRY] Allergy Mild SWELLING Verified 03/13/23 12:33 OF HIS EAR strawberry [STRAWBERRY] Allergy Mild SWELLING Verified 03/13/23 12:33 OF HIS EAR cat dander [CATS] Allergy Unknown WATERY,ITCHY Verified 03/13/23 12:33 EYES clams [CLAMS] Allergy Unknown UNK Verified 03/13/23 12:33 MARINARA Allergy Severe ANAPHYLAXIS Uncoded 12/21/22 10:30 ibuprofes Allergy Unknown renal Uncoded 12/21/22 10:30 insufficiency paprika, seafood, Allergy Unknown unknown Uncoded 12/21/22 10:30 strawberries SEAFOOD Allergy Unknown UNKNOWN Uncoded 12/21/22 10:30 Assessment & Plan Assessment & Plan (1) Cocaine abuse: Status: Acute Code(s): F14.10 - Cocaine abuse, uncomplicated (2) Schizoaffective disorder, depressive type: Status: Acute Code(s): F25.1 - Schizoaffective disorder, depressive type Plan Overall presents with psychosis in the context of medication non adherence. Comorbid substance use disorder. Restart medications which include Haldol. When able to engage more, can review substance needs. 3: No changes to medication regimen. 04/17: Patient flat guarded not acutely psychotic on presentation not agitated. Continue Haldol, Sertraline. 04/18: much improved from admission, improved insight. feels haldol helpful for AH. denies AH. declines SA Tx. mood improved. 04/19: tired, otherwise no change from yesterday. continue current mgmt. Reason for continued inpatient stay Substantial Risk for: inability to function and rapid decompensation Time Spent With Patient Time: Total time managing care of this patient today ____ minutes.
[2023-04-19 19:40] VITALS: BP 128/63; PULSE 84; RESP 20; TEMP 36.3; O2SAT 97
[2023-04-19] MEDS: Benztropine Mesylate 1 MG TABLET 2 MG PO (21:45)
[2023-04-19] MEDS: HaloperidoL 5 MG TABLET 10 MG PO (21:45)
[2023-04-19] MEDS: hydrOXYzine HCL 25 MG TABLET PO (23:06)
[2023-04-19] MEDS: traZODone HCL 50 MG TABLET PO (23:06)
[2023-04-20] MEDS: Sertraline HCL 100 MG TABLET PO (08:26)
[2023-04-20 08:39] VITALS: BP 114/72; PULSE 61; RESP 20; TEMP 36.8; O2SAT 96
--- NOTE | 2023-04-20 14:53 | HO.PSYCHPN ---
Subjective Subjective Date of Service: 04/20/23 Reason For Visit: Schizoaffective disorder Interim History: kari, cooperative. not wanting to get out of bed again. endorses AH yesterday, none since. informed of discharge plan for monday, asks if he can go late in the day so his mother can pick him up after work. per staff, defecated in shower yesterday and informed staff of it so it could be cleaned up. slept about 8 hours overnight. no lunch or dinner. c/o AH on second shift. planning for DC monday. Mental Status Exam Mental Status Exam Narrative: Patient casually dressed cooperative somewhat flat and blunted future oriented denied current auditory hallucinations somewhat guarded stated he was feeling better limited insight no thoughts of harm to others or himself Diagnostics Vital Signs (24Hr): Vital Signs - 24 hr 04/19/23 19:40 04/20/23 08:39 Temperature 97.4 F 98.3 F Pulse Rate 84 61 Respiratory Rate 20 20 Blood Pressure 128/63 114/72 Pulse Oximetry 97 96 Oxygen Delivery Method Room Air Room Air BMI result Body Mass Index 30.6 Labs 04/14/23 14:25 04/15/23 07:51 Imaging Radiology Impressions: ITS Impressions Chest X-Ray 04/14/23 14:34 IMPRESSION: No active cardiopulmonary disease. Medications Medications Current Medications Acetaminophen (Acetaminophen 325 Mg Tablet) 650 mg PO Q6H PRN PRN Reason: Headache/Pain Mild Scale (1-3) Al Hydroxide/Mg Hydroxide (Magnesium Hydrox/Alum Hydrox 30 Ml Oral.Susp) 30 ml PO Q6H PRN PRN Reason: Heartburn/Nausea Benztropine Mesylate (Benztropine Mesylate 1 Mg Tablet) 2 mg PO BEDTIME LOGAN Last Admin: 04/19/23 21:45 Dose: 2 mg Haloperidol (Haloperidol 5 Mg Tablet) 10 mg PO BEDTIME LOGAN Last Admin: 04/19/23 21:45 Dose: 10 mg Hydroxyzine HCl (Hydroxyzine Hcl 25 Mg Tablet) 25 mg PO Q6H PRN PRN Reason: Anxiety Last Admin: 04/19/23 23:06 Dose: 25 mg Magnesium Hydroxide (Milk Of Magnesia 30 Ml Oral.Susp) 30 ml PO DAILY PRN PRN Reason: Constipation Nicotine Polacrilex (Nicotine Polacrilex 2 Mg Gum) 2 mg BUCCAL Q1H PRN PRN Reason: Nicotine Cravings Sertraline HCl (Sertraline Hcl 100 Mg Tablet) 100 mg PO DAILY LOGAN Last Admin: 04/20/23 08:26 Dose: 100 mg Trazodone HCl (Trazodone Hcl 50 Mg Tablet) 50 mg PO BEDTIME MRX1 PRN PRN Reason: Insomnia Last Admin: 04/19/23 23:06 Dose: 50 mg Allergies Allergies Allergy/AdvReac Type Severity Reaction Status Date / Time paprika Allergy Severe DIFFICULTY Verified 03/13/23 12:33 BREATHING shrimp Allergy Severe ANAPHYLAXIS Verified 03/13/23 12:33 cranberry [CRANBERRY] Allergy Mild SWELLING Verified 03/13/23 12:33 OF HIS EAR strawberry [STRAWBERRY] Allergy Mild SWELLING Verified 03/13/23 12:33 OF HIS EAR cat dander [CATS] Allergy Unknown WATERY,ITCHY Verified 03/13/23 12:33 EYES clams [CLAMS] Allergy Unknown UNK Verified 03/13/23 12:33 MARINARA Allergy Severe ANAPHYLAXIS Uncoded 12/21/22 10:30 ibuprofes Allergy Unknown renal Uncoded 12/21/22 10:30 insufficiency paprika, seafood, Allergy Unknown unknown Uncoded 12/21/22 10:30 strawberries SEAFOOD Allergy Unknown UNKNOWN Uncoded 12/21/22 10:30 Assessment & Plan Assessment & Plan (1) Cocaine abuse: Status: Acute Code(s): F14.10 - Cocaine abuse, uncomplicated (2) Schizoaffective disorder, depressive type: Status: Acute Code(s): F25.1 - Schizoaffective disorder, depressive type Plan Overall presents with psychosis in the context of medication non adherence. Comorbid substance use disorder. Restart medications which include Haldol. When able to engage more, can review substance needs. 04/16: No changes to medication regimen. 04/17: Patient flat guarded not acutely psychotic on presentation not agitated. Continue Haldol, Sertraline. 04/18: much improved from admission, improved insight. feels haldol helpful for AH. denies AH. declines SA Tx. mood improved. 04/19: tired, otherwise no change from yesterday. continue current mgmt. 04/20: no change from yesterday. continue current mgmt. planning for monday discharge. Reason for continued inpatient stay Substantial Risk for: inability to function and rapid decompensation Time Spent With Patient Time: Total time managing care of this patient today __35__ minutes.
[2023-04-20 19:45] VITALS: BP 124/69; PULSE 82; RESP 18; TEMP 36.6; O2SAT 97
[2023-04-20] MEDS: Benztropine Mesylate 1 MG TABLET 2 MG PO (21:10)
[2023-04-20] MEDS: HaloperidoL 5 MG TABLET 10 MG PO (21:10)
[2023-04-20] MEDS: hydrOXYzine HCL 25 MG TABLET PO (23:32)
[2023-04-20] MEDS: traZODone HCL 50 MG TABLET PO (23:32)
[2023-04-21 08:45] VITALS: BP 109/62; PULSE 62; RESP 18; TEMP 36.2; O2SAT 95
[2023-04-21] MEDS: Sertraline HCL 100 MG TABLET PO (09:06)
--- NOTE | 2023-04-21 12:36 | HO.PSYCHPN ---
Subjective Subjective Date of Service: 04/21/23 Reason For Visit: Schizoaffective disorder Interim History: remains spending very much time in bed. states this is his usual behavior. no questions or complaints, prepared to discharge to mother's house monday. per staff, isolative, calm, cooperative. slept 7 hours. Mental Status Exam Mental Status Exam Narrative: Patient casually dressed cooperative somewhat flat and blunted future oriented denied current auditory hallucinations somewhat guarded stated he was feeling better limited insight no thoughts of harm to others or himself Diagnostics Vital Signs (24Hr): Vital Signs - 24 hr 04/20/23 19:45 04/21/23 08:45 Temperature 98 F 97.2 F Pulse Rate 82 62 Respiratory Rate 18 18 Blood Pressure 124/69 109/62 Pulse Oximetry 97 95 Oxygen Delivery Method Room Air Room Air BMI result Body Mass Index 0.0 Labs 04/14/23 14:25 04/15/23 07:51 Imaging Radiology Impressions: ITS Impressions Chest X-Ray 04/14/23 14:34 IMPRESSION: No active cardiopulmonary disease. Medications Medications Current Medications Acetaminophen (Acetaminophen 325 Mg Tablet) 650 mg PO Q6H PRN PRN Reason: Headache/Pain Mild Scale (1-3) Al Hydroxide/Mg Hydroxide (Magnesium Hydrox/Alum Hydrox 30 Ml Oral.Susp) 30 ml PO Q6H PRN PRN Reason: Heartburn/Nausea Benztropine Mesylate (Benztropine Mesylate 1 Mg Tablet) 2 mg PO BEDTIME LOGAN Last Admin: 04/20/23 21:10 Dose: 2 mg Haloperidol (Haloperidol 5 Mg Tablet) 10 mg PO BEDTIME LOGAN Last Admin: 04/20/23 21:10 Dose: 10 mg Hydroxyzine HCl (Hydroxyzine Hcl 25 Mg Tablet) 25 mg PO Q6H PRN PRN Reason: Anxiety Last Admin: 04/20/23 23:32 Dose: 25 mg Magnesium Hydroxide (Milk Of Magnesia 30 Ml Oral.Susp) 30 ml PO DAILY PRN PRN Reason: Constipation Nicotine Polacrilex (Nicotine Polacrilex 2 Mg Gum) 2 mg BUCCAL Q1H PRN PRN Reason: Nicotine Cravings Sertraline HCl (Sertraline Hcl 100 Mg Tablet) 100 mg PO DAILY LOGAN Last Admin: 04/21/23 09:06 Dose: 100 mg Trazodone HCl (Trazodone Hcl 50 Mg Tablet) 50 mg PO BEDTIME X1 PRN PRN Reason: Insomnia Last Admin: 04/20/23 23:32 Dose: 50 mg Allergies Allergies Allergy/AdvReac Type Severity Reaction Status Date / Time paprika Allergy Severe DIFFICULTY Verified 03/13/23 12:33 BREATHING shrimp Allergy Severe ANAPHYLAXIS Verified 03/13/23 12:33 cranberry [CRANBERRY] Allergy Mild SWELLING Verified 03/13/23 12:33 OF HIS EAR strawberry [STRAWBERRY] Allergy Mild SWELLING Verified 03/13/23 12:33 OF HIS EAR cat dander [CATS] Allergy Unknown WATERY,ITCHY Verified 03/13/23 12:33 EYES clams [CLAMS] Allergy Unknown UNK Verified 03/13/23 12:33 MARINARA Allergy Severe ANAPHYLAXIS Uncoded 12/21/22 10:30 ibuprofes Allergy Unknown renal Uncoded 12/21/22 10:30 insufficiency paprika, seafood, Allergy Unknown unknown Uncoded 12/21/22 10:30 strawberries SEAFOOD Allergy Unknown UNKNOWN Uncoded 12/21/22 10:30 Assessment & Plan Assessment & Plan (1) Cocaine abuse: Status: Acute Code(s): F14.10 - Cocaine abuse, uncomplicated (2) Schizoaffective disorder, depressive type: Status: Acute Code(s): F25.1 - Schizoaffective disorder, depressive type Plan Overall presents with psychosis in the context of medication non adherence. Comorbid substance use disorder. Restart medications which include Haldol. When able to engage more, can review substance needs. 3: No changes to medication regimen. 04/17: Patient flat guarded not acutely psychotic on presentation not agitated. Continue Haldol, Sertraline. 04/18: much improved from admission, improved insight. feels haldol helpful for AH. denies AH. declines SA Tx. mood improved. 04/19: tired, otherwise no change from yesterday. continue current mgmt. 04/20: no change from yesterday. continue current mgmt. planning for monday discharge. 04/21: no change in presentation. preparing for monday discharge. Reason for continued inpatient stay Substantial Risk for: inability to function and rapid decompensation Time Spent With Patient Time: Total time managing care of this patient today ____ minutes.
[2023-04-21 20:09] VITALS: BP 119/67; PULSE 90; RESP 18; TEMP 36.2; O2SAT 97
[2023-04-21] MEDS: HaloperidoL 5 MG TABLET 10 MG PO (22:01)
[2023-04-21] MEDS: Benztropine Mesylate 1 MG TABLET 2 MG PO (22:01)
[2023-04-21] MEDS: traZODone HCL 50 MG TABLET PO (23:24)
[2023-04-21] MEDS: hydrOXYzine HCL 25 MG TABLET PO (23:24)
[2023-04-22 08:00] VITALS: BP 112/76; PULSE 87; RESP 16; TEMP 36.7; O2SAT 97
[2023-04-22] MEDS: Sertraline HCL 100 MG TABLET PO (10:12)
--- NOTE | 2023-04-22 14:27 | HO.PSYCHPN ---
Subjective Subjective Date of Service: 04/22/23 Reason For Visit: Schizoaffective disorder Subjective Notes: Conditional Voluntary Interim History: The nursing staff reported the patient had been depressed but no anxiety. He admitted sporadic auditory hallucinations that comes and goes but he has been fully compliant with medication. The patient has obstructive sleep apnea but he has refused to use his CPAP. On interview I explained he would be a good idea but he denies. He has not attend many groups. On interview the patient denies active suicidal ideation but he looks dysphoric. Mental Status Exam Mental Status Exam Patient Appearance: Appropriate Patient Orientation: Person and Situation Level of Consciousness: Awake Patient Behavior: Guarded and Passive Mood Description: Withdrawn and Depressed Affect Description: Constricted Patient Cognition Impaired: Yes Ability to Follow Directions: Good Speech Pattern: Monotone Hallucinations: Auditory Delusions: Not Present Thought Process: Linear and Slowed Thinking Thought Content: positive for [place] and positive for Circumstantial Judgement: Poor Diagnostics Vital Signs (24Hr): Vital Signs - 24 hr 04/21/23 20:09 04/22/23 08:00 Temperature 97.1 F 98.0 F Pulse Rate 90 87 Respiratory Rate 18 16 Blood Pressure 119/67 112/76 Pulse Oximetry 97 97 Oxygen Delivery Method Room Air Room Air BMI result Body Mass Index 0.0 Labs 04/14/23 14:25 04/15/23 07:51 Imaging Radiology Impressions: ITS Impressions Chest X-Ray 04/14/23 14:34 IMPRESSION: No active cardiopulmonary disease. Medications Medications Current Medications Acetaminophen (Acetaminophen 325 Mg Tablet) 650 mg PO Q6H PRN PRN Reason: Headache/Pain Mild Scale (1-3) Al Hydroxide/Mg Hydroxide (Magnesium Hydrox/Alum Hydrox 30 Ml Oral.Susp) 30 ml PO Q6H PRN PRN Reason: Heartburn/Nausea Benztropine Mesylate (Benztropine Mesylate 1 Mg Tablet) 2 mg PO BEDTIME LOGAN Last Admin: 04/21/23 22:01 Dose: 2 mg Haloperidol (Haloperidol 5 Mg Tablet) 10 mg PO BEDTIME LOGAN Last Admin: 04/21/23 22:01 Dose: 10 mg Hydroxyzine HCl (Hydroxyzine Hcl 25 Mg Tablet) 25 mg PO Q6H PRN PRN Reason: Anxiety Last Admin: 04/21/23 23:24 Dose: 25 mg Magnesium Hydroxide (Milk Of Magnesia 30 Ml Oral.Susp) 30 ml PO DAILY PRN PRN Reason: Constipation Nicotine Polacrilex (Nicotine Polacrilex 2 Mg Gum) 2 mg BUCCAL Q1H PRN PRN Reason: Nicotine Cravings Sertraline HCl (Sertraline Hcl 100 Mg Tablet) 100 mg PO DAILY LOGAN Last Admin: 04/22/23 10:12 Dose: 100 mg Trazodone HCl (Trazodone Hcl 50 Mg Tablet) 50 mg PO BEDTIME MRX1 PRN PRN Reason: Insomnia Last Admin: 04/21/23 23:24 Dose: 50 mg Allergies Allergies Allergy/AdvReac Type Severity Reaction Status Date / Time paprika Allergy Severe DIFFICULTY Verified 03/13/23 12:33 BREATHING shrimp Allergy Severe ANAPHYLAXIS Verified 03/13/23 12:33 cranberry [CRANBERRY] Allergy Mild SWELLING Verified 03/13/23 12:33 OF HIS EAR strawberry [STRAWBERRY] Allergy Mild SWELLING Verified 03/13/23 12:33 OF HIS EAR cat dander [CATS] Allergy Unknown WATERY,ITCHY Verified 03/13/23 12:33 EYES clams [CLAMS] Allergy Unknown UNK Verified 03/13/23 12:33 MARINARA Allergy Severe ANAPHYLAXIS Uncoded 12/21/22 10:30 ibuprofes Allergy Unknown renal Uncoded 12/21/22 10:30 insufficiency paprika, seafood, Allergy Unknown unknown Uncoded 12/21/22 10:30 strawberries SEAFOOD Allergy Unknown UNKNOWN Uncoded 12/21/22 10:30 Assessment & Plan Assessment & Plan (1) Cocaine abuse: Status: Acute Code(s): F14.10 - Cocaine abuse, uncomplicated (2) Schizoaffective disorder, depressive type: Status: Acute Code(s): F25.1 - Schizoaffective disorder, depressive type Plan Overall presents with psychosis in the context of medication non adherence. Comorbid substance use disorder. Restart medications which include Haldol. When able to engage more, can review substance needs. 3: No changes to medication regimen. 04/17: Patient flat guarded not acutely psychotic on presentation not agitated. Continue Haldol, Sertraline. 04/18: much improved from admission, improved insight. feels haldol helpful for AH. denies AH. declines SA Tx. mood improved. 04/19: tired, otherwise no change from yesterday. continue current mgmt. 04/20: no change from yesterday. continue current mgmt. planning for monday discharge. 04/21: no change in presentation. preparing for monday discharge. 04/22 keep same treatment Reason for continued inpatient stay Substantial Risk for: inability to function, rapid decompensation and med/psych decompensation Time Spent With Patient Time: Total time managing care of this patient today __20__ minutes.
[2023-04-22 20:42] VITALS: BP 122/69; PULSE 79; RESP 16; TEMP 36.2; O2SAT 97
[2023-04-22] MEDS: Benztropine Mesylate 1 MG TABLET 2 MG PO (21:06)
[2023-04-22] MEDS: HaloperidoL 5 MG TABLET 10 MG PO (21:06)
[2023-04-22] MEDS: hydrOXYzine HCL 25 MG TABLET PO (23:31)
[2023-04-22] MEDS: traZODone HCL 50 MG TABLET PO (23:31)
[2023-04-23 08:30] VITALS: BP 102/57; PULSE 66; RESP 16; TEMP 37.6; O2SAT 96
[2023-04-23] MEDS: Sertraline HCL 100 MG TABLET PO (08:45)
--- NOTE | 2023-04-23 14:08 | HO.PSYCHPN ---
Subjective Subjective Date of Service: 04/23/23 Reason For Visit: Schizoaffective disorder Subjective Notes: Conditional Voluntary Interim History: The nursing staff reported the patient denies auditory hallucinations, he slept 7 hours and he denies new symptoms but he has been isolative. On interview the patient denies new symptoms he is excited for discharge tomorrow. Mental Status Exam Mental Status Exam Patient Appearance: Appropriate Patient Orientation: Person and Situation Level of Consciousness: Awake and Appropriate Patient Behavior: Guarded and Passive Mood Description: Withdrawn Affect Description: Constricted Patient Cognition Impaired: Yes Ability to Follow Directions: Good Speech Pattern: Clear Hallucinations: None Delusions: Not Present Thought Process: Distracted and Slowed Thinking Thought Content: positive for [place] and positive for Circumstantial Judgement: Fair Diagnostics Vital Signs (24Hr): Vital Signs - 24 hr 04/22/23 20:42 04/23/23 08:30 Temperature 97.1 F 99.7 F Pulse Rate 79 66 Respiratory Rate 16 16 Blood Pressure 122/69 102/57 L Pulse Oximetry 97 96 Oxygen Delivery Method Room Air Room Air BMI result Body Mass Index 0.0 Labs 04/14/23 14:25 04/15/23 07:51 Imaging Radiology Impressions: ITS Impressions Chest X-Ray 04/14/23 14:34 IMPRESSION: No active cardiopulmonary disease. Medications Medications Current Medications Acetaminophen (Acetaminophen 325 Mg Tablet) 650 mg PO Q6H PRN PRN Reason: Headache/Pain Mild Scale (1-3) Al Hydroxide/Mg Hydroxide (Magnesium Hydrox/Alum Hydrox 30 Ml Oral.Susp) 30 ml PO Q6H PRN PRN Reason: Heartburn/Nausea Benztropine Mesylate (Benztropine Mesylate 1 Mg Tablet) 2 mg PO BEDTIME LOGAN Last Admin: 04/22/23 21:06 Dose: 2 mg Haloperidol (Haloperidol 5 Mg Tablet) 10 mg PO BEDTIME LOGAN Last Admin: 04/22/23 21:06 Dose: 10 mg Hydroxyzine HCl (Hydroxyzine Hcl 25 Mg Tablet) 25 mg PO Q6H PRN PRN Reason: Anxiety Last Admin: 04/22/23 23:31 Dose: 25 mg Magnesium Hydroxide (Milk Of Magnesia 30 Ml Oral.Susp) 30 ml PO DAILY PRN PRN Reason: Constipation Nicotine Polacrilex (Nicotine Polacrilex 2 Mg Gum) 2 mg BUCCAL Q1H PRN PRN Reason: Nicotine Cravings Sertraline HCl (Sertraline Hcl 100 Mg Tablet) 100 mg PO DAILY LOGAN Last Admin: 04/23/23 08:45 Dose: 100 mg Trazodone HCl (Trazodone Hcl 50 Mg Tablet) 50 mg PO BEDTIME MRX1 PRN PRN Reason: Insomnia Last Admin: 04/22/23 23:31 Dose: 50 mg Allergies Allergies Allergy/AdvReac Type Severity Reaction Status Date / Time paprika Allergy Severe DIFFICULTY Verified 03/13/23 12:33 BREATHING shrimp Allergy Severe ANAPHYLAXIS Verified 03/13/23 12:33 cranberry [CRANBERRY] Allergy Mild SWELLING Verified 03/13/23 12:33 OF HIS EAR strawberry [STRAWBERRY] Allergy Mild SWELLING Verified 03/13/23 12:33 OF HIS EAR cat dander [CATS] Allergy Unknown WATERY,ITCHY Verified 03/13/23 12:33 EYES clams [CLAMS] Allergy Unknown UNK Verified 03/13/23 12:33 MARINARA Allergy Severe ANAPHYLAXIS Uncoded 12/21/22 10:30 ibuprofes Allergy Unknown renal Uncoded 12/21/22 10:30 insufficiency paprika, seafood, Allergy Unknown unknown Uncoded 12/21/22 10:30 strawberries SEAFOOD Allergy Unknown UNKNOWN Uncoded 12/21/22 10:30 Assessment & Plan Assessment & Plan (1) Cocaine abuse: Status: Acute Code(s): F14.10 - Cocaine abuse, uncomplicated (2) Schizoaffective disorder, depressive type: Status: Acute Code(s): F25.1 - Schizoaffective disorder, depressive type Plan Overall presents with psychosis in the context of medication non adherence. Comorbid substance use disorder. Restart medications which include Haldol. When able to engage more, can review substance needs. 04/16: No changes to medication regimen. 04/17: Patient flat guarded not acutely psychotic on presentation not agitated. Continue Haldol, Sertraline. 04/18: much improved from admission, improved insight. feels haldol helpful for AH. denies AH. declines SA Tx. mood improved. 04/19: tired, otherwise no change from yesterday. continue current mgmt. 04/20: no change from yesterday. continue current mgmt. planning for monday discharge. 04/21: no change in presentation. preparing for monday discharge. 04/22 keep same treatment. 04/23 keep same treatment Reason for continued inpatient stay Substantial Risk for: inability to function, rapid decompensation and med/psych decompensation Time Spent With Patient Time: Total time managing care of this patient today __20__ minutes.
[2023-04-23 19:20] VITALS: BP 128/84; PULSE 81; RESP 16; TEMP 36.5; O2SAT 97
[2023-04-23] MEDS: HaloperidoL 5 MG TABLET 10 MG PO (20:57)
[2023-04-23] MEDS: Benztropine Mesylate 1 MG TABLET 2 MG PO (20:57)
[2023-04-23] MEDS: hydrOXYzine HCL 25 MG TABLET PO (22:33)
[2023-04-23] MEDS: traZODone HCL 50 MG TABLET PO (22:33)
[2023-04-24 07:15] VITALS: TEMP 36.6
[2023-04-24] MEDS: Sertraline HCL 100 MG TABLET PO (08:58)
--- NOTE | 2023-04-24 10:43 | P.DS_ITS ---
DS: Providers Provider Date of Service: 04/24/23 Date of admission: 04/14/23 22:48 Primary care physician: Cresencio Monahan MD DS: Diagnosis Discharge Diagnosis (1) Cocaine abuse: Status: Acute (2) Schizoaffective disorder, depressive type: Status: Acute DS: Medications Discharge Medications Home Medications: Home Medications Medication Instructions Recorded Confirmed benztropine 2 mg tablet 2 mg PO BEDTIME 04/14/23 04/14/23 haloperidol 10 mg tablet 10 mg PO BEDTIME 04/14/23 04/14/23 sertraline 100 mg tablet 100 mg PO DAILY 04/14/23 04/14/23 Previous Rx's Medication Instructions Recorded trazodone 50 mg tablet 50 mg PO BEDTIME PRN Insomnia 30 04/24/23 days #30 tabs Mental Status Exam Mental Status Exam Narrative: adequately dressed and groomed, no PMA/PMR, cooperative. speech soft and sparse. thoughts linear and logical. affect blunted. mood good. denies SI/HI/AVH. reports MRE AH of 2 days ago of random voices. Data Imaging Diagnostic Imaging Impressions Chest X-Ray 04/14/23 14:34 IMPRESSION: No active cardiopulmonary disease. DS: Summary Hospital Course Hospital Course: per 04/15 admission note: patient's home nurse went to go in they were concerned he was having an acute psychotic episode such as schizophrenia patient comes into the department with a bizarre affect. Today patient reports that his visiting nurse referred him. He was guarded during evaluation. Did endorse though feeling paranoid that he was being harmed outside of the hospital. Reports he was also worried about his mental state. Did endorse auditory hallucinations and hearing people cast spells on him. Denied command hallucinations. Denies suicidal thoughts. Denied depression. Reports he has not been on medications, did not know what he had been on in the past, was unable to identify most recent prescriber is. Did endorse having a diagnosis of paranoid schizophrenia and that he agreed with this diagnosis. Was unsure when his last hospitalization was. Denies history of suicide attempts. Past Psychiatric History: Reports he has not been on medications, did not know what he had been on in the past, was unable to identify most recent prescriber is. Did endorse having a diagnosis of paranoid schizophrenia and that he agreed with this diagnosis. Was unsure when his last hospitalization was. Denies history of suicide attempts. Medical Evaluation Reviewed: Yes [facility] Medical History Asthma Cannabis use disorder Hypertriglyceridemia Obesity (BMI 30-39.9) Paranoid schizophrenia Schizoaffective disorder, depressive type Smoker Vitamin D deficiency Surgical History No pertinent past surgical history Family History: Sister: Bipolar Social History: patient stated not having any children. Lives with mom. Single. Denied legal issues. Noted in record: Has children, 8 and 10 years old; not sure of involvement......collects SSDI Substance History: Utilizes cocaine and marijuana weekly. Reports fentanyl was found on his tox screen as marijuana was laced. Longest period of sobriety was 9 years up until 5 years ago. Trauma History: Endorses history of trauma but does not disclose Precis: Overall presents with psychosis in the context of medication non adherence. Comorbid substance use disorder. 04/15: Restart medications which include Haldol. When able to engage more, can review substance needs. 04/16: No changes to medication regimen. 04/17: Patient flat guarded not acutely psychotic on presentation not agitated. Continue Haldol, Sertraline. 04/18: much improved from admission, improved insight. feels haldol helpful for AH. denies AH. declines SA Tx. mood improved. 04/19: tired, otherwise no change from yesterday. continue current mgmt. 04/20: no change from yesterday. continue current mgmt. planning for monday discharge. 04/21: no change in presentation. preparing for monday discharge. 04/22: keep same treatment. 04/23: keep same treatment. 04/24: stable, safe. meds reviewed, reconciled, prescribed. discharged to [facility] as per plan. Time Spent with Patient Time attestation: Total time managing care of this patient today ____ minutes. Time spent: Greater than 30 minutes Discharge Plan Discharge Anticipated Discharge Date/Time: 04/24/23 10:41 Patient Disposition: Home, Self-Care Discharge Diagnosis: Schizoaffective Disorder, Depressive Type Cocaine Us Disorder Referrals: Dr. Cesar Rico (Psychiatry) [Other] - 05/03/23 2:20 pm (IN OFFICE APPOINTMENT) Therapy [Other] - 1 Week (*Central intake staff at [facility] have been made aware of your need for a therapy appointment. Please call [facility] to obtain the appointment information. ) [facility] [Other] - 1 Week () Cresencio Monahan MD [Primary Care Provider] - 05/10/23 11:00 am (PCP Dr. Monahan, [address] [facility] [address] [facility] confirmed appt. for 05/10/23 @ 11:00am) Discharge Medications: New trazodone 50 mg Tablet 50 mg PO BEDTIME PRN (Reason: Insomnia) 30 Days Qty: 30 0RF Continued sertraline 100 mg tablet 100 mg PO DAILY haloperidol 10 mg tablet 10 mg PO BEDTIME benztropine 2 mg tablet 2 mg PO BEDTIME Discharge Orders: Discharge Order (Routine); Ordered 04/24/23 Ordered By: Jonh Vee Diet: Advance to usual diet Activity on Discharge: As tolerated Stand Alone Forms: Patient Portal Discharge page, Community Support Care Plan Goals: remain safe, stable, and sober in the outpatient treatment setting Health Concerns: none Plan of Treatment: take medications as prescribed, attend appointments as scheduled Assessment: not at imminent risk of harm to self or others Discharge Date/Time: 04/24/23 11:35
--- NOTE | 2023-04-24 10:53 | PC.NURSE ---
Pt is alert, fully oriented, pleasant and cooperative with discharge process. He denies ideation plan or intent to harm self or others. He verbalizes understanding of discharge plan including appointments and medications. He will be picked up by outreach staff [facility].
== END 2023-04-24 11:35 | disposition home or self-care (01) | DRG 885 ==
LOC: HO.ED 16:13 → HO.PADLT16 22:51
PROVIDERS: Physician Assistant; Admitting Provider Clinical Nurse Specialist Psychiatric/Mental Health, Adult; Emergency Provider Emergency Medicine; PCP Internal Medicine; Visit Provider Psychiatry & Neurology Psychiatry
DX: F25.1 Schizoaffective disorder, depressive type (principal); F14.10 Cocaine abuse, uncomplicated; F17.210 Nicotine dependence, cigarettes, uncomplicated; Z71.6 Tobacco abuse counseling; Z20.822 Contact with and (suspected) exposure to COVID-19; Z79.899 Other long term (current) drug therapy
CPT/HCPCS: 36415; 71045; 80053; 80061; 80143; 80179; 80307; 81003; 82607; 82746; 83036; 83540; 83735; 84439; 84443; 84484; 85025; 87635; 93005; 99285; S9485

== ENCOUNTER → 2023-04-14 13:51 | Outpatient (BNV) | payer OTHER, SELFPAY | PROVIDERS: Emergency Provider Emergency Medicine; PCP Internal Medicine; Visit Provider Internal Medicine Cardiovascular Disease | DX: R07.9 Chest pain, unspecified (principal) | CPT/HCPCS: 93010 ==

== ENCOUNTER → 2023-04-14 22:48 | Outpatient (BNV) | payer OTHER, SELFPAY | PROVIDERS: Admitting Provider Clinical Nurse Specialist Psychiatric/Mental Health, Adult; Emergency Provider Emergency Medicine; PCP Internal Medicine; Visit Provider Psychiatry & Neurology Psychiatry | DX: F25.1 Schizoaffective disorder, depressive type (principal); F14.10 Cocaine abuse, uncomplicated | CPT/HCPCS: 99231 ==

== ENCOUNTER → 2023-04-14 22:48 | Outpatient (BNV) | payer OTHER, SELFPAY | PROVIDERS: Admitting Provider Clinical Nurse Specialist Psychiatric/Mental Health, Adult; Emergency Provider Emergency Medicine; PCP Internal Medicine; Visit Provider Psychiatry & Neurology Psychiatry | DX: F25.1 Schizoaffective disorder, depressive type (principal); F14.10 Cocaine abuse, uncomplicated | CPT/HCPCS: 90792; 99231; 99232; 99239 ==

== ENCOUNTER 2023-05-05 09:27 | Outpatient (REF) | payer OTHER, SELFPAY ==
[2023-05-05 11:58] LABS: Amphetamine Screen Urine Not Detected (Not Detect); Barbiturates, Urine Not Detected (Not Detect); Benzodiazepines Screen Urine Not Detected (Not Detect); Cannabinoid Screen Urine POSITIVE (Not Detect); Cocaine Screen Urine Not Detected (Not Detect); Fentanyl, urine Not Detected (Not Detect); Opiate Screen Urine Not Detected (Not Detect); Phencyclidine Screen Urine Not Detected (Not Detect)
== END 2023-05-05 09:28 | disposition home or self-care (01) ==
LOC: HO.LABR 09:27
PROVIDERS: PCP Internal Medicine; Visit Provider Psychiatry & Neurology Psychiatry
DX: Z51.81 Encounter for therapeutic drug level monitoring (principal)
CPT/HCPCS: 80307

== ENCOUNTER 2023-05-11 11:46 | Outpatient (AMB) | payer OTHER, SELFPAY ==
[2023-05-11 11:48] VITALS: BP 116/76; PULSE 90; O2SAT 98; BMI 32.3
--- NOTE | 2023-05-11 11:48 | A.OFFPC_ITS ---
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: No Accompanied by: Self / Same As Patient Allergies paprika Allergy (Severe, Verified 05/11/23 12:26) DIFFICULTY BREATHING shrimp Allergy (Severe, Verified 05/11/23 12:26) ANAPHYLAXIS cranberry [CRANBERRY] Allergy (Mild, Verified 05/11/23 12:26) SWELLING OF HIS EAR strawberry [STRAWBERRY] Allergy (Mild, Verified 05/11/23 12:26) SWELLING OF HIS EAR cat dander [CATS] Allergy (Unknown, Verified 05/11/23 12:26) WATERY,ITCHY EYES clams [CLAMS] Allergy (Unknown, Verified 05/11/23 12:26) UNK MARINARA Allergy (Severe, Uncoded 05/11/23 12:26) ANAPHYLAXIS ibuprofes Allergy (Unknown, Uncoded 05/11/23 12:26) renal insufficiency paprika, seafood, strawberries Allergy (Unknown, Uncoded 05/11/23 12:26) unknown SEAFOOD Allergy (Unknown, Uncoded 05/11/23 12:26) UNKNOWN Medication List - Last Reconciled 05/11/23 by Cresencio Monahan MD benztropine 2 mg PO BEDTIME cholecalciferol (vitamin D3) 50 mcg PO DAILY 90 days fenofibrate 160 mg PO DAILY 90 days haloperidol 10 mg PO QAM haloperidol decanoate (Haldol Decanoate) 100 mg IM Q4W sertraline 100 mg PO DAILY trazodone 50 mg PO BEDTIME PRN 30 days Tobacco use date assessed: 12/21/22 Dental Screening Dental Screen Date: 05/11/23 Did you have a dental visit in the last 12 months?: No Did you have a dental problem in the last 6 months where you did not have access to dental care?: No Was dental information given to patient?: Yes HPI [facility], scizoeffective disorder HPI Details Patient comes in today for his follow-up visit States that he feels okay and that he is doing well overall on his current medications He denies any headaches or dizziness Denies any chest pains, no shortness of breath No nausea/ vomiting, no abdominal pain No change of bowel habits noted Needs a couple of his Rx refilled Had his follow-up labs done a few weeks ago - to discuss his results [facility] Medical History Cannabis use disorder Schizoaffective disorder, depressive type Vitamin D deficiency Obesity (BMI 30-39.9) Smoker Paranoid schizophrenia Asthma Hypertriglyceridemia Surgical History No pertinent past surgical history Family History Father Medical history unknown Mother Medical history unknown Family/Other FH: mental illness Social History Household Members: Family Housing: Apartment Do you presently have visiting nurse or other home services: Yes Alcohol intake: current Alcohol intake frequency: a few times a week Patient Tobacco Use Status: Current everyday Tobacco user Tobacco use type: Cigarette Cigarette Packs Per Day: 0.4 Cigarettes Per Day: 8.0 Years Smoked: ''for awhile'' e-Cigarette/Vaping Use: Never Used Second Hand Smoke Exposure: Yes Substance Use Type: Crack/Cocaine, Marijuana, Opiates and Other service: No Current occupational status: disabled Sexual orientation: Straight/Heterosexual Cognitive needs: No Hearing needs: No Vision needs: No Questionnaire PHQ-9 Over the last 2 weeks, how often have you been bothered by any of the following problems? 1. Little interest or pleasure in doing things: several days 2. Feeling down, depressed, or hopeless: several days 3. Trouble falling or staying asleep, or sleeping too much: several days 4. Feeling tired or having little energy: several days 5. Poor appetite or overeating: several days 6. Feeling bad about yourself - or that you are a failure or have let yourself or your family down: several days 7. Trouble concentrating on things, such as reading the newspaper or watching television: several days 8. Moving or speaking so slowly that other people could have noticed. Or the opposite - being so fidgety or restless that you have been moving around a lot more than usual: several days 9. Thoughts that you would be better off or of hurting yourself in some way: not at all Total score: 8 Depression Screening Interpretation: Positive Depression Screening Follow-up: Existing condition and In treatment Depression Screening Done: Yes 17538 - PHQ-9 Billing: Yes Source: Developed by Drs. Tye Garcia, Yoanna White, Tio Richards and colleagues, with an educational alejandro from [employer]. Thrive Questionnaire Date Thrive assessed: 04/17/23 Currently or been in a relationship where the following occur: no concerns reported JULIA-7 AMB Questionnaire JULIA-7 Date JULIA - 7 assessed: 10/28/22 Source: Developed by Drs. Tye Garcia, Yoanna White, Tio Richards and colleagues, with an educational alejandro from [employer]. Review of Systems Const Denies chills, Denies difficulty sleeping, Denies fatigue, Denies fever(s), Denies headache(s) and Denies weakness ENT Denies dysphagia, Denies dizziness, Denies otalgia, Denies headache(s), Denies nasal congestion, Denies neck pain, Denies odynophagia and Denies sore throat Card Denies chest pain, Denies rapid heart rate, Denies irregular heart rhythm, Denies palpitations and Denies dyspnea Resp Denies chest congestion, Denies cough, Denies dyspnea and Denies wheezing GI Denies abdominal pain, Denies bloating, Denies constipation, Denies dysphagia, Denies heartburn, Denies diarrhea, Denies nausea, Denies odynophagia and Denies vomiting Denies hematuria, Denies difficulty urinating, Denies dysuria, Denies urinary frequency and Denies urinary urgency Musc Denies back pain, Denies arthralgias, Denies joint swelling, Denies muscle weakness and Denies neck pain Skin/Breast Denies change in pigmentation, Denies lesions, Denies rash and Denies unusual bruising Neuro Denies dizziness, Denies headache(s), Denies paresthesias and Denies weakness Endo Denies fatigue and Denies palpitations Aller/Immun Denies wheezing Physical exam (Primary Care) Vital Signs: Last Vital Signs Pulse 90 05/11/23 11:48 BP 116/76 05/11/23 11:48 Pulse Ox 98 05/11/23 11:48 Oxygen Delivery Method Room Air 05/11/23 11:48 BMI result Body Mass Index 32.3 Tobacco/Smoking Status: Tobacco use Status Tobacco use date assessed 12/21/22 05/11/23 11:49 Patient Tobacco Use Status Current everyday Tobacco 05/11/23 11:49 Tobacco use type Cigarette 05/11/23 11:49 e-Cigarette/Vaping Use Never Used 05/11/23 11:49 PHQ-9: PHQ-9 Score PHQ-9: Total score 8 05/11/23 12:29 Depression Screening Interpretation: Positive Depression Screening Follow-up: Existing condition and In treatment Thrive Assessment: Date of Thrive Assessment Date Thrive assessed 04/17/23 05/11/23 11:49 Currently or been in a relationship where the following occur: no concerns reported Const General: no acute distress and alert HENMT Ears: TM's normal bilaterally and EAC's normal Throat: Yes posterior oropharynx normal and Yes tonsils normal (no TP congestion) Neck Neck: Yes no lymphadenopathy and Yes supple Resp Auscultation: clear to auscultation bilaterally, no rales and no wheezes Cardio Rate: regular rate Rhythm: regular rhythm Heart sounds: no murmurs GI Palpation (GI): Soft to palpation and nontender Auscultation: normal bowel sounds Back/Spine/Pelvis Thoracic/Lumbar Spine: No lumbar spinal tenderness Skin Rashes: no rashes Extrem General: Yes no clubbing, cyanosis or edema Results Reviewed Results Reviewed: Laboratory Tests 04/14/23 04/14/23 04/15/23 14:25 16:11 07:51 WBC 9.8 Hgb 11.7 L Hct 35.8 L Plt Count 277 Sodium 143 Potassium 3.9 Creatinine 1.01 Estimated GFR > 60 Fasting Glucose 125 H Hemoglobin A1c % 5.1 Calcium 8.9 D Magnesium 2.1 Iron 73 TIBC 237 % Saturation 31 AST 17 ALT 15 Triglycerides 131 Cholesterol 138 LDL Cholesterol, Calc 80 HDL Cholesterol 32 L Vitamin B12 385 TSH 0.79 Free T4 1.04 Ur Specific [place] >= 1.030 H Urine Protein Trace Urine Glucose (UA) Negative Urine Blood Negative Urine Nitrite Negative Ur Leukocyte Esterase Negative Assessment and Plan Assessment & Plan (1) Hypertriglyceridemia: Code(s): E78.1 - Pure hyperglyceridemia Plan: Results of his labs done a few weeks ago reviewed and discussed with patient Reinforced low cholesterol diet Continue Fenofibrate 160 mg QD Will recheck his labs and follow up in 4 months for follow up (2) Asthma: Code(s): J45.909 - Unspecified asthma, uncomplicated Qualifiers: Asthma complication type: uncomplicated Asthma persistence: persistent Asthma severity: moderate Qualified Code(s): J45.40 - Moderate persistent asthma, uncomplicated Plan: Stable Continue Advair Diskus 100-50 mcg 1 inhalation BID and Albuterol HFA 2 puffs 4 times a day as needed (3) Elevated LFTs: Code(s): R79.89 - Other specified abnormal findings of blood chemistry Plan: LFTs have remained normal on his recent labs done a few months ago - was most likely related to his weight (hepatosteatosis) Will continue to monitor his LFTs regularly (4) Impaired fasting glucose: Code(s): R73.01 - Impaired fasting glucose Plan: FBS is again elevated at 125 mg/dl on his recent labs but his HgbA1c was normal at 5.1% Reinforced low calorie diet/exercise as tolerated (5) Vitamin D deficiency: Code(s): E55.9 - Vitamin D deficiency, unspecified Plan: Continue Vitamin D3 2000 units QD (6) Mild anemia: Code(s): D64.9 - Anemia, unspecified Plan: H/H are still just slightly under the normal range on his recent labs; RBC indices are all normal Will continue to monitor his CBC regularly (7) Insomnia: Code(s): G47.00 - Insomnia, unspecified Qualifiers: Insomnia type: unspecified Qualified Code(s): G47.00 - Insomnia, unspecified Plan: Continue Trazodone 50 mg Q HS (8) Paranoid schizophrenia: Code(s): F20.0 - Paranoid schizophrenia Plan: Continue Benztropine 1 mg 2 tablets once a day at bedtime, Sertraline 100 mg once a day, Haldol 10 mg Q AM and Haldol Decanoate solution 100 mg/mL 1 mL IM every 28 days Follow-up with Psychiatry ([facility]) as scheduled (9) Smoker: Code(s): F17.200 - Nicotine dependence, unspecified, uncomplicated Plan: Counseled again on smoking cessation (10) Obesity (BMI 30-39.9): Code(s): E66.9 - Obesity, unspecified Plan: Reinforced diet/exercise as tolerated/lose weight Plan Follow up in 4 months Orders: Orders Comprehensive [place]. Panel Fast 4 Months E78.00 - Pure hypercholesterolemia, unspecified Lipid Panel 4 Months E78.00 - Pure hypercholesterolemia, unspecified Medications: New cholecalciferol (vitamin D3) 50 mcg PO DAILY 90 days 90 caps 3RF E55.9 - Vitamin D deficiency, unspecified Changed From fenofibrate 160 mg PO DAILY To fenofibrate 160 mg PO DAILY 90 days 90 tabs 3RF Coding Level of Care Code Est Pt Level 4 (98391) Diagnoses Hypertriglyceridemia E78.1 Moderate persistent asthma without complication J45.40 Asthma complication type: uncomplicated Asthma persistence: persistent Asthma severity: moderate Elevated LFTs R79.89 Impaired fasting glucose R73.01 Vitamin D deficiency E55.9 Mild anemia D64.9 Insomnia, unspecified type G47.00 Insomnia type: unspecified Paranoid schizophrenia F20.0 Smoker F17.200 Obesity (BMI 30-39.9) E66.9
== END 2023-05-11 12:35 | disposition home or self-care (01) ==
PROVIDERS: PCP Internal Medicine; Visit Provider Internal Medicine
DX: E78.1 Pure hyperglyceridemia (principal); J45.40 Moderate persistent asthma, uncomplicated; R74.01 Elevation of levels of liver transaminase levels; F20.0 Paranoid schizophrenia; R73.01 Impaired fasting glucose; E55.9 Vitamin D deficiency, unspecified; D64.9 Anemia, unspecified; G47.00 Insomnia, unspecified; F17.200 Nicotine dependence, unspecified, uncomplicated; E66.9 Obesity, unspecified
CPT/HCPCS: 99214

== ENCOUNTER 2023-06-28 11:52 | Outpatient (REF) | payer OTHER, SELFPAY ==
[2023-06-28 14:57] LABS: Amphetamine Screen Urine Not Detected (Not Detect); Barbiturates, Urine Not Detected (Not Detect); Benzodiazepines Screen Urine Not Detected (Not Detect); Cannabinoid Screen Urine POSITIVE (Not Detect); Cocaine Screen Urine Not Detected (Not Detect); Fentanyl, urine Not Detected (Not Detect); Opiate Screen Urine Not Detected (Not Detect); Phencyclidine Screen Urine Not Detected (Not Detect)
== END 2023-06-28 11:53 | disposition home or self-care (01) ==
LOC: HO.LABR 11:52
PROVIDERS: Visit Provider Psychiatry & Neurology Psychiatry
DX: Z79.899 Other long term (current) drug therapy (principal)
CPT/HCPCS: 80307

== ENCOUNTER 2023-07-19 13:40 | Outpatient (REF) | payer OTHER, SELFPAY ==
[2023-07-22 13:23] LABS: TS Negative Control Passed; TS Panel A 0; TS Panel B 0; TS Positive Control Passed; TSpotTB Negative (Negative)
== END 2023-07-19 13:41 | disposition home or self-care (01) ==
LOC: HO.LAB 13:40
PROVIDERS: PCP Internal Medicine; Visit Provider Internal Medicine
DX: Z11.1 Encounter for screening for respiratory tuberculosis (principal)
CPT/HCPCS: 36415; 86481

== ENCOUNTER 2023-09-25 15:00 | Outpatient (AMB) | payer OTHER, SELFPAY ==
--- NOTE | 2023-09-25 15:01 | MHC.PC.OV ---
Vital Signs 09/25/23 15:02 Height 5 ft 9 in Weight 242 lb BMI 35.7 BP 132/86 Blood Pressure Location Lt brachial Position Sitting Pulse 104 H Pulse Source Pulse Oximeter Pulse Oximetry (%) 94 Oxygen Delivery Method Room Air Intake Visit Reasons: 4mth f/u w/PPD Lay Out Worker Required: No Allergies paprika Allergy (Severe, Verified 09/25/23 15:49) DIFFICULTY BREATHING shrimp Allergy (Severe, Verified 09/25/23 15:49) ANAPHYLAXIS cranberry [CRANBERRY] Allergy (Mild, Verified 09/25/23 15:49) SWELLING OF HIS EAR strawberry [STRAWBERRY] Allergy (Mild, Verified 09/25/23 15:49) SWELLING OF HIS EAR cat dander [CATS] Allergy (Unknown, Verified 09/25/23 15:49) WATERY,ITCHY EYES clams [CLAMS] Allergy (Unknown, Verified 09/25/23 15:49) UNK MARINARA Allergy (Severe, Uncoded 09/25/23 15:49) ANAPHYLAXIS ibuprofes Allergy (Unknown, Uncoded 09/25/23 15:49) renal insufficiency paprika, seafood, strawberries Allergy (Unknown, Uncoded 09/25/23 15:49) unknown SEAFOOD Allergy (Unknown, Uncoded 09/25/23 15:49) UNKNOWN Medication List - Last Reconciled 09/25/23 by Peng Leon PA-C benztropine 2 mg PO BEDTIME cholecalciferol (vitamin D3) 50 mcg PO DAILY 90 days fenofibrate 160 mg PO DAILY 90 days haloperidol 10 mg PO QAM haloperidol decanoate (Haldol Decanoate) 100 mg IM Q4W lorazepam mg PO DAILY sertraline 100 mg PO DAILY trazodone 50 mg PO BEDTIME PRN 30 days Tobacco use date assessed: 09/25/23 Dental Screening Dental Screen Date: 09/25/23 Did you have a dental visit in the last 12 months?: No Did you have a dental problem in the last 6 months where you did not have access to dental care?: No Was dental information given to patient?: Patient has dentist HPI 4mth f/u w/PPD HPI Details Patient is a 38-year-old male here today for four-month follow-up visit. This is the 1st time I am meeting this 38-year-old male with a past medical history significant for polysubstance use disorder, Tobacco dependency, paranoid schizophrenic, anxiety, depression and hyperlipidemia. Today his concerns is a skin lesion on his right hand that offten gets Irritated. He does have history of eczema. Does not use any lotions or creams on this lesion. .. hyperlipidemia: needs refill on his triglyceride lowering medication. Does have order for fasting lipids to be done before his upcoming annual physical. [facility] Medical History Cannabis use disorder Schizoaffective disorder, depressive type Vitamin D deficiency Obesity (BMI 30-39.9) Smoker Paranoid schizophrenia Asthma Hypertriglyceridemia Surgical History No pertinent past surgical history Family History Father Medical history unknown Mother Medical history unknown Family/Other FH: mental illness Social History Household Members: Family Housing: Apartment Do you presently have visiting nurse or other home services: Yes Alcohol intake: current Alcohol intake frequency: a few times a week Patient Tobacco Use Status: Current everyday Tobacco user Tobacco use type: Cigarette Cigarette Packs Per Day: 0.4 Cigarettes Per Day: 8.0 Years Smoked: ''for awhile'' Packs Per Year: 0 Packs per year/per ci.00 e-Cigarette/Vaping Use: Never Used Second Hand Smoke Exposure: Yes Substance Use Type: Crack/Cocaine, Marijuana, Opiates and Other service: No Current occupational status: disabled Sexual orientation: Straight/Heterosexual Cognitive needs: No Hearing needs: No Vision needs: No Questionnaire PHQ-9 Over the last 2 weeks, how often have you been bothered by any of the following problems? 1. Little interest or pleasure in doing things: several days 2. Feeling down, depressed, or hopeless: several days 3. Trouble falling or staying asleep, or sleeping too much: several days 4. Feeling tired or having little energy: several days 5. Poor appetite or overeating: several days 6. Feeling bad about yourself - or that you are a failure or have let yourself or your family down: several days 7. Trouble concentrating on things, such as reading the newspaper or watching television: several days 8. Moving or speaking so slowly that other people could have noticed. Or the opposite - being so fidgety or restless that you have been moving around a lot more than usual: several days 9. Thoughts that you would be better off or of hurting yourself in some way: not at all Total score: 8 Depression Screening Interpretation: Positive Depression Screening Follow-up: Existing condition and In treatment Depression Screening Done: Yes 52476 - PHQ-9 Billing: Yes Source: Developed by Drs. Tye Garcia, Yoanna White, Tio Richards and colleagues, with an educational alejandro from [employer]. Thrive Questionnaire Date Thrive assessed: 09/25/23 I am a: Patient What is your living situation today?: I have a steady place to live Within the past 12 months, did the food you bought not last and you didn't have the money to get more?: Never true Within the past 12 months, did you worry whether your food would run out before you got money to buy more?: Never true Do you have trouble paying for medicines?: No Do you have trouble getting transportation to medical appointments?: No Do you have trouble paying your heating and electricity bill?: No Do you have trouble taking care of your child, family member or friend?: No Do you have trouble with day-to-day activities such as bathing, preparing meals, shopping, managing finances, etc.?: No Are you currently unemployed and looking for a job?: No Are you interested in more education?: No Please select the resources that you would like help with: None Currently or been in a relationship where the following occur: no concerns reported THRIVE Score: 0 AUDIT C Alcohol Use Questionnaire (AUDIT-C) 1. How often do you have a drink containing alcohol?: Never 3. How often do you have six or more drinks on one occasion?: Never Total Score: 0 Score Reviewed/Action Taken: Yes JULIA-7 AMB Questionnaire JULIA-7 Date JULIA - 7 assessed: 09/25/23 Feeling nervous, anxious, or on edge: 0 = Not at all Not being able to stop or control worryin = Not at all Worrying too much about different things: 0 = Not at all Trouble relaxin = Not at all Being so restless that it is hard to sit still: 0 = Not at all Becoming easily annoyed or irritable: 0 = Not at all Feeling afraid as if something awful might happen: 0 = Not at all Total JULIA-7 score (0-4 normal; 5-9 mild; 10-14 moderate; 15-21 severe): 0 Source: Developed by Drs. Tye Garcia, Yoanna White, Tio Richards and colleagues, with an educational alejandro from [employer]. JULIA-7 Assessment Billing JULIA-7 Assessment Tool: JULIA-7 Assessment 60704 Review of Systems Const Denies headache(s) Eyes Denies loss of vision ENT Denies vertigo, Denies dizziness, Denies headache(s) and Denies sore throat Card Denies chest pain, Denies leg edema and Denies lightheadedness Resp Denies cough, Denies hemoptysis and Denies wheezing GI Denies abdominal pain, Denies melena, Denies constipation, Denies diarrhea and Denies vomiting Denies dysuria, Denies urinary frequency and Denies urinary urgency Musc Denies arthralgias, Denies joint swelling, Denies numbness and Denies tingling Neuro Denies Abnormal speech present, Denies behavioral changes, Denies vertigo, Denies dizziness, Denies headache(s), Denies loss of vision, Denies memory loss, Denies numbness and Denies tingling Psych Denies anxiety, Denies behavioral changes, Denies depression, Denies memory loss and Denies panic attacks Rk/Lymph Denies easy bleeding and Denies easy bruising Aller/Immun Denies wheezing Physical exam (Primary Care) Vital Signs: Last Vital Signs Pulse 104 H 09/25/23 15:02 BP 132/86 09/25/23 15:02 Pulse Ox 94 09/25/23 15:02 Oxygen Delivery Method Room Air 09/25/23 15:02 BMI result Body Mass Index 35.7 Tobacco/Smoking Status: Tobacco use Status Tobacco use date assessed 09/25/23 09/25/23 15:08 Patient Tobacco Use Status Current everyday Tobacco 09/25/23 15:01 Tobacco use type Cigarette 09/25/23 15:01 e-Cigarette/Vaping Use Never Used 09/25/23 15:01 Are you ready to quit: No Tobacco cessation counseling provided: Yes Items discussed: Nicotine replacement Relapse Prevention: discussed the importance of a supportive environment, discussed negative mood or depression after quitting, weight gain after smoking is common and discussed dietary, exercise and/or lifestyle changes Number of minutes spent counselin CPT code: 34616 - 4-10 Minutes PHQ-9: PHQ-9 Score PHQ-9: Total score 8 09/25/23 15:52 Depression Screening Interpretation: Positive Depression Screening Follow-up: Existing condition and In treatment Thrive Assessment: Date of Thrive Assessment Date Thrive assessed 09/25/23 09/25/23 15:08 Currently or been in a relationship where the following occur: no concerns reported Const General: healthy appearing, no acute distress, alert and awake Nutritional Appearance: well nourished Orientation/consciousness: oriented to person, oriented to place and oriented to time HENMT Ears: TM's normal bilaterally General nose exam: Normal nasal mucous membranes and turbinates present Eyes Conjunctivae: conjunctivae normal Sclerae: sclerae normal Pupils: Equal, round and reactive pupils present Neck Neck: Yes no lymphadenopathy and Yes no JVD Thyroid: Thyroid normal Carotids: no bruits Resp Effort & Inspection: normal respiratory effort and not tachypneic Auscultation: no crackles, no rales, no rhonchi and no wheezes Cardio Rate: regular rate Rhythm: regular rhythm Heart sounds: no murmurs and normal S1 and S2 GI Palpation (GI): Soft to palpation, nontender, no hepatomegaly and no splenomegaly Auscultation: normal bowel sounds Skin General skin exam: no rashes or lesions noted and dry skin Neuro General: oriented to person, oriented to place and oriented to time Cranial nerves: Yes Equal, round and reactive pupils present Speech: No Abnormal speech present Gait exam (Neuro): Normal gait present Motor exam (neuro): no tremor noted Extrem Right upper extremity: full ROM Left upper extremity: full ROM Right lower extremity: full ROM; no edema Left lower extremity: full ROM; no edema Psych Mental Status: mental status grossly normal Speech and movement: Normal speech and movement present Affect: normal affect Attitude: cooperative Thought process: Normal thought process present Assessment and Plan Assessment & Plan (1) Hypertriglyceridemia: Code(s): E78.1 - Pure hyperglyceridemia Plan: Results of his labs done a few weeks ago reviewed and discussed with patient Reinforced low cholesterol diet Continue Fenofibrate 160 mg QD Has labs ordered to be done before upcoming annual physical next month. (2) Asthma: Code(s): J45.909 - Unspecified asthma, uncomplicated Qualifiers: Asthma complication type: uncomplicated Asthma persistence: persistent Asthma severity: moderate Qualified Code(s): J45.40 - Moderate persistent asthma, uncomplicated Plan: Stable Continue Advair Diskus 100-50 mcg 1 inhalation BID and Albuterol HFA 2 puffs 4 times a day as needed (3) Paranoid schizophrenia: Code(s): F20.0 - Paranoid schizophrenia Plan: Continue Benztropine 1 mg 2 tablets once a day at bedtime, Sertraline 100 mg once a day, Haldol 10 mg Q AM and Haldol Decanoate solution 100 mg/mL 1 mL IM every 28 days Follow-up with Psychiatry ([facility]) as scheduled (4) Smoker: Code(s): F17.200 - Nicotine dependence, unspecified, uncomplicated Plan: Counseled again on smoking cessation (5) Eczema of hand: Code(s): L30.9 - Dermatitis, unspecified Plan: Will supply patient with topical triamcinolone to place on irritated skin area on hand. Medications: New triamcinolone acetonide 0.1% 1 appl topical DAILY 30 grams 1RF 30 days L30.9 - Dermatitis, unspecified Refilled fenofibrate 160 mg PO DAILY 90 tabs 1RF 90 days E78.1 - Pure hyperglyceridemia Coding Level of Care Code Est Pt Level 4 (50157) Diagnoses Hypertriglyceridemia E78.1 Moderate persistent asthma without complication J45.40 Asthma complication type: uncomplicated Asthma persistence: persistent Asthma severity: moderate Paranoid schizophrenia F20.0 Smoker F17.200 Eczema of hand L30.9 Additional Codes JULIA-7 Assessment Billing - JULIA-7 Assessment Tool: JULIA-7 Assessment 23741 ([id number]) Vital Signs *Quality* - CPT code: 79907 - 4-10 Minutes ([id number])
[2023-09-25 15:02] VITALS: BP 132/86; PULSE 104; O2SAT 94; BMI 35.7
== END 2023-09-25 17:01 | disposition home or self-care (01) ==
PROVIDERS: PCP Internal Medicine; Visit Provider Physician Assistant
DX: E78.1 Pure hyperglyceridemia (principal); J45.40 Moderate persistent asthma, uncomplicated; F20.0 Paranoid schizophrenia; F17.200 Nicotine dependence, unspecified, uncomplicated; L30.9 Dermatitis, unspecified
CPT/HCPCS: 99214

== ENCOUNTER 2023-11-03 13:01 | Outpatient (AMB) | payer OTHER, SELFPAY ==
[2023-11-03 13:07] VITALS: BP 130/68; PULSE 102; O2SAT 95; BMI 36.3
--- NOTE | 2023-11-03 13:07 | A.OFFPC_ITS ---
Vital Signs 11/03/23 13:07 Height 5 ft 9 in Weight 246 lb 0.4 oz BMI 36.3 BP 130/68 Blood Pressure Location Lt brachial Position Sitting Pulse 102 H Pulse Source Pulse Oximeter Pulse Oximetry (%) 95 Oxygen Delivery Method Room Air Intake Visit Reasons: pe Intake Note: Patient is here today for a physical. 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: No Allergies paprika Allergy (Severe, Verified 11/03/23 13:41) DIFFICULTY BREATHING shrimp Allergy (Severe, Verified 11/03/23 13:41) ANAPHYLAXIS cranberry [CRANBERRY] Allergy (Mild, Verified 11/03/23 13:41) SWELLING OF HIS EAR strawberry [STRAWBERRY] Allergy (Mild, Verified 11/03/23 13:41) SWELLING OF HIS EAR cat dander [CATS] Allergy (Unknown, Verified 11/03/23 13:41) WATERY,ITCHY EYES clams [CLAMS] Allergy (Unknown, Verified 11/03/23 13:41) UNK MARINARA Allergy (Severe, Uncoded 11/03/23 13:41) ANAPHYLAXIS ibuprofes Allergy (Unknown, Uncoded 11/03/23 13:41) renal insufficiency paprika, seafood, strawberries Allergy (Unknown, Uncoded 11/03/23 13:41) unknown SEAFOOD Allergy (Unknown, Uncoded 11/03/23 13:41) UNKNOWN Medication List - Last Reconciled 11/03/23 by Cresencio Monahan MD benztropine 2 mg PO DAILY cholecalciferol (vitamin D3) 50 mcg PO DAILY 90 days fenofibrate 160 mg PO DAILY 90 days haloperidol 15 mg PO QAM haloperidol decanoate (Haldol Decanoate) 100 mg IM Q4W lorazepam mg PO DAILY naloxone 4 mg/actuation (Narcan) 4 mg intranasal Q2M PRN sertraline 150 mg PO DAILY trazodone 50 mg PO BEDTIME PRN 30 days triamcinolone acetonide 0.1% 1 appl topical DAILY 30 days Tobacco use date assessed: 11/03/23 Dental Screening Dental Screen Date: 11/03/23 Did you have a dental visit in the last 12 months?: No Did you have a dental problem in the last 6 months where you did not have access to dental care?: No HPI pe HPI Details Patient comes in today for his annual physical examination States that he currently feels okay He denies any headaches or dizziness Denies any chest pains, no SOB No nausea/vomiting, no abdominal pain No change in bowel habits noted He denies any acute urinary symptoms He continues to follow up with psychiatry at [facility] but it appears that he still has a lot of paranoid ideas as during his exam today, he indicates that he still feels very stressed out as there are a lot of people with magical west who are out to get him and they come and take his blood when he is asleep at night States that his own mother, who he lives with, hates him and only wants him to make babies States that his mother has a technique that she supposedly learned from the [place] wherein they can make babies very efficiently and that he feels that he is completely powerful in this whole situation as he is just a regular dude with no west at all Adds that he has been breaking out in a scattered papular rash on his forehead and face and states that other people are blaming him for potentially spreading MRSA to everyone he comes in contact with He's had no recent labs done - last ones were done back in April 2023 [facility] Medical History (Updated 11/05/23 @ 20:39 by Cresencio Monahan MD) Cannabis use disorder Schizoaffective disorder, depressive type Vitamin D deficiency Obesity (BMI 30-39.9) Smoker Asthma Hypertriglyceridemia Surgical History No pertinent past surgical history Family History Father Medical history unknown Mother Medical history unknown Family/Other FH: mental illness Social History Household Members: Family Housing: Apartment Do you presently have visiting nurse or other home services: Yes Alcohol intake: current Alcohol intake frequency: a few times a week Patient Tobacco Use Status: Current everyday Tobacco user Tobacco use type: Cigarette Cigarette Packs Per Day: 0.4 Cigarettes Per Day: 8.0 Years Smoked: ''for awhile'' e-Cigarette/Vaping Use: Never Used Second Hand Smoke Exposure: Yes Substance Use Type: Crack/Cocaine, Marijuana, Opiates and Other service: No Current occupational status: disabled Sexual orientation: Straight/Heterosexual Cognitive needs: No Hearing needs: No Vision needs: No Questionnaire PHQ-9 Over the last 2 weeks, how often have you been bothered by any of the following problems? 1. Little interest or pleasure in doing things: several days 2. Feeling down, depressed, or hopeless: several days 3. Trouble falling or staying asleep, or sleeping too much: several days 4. Feeling tired or having little energy: several days 5. Poor appetite or overeating: several days 6. Feeling bad about yourself - or that you are a failure or have let yourself or your family down: several days 7. Trouble concentrating on things, such as reading the newspaper or watching television: several days 8. Moving or speaking so slowly that other people could have noticed. Or the opposite - being so fidgety or restless that you have been moving around a lot more than usual: several days 9. Thoughts that you would be better off or of hurting yourself in some way: not at all Total score: 8 Depression Screening Interpretation: Positive Depression Screening Follow-up: Existing condition and In treatment Depression Screening Done: Yes 80816 - PHQ-9 Billing: Yes Source: Developed by Drs. Tye Garcia, Yoanna White, Tio Richards and colleagues, with an educational alejandro from [employer]. Thrive Questionnaire Date Thrive assessed: 09/25/23 I am a: Patient What is your living situation today?: I have a steady place to live Within the past 12 months, did the food you bought not last and you didn't have the money to get more?: Never true Within the past 12 months, did you worry whether your food would run out before you got money to buy more?: Never true Do you have trouble paying for medicines?: No Do you have trouble getting transportation to medical appointments?: No Do you have trouble paying your heating and electricity bill?: No Do you have trouble taking care of your child, family member or friend?: No Do you have trouble with day-to-day activities such as bathing, preparing meals, shopping, managing finances, etc.?: No Are you currently unemployed and looking for a job?: No Are you interested in more education?: No Please select the resources that you would like help with: None Currently or been in a relationship where the following occur: no concerns reported THRIVE Score: 0 AUDIT C Alcohol Use Questionnaire (AUDIT-C) 1. How often do you have a drink containing alcohol?: Never 3. How often do you have six or more drinks on one occasion?: Never Total Score: 0 Score Reviewed/Action Taken: Yes JULIA-7 AMB Questionnaire JULIA-7 Date JULIA - 7 assessed: 09/25/23 Feeling nervous, anxious, or on edge: 0 = Not at all Not being able to stop or control worryin = Not at all Worrying too much about different things: 0 = Not at all Trouble relaxin = Not at all Being so restless that it is hard to sit still: 0 = Not at all Becoming easily annoyed or irritable: 0 = Not at all Feeling afraid as if something awful might happen: 0 = Not at all Total JULIA-7 score (0-4 normal; 5-9 mild; 10-14 moderate; 15-21 severe): 0 Source: Developed by Drs. yTe Garcia, Yoanna White, Tio Richards and colleagues, with an educational alejandro from [employer]. JULIA-7 Assessment Billing JULIA-7 Assessment Tool: JULIA-7 Assessment 19037 Review of Systems Const Denies chills, Reports difficulty sleeping (at times), Denies fatigue, Denies fever(s), Denies headache(s), Denies malaise and Denies weakness Eyes Denies blurry vision, Denies change in vision, Denies irritation and Denies itchy eyes ENT Denies dysphagia, Denies dizziness, Denies otalgia, Denies headache(s), Denies nasal congestion, Denies neck pain, Denies odynophagia and Denies sore throat Card Denies chest pain, Denies rapid heart rate, Denies irregular heart rhythm, Denies palpitations and Denies dyspnea Resp Denies chest congestion, Denies cough, Denies dyspnea and Denies wheezing GI Denies abdominal pain, Denies bloating, Denies constipation, Denies dysphagia, Denies heartburn, Denies diarrhea, Denies nausea, Denies odynophagia and Denies vomiting Denies hematuria, Denies difficulty urinating, Denies dysuria, Denies urinary frequency and Denies urinary urgency Musc Denies back pain, Denies arthralgias, Denies joint swelling, Denies muscle weakness and Denies neck pain Skin/Breast Denies change in pigmentation, Denies lesions, Reports rash (scattered erythematous follicular rash over upper half of face,gracie forehead) and Denies unusual bruising Neuro Denies dizziness, Denies headache(s), Denies paresthesias and Denies weakness Psych Reports as per HPI, Reports paranoia and Denies suicidal ideation Endo Denies fatigue and Denies palpitations Aller/Immun Denies itchy eyes and Denies wheezing Physical exam (Primary Care) Vital Signs: Last Vital Signs Pulse 102 H 11/03/23 13:07 BP 130/68 11/03/23 13:07 Pulse Ox 95 11/03/23 13:07 Oxygen Delivery Method Room Air 11/03/23 13:07 BMI result Body Mass Index 36.3 Tobacco/Smoking Status: Tobacco use Status Tobacco use date assessed 11/03/23 11/03/23 13:08 Patient Tobacco Use Status Current everyday Tobacco 11/03/23 13:08 Tobacco use type Cigarette 11/03/23 13:08 e-Cigarette/Vaping Use Never Used 11/03/23 13:08 PHQ-9: PHQ-9 Score PHQ-9: Total score 8 11/03/23 15:53 Depression Screening Interpretation: Positive Depression Screening Follow-up: Existing condition and In treatment Thrive Assessment: Date of Thrive Assessment Date Thrive assessed 09/25/23 11/03/23 13:08 Currently or been in a relationship where the following occur: no concerns reported Const General: no acute distress, alert and awake Orientation/consciousness: patient oriented x3 HENMT Head: Yes normocephalic and Yes atraumatic Ears: external ears normal, TM's normal bilaterally and EAC's normal General nose exam: No nasal discharge present Face and sinus: Yes normal facial exam and Yes sinuses nontender Teeth and gingiva: dentition normal Throat: Yes posterior oropharynx normal and Yes tonsils normal (no TP congestion) Eyes Eyelids: Yes eyelids normal Conjunctivae: conjunctivae normal Pupils: Equal, round and reactive pupils present EOM: EOMs intact bilaterally Neck Neck: Yes no lymphadenopathy and Yes supple Thyroid: Thyroid normal Resp Auscultation: clear to auscultation bilaterally, no rales and no wheezes Cardio Rate: regular rate Rhythm: regular rhythm Heart sounds: no murmurs GI Palpation (GI): Soft to palpation, nontender and No hepatosplenomegaly present Auscultation: normal bowel sounds General: Yes no CVA tenderness Back/Spine/Pelvis Back: no CVA tenderness Thoracic/Lumbar Spine: thoracic and lumbar spine normal to inspection and No lumbar spinal tenderness Skin Other: (+) scattered erythematous raised follicular lesions over the upper half of his face, especially over the forehead Neuro General: patient oriented x3, moves all extremities, no focal motor deficits and CN's II-XI intact bilaterally Cranial nerves: Yes Equal, round and reactive pupils present Cognition (Neuro): normal cognition Gait exam (Neuro): Normal gait present Extrem General: Yes no clubbing, cyanosis or edema Psych Thought content: Paranoid delusions present (see HPI) Assessment and Plan Assessment & Plan (1) Annual physical exam: Code(s): Z00.00 - Encounter for general adult medical examination without abnormal findings Plan: Check labs (2) Hypertriglyceridemia: Code(s): E78.1 - Pure hyperglyceridemia Plan: Reinforced low cholesterol diet Continue Fenofibrate 160 mg QD Will recheck his labs and fasting lipids MARVIN for follow up (3) Asthma: Code(s): J45.909 - Unspecified asthma, uncomplicated Qualifiers: Asthma complication type: uncomplicated Asthma persistence: persistent Asthma severity: moderate Qualified Code(s): J45.40 - Moderate persistent asthma, uncomplicated Plan: Stable/controlled Continue Advair Diskus 100-50 mcg 1 inhalation BID and Albuterol HFA 2 puffs up to 4 times a day as needed (4) Elevated LFTs: Code(s): R79.89 - Other specified abnormal findings of blood chemistry Plan: His LFTs have remained normal on his most recent labs done back in April 2023 - was most likely related to his weight (hepatosteatosis) Will continue to monitor his LFTs regularly (5) Impaired fasting glucose: Code(s): R73.01 - Impaired fasting glucose Plan: FBS was elevated at 125 mg/dl on his labs back in April 2023 but his HgbA1c came out normal at 5.1% Reinforced low calorie diet/exercise as tolerated (6) Vitamin D deficiency: Code(s): E55.9 - Vitamin D deficiency, unspecified Plan: Continue Vitamin D3 2000 units QD (7) Mild anemia: Code(s): D64.9 - Anemia, unspecified Plan: H/H are still just slightly under the normal range on his recent labs; RBC indices are all normal Will continue to monitor his CBC regularly (8) Folliculitis: Code(s): L73.9 - Follicular disorder, unspecified Plan: These are currently mostly scattered over the patient's forehead and upper half of the face Will start him on some Benzoyl peroxide 5% facial wash BID x 7 to 10 days (9) Insomnia: Code(s): G47.00 - Insomnia, unspecified Qualifiers: Insomnia type: unspecified Qualified Code(s): G47.00 - Insomnia, unspecified Plan: Continue Trazodone 50 mg Q HS (10) Schizoaffective disorder, depressive type: Code(s): F25.1 - Schizoaffective disorder, depressive type Plan: As per HPI, patient is currently still experiencing a lot of paranoia and delusional thinking Continue Benztropine 1 mg 2 tablets once a day at bedtime, Sertraline 100 mg once a day, Haldol 10 mg Q AM and Haldol Decanoate solution 100 mg/mL 1 mL IM every 28 days Follow-up with Psychiatry ([facility]) as scheduled (11) Smoker: Code(s): F17.200 - Nicotine dependence, unspecified, uncomplicated Plan: Counseled again on smoking cessation (12) Obesity (BMI 30-39.9): Code(s): E66.9 - Obesity, unspecified Plan: Reinforced diet/exercise as tolerated/lose weight Plan Follow up in 4 months Orders: Orders Comprehensive [place]. Panel Fast 11/03/23 E78.00 - Pure hypercholesterolemia, unspecified, Z00.00 - Encounter for general adult medical examination without abnormal findings TSH reflex Free T4 11/03/23 E78.00 - Pure hypercholesterolemia, unspecified, Z00.00 - Encounter for general adult medical examination without abnormal findings Vitamin B12 and Folate 11/03/23 E53.8 - Deficiency of other specified B group vitamins, Z00.00 - Encounter for general adult medical examination without abnormal findings Complete Blood Count Auto Diff 11/03/23 D64.9 - Anemia, unspecified, Z00.00 - Encounter for general adult medical examination without abnormal findings Lipid Panel 11/03/23 E78.00 - Pure hypercholesterolemia, unspecified, Z00.00 - Encounter for general adult medical examination without abnormal findings Hemoglobin A1c 11/03/23 E11.9 - Type 2 diabetes mellitus without complications, Z00.00 - Encounter for general adult medical examination without abnormal findings UA CC w/rflx Micro + Cult 11/03/23 R30.0 - Dysuria, Z00.00 - Encounter for general adult medical examination without abnormal findings Vitamin D 25-OH Total 11/03/23 E55.9 - Vitamin D deficiency, unspecified, Z00.00 - Encounter for general adult medical examination without abnormal findings MRSA Nasal Screen 11/03/23 Z22.322 - Carrier or suspected carrier of Methicillin resistant Staphylococcus aureus Medications: New benzoyl peroxide 5% Wash face with this BID PRN 1 appl topical BID PRN 148 grams 0RF facial rash/lesions Coding Level of Care Code Est Pt Prev Care 40-64y(85813) Diagnoses Annual physical exam Z00.00 Hypertriglyceridemia E78.1 Moderate persistent asthma without complication J45.40 Asthma complication type: uncomplicated Asthma persistence: persistent Asthma severity: moderate Elevated LFTs R79.89 Impaired fasting glucose R73.01 Vitamin D deficiency E55.9 Mild anemia D64.9 Folliculitis L73.9 Insomnia, unspecified type G47.00 Insomnia type: unspecified Schizoaffective disorder, depressive type F25.1 Smoker F17.200 Obesity (BMI 30-39.9) E66.9 Additional Codes JULIA-7 Assessment Billing - JULIA-7 Assessment Tool: JULIA-7 Assessment 71376 ([id number])
== END 2023-11-03 13:57 | disposition home or self-care (01) ==
PROVIDERS: PCP Internal Medicine; Visit Provider Internal Medicine
DX: Z00.00 Encounter for general adult medical examination without abnormal findings (principal); E78.1 Pure hyperglyceridemia; F25.1 Schizoaffective disorder, depressive type; J45.40 Moderate persistent asthma, uncomplicated; R79.89 Other specified abnormal findings of blood chemistry; R73.01 Impaired fasting glucose; E55.9 Vitamin D deficiency, unspecified; D64.9 Anemia, unspecified; L73.9 Follicular disorder, unspecified; G47.00 Insomnia, unspecified; F17.200 Nicotine dependence, unspecified, uncomplicated; E66.9 Obesity, unspecified
CPT/HCPCS: 99396

== ENCOUNTER 2024-01-02 13:21 | Outpatient (REF) | payer OTHER, SELFPAY ==
[2024-01-02 13:40] LABS: MANUAL DIFF FLAG NO
[2024-01-02 13:59] LABS: Basophils Absolute Auto 0.1 X10*3/uL (0.0-0.2); Basophils Percent Auto 0.9 % (0-2); Eosinophils Absolute Auto 0.2 X10*3/uL (0.0-0.4); Hematocrit 42.6 % (42.0-52.0); Hemoglobin 14.2 g/dl (14.0-18.0); Imm Gran Abs Auto 0.05 X10*3/uL (0.00-0.03); Imm Gran Pct Auto 0.5 % (0.0-0.4); Lymphocytes Absolute Auto 4.1 X10*3/uL (1.2-4.9); Lymphocytes Percent Auto 41.3 % (20-40); Mean Corpuscular HGB Conc 33.3 g/dl (31.0-36.0); Mean Corpuscular Hemoglobin 27.6 pg (27.0-33.0); Mean Corpuscular Volume 82.9 fL (80.0-98.0); Mean Platelet Volume 9.6 fL (9.4-12.4); Monocytes Absolute Auto 0.8 X10*3/uL (0.1-1.2); Neutrophils Absolute Auto 4.7 x10*3/uL (2.0-8.3); Neutrophils Percent Auto 47.3 % (45-73); Platelet Count 327 X10*3/uL (160-400); Red Blood Count 5.14 X10*6/uL (4.60-5.80); Red Cell Distribution Width 13.4 % (11.0-16.0); White Blood Count 9.9 X10*3/uL (4.8-10.8)
[2024-01-02 14:01] LABS: Appearance Urine Turbid; Color Urine Yellow; Glucose Urine UA Negative (Negative); Leukocyte Esterase Urine Trace (Negative); Nitrite Urine Negative (Negative); UMIC TRIGGER UACC YES; Urine Blood Negative (Negative); Urine Ketones Negative (Negative); Urine Protein Trace mg/dL (Neg-Trace)
[2024-01-02 14:05] LABS: Bacteria Urine None Seen (None Seen); Hyaline Casts Urine 0-2 /LPF (0-2); RBC Urine 0-2 /HPF (0-2); Squamous Epithelial Cell Urine 0-2 /HPF (0-2); WBC Urine 0-5 /HPF (0-5)
[2024-01-02 14:11] LABS: Estimated Average Glucose 111 mg/dL; Hemoglobin A1c % 5.5 % (<6.0)
[2024-01-02 14:29] LABS: Alanine Aminotransferase 55 U/L (0-40); Albumin Level 4.5 g/dL (3.5-5.0); Alkaline Phosphatase 71 U/L (39-117); Anion Gap 14 (12-20); Aspartate Amino Transferase 33 U/L (5-37); Bilirubin Total 0.5 mg/dL (0.0-1.0); Blood Urea Nitrogen 10 mg/dL (9-16); Calcium 9.8 mg/dL (8.4-10.2); Carbon Dioxide 24 mmol/L (22-29); Chloride 104 mmol/L (96-108); Cholesterol 206 mg/dL (<200); Estimated Glomerular Filt Rate > 60; Glucose Fasting 78 mg/dL (60-99); HDL Cholesterol 34 mg/dL (>40); LDL Cholesterol Calculated 95 mg/dL (<100); Potassium 3.9 mmol/L (3.3-5.1); Sodium 138 mmol/L (135-145); Total Protein 8.2 g/dL (6.5-8.0); Triglycerides 388 mg/dL (<150)
[2024-01-02 14:45] LABS: TSH reflex Free T4 1.55 uIU/mL (0.32-4.0); Vitamin D 25-OH Total 44.3 ng/mL (>30)
[2024-01-02 14:59] LABS: Vitamin B12 521 pg/mL (200-900)
== END 2024-01-02 13:22 | disposition home or self-care (01) ==
LOC: HO.LAB 13:21
PROVIDERS: PCP Internal Medicine; Visit Provider Internal Medicine
DX: Z00.00 Encounter for general adult medical examination without abnormal findings (principal); E78.00 Pure hypercholesterolemia, unspecified; E53.8 Deficiency of other specified B group vitamins; E11.9 Type 2 diabetes mellitus without complications; D64.9 Anemia, unspecified; E55.9 Vitamin D deficiency, unspecified
CPT/HCPCS: 36415; 80053; 80061; 81001; 81003; 82306; 82607; 82746; 83036; 84443; 85025

== ENCOUNTER 2024-01-12 10:44 | Outpatient (REF) | payer OTHER, SELFPAY ==
[2024-01-12 12:50] LABS: Amphetamine Screen Urine Not Detected (Not Detect); Barbiturates, Urine Not Detected (Not Detect); Benzodiazepines Screen Urine Not Detected (Not Detect); Buprenorphine Scr Not Detected (Not Detect); Cannabinoid Screen Urine POSITIVE (Not Detect); Cocaine Screen Urine POSITIVE (Not Detect); Fentanyl, urine Not Detected (Not Detect); Methadone Screen, Urine Not Detected (Not Detect); Opiate Screen Urine Not Detected (Not Detect); Oxycodone Screen Urine Not Detected (Not Detect); Phencyclidine Screen Urine Not Detected (Not Detect)
== END 2024-01-12 10:45 | disposition home or self-care (01) ==
LOC: HO.LABR 10:44
PROVIDERS: PCP Internal Medicine; Visit Provider Psychiatry & Neurology Psychiatry
DX: Z79.899 Other long term (current) drug therapy (principal); F19.11 Other psychoactive substance abuse, in remission
CPT/HCPCS: 80307

== ENCOUNTER 2024-02-12 08:54 | Inpatient (IN) | payer OTHER, SELFPAY ==
[2024-02-12 08:57] VITALS: BP 117/78; PULSE 93; RESP 22; TEMP 36.2; O2SAT 95; BMI 38.3
[2024-02-12 09:17] VITALS: RESP 16
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
--- NOTE | 2024-02-12 10:03 | ECG_ITS ---
Test Reason : CP Blood Pressure : / mmHG Vent. Rate : 068 BPM Atrial Rate : 068 BPM P-R Int : 146 ms QRS Dur : 082 ms QT Int : 406 ms P-R-T Axes : 032 020 035 degrees QTc Int : 431 ms Normal sinus rhythm Normal ECG When compared with ECG of 14-APR-2023 13:57, No significant change was found Referred By: Kerry Arroyo Electronically Signed By:SALINAS PAIGE
[2024-02-12] MEDS: LORazepam 1 MG TABLET PO (10:07)
[2024-02-12 10:17] LABS: MANUAL DIFF FLAG NO
[2024-02-12 10:22] LABS: Basophils Absolute Auto 0.1 X10*3/uL (0.0-0.2); Basophils Percent Auto 0.6 % (0-2); Eosinophils Absolute Auto 0.2 X10*3/uL (0.0-0.4); Eosinophils Percent Auto 2.5 % (0-4); Hematocrit 38.4 % (42.0-52.0); Hemoglobin 13.1 g/dl (14.0-18.0); Imm Gran Abs Auto 0.03 X10*3/uL (0.00-0.03); Imm Gran Pct Auto 0.3 % (0.0-0.4); Lymphocytes Absolute Auto 2.9 X10*3/uL (1.2-4.9); Lymphocytes Percent Auto 31.6 % (20-40); Mean Corpuscular HGB Conc 34.1 g/dl (31.0-36.0); Mean Corpuscular Volume 82.1 fL (80.0-98.0); Mean Platelet Volume 9.6 fL (9.4-12.4); Monocytes Absolute Auto 0.8 X10*3/uL (0.1-1.2); Monocytes Percent Auto 8.9 % (2-11); Neutrophils Absolute Auto 5.1 x10*3/uL (2.0-8.3); Neutrophils Percent Auto 56.1 % (45-73); Platelet Count 307 X10*3/uL (160-400); Red Blood Count 4.68 X10*6/uL (4.60-5.80); Red Cell Distribution Width 13.6 % (11.0-16.0); White Blood Count 9.1 X10*3/uL (4.8-10.8)
[2024-02-12 10:44] LABS: Alanine Aminotransferase 58 U/L (0-40); Albumin Level 4.3 g/dL (3.5-5.0); Alkaline Phosphatase 70 U/L (39-117); Anion Gap 14 (12-20); Aspartate Amino Transferase 30 U/L (5-37); Bilirubin Total 0.3 mg/dL (0.0-1.0); Blood Urea Nitrogen 13 mg/dL (9-16); Calcium 9.7 mg/dL (8.4-10.2); Carbon Dioxide 20 mmol/L (22-29); Chloride 108 mmol/L (96-108); Creatinine Clr Calc Pharmacy 113.7; Estimated Glomerular Filt Rate > 60; Ethanol < 10 mg/dL; Glucose Random 104 mg/dL (60-115); Sodium 138 mmol/L (135-145); Total Protein 7.8 g/dL (6.5-8.0); Troponin-I High Sensitivity < 2.7 ng/L (<3.5-35.0)
--- NOTE | 2024-02-12 12:36 | MHC.CARE ---
Patient evaluated by the CARE Team, disposition inpatient psychiatric care. KALLI Ball updated.
[2024-02-12 14:44] VITALS: RESP 14
--- NOTE | 2024-02-12 18:03 | MHC.CARE ---
CARE Team sent [facility] the assessment and the referral form found on their website for the [facility] bed search.
[2024-02-12] MEDS: traZODone HCL 100 MG TABLET PO (19:33)
[2024-02-12] MEDS: LORazepam 0.5 MG TABLET PO (20:15)
[2024-02-13 06:00] VITALS: BP 103/66; PULSE 72; RESP 17; TEMP 36.4; O2SAT 97
--- NOTE | 2024-02-13 07:31 | PC.NURSE ---
Assumed care of patient at 0645, patient appears to be in no apparent distress this am, patient sat up and ate breakfast this am, now ambulating around BH pod with steady gait, offering no complaints to this RN. Continue plan of care for inpatient bedsearch
[2024-02-13] MEDS: Benztropine Mesylate 1 MG TABLET 2 MG PO (08:07)
[2024-02-13] MEDS: HaloperidoL 5 MG TABLET 15 MG PO (08:07)
[2024-02-13] MEDS: Sertraline HCL 50 MG TABLET 150 MG PO (08:07)
[2024-02-13] MEDS: Fenofibrate 160 MG TABLET PO (09:51)
--- NOTE | 2024-02-13 14:04 | PHA.MEDREC ---
Addendum entered by Padma Strong RPh 02/13/24 14:21: Reviewed by [facility] Original Note: Pharmacy Consult ? Medication Reconciliation Pharmacy reviewed med rec done by nursing. Saw nurse had put Haloperidol 10mg 15mg daily and in recent claims it looks like it changed to 1 tab BID last month, I spoke to the patient and he states he remembers that script did recently change to 1 tablet but started getting anxious and could not remember if he is now taking it twice a day. Patient confirmed he is Bentropine 2mg once daily for his shakes, He confirmed Trazodone 100mg 1 tab as needed at bedtime for insomnia. He also confirmed his Haloperidol injection but couldn't remember the last time he got that injection. The patient also was on Buprenorphine-Naloxone 12-3mg and [facility], [facility] called the [facility] and they confirmed he has not filled that since 01/22 for 7 days and speaking to the patient he states he has not had that in a few weeks . He stated to me that when he takes his medications it makes me feel like i'm dying, I get chest pain, dizziness and it happens before I go to bed . Patient couldnt remember when he last took his medications before coming into our care.
[2024-02-13 15:37] VITALS: BMI 38.0
[2024-02-13 15:41] VITALS: BP 127/76; PULSE 85; RESP 16; TEMP 36.8; O2SAT 97
[2024-02-13] MEDS: Flu Vacc TS2024-25(6mos up)/PF 0.5 ML SYRINGE IM (16:47)
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
[2024-02-13 20:00] VITALS: BP 142/90; PULSE 89; RESP 16; TEMP 36.4; O2SAT 96
[2024-02-13] MEDS: LORazepam 0.5 MG TABLET PO (21:35)
[2024-02-13] MEDS: OLANZapine 10 MG TABLET PO (21:36)
--- NOTE | 2024-02-14 03:10 | PC.NURSE ---
Patient is aware that he needs to provide a urine specimen.
[2024-02-14] MEDS: Acetaminophen 325 MG TABLET 650 MG PO (05:10)
[2024-02-14 08:00] VITALS: BP 135/82; PULSE 107; RESP 18; TEMP 36.5; O2SAT 95
[2024-02-14] MEDS: HaloperidoL 5 MG TABLET 15 MG PO (09:02)
[2024-02-14] MEDS: Benztropine Mesylate 1 MG TABLET 2 MG PO (09:02)
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
[2024-02-14] MEDS: hydrOXYzine HCL 25 MG TABLET PO ×2 (12:32→22:47)
[2024-02-14] MEDS: Throat Lozenge, Medicated LOZENGE 1 LOZENGE MUCOUS MEM ×2 (13:30→20:27)
[2024-02-14 15:51] LABS: Appearance Urine Clear; Color Urine Yellow; Glucose Urine UA Negative (Negative); Leukocyte Esterase Urine Negative (Negative); Nitrite Urine Negative (Negative); PH 6.5 (5.0-9.0); Specific Gravity - Urine 1.015 (1.005-1.025); Urine Blood Negative (Negative); Urine Ketones Negative (Negative); Urine Protein Negative (Neg-Trace)
[2024-02-14 16:08] LABS: Amphetamine Screen Urine Not Detected (Not Detect); Barbiturates, Urine Not Detected (Not Detect); Benzodiazepines Screen Urine Not Detected (Not Detect); Buprenorphine Scr Not Detected (Not Detect); Cannabinoid Screen Urine Not Detected (Not Detect); Cocaine Screen Urine Not Detected (Not Detect); Fentanyl, urine Not Detected (Not Detect); Methadone Screen, Urine Not Detected (Not Detect); Opiate Screen Urine Not Detected (Not Detect); Oxycodone Screen Urine Not Detected (Not Detect); Phencyclidine Screen Urine Not Detected (Not Detect)
[2024-02-14 20:00] VITALS: BP 135/71; PULSE 85; RESP 16; TEMP 36.4; O2SAT 96
[2024-02-14] MEDS: traZODone HCL 100 MG TABLET PO (22:47)
[2024-02-15 07:00] VITALS: BMI 38.9
[2024-02-15 08:34] VITALS: BP 128/80; PULSE 76; RESP 16; TEMP 36.6; O2SAT 96
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
[2024-02-15] MEDS: cloZAPine 25 MG TABLET PO ×2 (12:53→19:55)
[2024-02-15] MEDS: LORazepam 1 MG TABLET PO (12:53)
[2024-02-15] MEDS: Throat Lozenge, Medicated LOZENGE 1 LOZENGE MUCOUS MEM (19:55)
[2024-02-15 20:00] VITALS: BP 143/74; PULSE 82; RESP 16; TEMP 36.6; O2SAT 97
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
[2024-02-16 10:11] VITALS: BP 146/68; PULSE 77; RESP 16; TEMP 36.4; O2SAT 97
[2024-02-16] MEDS: cloZAPine 25 MG TABLET PO (10:15)
[2024-02-16] MEDS: Fenofibrate 160 MG TABLET PO (10:15)
[2024-02-16] MEDS: HaloperidoL 5 MG TABLET PO (10:15)
[2024-02-16] MEDS: Benztropine Mesylate 1 MG TABLET 2 MG PO (10:15)
[2024-02-16] MEDS: Sertraline HCL 25 MG TABLET PO (10:15)
[2024-02-16 11:30] LABS: Influenza A PCR NEGATIVE (Negative); Influenza B PCR NEGATIVE (Negative); Resp Syncy Virus RNA Qual PCR NEGATIVE (Negative); SARS COV2 PCR INHOUSE NEGATIVE (Negative)
[2024-02-16] MEDS: Throat Lozenge, Medicated LOZENGE 1 LOZENGE MUCOUS MEM (16:34)
[2024-02-16 20:00] VITALS: BP 120/68; PULSE 82; RESP 16; TEMP 36.7; O2SAT 98
[2024-02-16] MEDS: cloZAPine 25 MG TABLET 50 MG PO (20:43)
--- NOTE | 2024-02-17 05:44 | PC.NURSE ---
[place] woke up and came down the hallway to report to this ghost writer, I had a flutter in my heart that I felt for one second while I was asleep . Patient stated It went away already . This ghost writer checked patient's BP, right arm sitting 129/71, pulse 77. Patient in NAD, he is now sitting in the patients' kitchen sipping ice water.
[2024-02-17] MEDS: cloZAPine 25 MG TABLET PO (08:13)
[2024-02-17] MEDS: Sertraline HCL 25 MG TABLET PO (08:13)
[2024-02-17] MEDS: Benztropine Mesylate 1 MG TABLET 2 MG PO (08:13)
[2024-02-17] MEDS: HaloperidoL 5 MG TABLET PO (08:13)
[2024-02-17 08:36] VITALS: BP 152/82; PULSE 83; RESP 18; TEMP 36.4; O2SAT 97
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
[2024-02-17] MEDS: Haloperidol Decanoate 50 MG/ML VIAL 75 MG IM (15:58)
[2024-02-17 20:00] VITALS: BP 145/86; PULSE 91; RESP 16; TEMP 36.7; O2SAT 96
[2024-02-17] MEDS: cloZAPine 25 MG TABLET 75 MG PO (21:49)
[2024-02-18] MEDS: Magnesium Hydrox/Alum Hydrox 30 ML ORAL.SUSP PO (01:14)
[2024-02-18 07:46] VITALS: BP 156/88; PULSE 103; RESP 18; TEMP 36.6; O2SAT 96
[2024-02-18] MEDS: HaloperidoL 5 MG TABLET PO (08:29)
[2024-02-18] MEDS: Benztropine Mesylate 1 MG TABLET 2 MG PO (08:29)
[2024-02-18] MEDS: Sertraline HCL 25 MG TABLET PO (08:29)
[2024-02-18] MEDS: Fenofibrate 160 MG TABLET PO (08:29)
[2024-02-18] MEDS: cloZAPine 25 MG TABLET PO (08:29)
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
[2024-02-18] MEDS: Throat Lozenge, Medicated LOZENGE 1 LOZENGE MUCOUS MEM (17:21)
[2024-02-18 20:00] VITALS: BP 117/57; PULSE 95; TEMP 36.7; O2SAT 97
[2024-02-18] MEDS: Milk of Magnesia 30 ML ORAL.SUSP PO (20:09)
[2024-02-18] MEDS: cloZAPine 100 MG TABLET PO (22:48)
[2024-02-18] MEDS: LORazepam 0.5 MG TABLET PO (23:30)
[2024-02-18] MEDS: traZODone HCL 100 MG TABLET PO (23:30)
[2024-02-18 23:58] VITALS: PULSE 91; RESP 17; O2SAT 96
[2024-02-19 08:00] VITALS: BP 142/80; PULSE 97; RESP 16; TEMP 36.9; O2SAT 98
[2024-02-19] MEDS: Fenofibrate 160 MG TABLET PO (08:34)
[2024-02-19] MEDS: cloZAPine 25 MG TABLET PO (08:34)
[2024-02-19] MEDS: Sertraline HCL 25 MG TABLET PO (08:34)
[2024-02-19] MEDS: HaloperidoL 5 MG TABLET PO (08:34)
[2024-02-19] MEDS: Benztropine Mesylate 1 MG TABLET 2 MG PO (08:34)
[2024-02-19 09:23] LABS: Neut%MD 59.8 %; Neutrophils Absolute Auto 6.1 x10*3/uL (2.0-8.3); WBCANC 10.3 X10*3/uL
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
[2024-02-19] MEDS: Throat Lozenge, Medicated LOZENGE 1 LOZENGE MUCOUS MEM ×4 (12:40→22:15)
[2024-02-19] MEDS: Acetaminophen 325 MG TABLET 650 MG PO (19:07)
[2024-02-19 20:00] VITALS: BP 143/89; PULSE 115; TEMP 37.7; O2SAT 96
[2024-02-19] MEDS: cloZAPine 100 MG TABLET PO (23:01)
[2024-02-19] MEDS: traZODone HCL 100 MG TABLET PO (23:02)
[2024-02-19 23:50] VITALS: RESP 16
[2024-02-20 08:33] VITALS: BP 118/71; PULSE 102; RESP 16; TEMP 36.5; O2SAT 97
[2024-02-20] MEDS: Benztropine Mesylate 1 MG TABLET 2 MG PO (08:57)
[2024-02-20] MEDS: Fenofibrate 160 MG TABLET PO (08:57)
[2024-02-20] MEDS: cloZAPine 25 MG TABLET PO (08:57)
[2024-02-20] MEDS: HaloperidoL 5 MG TABLET PO (08:57)
[2024-02-20] MEDS: Sertraline HCL 50 MG TABLET PO (08:57)
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
[2024-02-20] MEDS: Throat Lozenge, Medicated LOZENGE 1 LOZENGE MUCOUS MEM (15:34)
[2024-02-20] MEDS: Milk of Magnesia 30 ML ORAL.SUSP PO (15:34)
[2024-02-20 20:00] VITALS: BP 110/55; PULSE 104; RESP 18; TEMP 37.2; O2SAT 96
[2024-02-20] MEDS: cloZAPine 100 MG TABLET PO (20:28)
[2024-02-20] MEDS: traZODone HCL 100 MG TABLET PO (23:04)
[2024-02-21] MEDS: hydrOXYzine HCL 25 MG TABLET PO (04:46)
[2024-02-21 08:00] VITALS: BP 116/51; PULSE 91; TEMP 36.9; O2SAT 96
[2024-02-21] MEDS: HaloperidoL 5 MG TABLET PO (08:58)
[2024-02-21] MEDS: Benztropine Mesylate 1 MG TABLET 2 MG PO (08:58)
[2024-02-21] MEDS: cloZAPine 25 MG TABLET PO (08:58)
[2024-02-21] MEDS: Fenofibrate 160 MG TABLET PO (08:58)
[2024-02-21] MEDS: Sertraline HCL 50 MG TABLET PO (08:58)
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
[2024-02-21 20:00] VITALS: BP 128/79; PULSE 108; RESP 16; O2SAT 97
[2024-02-21] MEDS: cloZAPine 100 MG, cloZAPine 25 MG 125 MG PO (20:17)
[2024-02-22 08:00] VITALS: BP 137/68; PULSE 92; RESP 16; TEMP 37; O2SAT 96
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
[2024-02-22 08:34] LABS: Neut%MD 53.5 %; Neutrophils Absolute Auto 5.4 x10*3/uL (2.0-8.3); WBCANC 10.1 X10*3/uL
[2024-02-22] MEDS: Fenofibrate 160 MG TABLET PO (10:23)
[2024-02-22] MEDS: Benztropine Mesylate 1 MG TABLET 2 MG PO (10:23)
[2024-02-22] MEDS: HaloperidoL 5 MG TABLET PO (10:25)
[2024-02-22] MEDS: Sertraline HCL 50 MG TABLET PO (10:25)
[2024-02-22] MEDS: Naloxone HCl Nasal TAKE HOME 4 MG SPRAY 8 MG NOSTRILALT (10:27)
[2024-02-22] MEDS: Acetaminophen 325 MG TABLET 650 MG PO (12:59)
== END 2024-02-22 13:30 | disposition home or self-care (01) | DRG 885 ==
LOC: HO.ED 11:12 → HO.PM5 02-13 14:24
PROVIDERS: Physician Assistant; Admitting Provider Psychiatry & Neurology Psychiatry; Emergency Provider Emergency Medicine; PCP Internal Medicine; Visit Provider Psychiatry & Neurology Psychiatry
DX: F25.1 Schizoaffective disorder, depressive type (principal); F17.210 Nicotine dependence, cigarettes, uncomplicated; F14.10 Cocaine abuse, uncomplicated; G47.33 Obstructive sleep apnea (adult) (pediatric); Z71.6 Tobacco abuse counseling; Z23 Encounter for immunization; Z20.822 Contact with and (suspected) exposure to COVID-19; Z79.899 Other long term (current) drug therapy
CPT/HCPCS: 0241U; 36415; 80053; 80307; 81003; 84484; 85025; 85048; 90656; 93005; 94660; 99285; J1631; S9485

== ENCOUNTER → 2024-02-13 14:18 | Outpatient (BNV) | payer OTHER, SELFPAY | PROVIDERS: Admitting Provider Psychiatry & Neurology Psychiatry; Emergency Provider Emergency Medicine; PCP Internal Medicine; Visit Provider Psychiatry & Neurology Psychiatry | DX: F25.1 Schizoaffective disorder, depressive type (principal); F14.10 Cocaine abuse, uncomplicated | CPT/HCPCS: 90792; 99231; 99232; 99239 ==

== ENCOUNTER 2024-02-28 13:32 | Outpatient (REF) | payer OTHER, SELFPAY ==
[2024-02-28 13:59] LABS: MANUAL DIFF FLAG NO
[2024-02-28 14:22] LABS: Basophils Absolute Auto 0.1 X10*3/uL (0.0-0.2); Basophils Percent Auto 0.8 % (0-2); Eosinophils Absolute Auto 0.3 X10*3/uL (0.0-0.4); Eosinophils Percent Auto 2.9 % (0-4); Hematocrit 39.7 % (42.0-52.0); Hemoglobin 13.2 g/dl (14.0-18.0); Imm Gran Abs Auto 0.05 X10*3/uL (0.00-0.03); Imm Gran Pct Auto 0.4 % (0.0-0.4); Lymphocytes Absolute Auto 2.8 X10*3/uL (1.2-4.9); Lymphocytes Percent Auto 24.2 % (20-40); Mean Corpuscular HGB Conc 33.2 g/dl (31.0-36.0); Mean Corpuscular Hemoglobin 27.4 pg (27.0-33.0); Mean Corpuscular Volume 82.5 fL (80.0-98.0); Mean Platelet Volume 9.9 fL (9.4-12.4); Monocytes Absolute Auto 1.1 X10*3/uL (0.1-1.2); Monocytes Percent Auto 9.4 % (2-11); Neutrophils Absolute Auto 7.2 x10*3/uL (2.0-8.3); Neutrophils Percent Auto 62.3 % (45-73); Platelet Count 328 X10*3/uL (160-400); Red Blood Count 4.81 X10*6/uL (4.60-5.80); Red Cell Distribution Width 13.6 % (11.0-16.0); White Blood Count 11.5 X10*3/uL (4.8-10.8)
[2024-02-28 14:50] LABS: Amphetamine Screen Urine Not Detected (Not Detect); Barbiturates, Urine Not Detected (Not Detect); Benzodiazepines Screen Urine Not Detected (Not Detect); Buprenorphine Scr Not Detected (Not Detect); Cannabinoid Screen Urine POSITIVE (Not Detect); Cocaine Screen Urine Not Detected (Not Detect); Fentanyl, urine Not Detected (Not Detect); Methadone Screen, Urine Not Detected (Not Detect); Opiate Screen Urine Not Detected (Not Detect); Oxycodone Screen Urine Not Detected (Not Detect); Phencyclidine Screen Urine Not Detected (Not Detect)
== END 2024-02-28 13:33 | disposition home or self-care (01) ==
LOC: HO.LABR 13:32
PROVIDERS: PCP Internal Medicine; Visit Provider Psychiatry & Neurology Psychiatry
DX: Z79.899 Other long term (current) drug therapy (principal)
CPT/HCPCS: 80307; 85025

== ENCOUNTER 2024-03-06 13:30 | Outpatient (REF) | payer OTHER, SELFPAY ==
[2024-03-06 13:46] LABS: MANUAL DIFF FLAG NO
[2024-03-06 14:05] LABS: Amphetamine Screen Urine Not Detected (Not Detect); Barbiturates, Urine Not Detected (Not Detect); Benzodiazepines Screen Urine Not Detected (Not Detect); Buprenorphine Scr Not Detected (Not Detect); Cannabinoid Screen Urine POSITIVE (Not Detect); Cocaine Screen Urine Not Detected (Not Detect); Fentanyl, urine Not Detected (Not Detect); Methadone Screen, Urine Not Detected (Not Detect); Opiate Screen Urine Not Detected (Not Detect); Oxycodone Screen Urine Not Detected (Not Detect); Phencyclidine Screen Urine Not Detected (Not Detect)
[2024-03-06 14:11] LABS: Basophils Absolute Auto 0.1 X10*3/uL (0.0-0.2); Basophils Percent Auto 0.7 % (0-2); Eosinophils Absolute Auto 0.1 X10*3/uL (0.0-0.4); Eosinophils Percent Auto 0.6 % (0-4); Hemoglobin 13.1 g/dl (14.0-18.0); Imm Gran Abs Auto 0.11 X10*3/uL (0.00-0.03); Lymphocytes Absolute Auto 1.5 X10*3/uL (1.2-4.9); Lymphocytes Percent Auto 13.1 % (20-40); Mean Corpuscular HGB Conc 32.8 g/dl (31.0-36.0); Mean Corpuscular Hemoglobin 27.4 pg (27.0-33.0); Mean Corpuscular Volume 83.7 fL (80.0-98.0); Monocytes Absolute Auto 0.8 X10*3/uL (0.1-1.2); Monocytes Percent Auto 6.9 % (2-11); Neutrophils Absolute Auto 8.9 x10*3/uL (2.0-8.3); Neutrophils Percent Auto 77.7 % (45-73); Platelet Count 362 X10*3/uL (160-400); Red Blood Count 4.78 X10*6/uL (4.60-5.80); Red Cell Distribution Width 14.1 % (11.0-16.0); White Blood Count 11.5 X10*3/uL (4.8-10.8)
== END 2024-03-06 13:31 | disposition home or self-care (01) ==
LOC: HO.LABR 13:30
PROVIDERS: PCP Internal Medicine; Visit Provider Psychiatry & Neurology Psychiatry
DX: Z79.899 Other long term (current) drug therapy (principal)
CPT/HCPCS: 80307; 85025

== ENCOUNTER 2024-03-13 12:29 | Outpatient (REF) | payer OTHER, SELFPAY ==
[2024-03-13 12:48] LABS: MANUAL DIFF FLAG NO
[2024-03-13 13:08] LABS: Basophils Absolute Auto 0.1 X10*3/uL (0.0-0.2); Basophils Percent Auto 0.7 % (0-2); Eosinophils Absolute Auto 0.3 X10*3/uL (0.0-0.4); Eosinophils Percent Auto 2.5 % (0-4); Hematocrit 42.4 % (42.0-52.0); Imm Gran Abs Auto 0.04 X10*3/uL (0.00-0.03); Imm Gran Pct Auto 0.4 % (0.0-0.4); Lymphocytes Percent Auto 38.1 % (20-40); Mean Corpuscular Hemoglobin 27.5 pg (27.0-33.0); Mean Corpuscular Volume 83.1 fL (80.0-98.0); Monocytes Absolute Auto 0.8 X10*3/uL (0.1-1.2); Monocytes Percent Auto 7.3 % (2-11); Neutrophils Absolute Auto 5.4 x10*3/uL (2.0-8.3); Platelet Count 363 X10*3/uL (160-400); Red Cell Distribution Width 13.9 % (11.0-16.0); White Blood Count 10.6 X10*3/uL (4.8-10.8)
[2024-03-13 14:25] LABS: Amphetamine Screen Urine Not Detected (Not Detect); Barbiturates, Urine Not Detected (Not Detect); Benzodiazepines Screen Urine Not Detected (Not Detect); Buprenorphine Scr Not Detected (Not Detect); Cannabinoid Screen Urine POSITIVE (Not Detect); Cocaine Screen Urine Not Detected (Not Detect); Fentanyl, urine Not Detected (Not Detect); Methadone Screen, Urine Not Detected (Not Detect); Opiate Screen Urine Not Detected (Not Detect); Oxycodone Screen Urine Not Detected (Not Detect); Phencyclidine Screen Urine Not Detected (Not Detect)
== END 2024-03-13 12:30 | disposition home or self-care (01) ==
LOC: HO.LABR 12:29
PROVIDERS: Visit Provider Psychiatry & Neurology Psychiatry
DX: F25.1 Schizoaffective disorder, depressive type (principal); F14.10 Cocaine abuse, uncomplicated; Z79.899 Other long term (current) drug therapy
CPT/HCPCS: 80307; 85025; 99212

== ENCOUNTER 2024-03-13 12:50 | Outpatient (AMB) | payer OTHER, SELFPAY ==
--- NOTE | 2024-03-13 12:53 | A.OFFPC_ITS ---
Vital Signs 03/13/24 12:54 Height 5 ft 9 in Weight 258 lb 4 oz BMI 38.1 BP 110/72 Blood Pressure Location Lt brachial Position Sitting Pulse 93 Pulse Source Pulse Oximeter Pulse Oximetry (%) 97 Oxygen Delivery Method Room Air Intake [place] [facility] [place]5 Intake Note: Patient is here for hospital discharge follow up. Patient was [place] [facility] [place]. Movie Operator Required: No Webbing Seamer Pound Net: Not Required per policy Accompanied by: Self / Same As Patient Allergies paprika Allergy (Severe, Verified 03/13/24 12:54) DIFFICULTY BREATHING shrimp Allergy (Severe, Verified 03/13/24 12:54) ANAPHYLAXIS cranberry [CRANBERRY] Allergy (Mild, Verified 03/13/24 12:54) SWELLING OF HIS EAR strawberry [STRAWBERRY] Allergy (Mild, Verified 03/13/24 12:54) SWELLING OF HIS EAR cat dander [CATS] Allergy (Unknown, Verified 03/13/24 12:54) WATERY,ITCHY EYES clams [CLAMS] Allergy (Unknown, Verified 03/13/24 12:54) UNK shellfish derived Allergy (Verified 03/13/24 12:54) Swelling Poultry Adverse Reaction (Verified 03/13/24 12:54) Unknown MARINARA Allergy (Severe, Uncoded 03/13/24 12:54) ANAPHYLAXIS ibuprofes Allergy (Unknown, Uncoded 03/13/24 12:54) renal insufficiency paprika, seafood, strawberries Allergy (Unknown, Uncoded 03/13/24 12:54) unknown SEAFOOD Allergy (Unknown, Uncoded 03/13/24 12:54) UNKNOWN Tobacco use date assessed: 03/13/24 Dental Screening Dental Screen Date: 11/03/23 HPI HPI Comments History of Present Illness Details 38 y/o male patient who presents to the clinic for HDF. He [place] [facility] [place] for Schizo-affective disorder and Cocaine use. He was discharged home on 02/22/24 on medications. He is an established patient at [facility] and receives Psychiatric care. New Psych medications added: Clozapine 25 mg, Clozapine 100 mg and Haldol 50 mg. Pt non-compliant with his medications because he feels like Too much medications with damage his Kidneys . [facility] Medical History (Updated 03/01/24 @ 00:03 by Izzy Rogers) Psychosis Cocaine use disorder Cannabis use disorder Vitamin D deficiency Obesity (BMI 30-39.9) Smoker Asthma Hypertriglyceridemia Surgical History No pertinent past surgical history Family History Father Medical history unknown Mother Medical history unknown Family/Other FH: mental illness Social History Household Members: Family Housing: Apartment Do you presently have visiting nurse or other home services: Yes Alcohol intake: current Alcohol intake frequency: a few times a week Patient Tobacco Use Status: Current everyday Tobacco user Tobacco use type: Cigarette Cigarette Packs Per Day: 0.4 Cigarettes Per Day: 2 Years Smoked: 25 Packs Per Year: 10 Packs per year/per ci.50 e-Cigarette/Vaping Use: Never Used Second Hand Smoke Exposure: No Substance Use Type: Crack/Cocaine, Marijuana and Caffiene service: No Current occupational status: disabled Sexual orientation: Straight/Heterosexual Cognitive needs: No Hearing needs: No Vision needs: No Questionnaire Thrive Questionnaire Date Thrive assessed: 02/14/24 JULIA-7 AMB Questionnaire JULIA-7 Date JULIA - 7 assessed: 09/25/23 Source: Developed by Drs. Tye Garcia, Yoanna White, Tio Richards and colleagues, with an educational alejandro from [employer]. Review of Systems Const All systems reviewed & are unremarkable except as noted in HPI and below Physical exam (Primary Care) Vital Signs: Last Vital Signs Pulse 93 03/13/24 12:54 BP 110/72 03/13/24 12:54 Pulse Ox 97 03/13/24 12:54 Oxygen Delivery Method Room Air 03/13/24 12:54 BMI result Body Mass Index 38.1 Tobacco/Smoking Status: Tobacco use Status Tobacco use date assessed 03/13/24 03/13/24 12:58 Patient Tobacco Use Status Current everyday Tobacco 03/13/24 12:58 Tobacco use type Cigarette 03/13/24 12:58 e-Cigarette/Vaping Use Never Used 03/13/24 12:58 Thrive Assessment: Date of Thrive Assessment Date Thrive assessed 02/14/24 03/13/24 12:58 Const General: no acute distress, alert and awake Nutritional Appearance: obese Neuro General: gait normal and moves all extremities Psych Speech and movement: Clear speech present Affect: normal affect Thought content: suicidality, no homicidality and no hallucinations Coding Level of Care Code Est Pt Level 4 (53770) Diagnoses Schizoaffective disorder, depressive type F25.1 Cocaine abuse F14.10 Time Spent (min) 20 Comment SPENT REVIEWING HOSPITAL NOTES Assessment & Plan Assessment & Plan (1) Schizoaffective disorder, depressive type: Code(s): F25.1 - Schizoaffective disorder, depressive type Category: Medical Plan: Managed by Psych (2) Cocaine abuse: Code(s): F14.10 - Cocaine abuse, uncomplicated Category: Medical Plan: Managed by Psych.
[2024-03-13 12:54] VITALS: BP 110/72; PULSE 93; O2SAT 97; BMI 38.1
== END 2024-03-13 13:08 | disposition home or self-care (01) ==
LOC: HO.HMCH 12:50
PROVIDERS: PCP Internal Medicine; Visit Provider Nurse Practitioner Family
DX: F25.1 Schizoaffective disorder, depressive type (principal); F14.10 Cocaine abuse, uncomplicated

== ENCOUNTER 2024-03-20 15:40 | Outpatient (REF) | payer OTHER, SELFPAY ==
[2024-03-20 16:05] LABS: MANUAL DIFF FLAG NO
[2024-03-20 16:21] LABS: Amphetamine Screen Urine Not Detected (Not Detect); Barbiturates, Urine Not Detected (Not Detect); Benzodiazepines Screen Urine Not Detected (Not Detect); Buprenorphine Scr Not Detected (Not Detect); Cannabinoid Screen Urine POSITIVE (Not Detect); Cocaine Screen Urine Not Detected (Not Detect); Fentanyl, urine Not Detected (Not Detect); Methadone Screen, Urine Not Detected (Not Detect); Opiate Screen Urine Not Detected (Not Detect); Oxycodone Screen Urine Not Detected (Not Detect); Phencyclidine Screen Urine Not Detected (Not Detect)
[2024-03-20 16:43] LABS: Basophils Absolute Auto 0.1 X10*3/uL (0.0-0.2); Basophils Percent Auto 0.6 % (0-2); Eosinophils Absolute Auto 0.4 X10*3/uL (0.0-0.4); Eosinophils Percent Auto 3.3 % (0-4); Hematocrit 40.5 % (42.0-52.0); Hemoglobin 13.3 g/dl (14.0-18.0); Imm Gran Abs Auto 0.04 X10*3/uL (0.00-0.03); Imm Gran Pct Auto 0.4 % (0.0-0.4); Lymphocytes Percent Auto 35.2 % (20-40); Mean Corpuscular HGB Conc 32.8 g/dl (31.0-36.0); Mean Corpuscular Hemoglobin 27.2 pg (27.0-33.0); Mean Corpuscular Volume 82.8 fL (80.0-98.0); Mean Platelet Volume 10.1 fL (9.4-12.4); Monocytes Absolute Auto 1.1 X10*3/uL (0.1-1.2); Monocytes Percent Auto 9.7 % (2-11); Neutrophils Absolute Auto 5.7 x10*3/uL (2.0-8.3); Neutrophils Percent Auto 50.8 % (45-73); Platelet Count 317 X10*3/uL (160-400); Red Blood Count 4.89 X10*6/uL (4.60-5.80); Red Cell Distribution Width 14.1 % (11.0-16.0); White Blood Count 11.2 X10*3/uL (4.8-10.8)
== END 2024-03-20 15:41 | disposition home or self-care (01) ==
LOC: HO.LABR 15:40
PROVIDERS: PCP Internal Medicine; Visit Provider Psychiatry & Neurology Psychiatry
DX: Z79.899 Other long term (current) drug therapy (principal)
CPT/HCPCS: 80307; 85025

== ENCOUNTER 2024-03-27 13:30 | Outpatient (REF) | payer OTHER, SELFPAY ==
[2024-03-27 13:42] LABS: MANUAL DIFF FLAG NO
[2024-03-27 14:41] LABS: Basophils Absolute Auto 0.1 X10*3/uL (0.0-0.2); Basophils Percent Auto 0.8 % (0-2); Eosinophils Absolute Auto 0.3 X10*3/uL (0.0-0.4); Eosinophils Percent Auto 3.6 % (0-4); Hematocrit 42.3 % (42.0-52.0); Hemoglobin 13.9 g/dl (14.0-18.0); Imm Gran Abs Auto 0.05 X10*3/uL (0.00-0.03); Imm Gran Pct Auto 0.5 % (0.0-0.4); Lymphocytes Absolute Auto 3.6 X10*3/uL (1.2-4.9); Mean Corpuscular HGB Conc 32.9 g/dl (31.0-36.0); Mean Corpuscular Hemoglobin 27.6 pg (27.0-33.0); Mean Corpuscular Volume 83.9 fL (80.0-98.0); Mean Platelet Volume 10.4 fL (9.4-12.4); Monocytes Absolute Auto 1.1 X10*3/uL (0.1-1.2); Monocytes Percent Auto 11.6 % (2-11); Neutrophils Absolute Auto 4.3 x10*3/uL (2.0-8.3); Neutrophils Percent Auto 45.5 % (45-73); Platelet Count 318 X10*3/uL (160-400); Red Blood Count 5.04 X10*6/uL (4.60-5.80); Red Cell Distribution Width 14.2 % (11.0-16.0); White Blood Count 9.5 X10*3/uL (4.8-10.8)
[2024-03-27 14:55] LABS: Amphetamine Screen Urine Not Detected (Not Detect); Barbiturates, Urine Not Detected (Not Detect); Benzodiazepines Screen Urine Not Detected (Not Detect); Buprenorphine Scr Not Detected (Not Detect); Cannabinoid Screen Urine POSITIVE (Not Detect); Cocaine Screen Urine Not Detected (Not Detect); Fentanyl, urine Not Detected (Not Detect); Methadone Screen, Urine Not Detected (Not Detect); Opiate Screen Urine Not Detected (Not Detect); Oxycodone Screen Urine Not Detected (Not Detect); Phencyclidine Screen Urine Not Detected (Not Detect)
== END 2024-03-27 13:31 | disposition home or self-care (01) ==
LOC: HO.LABR 13:30
PROVIDERS: PCP Internal Medicine; Visit Provider Psychiatry & Neurology Psychiatry
DX: Z79.899 Other long term (current) drug therapy (principal)
CPT/HCPCS: 80307; 85025

== ENCOUNTER 2024-04-03 13:29 | Outpatient (REF) | payer OTHER, SELFPAY ==
[2024-04-03 13:42] LABS: MANUAL DIFF FLAG NO
[2024-04-03 13:49] LABS: Basophils Absolute Auto 0.1 X10*3/uL (0.0-0.2); Eosinophils Absolute Auto 0.3 X10*3/uL (0.0-0.4); Eosinophils Percent Auto 2.4 % (0-4); Hematocrit 42.1 % (42.0-52.0); Hemoglobin 13.9 g/dl (14.0-18.0); Imm Gran Abs Auto 0.04 X10*3/uL (0.00-0.03); Imm Gran Pct Auto 0.4 % (0.0-0.4); Lymphocytes Absolute Auto 3.9 X10*3/uL (1.2-4.9); Lymphocytes Percent Auto 34.7 % (20-40); Mean Corpuscular Hemoglobin 27.3 pg (27.0-33.0); Mean Corpuscular Volume 82.5 fL (80.0-98.0); Mean Platelet Volume 10.1 fL (9.4-12.4); Monocytes Absolute Auto 1.3 X10*3/uL (0.1-1.2); Monocytes Percent Auto 11.7 % (2-11); Neutrophils Absolute Auto 5.6 x10*3/uL (2.0-8.3); Neutrophils Percent Auto 49.8 % (45-73); Platelet Count 333 X10*3/uL (160-400); Red Cell Distribution Width 14.1 % (11.0-16.0); White Blood Count 11.3 X10*3/uL (4.8-10.8)
[2024-04-03 14:01] LABS: Amphetamine Screen Urine Not Detected (Not Detect); Barbiturates, Urine Not Detected (Not Detect); Benzodiazepines Screen Urine Not Detected (Not Detect); Buprenorphine Scr Not Detected (Not Detect); Cannabinoid Screen Urine Not Detected (Not Detect); Cocaine Screen Urine Not Detected (Not Detect); Fentanyl, urine Not Detected (Not Detect); Methadone Screen, Urine Not Detected (Not Detect); Opiate Screen Urine Not Detected (Not Detect); Oxycodone Screen Urine Not Detected (Not Detect); Phencyclidine Screen Urine Not Detected (Not Detect)
== END 2024-04-03 13:30 | disposition home or self-care (01) ==
LOC: HO.LAB 13:29
PROVIDERS: PCP Internal Medicine; Visit Provider Psychiatry & Neurology Psychiatry
DX: F19.10 Other psychoactive substance abuse, uncomplicated (principal); Z79.899 Other long term (current) drug therapy
CPT/HCPCS: 80307; 85025

== ENCOUNTER 2024-04-10 13:20 | Outpatient (REF) | payer OTHER, SELFPAY ==
[2024-04-10 13:33] LABS: MANUAL DIFF FLAG NO
[2024-04-10 13:59] LABS: Basophils Absolute Auto 0.1 X10*3/uL (0.0-0.2); Basophils Percent Auto 0.9 % (0-2); Eosinophils Absolute Auto 0.2 X10*3/uL (0.0-0.4); Eosinophils Percent Auto 2.5 % (0-4); Hemoglobin 13.7 g/dl (14.0-18.0); Imm Gran Abs Auto 0.03 X10*3/uL (0.00-0.03); Imm Gran Pct Auto 0.4 % (0.0-0.4); Lymphocytes Absolute Auto 2.7 X10*3/uL (1.2-4.9); Lymphocytes Percent Auto 33.3 % (20-40); Mean Corpuscular HGB Conc 33.4 g/dl (31.0-36.0); Mean Corpuscular Hemoglobin 27.4 pg (27.0-33.0); Mean Platelet Volume 10.2 fL (9.4-12.4); Monocytes Absolute Auto 0.8 X10*3/uL (0.1-1.2); Monocytes Percent Auto 10.5 % (2-11); Neutrophils Absolute Auto 4.2 x10*3/uL (2.0-8.3); Neutrophils Percent Auto 52.4 % (45-73); Platelet Count 311 X10*3/uL (160-400); Red Cell Distribution Width 14.1 % (11.0-16.0)
[2024-04-10 14:20] LABS: Amphetamine Screen Urine Not Detected (Not Detect); Barbiturates, Urine Not Detected (Not Detect); Benzodiazepines Screen Urine Not Detected (Not Detect); Buprenorphine Scr Not Detected (Not Detect); Cannabinoid Screen Urine POSITIVE (Not Detect); Cocaine Screen Urine Not Detected (Not Detect); Fentanyl, urine Not Detected (Not Detect); Methadone Screen, Urine Not Detected (Not Detect); Opiate Screen Urine Not Detected (Not Detect); Oxycodone Screen Urine Not Detected (Not Detect); Phencyclidine Screen Urine Not Detected (Not Detect)
== END 2024-04-10 13:21 | disposition home or self-care (01) ==
LOC: HO.LABR 13:20
PROVIDERS: PCP Internal Medicine; Visit Provider Psychiatry & Neurology Psychiatry
DX: Z79.899 Other long term (current) drug therapy (principal)
CPT/HCPCS: 80307; 85025

== ENCOUNTER 2024-04-17 13:34 | Outpatient (REF) | payer OTHER, SELFPAY ==
[2024-04-17 13:47] LABS: MANUAL DIFF FLAG NO
[2024-04-17 14:05] LABS: Basophils Absolute Auto 0.1 X10*3/uL (0.0-0.2); Basophils Percent Auto 0.9 % (0-2); Eosinophils Absolute Auto 0.3 X10*3/uL (0.0-0.4); Eosinophils Percent Auto 3.4 % (0-4); Hematocrit 40.9 % (42.0-52.0); Hemoglobin 13.2 g/dl (14.0-18.0); Imm Gran Abs Auto 0.03 X10*3/uL (0.00-0.03); Imm Gran Pct Auto 0.4 % (0.0-0.4); Lymphocytes Percent Auto 39.2 % (20-40); Mean Corpuscular HGB Conc 32.3 g/dl (31.0-36.0); Mean Corpuscular Volume 83.6 fL (80.0-98.0); Mean Platelet Volume 9.9 fL (9.4-12.4); Monocytes Absolute Auto 0.8 X10*3/uL (0.1-1.2); Monocytes Percent Auto 10.8 % (2-11); Neutrophils Absolute Auto 3.5 x10*3/uL (2.0-8.3); Neutrophils Percent Auto 45.3 % (45-73); Platelet Count 306 X10*3/uL (160-400); Red Blood Count 4.89 X10*6/uL (4.60-5.80); White Blood Count 7.7 X10*3/uL (4.8-10.8)
[2024-04-17 14:08] LABS: Amphetamine Screen Urine Not Detected (Not Detect); Barbiturates, Urine Not Detected (Not Detect); Benzodiazepines Screen Urine Not Detected (Not Detect); Buprenorphine Scr Not Detected (Not Detect); Cannabinoid Screen Urine POSITIVE (Not Detect); Cocaine Screen Urine Not Detected (Not Detect); Fentanyl, urine Not Detected (Not Detect); Methadone Screen, Urine Not Detected (Not Detect); Opiate Screen Urine Not Detected (Not Detect); Oxycodone Screen Urine Not Detected (Not Detect); Phencyclidine Screen Urine Not Detected (Not Detect)
== END 2024-04-17 13:35 | disposition home or self-care (01) ==
LOC: HO.LABR 13:34
PROVIDERS: PCP Internal Medicine; Visit Provider Psychiatry & Neurology Psychiatry
DX: Z79.899 Other long term (current) drug therapy (principal)
CPT/HCPCS: 36415; 80307; 85025

== ENCOUNTER 2024-04-24 13:27 | Outpatient (REF) | payer OTHER, SELFPAY ==
[2024-04-24 13:40] LABS: MANUAL DIFF FLAG NO
[2024-04-24 14:07] LABS: Basophils Absolute Auto 0.1 X10*3/uL (0.0-0.2); Basophils Percent Auto 0.6 % (0-2); Eosinophils Absolute Auto 0.2 X10*3/uL (0.0-0.4); Eosinophils Percent Auto 2.6 % (0-4); Hematocrit 41.7 % (42.0-52.0); Hemoglobin 13.7 g/dl (14.0-18.0); Imm Gran Abs Auto 0.03 X10*3/uL (0.00-0.03); Imm Gran Pct Auto 0.3 % (0.0-0.4); Lymphocytes Absolute Auto 3.6 X10*3/uL (1.2-4.9); Lymphocytes Percent Auto 40.2 % (20-40); Mean Corpuscular HGB Conc 32.9 g/dl (31.0-36.0); Mean Corpuscular Hemoglobin 27.1 pg (27.0-33.0); Mean Corpuscular Volume 82.6 fL (80.0-98.0); Mean Platelet Volume 10.2 fL (9.4-12.4); Monocytes Absolute Auto 0.9 X10*3/uL (0.1-1.2); Monocytes Percent Auto 9.6 % (2-11); Neutrophils Absolute Auto 4.2 x10*3/uL (2.0-8.3); Neutrophils Percent Auto 46.7 % (45-73); Platelet Count 306 X10*3/uL (160-400); Red Blood Count 5.05 X10*6/uL (4.60-5.80); Red Cell Distribution Width 13.9 % (11.0-16.0); White Blood Count 9.1 X10*3/uL (4.8-10.8)
[2024-04-24 14:45] LABS: Amphetamine Screen Urine Not Detected (Not Detect); Barbiturates, Urine Not Detected (Not Detect); Benzodiazepines Screen Urine Not Detected (Not Detect); Buprenorphine Scr Not Detected (Not Detect); Cannabinoid Screen Urine POSITIVE (Not Detect); Cocaine Screen Urine POSITIVE (Not Detect); Fentanyl, urine Not Detected (Not Detect); Methadone Screen, Urine Not Detected (Not Detect); Opiate Screen Urine Not Detected (Not Detect); Oxycodone Screen Urine Not Detected (Not Detect); Phencyclidine Screen Urine Not Detected (Not Detect)
== END 2024-04-24 13:28 | disposition home or self-care (01) ==
LOC: HO.LAB 13:27
PROVIDERS: PCP Internal Medicine; Visit Provider Psychiatry & Neurology Psychiatry
DX: Z79.899 Other long term (current) drug therapy (principal)
CPT/HCPCS: 80307; 85025

== ENCOUNTER 2024-05-01 10:19 | Outpatient (REF) | payer OTHER, SELFPAY ==
[2024-05-01 11:04] LABS: MANUAL DIFF FLAG NO
[2024-05-01 11:28] LABS: Basophils Absolute Auto 0.1 X10*3/uL (0.0-0.2); Basophils Percent Auto 0.9 % (0-2); Eosinophils Absolute Auto 0.3 X10*3/uL (0.0-0.4); Eosinophils Percent Auto 2.8 % (0-4); Hematocrit 41.8 % (42.0-52.0); Hemoglobin 13.8 g/dl (14.0-18.0); Imm Gran Abs Auto 0.05 X10*3/uL (0.00-0.03); Imm Gran Pct Auto 0.5 % (0.0-0.4); Lymphocytes Absolute Auto 3.4 X10*3/uL (1.2-4.9); Mean Corpuscular Hemoglobin 27.2 pg (27.0-33.0); Mean Corpuscular Volume 82.3 fL (80.0-98.0); Mean Platelet Volume 9.8 fL (9.4-12.4); Monocytes Absolute Auto 1.2 X10*3/uL (0.1-1.2); Monocytes Percent Auto 11.4 % (2-11); Neutrophils Absolute Auto 5.1 x10*3/uL (2.0-8.3); Neutrophils Percent Auto 50.4 % (45-73); Platelet Count 307 X10*3/uL (160-400); Red Blood Count 5.08 X10*6/uL (4.60-5.80); Red Cell Distribution Width 13.9 % (11.0-16.0); White Blood Count 10.1 X10*3/uL (4.8-10.8)
[2024-05-01 12:00] LABS: Amphetamine Screen Urine Not Detected (Not Detect); Barbiturates, Urine Not Detected (Not Detect); Benzodiazepines Screen Urine Not Detected (Not Detect); Buprenorphine Scr Not Detected (Not Detect); Cannabinoid Screen Urine Not Detected (Not Detect); Cocaine Screen Urine Not Detected (Not Detect); Fentanyl, urine Not Detected (Not Detect); Methadone Screen, Urine Not Detected (Not Detect); Opiate Screen Urine Not Detected (Not Detect); Oxycodone Screen Urine Not Detected (Not Detect); Phencyclidine Screen Urine Not Detected (Not Detect)
== END 2024-05-01 10:20 | disposition home or self-care (01) ==
LOC: HO.LAB 10:19
PROVIDERS: PCP Internal Medicine; Visit Provider Psychiatry & Neurology Psychiatry
DX: Z79.899 Other long term (current) drug therapy (principal)
CPT/HCPCS: 80307; 85025

== ENCOUNTER 2024-05-16 11:32 | Outpatient (REF) | payer OTHER, SELFPAY ==
[2024-05-16 12:31] LABS: Amphetamine Screen Urine Not Detected (Not Detect); Barbiturates, Urine Not Detected (Not Detect); Benzodiazepines Screen Urine Not Detected (Not Detect); Buprenorphine Scr Not Detected (Not Detect); Cannabinoid Screen Urine POSITIVE (Not Detect); Cocaine Screen Urine POSITIVE (Not Detect); Fentanyl, urine Not Detected (Not Detect); Methadone Screen, Urine Not Detected (Not Detect); Opiate Screen Urine Not Detected (Not Detect); Oxycodone Screen Urine Not Detected (Not Detect); Phencyclidine Screen Urine Not Detected (Not Detect)
== END 2024-05-16 11:33 | disposition home or self-care (01) ==
LOC: HO.LABR 11:32
PROVIDERS: PCP Internal Medicine; Visit Provider Psychiatry & Neurology Psychiatry
DX: Z79.899 Other long term (current) drug therapy (principal)
CPT/HCPCS: 80307

== ENCOUNTER 2024-05-22 12:26 | Outpatient (REF) | payer OTHER, SELFPAY ==
[2024-05-22 13:14] LABS: MANUAL DIFF FLAG NO
[2024-05-22 13:45] LABS: Basophils Absolute Auto 0.1 X10*3/uL (0.0-0.2); Basophils Percent Auto 0.6 % (0-2); Eosinophils Absolute Auto 0.3 X10*3/uL (0.0-0.4); Eosinophils Percent Auto 2.7 % (0-4); Hematocrit 41.2 % (42.0-52.0); Hemoglobin 13.5 g/dl (14.0-18.0); Imm Gran Abs Auto 0.04 X10*3/uL (0.00-0.03); Imm Gran Pct Auto 0.4 % (0.0-0.4); Mean Corpuscular HGB Conc 32.8 g/dl (31.0-36.0); Mean Corpuscular Hemoglobin 27.8 pg (27.0-33.0); Mean Corpuscular Volume 84.9 fL (80.0-98.0); Mean Platelet Volume 10.1 fL (9.4-12.4); Monocytes Absolute Auto 1.1 X10*3/uL (0.1-1.2); Monocytes Percent Auto 10.6 % (2-11); Neutrophils Absolute Auto 5.9 x10*3/uL (2.0-8.3); Neutrophils Percent Auto 56.7 % (45-73); Platelet Count 288 X10*3/uL (160-400); Red Blood Count 4.85 X10*6/uL (4.60-5.80); Red Cell Distribution Width 14.9 % (11.0-16.0); White Blood Count 10.4 X10*3/uL (4.8-10.8)
== END 2024-05-22 12:27 | disposition home or self-care (01) ==
LOC: HO.LABR 12:26
PROVIDERS: PCP Internal Medicine; Visit Provider Psychiatry & Neurology Psychiatry
DX: Z79.899 Other long term (current) drug therapy (principal)
CPT/HCPCS: 36415; 85025

== ENCOUNTER 2024-05-29 12:28 | Outpatient (REF) | payer OTHER, SELFPAY ==
[2024-05-29 12:49] LABS: MANUAL DIFF FLAG NO
[2024-05-29 13:11] LABS: Basophils Absolute Auto 0.1 X10*3/uL (0.0-0.2); Basophils Percent Auto 0.8 % (0-2); Eosinophils Absolute Auto 0.2 X10*3/uL (0.0-0.4); Eosinophils Percent Auto 2.4 % (0-4); Hematocrit 40.5 % (42.0-52.0); Hemoglobin 13.2 g/dl (14.0-18.0); Imm Gran Abs Auto 0.03 X10*3/uL (0.00-0.03); Imm Gran Pct Auto 0.3 % (0.0-0.4); Lymphocytes Absolute Auto 3.4 X10*3/uL (1.2-4.9); Lymphocytes Percent Auto 34.3 % (20-40); Mean Corpuscular HGB Conc 32.6 g/dl (31.0-36.0); Mean Corpuscular Hemoglobin 27.5 pg (27.0-33.0); Mean Corpuscular Volume 84.4 fL (80.0-98.0); Monocytes Absolute Auto 0.9 X10*3/uL (0.1-1.2); Monocytes Percent Auto 9.1 % (2-11); Neutrophils Absolute Auto 5.2 x10*3/uL (2.0-8.3); Neutrophils Percent Auto 53.1 % (45-73); Platelet Count 282 X10*3/uL (160-400); White Blood Count 9.9 X10*3/uL (4.8-10.8)
== END 2024-05-29 12:29 | disposition home or self-care (01) ==
LOC: HO.LABR 12:28
PROVIDERS: PCP Internal Medicine; Visit Provider Psychiatry & Neurology Psychiatry
DX: Z79.899 Other long term (current) drug therapy (principal)
CPT/HCPCS: 36415; 85025

== ENCOUNTER 2024-06-05 11:09 | Outpatient (REF) | payer OTHER, SELFPAY ==
[2024-06-05 11:24] LABS: MANUAL DIFF FLAG NO
[2024-06-05 12:28] LABS: Basophils Absolute Auto 0.1 X10*3/uL (0.0-0.2); Basophils Percent Auto 0.8 % (0-2); Eosinophils Absolute Auto 0.2 X10*3/uL (0.0-0.4); Eosinophils Percent Auto 1.9 % (0-4); Hematocrit 43.3 % (42.0-52.0); Hemoglobin 13.8 g/dl (14.0-18.0); Imm Gran Abs Auto 0.03 X10*3/uL (0.00-0.03); Imm Gran Pct Auto 0.3 % (0.0-0.4); Lymphocytes Absolute Auto 3.1 X10*3/uL (1.2-4.9); Lymphocytes Percent Auto 34.9 % (20-40); Mean Corpuscular HGB Conc 31.9 g/dl (31.0-36.0); Mean Corpuscular Hemoglobin 27.2 pg (27.0-33.0); Mean Corpuscular Volume 85.4 fL (80.0-98.0); Mean Platelet Volume 10.4 fL (9.4-12.4); Monocytes Absolute Auto 0.9 X10*3/uL (0.1-1.2); Monocytes Percent Auto 10.2 % (2-11); Neutrophils Absolute Auto 4.6 x10*3/uL (2.0-8.3); Neutrophils Percent Auto 51.9 % (45-73); Platelet Count 346 X10*3/uL (160-400); Red Blood Count 5.07 X10*6/uL (4.60-5.80); Red Cell Distribution Width 14.7 % (11.0-16.0); White Blood Count 8.9 X10*3/uL (4.8-10.8)
== END 2024-06-05 11:10 | disposition home or self-care (01) ==
LOC: HO.LABR 11:09
PROVIDERS: PCP Internal Medicine; Visit Provider Psychiatry & Neurology Psychiatry
DX: Z79.899 Other long term (current) drug therapy (principal)
CPT/HCPCS: 36415; 85025

== ENCOUNTER 2024-06-12 12:14 | Outpatient (REF) | payer OTHER, SELFPAY ==
[2024-06-12 13:34] LABS: MANUAL DIFF FLAG NO
[2024-06-12 13:55] LABS: Basophils Absolute Auto 0.1 X10*3/uL (0.0-0.2); Basophils Percent Auto 0.6 % (0-2); Eosinophils Absolute Auto 0.3 X10*3/uL (0.0-0.4); Eosinophils Percent Auto 2.5 % (0-4); Hematocrit 41.4 % (42.0-52.0); Hemoglobin 13.2 g/dl (14.0-18.0); Imm Gran Abs Auto 0.04 X10*3/uL (0.00-0.03); Imm Gran Pct Auto 0.4 % (0.0-0.4); Lymphocytes Absolute Auto 3.5 X10*3/uL (1.2-4.9); Lymphocytes Percent Auto 35.8 % (20-40); Mean Corpuscular HGB Conc 31.9 g/dl (31.0-36.0); Mean Corpuscular Hemoglobin 26.9 pg (27.0-33.0); Mean Corpuscular Volume 84.3 fL (80.0-98.0); Mean Platelet Volume 10.4 fL (9.4-12.4); Monocytes Percent Auto 10.5 % (2-11); Neutrophils Absolute Auto 4.9 x10*3/uL (2.0-8.3); Neutrophils Percent Auto 50.2 % (45-73); Platelet Count 321 X10*3/uL (160-400); Red Blood Count 4.91 X10*6/uL (4.60-5.80); Red Cell Distribution Width 14.6 % (11.0-16.0); White Blood Count 9.9 X10*3/uL (4.8-10.8)
[2024-06-12 17:11] LABS: Amphetamine Screen Urine Not Detected (Not Detect); Barbiturates, Urine Not Detected (Not Detect); Benzodiazepines Screen Urine Not Detected (Not Detect); Buprenorphine Scr Not Detected (Not Detect); Cannabinoid Screen Urine POSITIVE (Not Detect); Cocaine Screen Urine Not Detected (Not Detect); Fentanyl, urine Not Detected (Not Detect); Methadone Screen, Urine Not Detected (Not Detect); Opiate Screen Urine Not Detected (Not Detect); Oxycodone Screen Urine Not Detected (Not Detect); Phencyclidine Screen Urine Not Detected (Not Detect)
== END 2024-06-12 12:15 | disposition home or self-care (01) ==
LOC: HO.HMGCLR 12:14
PROVIDERS: PCP Internal Medicine; Visit Provider Psychiatry & Neurology Psychiatry
DX: Z79.899 Other long term (current) drug therapy (principal)
CPT/HCPCS: 80307; 85025

== ENCOUNTER 2024-06-19 09:41 | Outpatient (REF) | payer OTHER, SELFPAY ==
[2024-06-19 09:55] LABS: MANUAL DIFF FLAG NO
[2024-06-19 10:25] LABS: Basophils Absolute Auto 0.1 X10*3/uL (0.0-0.2); Basophils Percent Auto 0.7 % (0-2); Eosinophils Absolute Auto 0.2 X10*3/uL (0.0-0.4); Eosinophils Percent Auto 1.7 % (0-4); Hematocrit 40.8 % (42.0-52.0); Hemoglobin 13.3 g/dl (14.0-18.0); Imm Gran Abs Auto 0.04 X10*3/uL (0.00-0.03); Imm Gran Pct Auto 0.4 % (0.0-0.4); Lymphocytes Absolute Auto 3.1 X10*3/uL (1.2-4.9); Lymphocytes Percent Auto 30.4 % (20-40); Mean Corpuscular HGB Conc 32.6 g/dl (31.0-36.0); Mean Corpuscular Hemoglobin 27.5 pg (27.0-33.0); Mean Corpuscular Volume 84.3 fL (80.0-98.0); Mean Platelet Volume 10.3 fL (9.4-12.4); Monocytes Absolute Auto 0.9 X10*3/uL (0.1-1.2); Neutrophils Percent Auto 57.8 % (45-73); Platelet Count 305 X10*3/uL (160-400); Red Blood Count 4.84 X10*6/uL (4.60-5.80); Red Cell Distribution Width 14.4 % (11.0-16.0); White Blood Count 10.3 X10*3/uL (4.8-10.8)
== END 2024-06-19 09:42 | disposition home or self-care (01) ==
LOC: HO.LABR 09:41
PROVIDERS: PCP Internal Medicine; Visit Provider Psychiatry & Neurology Psychiatry
DX: Z79.899 Other long term (current) drug therapy (principal)
CPT/HCPCS: 36415; 85025

== ENCOUNTER 2024-06-26 12:24 | Outpatient (REF) | payer OTHER, SELFPAY ==
[2024-06-26 12:40] LABS: MANUAL DIFF FLAG NO
[2024-06-26 13:12] LABS: Basophils Absolute Auto 0.1 X10*3/uL (0.0-0.2); Basophils Percent Auto 0.7 % (0-2); Eosinophils Absolute Auto 0.3 X10*3/uL (0.0-0.4); Eosinophils Percent Auto 2.8 % (0-4); Hematocrit 42.4 % (42.0-52.0); Hemoglobin 13.7 g/dl (14.0-18.0); Imm Gran Abs Auto 0.03 X10*3/uL (0.00-0.03); Imm Gran Pct Auto 0.3 % (0.0-0.4); Lymphocytes Absolute Auto 3.3 X10*3/uL (1.2-4.9); Lymphocytes Percent Auto 35.3 % (20-40); Mean Corpuscular HGB Conc 32.3 g/dl (31.0-36.0); Mean Corpuscular Hemoglobin 27.2 pg (27.0-33.0); Mean Corpuscular Volume 84.3 fL (80.0-98.0); Monocytes Absolute Auto 0.7 X10*3/uL (0.1-1.2); Monocytes Percent Auto 7.3 % (2-11); Neutrophils Percent Auto 53.6 % (45-73); Platelet Count 316 X10*3/uL (160-400); Red Blood Count 5.03 X10*6/uL (4.60-5.80); Red Cell Distribution Width 14.6 % (11.0-16.0); White Blood Count 9.2 X10*3/uL (4.8-10.8)
[2024-06-26 13:16] LABS: Amphetamine Screen Urine Not Detected (Not Detect); Barbiturates, Urine Not Detected (Not Detect); Benzodiazepines Screen Urine Not Detected (Not Detect); Buprenorphine Scr Not Detected (Not Detect); Cannabinoid Screen Urine Not Detected (Not Detect); Cocaine Screen Urine Not Detected (Not Detect); Fentanyl, urine Not Detected (Not Detect); Methadone Screen, Urine Not Detected (Not Detect); Opiate Screen Urine Not Detected (Not Detect); Oxycodone Screen Urine Not Detected (Not Detect); Phencyclidine Screen Urine Not Detected (Not Detect)
== END 2024-06-26 12:25 | disposition home or self-care (01) ==
LOC: HO.LABR 12:24
PROVIDERS: PCP Internal Medicine; Visit Provider Psychiatry & Neurology Psychiatry
DX: Z79.899 Other long term (current) drug therapy (principal)
CPT/HCPCS: 80307; 85025

== ENCOUNTER 2024-07-03 10:00 | Outpatient (REF) | payer OTHER, SELFPAY ==
[2024-07-03 10:24] LABS: MANUAL DIFF FLAG NO
[2024-07-03 11:08] LABS: Basophils Absolute Auto 0.1 X10*3/uL (0.0-0.2); Basophils Percent Auto 0.7 % (0-2); Eosinophils Absolute Auto 0.2 X10*3/uL (0.0-0.4); Eosinophils Percent Auto 2.6 % (0-4); Hematocrit 41.6 % (42.0-52.0); Hemoglobin 13.5 g/dl (14.0-18.0); Imm Gran Abs Auto 0.02 X10*3/uL (0.00-0.03); Imm Gran Pct Auto 0.2 % (0.0-0.4); Lymphocytes Absolute Auto 2.5 X10*3/uL (1.2-4.9); Lymphocytes Percent Auto 28.8 % (20-40); Mean Corpuscular HGB Conc 32.5 g/dl (31.0-36.0); Mean Corpuscular Hemoglobin 27.4 pg (27.0-33.0); Mean Corpuscular Volume 84.4 fL (80.0-98.0); Mean Platelet Volume 10.1 fL (9.4-12.4); Monocytes Absolute Auto 0.7 X10*3/uL (0.1-1.2); Monocytes Percent Auto 8.1 % (2-11); Neutrophils Absolute Auto 5.2 x10*3/uL (2.0-8.3); Neutrophils Percent Auto 59.6 % (45-73); Platelet Count 303 X10*3/uL (160-400); Red Blood Count 4.93 X10*6/uL (4.60-5.80); Red Cell Distribution Width 14.5 % (11.0-16.0); White Blood Count 8.7 X10*3/uL (4.8-10.8)
[2024-07-03 11:52] LABS: Amphetamine Screen Urine Not Detected (Not Detect); Barbiturates, Urine Not Detected (Not Detect); Benzodiazepines Screen Urine Not Detected (Not Detect); Buprenorphine Scr Not Detected (Not Detect); Cannabinoid Screen Urine Not Detected (Not Detect); Cocaine Screen Urine Not Detected (Not Detect); Fentanyl, urine Not Detected (Not Detect); Methadone Screen, Urine Not Detected (Not Detect); Opiate Screen Urine Not Detected (Not Detect); Oxycodone Screen Urine Not Detected (Not Detect); Phencyclidine Screen Urine Not Detected (Not Detect)
== END 2024-07-03 10:01 | disposition home or self-care (01) ==
LOC: HO.LABR 10:00
PROVIDERS: PCP Internal Medicine; Visit Provider Psychiatry & Neurology Psychiatry
DX: Z79.899 Other long term (current) drug therapy (principal)
CPT/HCPCS: 80307; 85025

== ENCOUNTER 2024-07-10 13:35 | Outpatient (REF) | payer OTHER, SELFPAY ==
[2024-07-10 13:45] LABS: MANUAL DIFF FLAG NO
[2024-07-10 14:42] LABS: Basophils Absolute Auto 0.1 X10*3/uL (0.0-0.2); Basophils Percent Auto 0.7 % (0-2); Eosinophils Absolute Auto 0.3 X10*3/uL (0.0-0.4); Eosinophils Percent Auto 2.6 % (0-4); Hematocrit 40.2 % (42.0-52.0); Hemoglobin 13.2 g/dl (14.0-18.0); Imm Gran Abs Auto 0.04 X10*3/uL (0.00-0.03); Imm Gran Pct Auto 0.4 % (0.0-0.4); Lymphocytes Absolute Auto 3.3 X10*3/uL (1.2-4.9); Lymphocytes Percent Auto 35.3 % (20-40); Mean Corpuscular HGB Conc 32.8 g/dl (31.0-36.0); Mean Corpuscular Hemoglobin 27.5 pg (27.0-33.0); Mean Corpuscular Volume 83.8 fL (80.0-98.0); Mean Platelet Volume 10.1 fL (9.4-12.4); Monocytes Absolute Auto 1.1 X10*3/uL (0.1-1.2); Monocytes Percent Auto 11.1 % (2-11); Neutrophils Absolute Auto 4.7 x10*3/uL (2.0-8.3); Neutrophils Percent Auto 49.9 % (45-73); Platelet Count 336 X10*3/uL (160-400); Red Cell Distribution Width 14.4 % (11.0-16.0); White Blood Count 9.5 X10*3/uL (4.8-10.8)
== END 2024-07-10 13:36 | disposition home or self-care (01) ==
LOC: HO.LABR 13:35
PROVIDERS: PCP Internal Medicine; Visit Provider Psychiatry & Neurology Psychiatry
DX: Z79.899 Other long term (current) drug therapy (principal)
CPT/HCPCS: 36415; 85025

== ENCOUNTER 2024-07-17 13:09 | Outpatient (REF) | payer OTHER, SELFPAY ==
[2024-07-17 13:36] LABS: MANUAL DIFF FLAG NO
[2024-07-17 14:02] LABS: Basophils Absolute Auto 0.1 X10*3/uL (0.0-0.2); Basophils Percent Auto 0.6 % (0-2); Eosinophils Absolute Auto 0.2 X10*3/uL (0.0-0.4); Eosinophils Percent Auto 1.7 % (0-4); Hematocrit 39.9 % (42.0-52.0); Imm Gran Abs Auto 0.06 X10*3/uL (0.00-0.03); Imm Gran Pct Auto 0.6 % (0.0-0.4); Lymphocytes Absolute Auto 3.1 X10*3/uL (1.2-4.9); Lymphocytes Percent Auto 33.2 % (20-40); Mean Corpuscular HGB Conc 32.6 g/dl (31.0-36.0); Mean Corpuscular Hemoglobin 27.5 pg (27.0-33.0); Mean Corpuscular Volume 84.4 fL (80.0-98.0); Mean Platelet Volume 9.8 fL (9.4-12.4); Monocytes Percent Auto 10.2 % (2-11); Neutrophils Absolute Auto 5.1 x10*3/uL (2.0-8.3); Neutrophils Percent Auto 53.7 % (45-73); Platelet Count 327 X10*3/uL (160-400); Red Blood Count 4.73 X10*6/uL (4.60-5.80); Red Cell Distribution Width 14.6 % (11.0-16.0); White Blood Count 9.4 X10*3/uL (4.8-10.8)
[2024-07-17 14:18] LABS: Amphetamine Screen Urine Not Detected (Not Detect); Barbiturates, Urine Not Detected (Not Detect); Benzodiazepines Screen Urine Not Detected (Not Detect); Buprenorphine Scr Not Detected (Not Detect); Cannabinoid Screen Urine POSITIVE (Not Detect); Cocaine Screen Urine Not Detected (Not Detect); Fentanyl, urine Not Detected (Not Detect); Methadone Screen, Urine Not Detected (Not Detect); Opiate Screen Urine Not Detected (Not Detect); Oxycodone Screen Urine Not Detected (Not Detect); Phencyclidine Screen Urine Not Detected (Not Detect)
== END 2024-07-17 13:10 | disposition home or self-care (01) ==
LOC: HO.LABR 13:09
PROVIDERS: PCP Internal Medicine; Visit Provider Psychiatry & Neurology Psychiatry
DX: Z79.899 Other long term (current) drug therapy (principal)
CPT/HCPCS: 80307; 85025

== ENCOUNTER 2024-07-24 11:23 | Outpatient (REF) | payer OTHER, SELFPAY ==
[2024-07-24 11:34] LABS: MANUAL DIFF FLAG NO
[2024-07-24 11:46] LABS: Basophils Absolute Auto 0.1 X10*3/uL (0.0-0.2); Eosinophils Absolute Auto 0.2 X10*3/uL (0.0-0.4); Eosinophils Percent Auto 2.4 % (0-4); Hematocrit 41.2 % (42.0-52.0); Hemoglobin 13.1 g/dl (14.0-18.0); Imm Gran Abs Auto 0.05 X10*3/uL (0.00-0.03); Imm Gran Pct Auto 0.6 % (0.0-0.4); Lymphocytes Absolute Auto 2.9 X10*3/uL (1.2-4.9); Lymphocytes Percent Auto 32.5 % (20-40); Mean Corpuscular HGB Conc 31.8 g/dl (31.0-36.0); Mean Corpuscular Volume 84.9 fL (80.0-98.0); Mean Platelet Volume 9.9 fL (9.4-12.4); Monocytes Absolute Auto 1.1 X10*3/uL (0.1-1.2); Monocytes Percent Auto 11.9 % (2-11); Neutrophils Absolute Auto 4.7 x10*3/uL (2.0-8.3); Neutrophils Percent Auto 51.6 % (45-73); Platelet Count 314 X10*3/uL (160-400); Red Blood Count 4.85 X10*6/uL (4.60-5.80); Red Cell Distribution Width 14.4 % (11.0-16.0)
[2024-07-24 11:55] LABS: Amphetamine Screen Urine Not Detected (Not Detect); Barbiturates, Urine Not Detected (Not Detect); Benzodiazepines Screen Urine Not Detected (Not Detect); Buprenorphine Scr Not Detected (Not Detect); Cannabinoid Screen Urine POSITIVE (Not Detect); Cocaine Screen Urine Not Detected (Not Detect); Fentanyl, urine Not Detected (Not Detect); Methadone Screen, Urine Not Detected (Not Detect); Opiate Screen Urine Not Detected (Not Detect); Oxycodone Screen Urine Not Detected (Not Detect); Phencyclidine Screen Urine Not Detected (Not Detect)
== END 2024-07-24 11:24 | disposition home or self-care (01) ==
LOC: HO.LABR 11:23
PROVIDERS: PCP Internal Medicine; Visit Provider Psychiatry & Neurology Psychiatry
DX: Z79.899 Other long term (current) drug therapy (principal)
CPT/HCPCS: 80307; 85025

== ENCOUNTER 2024-07-31 12:39 | Outpatient (REF) | payer OTHER, SELFPAY ==
[2024-07-31 13:00] LABS: MANUAL DIFF FLAG NO
[2024-07-31 14:39] LABS: Basophils Absolute Auto 0.1 X10*3/uL (0.0-0.2); Basophils Percent Auto 0.6 % (0-2); Eosinophils Absolute Auto 0.3 X10*3/uL (0.0-0.4); Eosinophils Percent Auto 2.4 % (0-4); Hematocrit 39.6 % (42.0-52.0); Hemoglobin 12.9 g/dl (14.0-18.0); Imm Gran Abs Auto 0.04 X10*3/uL (0.00-0.03); Imm Gran Pct Auto 0.4 % (0.0-0.4); Lymphocytes Absolute Auto 3.2 X10*3/uL (1.2-4.9); Lymphocytes Percent Auto 30.1 % (20-40); Mean Corpuscular HGB Conc 32.6 g/dl (31.0-36.0); Mean Corpuscular Hemoglobin 27.6 pg (27.0-33.0); Mean Corpuscular Volume 84.6 fL (80.0-98.0); Mean Platelet Volume 10.2 fL (9.4-12.4); Monocytes Percent Auto 9.5 % (2-11); Platelet Count 331 X10*3/uL (160-400); Red Blood Count 4.68 X10*6/uL (4.60-5.80); Red Cell Distribution Width 14.4 % (11.0-16.0); White Blood Count 10.5 X10*3/uL (4.8-10.8)
[2024-07-31 15:27] LABS: Amphetamine Screen Urine Not Detected (Not Detect); Barbiturates, Urine Not Detected (Not Detect); Benzodiazepines Screen Urine Not Detected (Not Detect); Buprenorphine Scr Not Detected (Not Detect); Cannabinoid Screen Urine POSITIVE (Not Detect); Cocaine Screen Urine Not Detected (Not Detect); Fentanyl, urine Not Detected (Not Detect); Methadone Screen, Urine Not Detected (Not Detect); Opiate Screen Urine Not Detected (Not Detect); Oxycodone Screen Urine Not Detected (Not Detect); Phencyclidine Screen Urine Not Detected (Not Detect)
== END 2024-07-31 12:40 | disposition home or self-care (01) ==
LOC: HO.LABR 12:39
PROVIDERS: PCP Internal Medicine; Visit Provider Psychiatry & Neurology Psychiatry
DX: Z79.899 Other long term (current) drug therapy (principal); F19.10 Other psychoactive substance abuse, uncomplicated
CPT/HCPCS: 80307; 85025

== ENCOUNTER 2024-08-07 12:34 | Outpatient (REF) | payer OTHER, SELFPAY ==
[2024-08-07 12:48] LABS: MANUAL DIFF FLAG NO
[2024-08-07 13:15] LABS: Basophils Absolute Auto 0.1 X10*3/uL (0.0-0.2); Basophils Percent Auto 0.8 % (0-2); Eosinophils Absolute Auto 0.2 X10*3/uL (0.0-0.4); Eosinophils Percent Auto 2.5 % (0-4); Hematocrit 41.5 % (42.0-52.0); Hemoglobin 13.4 g/dl (14.0-18.0); Imm Gran Abs Auto 0.04 X10*3/uL (0.00-0.03); Imm Gran Pct Auto 0.4 % (0.0-0.4); Lymphocytes Absolute Auto 3.9 X10*3/uL (1.2-4.9); Lymphocytes Percent Auto 41.1 % (20-40); Mean Corpuscular HGB Conc 32.3 g/dl (31.0-36.0); Mean Corpuscular Hemoglobin 27.1 pg (27.0-33.0); Monocytes Absolute Auto 0.8 X10*3/uL (0.1-1.2); Monocytes Percent Auto 8.2 % (2-11); Neutrophils Absolute Auto 4.5 x10*3/uL (2.0-8.3); Platelet Count 362 X10*3/uL (160-400); Red Blood Count 4.94 X10*6/uL (4.60-5.80); Red Cell Distribution Width 14.1 % (11.0-16.0); White Blood Count 9.6 X10*3/uL (4.8-10.8)
[2024-08-07 14:21] LABS: Amphetamine Screen Urine Not Detected (Not Detect); Barbiturates, Urine Not Detected (Not Detect); Benzodiazepines Screen Urine Not Detected (Not Detect); Buprenorphine Scr Not Detected (Not Detect); Cannabinoid Screen Urine POSITIVE (Not Detect); Cocaine Screen Urine Not Detected (Not Detect); Fentanyl, urine Not Detected (Not Detect); Methadone Screen, Urine Not Detected (Not Detect); Opiate Screen Urine Not Detected (Not Detect); Oxycodone Screen Urine Not Detected (Not Detect); Phencyclidine Screen Urine Not Detected (Not Detect)
== END 2024-08-07 12:35 | disposition home or self-care (01) ==
LOC: HO.LABR 12:34
PROVIDERS: PCP Internal Medicine; Visit Provider Psychiatry & Neurology Psychiatry
DX: F19.11 Other psychoactive substance abuse, in remission (principal); Z79.899 Other long term (current) drug therapy
CPT/HCPCS: 80307; 85025

== ENCOUNTER 2024-08-14 12:46 | Outpatient (REF) | payer OTHER, SELFPAY ==
[2024-08-14 14:17] LABS: Amphetamine Screen Urine Not Detected (Not Detect); Barbiturates, Urine Not Detected (Not Detect); Benzodiazepines Screen Urine Not Detected (Not Detect); Buprenorphine Scr Not Detected (Not Detect); Cannabinoid Screen Urine POSITIVE (Not Detect); Cocaine Screen Urine Not Detected (Not Detect); Fentanyl, urine Not Detected (Not Detect); Methadone Screen, Urine Not Detected (Not Detect); Opiate Screen Urine Not Detected (Not Detect); Oxycodone Screen Urine Not Detected (Not Detect); Phencyclidine Screen Urine Not Detected (Not Detect)
== END 2024-08-14 12:47 | disposition home or self-care (01) ==
LOC: HO.LABR 12:46
PROVIDERS: PCP Internal Medicine; Visit Provider Psychiatry & Neurology Psychiatry
DX: Z79.899 Other long term (current) drug therapy (principal); F19.11 Other psychoactive substance abuse, in remission
CPT/HCPCS: 80307

== ENCOUNTER 2024-08-21 10:57 | Outpatient (REF) | payer OTHER, SELFPAY ==
[2024-08-21 11:46] LABS: Amphetamine Screen Urine Not Detected (Not Detect); Barbiturates, Urine Not Detected (Not Detect); Benzodiazepines Screen Urine Not Detected (Not Detect); Buprenorphine Scr Not Detected (Not Detect); Cannabinoid Screen Urine POSITIVE (Not Detect); Cocaine Screen Urine Not Detected (Not Detect); Fentanyl, urine Not Detected (Not Detect); Methadone Screen, Urine Not Detected (Not Detect); Opiate Screen Urine Not Detected (Not Detect); Oxycodone Screen Urine Not Detected (Not Detect); Phencyclidine Screen Urine Not Detected (Not Detect)
== END 2024-08-21 10:58 | disposition home or self-care (01) ==
LOC: HO.LABR 10:57
PROVIDERS: PCP Internal Medicine; Visit Provider Psychiatry & Neurology Psychiatry
DX: Z79.899 Other long term (current) drug therapy (principal); F19.11 Other psychoactive substance abuse, in remission
CPT/HCPCS: 80307

== ENCOUNTER 2024-08-28 14:04 | Outpatient (REF) | payer OTHER, SELFPAY ==
[2024-08-28 14:25] LABS: MANUAL DIFF FLAG NO
[2024-08-28 14:55] LABS: Basophils Absolute Auto 0.1 X10*3/uL (0.0-0.2); Eosinophils Absolute Auto 0.2 X10*3/uL (0.0-0.4); Eosinophils Percent Auto 2.9 % (0-4); Hematocrit 39.7 % (42.0-52.0); Hemoglobin 13.1 g/dl (14.0-18.0); Imm Gran Abs Auto 0.03 X10*3/uL (0.00-0.03); Imm Gran Pct Auto 0.4 % (0.0-0.4); Lymphocytes Absolute Auto 3.2 X10*3/uL (1.2-4.9); Lymphocytes Percent Auto 39.3 % (20-40); Mean Corpuscular Hemoglobin 27.6 pg (27.0-33.0); Mean Corpuscular Volume 83.8 fL (80.0-98.0); Mean Platelet Volume 10.2 fL (9.4-12.4); Monocytes Absolute Auto 0.6 X10*3/uL (0.1-1.2); Neutrophils Percent Auto 49.4 % (45-73); Platelet Count 308 X10*3/uL (160-400); Red Blood Count 4.74 X10*6/uL (4.60-5.80); Red Cell Distribution Width 14.3 % (11.0-16.0); White Blood Count 8.2 X10*3/uL (4.8-10.8)
== END 2024-08-28 14:05 | disposition home or self-care (01) ==
LOC: HO.LABR 14:04
PROVIDERS: PCP Internal Medicine; Visit Provider Psychiatry & Neurology Psychiatry
DX: Z79.899 Other long term (current) drug therapy (principal)
CPT/HCPCS: 36415; 85025

== ENCOUNTER 2024-09-04 12:32 | Outpatient (REF) | payer OTHER, SELFPAY ==
[2024-09-04 12:43] LABS: MANUAL DIFF FLAG NO
[2024-09-04 13:50] LABS: Basophils Absolute Auto 0.1 X10*3/uL (0.0-0.2); Basophils Percent Auto 0.9 % (0-2); Eosinophils Absolute Auto 0.3 X10*3/uL (0.0-0.4); Hematocrit 41.3 % (42.0-52.0); Hemoglobin 13.4 g/dl (14.0-18.0); Imm Gran Abs Auto 0.03 X10*3/uL (0.00-0.03); Imm Gran Pct Auto 0.3 % (0.0-0.4); Lymphocytes Absolute Auto 3.7 X10*3/uL (1.2-4.9); Lymphocytes Percent Auto 39.4 % (20-40); Mean Corpuscular HGB Conc 32.4 g/dl (31.0-36.0); Mean Corpuscular Hemoglobin 27.2 pg (27.0-33.0); Mean Corpuscular Volume 83.9 fL (80.0-98.0); Mean Platelet Volume 10.3 fL (9.4-12.4); Monocytes Absolute Auto 0.9 X10*3/uL (0.1-1.2); Monocytes Percent Auto 9.5 % (2-11); Neutrophils Absolute Auto 4.4 x10*3/uL (2.0-8.3); Neutrophils Percent Auto 46.9 % (45-73); Platelet Count 333 X10*3/uL (160-400); Red Blood Count 4.92 X10*6/uL (4.60-5.80); White Blood Count 9.4 X10*3/uL (4.8-10.8)
== END 2024-09-04 12:33 | disposition home or self-care (01) ==
LOC: HO.LABR 12:32
PROVIDERS: PCP Internal Medicine
DX: Z79.899 Other long term (current) drug therapy (principal)
CPT/HCPCS: 36415; 85025

== ENCOUNTER 2024-09-18 10:46 | Outpatient (REF) | payer OTHER, SELFPAY ==
[2024-09-18 10:55] LABS: MANUAL DIFF FLAG NO
[2024-09-18 11:48] LABS: Basophils Absolute Auto 0.1 X10*3/uL (0.0-0.2); Basophils Percent Auto 0.8 % (0-2); Eosinophils Absolute Auto 0.3 X10*3/uL (0.0-0.4); Eosinophils Percent Auto 2.6 % (0-4); Hematocrit 39.7 % (42.0-52.0); Hemoglobin 13.2 g/dl (14.0-18.0); Imm Gran Abs Auto 0.04 X10*3/uL (0.00-0.03); Imm Gran Pct Auto 0.4 % (0.0-0.4); Lymphocytes Absolute Auto 3.3 X10*3/uL (1.2-4.9); Lymphocytes Percent Auto 34.5 % (20-40); Mean Corpuscular HGB Conc 33.2 g/dl (31.0-36.0); Mean Corpuscular Hemoglobin 27.6 pg (27.0-33.0); Mean Corpuscular Volume 83.1 fL (80.0-98.0); Mean Platelet Volume 10.3 fL (9.4-12.4); Monocytes Percent Auto 10.3 % (2-11); Neutrophils Absolute Auto 4.9 x10*3/uL (2.0-8.3); Neutrophils Percent Auto 51.4 % (45-73); Platelet Count 315 X10*3/uL (160-400); Red Blood Count 4.78 X10*6/uL (4.60-5.80); Red Cell Distribution Width 14.3 % (11.0-16.0); White Blood Count 9.6 X10*3/uL (4.8-10.8)
== END 2024-09-18 10:47 | disposition home or self-care (01) ==
LOC: HO.LABR 10:46
PROVIDERS: PCP Internal Medicine
DX: Z79.899 Other long term (current) drug therapy (principal)
CPT/HCPCS: 36415; 85025

== ENCOUNTER 2024-10-04 11:34 | Outpatient (REF) | payer OTHER, SELFPAY ==
[2024-10-04 11:46] LABS: MANUAL DIFF FLAG NO
[2024-10-04 12:19] LABS: Basophils Absolute Auto 0.1 X10*3/uL (0.0-0.2); Basophils Percent Auto 0.8 % (0-2); Eosinophils Absolute Auto 0.2 X10*3/uL (0.0-0.4); Eosinophils Percent Auto 2.7 % (0-4); Hematocrit 39.3 % (42.0-52.0); Hemoglobin 13.1 g/dl (14.0-18.0); Imm Gran Abs Auto 0.05 X10*3/uL (0.00-0.03); Imm Gran Pct Auto 0.6 % (0.0-0.4); Lymphocytes Absolute Auto 3.1 X10*3/uL (1.2-4.9); Lymphocytes Percent Auto 34.7 % (20-40); Mean Corpuscular HGB Conc 33.3 g/dl (31.0-36.0); Mean Corpuscular Hemoglobin 27.6 pg (27.0-33.0); Mean Corpuscular Volume 82.9 fL (80.0-98.0); Mean Platelet Volume 10.1 fL (9.4-12.4); Monocytes Absolute Auto 0.9 X10*3/uL (0.1-1.2); Neutrophils Absolute Auto 4.6 x10*3/uL (2.0-8.3); Neutrophils Percent Auto 51.2 % (45-73); Platelet Count 305 X10*3/uL (160-400); Red Blood Count 4.74 X10*6/uL (4.60-5.80); Red Cell Distribution Width 14.1 % (11.0-16.0); White Blood Count 8.9 X10*3/uL (4.8-10.8)
== END 2024-10-04 11:35 | disposition home or self-care (01) ==
LOC: HO.LABR 11:34
PROVIDERS: PCP Internal Medicine
DX: Z79.899 Other long term (current) drug therapy (principal)
CPT/HCPCS: 36415; 85025

== ENCOUNTER 2024-10-16 12:35 | Outpatient (REF) | payer OTHER, SELFPAY ==
[2024-10-16 13:54] LABS: Appearance Urine Clear; Color Urine Yellow; Glucose Urine UA Negative (Negative); Leukocyte Esterase Urine Trace (Negative); Nitrite Urine Negative (Negative); PH 5.5 (5.0-9.0); UMIC TRIGGER UACC YES; Urine Blood Negative (Negative); Urine Ketones Trace mg/dL (Negative); Urine Protein Negative (Neg-Trace)
[2024-10-16 13:57] LABS: Bacteria Urine None Seen (None Seen); Hyaline Casts Urine 0-2 /LPF (0-2); RBC Urine 0-2 /HPF (0-2); Squamous Epithelial Cell Urine 0-2 /HPF (0-2); WBC Urine 0-5 /HPF (0-5)
== END 2024-10-16 12:36 | disposition home or self-care (01) ==
LOC: HO.LAB 12:35
PROVIDERS: Visit Provider Internal Medicine
DX: Z00.00 Encounter for general adult medical examination without abnormal findings (principal); R30.0 Dysuria
CPT/HCPCS: 81001

== ENCOUNTER 2024-10-30 11:16 | Outpatient (REF) | payer OTHER, SELFPAY ==
[2024-10-30 11:26] LABS: MANUAL DIFF FLAG NO
[2024-10-30 11:32] LABS: Basophils Absolute Auto 0.1 X10*3/uL (0.0-0.2); Basophils Percent Auto 0.9 % (0-2); Eosinophils Absolute Auto 0.2 X10*3/uL (0.0-0.4); Eosinophils Percent Auto 2.4 % (0-4); Hematocrit 39.5 % (42.0-52.0); Hemoglobin 13.2 g/dl (14.0-18.0); Imm Gran Abs Auto 0.04 X10*3/uL (0.00-0.03); Imm Gran Pct Auto 0.5 % (0.0-0.4); Lymphocytes Absolute Auto 3.2 X10*3/uL (1.2-4.9); Mean Corpuscular HGB Conc 33.4 g/dl (31.0-36.0); Mean Corpuscular Hemoglobin 28.2 pg (27.0-33.0); Mean Corpuscular Volume 84.4 fL (80.0-98.0); Mean Platelet Volume 9.9 fL (9.4-12.4); Monocytes Absolute Auto 0.7 X10*3/uL (0.1-1.2); Monocytes Percent Auto 8.5 % (2-11); Neutrophils Absolute Auto 4.4 x10*3/uL (2.0-8.3); Neutrophils Percent Auto 50.7 % (45-73); Platelet Count 303 X10*3/uL (160-400); Red Blood Count 4.68 X10*6/uL (4.60-5.80); Red Cell Distribution Width 14.3 % (11.0-16.0); White Blood Count 8.7 X10*3/uL (4.8-10.8)
== END 2024-10-30 11:17 | disposition home or self-care (01) ==
LOC: HO.LABR 11:16
PROVIDERS: PCP Internal Medicine
DX: Z79.899 Other long term (current) drug therapy (principal)
CPT/HCPCS: 36415; 85025

== ENCOUNTER 2024-11-14 10:20 | Outpatient (AMB) | payer OTHER, SELFPAY ==
[2024-11-14 10:33] VITALS: BP 124/80; PULSE 81; O2SAT 97; BMI 39.4
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
== END 2024-11-14 11:48 | disposition home or self-care (01) ==
LOC: HO.HMCH 10:20
PROVIDERS: PCP Internal Medicine; Visit Provider Internal Medicine
DX: Z00.00 Encounter for general adult medical examination without abnormal findings (principal); F20.0 Paranoid schizophrenia; E66.9 Obesity, unspecified; Z68.39 Body mass index [BMI] 39.0-39.9, adult; M54.41 Lumbago with sciatica, right side; E78.1 Pure hyperglyceridemia; J45.40 Moderate persistent asthma, uncomplicated; F17.200 Nicotine dependence, unspecified, uncomplicated

== ENCOUNTER 2024-11-14 10:20 | Outpatient (REF) | payer OTHER, SELFPAY ==
[2024-11-14 14:19] LABS: Appearance Urine Clear; Glucose Urine UA Negative (Negative); PH 7.5 (5.0-9.0); Specific Gravity - Urine 1.010 (1.005-1.025)
[2024-11-14 15:24] LABS: Alanine Aminotransferase 115 U/L (0-40); Albumin Level 4.4 g/dL (3.5-5.0); Alkaline Phosphatase 77 U/L (39-117); Anion Gap 11 (12-20); Aspartate Amino Transferase 55 U/L (5-37); Blood Urea Nitrogen 12 mg/dL (9-16); Calcium 9.5 mg/dL (8.4-10.2); Carbon Dioxide 28 mmol/L (22-29); Chloride 105 mmol/L (96-108); Cholesterol 173 mg/dL (<200); Estimated Glomerular Filt Rate > 60; HDL Cholesterol 32 mg/dL (>40); Potassium 3.8 mmol/L (3.3-5.1); Sodium 140 mmol/L (135-145); Total Protein 7.6 g/dL (6.5-8.0); Triglycerides 499 mg/dL (<150)
[2024-11-14 15:45] LABS: Folate 6.2 ng/mL (> or = 4.0); Vitamin B12 641 pg/mL (200-900)
== END 2024-11-14 10:21 | disposition home or self-care (01) ==
LOC: HO.LAB 10:20
PROVIDERS: PCP Internal Medicine; Visit Provider Internal Medicine
DX: Z00.00 Encounter for general adult medical examination without abnormal findings (principal); R30.0 Dysuria; E78.00 Pure hypercholesterolemia, unspecified; E53.8 Deficiency of other specified B group vitamins; E55.9 Vitamin D deficiency, unspecified; M54.41 Lumbago with sciatica, right side; E78.1 Pure hyperglyceridemia; J45.40 Moderate persistent asthma, uncomplicated; F20.0 Paranoid schizophrenia; E66.9 Obesity, unspecified; F17.200 Nicotine dependence, unspecified, uncomplicated; Z71.3 Dietary counseling and surveillance; Z71.6 Tobacco abuse counseling
CPT/HCPCS: 36415; 80053; 80061; 81003; 82306; 82607; 82746; 84443; 96127; 99396

== ENCOUNTER 2024-12-03 11:02 | Outpatient (RCR) | payer OTHER, SELFPAY ==
--- NOTE | 2024-12-03 13:52 | MHC.PT.EP ---
[facility] [place] Office [place] Office [place] Office [address] Anthony Correa [address] [phone] F: [phone] F: [phone] F: [phone] F: [phone] Physical Therapy Plan of Care Date of Evaluation: 12/03/24 Date of Surgery: N/A Diagnosis: low back pain with right-sided sciatica (RL) Assessment: pt is a 39 y/o male presenting to physical therapy w/ referring diagnosis of low back pain with right-sided sciatica. Impairments include pain, decreased range of motion, decreased strength, impaired functional mobility, impaired postural awareness, and altered ambulation mechanics. pt is a good candidate for skilled PT due to age, potential remediation of impairments, typical disease/condition progression and prognosis, comorbidities, and motivation. pt would benefit from skilled PT intervention to provide a tailored strengthening and stretching exercise program, functional training, gait training, postural re-training, neuromuscular re-education, modalities as needed for pain, equipment safety demonstration. Frequency and Duration: The patient will be seen 2x/wk for 4 wks Short Term Goals: pt will be I w/ HEP to promote self-management of condition. pt will demo proper sitting posture w/ lumbar roll to promote neutral spine w/ seated ADLs. Assistant Manager Pt Goals: pt will demo proper lifting mechanics x5 reps w/o verbal cueing to promote neutral spine w/ picking up objects from the ground. pt will report a statistically significant improvement in self-reported outcome measure, Yoh[place], to promote return to PLOF. Treatment Plan: Modalities to reduce pain, spasms and effusion. Manual therapy to restore motion and function. Therapeutic exercise to improve strength and flexibility. Neuromuscular re-education for posture and balance. Therapeutic activities to return to functional activities of daily living. Electronically signed by: Keren Rm PT, DPT Please sign and return to therapist. Thank you for your referral.
--- NOTE | 2024-12-23 10:30 | MHC.PT.DC ---
[facility] [place] Office [place] Office [place] Office [address] Anthony Correa [address] [facility] [phone] F: [phone] F: [phone] F: [phone] F: [phone] Physical Therapy Discharge Report Diagnosis: low back pain with right-sided sciatica (RL) Date of Surgery: N/A Date of Evaluation: 12/03/24 Date of Discharge: 12/23/24 Treatments to Date: 1 Cancellations to Date: 0 No Shows to Date: 4 Discharge Status: Visit Non-compliance Discharge Summary: The patient has no showed four consecutive appointments. He is to be discharged for attendance non-compliance. Electronically signed by: Keren Rm PT, DPT Please sign and return to therapist. Thank you for your referral.
== END 2024-12-23 10:31 | disposition home or self-care (01) ==
LOC: HO.PT 11:02
PROVIDERS: PCP Internal Medicine; Visit Provider Internal Medicine
DX: M54.41 Lumbago with sciatica, right side (principal)
CPT/HCPCS: 97162

== ENCOUNTER 2025-01-01 13:12 | Outpatient (REF) | payer OTHER, SELFPAY ==
[2025-01-01 13:52] LABS: Appearance Urine Clear; Glucose Urine UA Negative (Negative); PH 7.0 (5.0-9.0); Specific Gravity - Urine 1.015 (1.005-1.025)
== END 2025-01-01 13:13 | disposition home or self-care (01) ==
LOC: HO.LAB 13:12
PROVIDERS: PCP Internal Medicine; Visit Provider Internal Medicine
DX: Z00.00 Encounter for general adult medical examination without abnormal findings (principal); R30.0 Dysuria
CPT/HCPCS: 81003

== ENCOUNTER 2025-01-16 12:34 | Outpatient (REF) | payer OTHER, SELFPAY ==
[2025-01-16 12:47] LABS: MANUAL DIFF FLAG NO
[2025-01-16 13:33] LABS: Hematocrit 39.8 % (42.0-52.0); Hemoglobin 13.0 g/dl (14.0-18.0); Imm Gran Abs Auto 0.03 X10*3/uL (0.00-0.03); Imm Gran Pct Auto 0.3 % (0.0-0.4); Lymphocytes Absolute Auto 4.0 X10*3/uL (1.2-4.9); Mean Corpuscular HGB Conc 32.7 g/dl (31.0-36.0); Mean Corpuscular Hemoglobin 27.7 pg (27.0-33.0); Mean Corpuscular Volume 84.7 fL (80.0-98.0); NRBC Abs Auto 0.000 X10*3/uL (0.0-0.012); NRBC Pct Auto 0.0 /100WBC (0.0-0.2); Platelet Count 329 X10*3/uL (160-400); Red Blood Count 4.70 X10*6/uL (4.60-5.80); White Blood Count 10.2 X10*3/uL (4.8-10.8)
== END 2025-01-16 12:35 | disposition home or self-care (01) ==
LOC: HO.LABR 12:34
PROVIDERS: PCP Internal Medicine
DX: Z79.899 Other long term (current) drug therapy (principal)
CPT/HCPCS: 36415; 85025

== ENCOUNTER 2025-01-30 10:03 | Outpatient (REF) | payer OTHER, SELFPAY ==
[2025-01-30 10:18] LABS: MANUAL DIFF FLAG NO
[2025-01-30 10:57] LABS: Hematocrit 41.1 % (42.0-52.0); Hemoglobin 13.4 g/dl (14.0-18.0); Imm Gran Abs Auto 0.03 X10*3/uL (0.00-0.03); Imm Gran Pct Auto 0.4 % (0.0-0.4); Lymphocytes Absolute Auto 3.1 X10*3/uL (1.2-4.9); Mean Corpuscular HGB Conc 32.6 g/dl (31.0-36.0); Mean Corpuscular Hemoglobin 27.7 pg (27.0-33.0); Mean Corpuscular Volume 84.9 fL (80.0-98.0); NRBC Abs Auto 0.000 X10*3/uL (0.0-0.012); NRBC Pct Auto 0.0 /100WBC (0.0-0.2); Platelet Count 326 X10*3/uL (160-400); Red Blood Count 4.84 X10*6/uL (4.60-5.80); White Blood Count 8.0 X10*3/uL (4.8-10.8)
== END 2025-01-30 10:04 | disposition home or self-care (01) ==
LOC: HO.LABR 10:03
PROVIDERS: PCP Internal Medicine
DX: Z79.899 Other long term (current) drug therapy (principal)
CPT/HCPCS: 36415; 85025

== ENCOUNTER 2025-02-12 13:41 | Outpatient (AMB) | payer OTHER, SELFPAY ==
[2025-02-12 13:43] VITALS: BP 128/66; PULSE 80; TEMP 36.2; O2SAT 97; BMI 39.8
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
== END 2025-02-12 14:41 | disposition home or self-care (01) ==
PROVIDERS: PCP Internal Medicine; Visit Provider Internal Medicine
DX: Z00.00 Encounter for general adult medical examination without abnormal findings (principal); F20.0 Paranoid schizophrenia; E66.9 Obesity, unspecified; Z68.39 Body mass index [BMI] 39.0-39.9, adult; E78.1 Pure hyperglyceridemia; R79.89 Other specified abnormal findings of blood chemistry; J45.40 Moderate persistent asthma, uncomplicated; F17.200 Nicotine dependence, unspecified, uncomplicated

== ENCOUNTER → 2025-02-12 13:41 | Outpatient (BNVA) | payer OTHER, SELFPAY | PROVIDERS: PCP Internal Medicine; Visit Provider Internal Medicine | DX: Z00.00 Encounter for general adult medical examination without abnormal findings (principal); E78.1 Pure hyperglyceridemia; J45.40 Moderate persistent asthma, uncomplicated; R79.89 Other specified abnormal findings of blood chemistry; F20.0 Paranoid schizophrenia; D64.9 Anemia, unspecified; E78.00 Pure hypercholesterolemia, unspecified; R30.0 Dysuria; E55.9 Vitamin D deficiency, unspecified; E66.9 Obesity, unspecified; F17.210 Nicotine dependence, cigarettes, uncomplicated; Z68.39 Body mass index [BMI] 39.0-39.9, adult | CPT/HCPCS: 96127; 99396 ==

== ENCOUNTER 2025-03-06 10:59 | Outpatient (REF) | payer OTHER, SELFPAY ==
[2025-03-06 11:12] LABS: MANUAL DIFF FLAG NO
[2025-03-06 11:21] LABS: Hematocrit 41.5 % (42.0-52.0); Hemoglobin 13.4 g/dl (14.0-18.0); Imm Gran Abs Auto 0.03 X10*3/uL (0.00-0.03); Imm Gran Pct Auto 0.3 % (0.0-0.4); Lymphocytes Absolute Auto 3.2 X10*3/uL (1.2-4.9); Mean Corpuscular HGB Conc 32.3 g/dl (31.0-36.0); Mean Corpuscular Hemoglobin 27.3 pg (27.0-33.0); Mean Corpuscular Volume 84.5 fL (80.0-98.0); NRBC Abs Auto 0.000 X10*3/uL (0.0-0.012); NRBC Pct Auto 0.0 /100WBC (0.0-0.2); Platelet Count 312 X10*3/uL (160-400); Red Blood Count 4.91 X10*6/uL (4.60-5.80); White Blood Count 8.7 X10*3/uL (4.8-10.8)
== END 2025-03-06 11:00 | disposition home or self-care (01) ==
LOC: HO.LABR 10:59
PROVIDERS: PCP Internal Medicine
DX: Z79.899 Other long term (current) drug therapy (principal)
CPT/HCPCS: 36415; 85025

== ENCOUNTER 2025-03-25 10:07 | Emergency (ER) | payer OTHER, SELFPAY ==
[2025-03-25 10:26] VITALS: BP 132/84; PULSE 80; O2SAT 97; BMI 41.3
[2025-03-25 10:42] VITALS: BP 136/78; PULSE 86; RESP 18; TEMP 36.6; O2SAT 97
[2025-03-25 11:16] LABS: MANUAL DIFF FLAG NO
[2025-03-25 11:19] LABS: Hematocrit 39.3 % (42.0-52.0); Hemoglobin 12.9 g/dl (14.0-18.0); Imm Gran Abs Auto 0.04 X10*3/uL (0.00-0.03); Imm Gran Pct Auto 0.4 % (0.0-0.4); Lymphocytes Absolute Auto 3.5 X10*3/uL (1.2-4.9); Mean Corpuscular HGB Conc 32.8 g/dl (31.0-36.0); Mean Corpuscular Hemoglobin 27.8 pg (27.0-33.0); Mean Corpuscular Volume 84.7 fL (80.0-98.0); NRBC Abs Auto 0.000 X10*3/uL (0.0-0.012); NRBC Pct Auto 0.0 /100WBC (0.0-0.2); Platelet Count 310 X10*3/uL (160-400); Red Blood Count 4.64 X10*6/uL (4.60-5.80); White Blood Count 9.3 X10*3/uL (4.8-10.8)
[2025-03-25 11:21] LABS: Appearance Urine Clear; Glucose Urine UA Negative (Negative); PH 8.0 (5.0-9.0); Specific Gravity - Urine 1.015 (1.005-1.025); UMIC TRIGGER UACC YES
[2025-03-25 11:37] LABS: Alanine Aminotransferase 122 U/L (0-40); Albumin Level 4.4 g/dL (3.5-5.0); Alkaline Phosphatase 65 U/L (39-117); Anion Gap 12 (12-20); Aspartate Amino Transferase 68 U/L (5-37); Blood Urea Nitrogen 10 mg/dL (9-16); Calcium 9.5 mg/dL (8.4-10.2); Carbon Dioxide 22 mmol/L (22-29); Chloride 105 mmol/L (96-108); Creatinine Clr Calc Pharmacy 108.6; Estimated Glomerular Filt Rate > 60; Potassium 3.7 mmol/L (3.3-5.1); Sodium 135 mmol/L (135-145); Total Protein 7.3 g/dL (6.5-8.0)
[2025-03-25 11:37] LABS: Cannabinoid Screen Urine POSITIVE (Not Detect)
--- NOTE | 2025-03-25 12:16 | ED.PSYCH ---
HPI - Psych General Chief Complaint: Psychiatric Symptoms Stated Complaint: DEPRESSION,NO HI/SI FROM [facility] Time Seen by Provider: 03/25/25 10:36 Source: patient and RN notes reviewed Mode of arrival: ambulatory Limitations: no limitations History of Present Illness ED Provider: Concepcion Campos PA-C HPI Narrative: This is a 39-year-old male, with a past medical history of who presents emergency department from adult daycare for increased depression difficulties at home. No SI, HI, auditory or visual hallucinations. Patient reports that he has had some difficulties with his teeth however states that overall his teeth is feeling much better. Patient alludes to feeling as though his mother's going to kill him. He states that he has tried to have this is discussion with his mother however mother declines that this is the case. Patient denies any suicidal or homicidal ideation. No auditory or visual hallucination. No alcohol or drug use. No other complaints or concerns at this time. Relieving factors: none Exacerbating factors: none Associated psychiatric symptoms: none Treatments prior to arrival: none Related Data Home Medications ?Medication ?Instructions ?Recorded ?Confirmed benztropine 1 mg tablet 1 mg PO DAILY 02/12/25 03/25/25 clonazepam 0.25 mg disintegrating 0.25 mg PO DAILY 02/12/25 03/25/25 tablet clozapine 25 mg tablet 75 mg PO BEDTIME 02/12/25 03/25/25 propranolol 10 mg tablet 10 mg PO BID 03/25/25 03/25/25 Previous Rx's ?Medication ?Instructions ?Recorded clozapine 100 mg tablet 100 mg PO BEDTIME 30 days #30 tabs 02/22/24 haloperidol decanoate 50 mg/mL 75 mg (1.5 mL) IM Q28D 28 days 02/22/24 intramuscular solution #1.5 mL magnesium hydroxide 400 mg/5 mL 30 ml PO DAILY PRN Constipation 30 02/22/24 oral suspension (Milk of Magnesia) days #3,780 mL sertraline 100 mg tablet 100 mg PO DAILY 30 days #30 tabs 02/22/24 trazodone 100 mg tablet 100 mg PO BEDTIME PRN insomnia 30 02/22/24 days #30 tabs fenofibrate 160 mg tablet 160 mg PO DAILY 90 days #90 tabs 02/12/25 Allergies Allergy/AdvReac Type Severity Reaction Status Date / Time paprika Allergy Severe DIFFICULTY Verified 03/25/25 10:30 BREATHING shrimp Allergy Severe ANAPHYLAXIS Verified 03/25/25 10:30 cranberry (CRANBERRY) Allergy Mild SWELLING Verified 03/25/25 10:30 OF HIS EAR strawberry (STRAWBERRY) Allergy Mild SWELLING Verified 03/25/25 10:30 OF HIS EAR cat dander (CATS) Allergy Unknown WATERY,ITCHY Verified 03/25/25 10:30 EYES clams (CLAMS) Allergy Unknown UNK Verified 03/25/25 10:30 shellfish derived Allergy Swelling Verified 03/25/25 10:30 Poultry AdvReac Unknown Verified 03/25/25 10:30 MARINARA Allergy Severe ANAPHYLAXIS Uncoded 03/25/25 10:30 ibuprofes Allergy Unknown renal Uncoded 03/25/25 10:30 insufficiency paprika, seafood, Allergy Unknown unknown Uncoded 03/25/25 10:30 strawberries SEAFOOD Allergy Unknown UNKNOWN Uncoded 03/25/25 10:30 Review of Systems Review of Systems: Constitutional : No Fever, No Chills ENT/Mouth : No sore throat, No Rhinorrhea Eyes: No Eye Pain, No Swelling, No Redness Cardiovascular : No Chest Pain, No SOB Respiratory : No Cough, No Sputum Gastrointestinal : No Nausea, No Vomiting, No Diarrhea, No abdominal Pain Genitourinary : No Dysuria, No Hematuria Musculoskeletal : No joint pain, No Myalgias, No Joint Swelling Skin : No Skin Lesions Neuro : No Weakness, No Numbness, No Headache All other systems reviewed and are negative Yes all other systems are reviewed and are negative Constitutional: Constitutional: Reports as per [facility] Past Medical History Medical History (Updated 03/26/25 @ 15:57 by Ronan Mejia DO) Elevated LFTs Psychosis Cocaine use disorder Cannabis use disorder Vitamin D deficiency Obesity (BMI 30-39.9) Smoker Asthma Hypertriglyceridemia Surgical History No pertinent past surgical history Family History Family History Father Medical history unknown Mother Medical history unknown Family/Other FH: mental illness Social History Social History Household Members: Family Housing: Apartment Do you presently have visiting nurse or other home services: Yes Unable to assess alcohol history related to: Unable to respond Patient Tobacco Use Status: Current everyday Tobacco user Tobacco use type: Cigarette Cigarette Packs Per Day: 0.4 Cigarettes Per Day: 2 Years Smoked: 25 Smoked in Last 30 Days: Yes e-Cigarette/Vaping Use: Never Used Second Hand Smoke Exposure: No Substance Use Type: Crack/Cocaine, Marijuana and Caffiene Advance Directives: No Advance Directives Information Provided: Yes Do you have a plan to hurt others: No Plan service: No Current occupational status: disabled Sexual orientation: Straight/Heterosexual Cognitive needs: No Hearing needs: No Vision needs: No Physical Exam Vital Signs: Vital Signs: Last Vital Signs Temp 98.2 F 03/26/25 06:24 Pulse 75 03/26/25 06:24 Resp 12 03/26/25 06:24 BP 125/57 L 03/26/25 06:24 Pulse Ox 91 L 03/26/25 06:24 O2 Del Method Room Air 03/26/25 06:24 BMI result Body Mass Index 41.3 Const: General: cooperative, comfortable and no acute distress Orientation/consciousness: patient oriented x3 Limitations: no limitations HEENT: Head: Yes normal to inspection, Yes normocephalic and Yes atraumatic Ears: hearing grossly normal bilaterally General nose exam: Normal external nose present Face and sinus: Yes normal facial exam Mouth: Normal oral and palatal mucosa present, oropharynx normal and moist mucous membranes Throat: Yes posterior oropharynx normal Eyes: General: appearance normal, both eyes and all related structures Eyelids: Yes eyelids normal Conjunctivae: conjunctivae normal Sclerae: sclerae normal Pupils: Equal, round and reactive pupils present EOM: EOMs intact bilaterally Neck: Neck: Yes normal visual inspection, Yes full ROM and Yes no lymphadenopathy Lymphatic: no lymphadenopathy noted Chest: Chest palpation & inspection: normal inspection of the chest Resp: Effort & Inspection: normal respiratory effort and able to speak in complete sentences Auscultation: clear to auscultation bilaterally, no crackles, no rales, no rhonchi and no wheezes Cardio: Rate: regular rate Rhythm: regular rhythm Heart sounds: S1 normal heart sound present and S2 normal heart sound present GI: Inspection: Yes normal to inspection Skin: General skin exam: no rashes or lesions noted Trauma: no lacerations or abrasions Wounds: no wounds Neuro: General: patient oriented x3 and moves all extremities Cranial nerves: Yes Equal, round and reactive pupils present Extrem: General: Yes normal to inspection Right upper extremity: normal to inspection Left upper extremity: normal to inspection Right lower extremity: normal to inspection Left lower extremity: normal to inspection Psych: Appearance: well kempt Speech and movement: Pressured speech present Affect: Anxious affect present and Blunted affect present Attitude: Guarded attititude/behavior present Thought process: Illogical thought process present Thought content: Paranoid delusions present Insight: Poor insight present (Psych) Judgement: Poor judgement present (Psych) Course Reevaluation(s) Reevaluation #1: 3:55 PM 03/26/2025 (Dr. Ronan Mejia): Time: 15:55 Date: 03/26/25 Provider: Ronan Mejia, DO Patient in physician observation for psychiatric evaluation.? Cleared for respite. Medications Administered Generic Name Dose Route Start Last Admin Trade Name Freq PRN Reason Stop Dose Admin Benztropine Mesylate 1 mg 03/26/25 09:00 03/26/25 08:44 Benztropine Mesylate 1 Mg Tablet PO 1 mg DAILY LOGAN Administration Clonazepam 0.25 mg 03/26/25 09:00 03/26/25 08:44 Clonazepam Odt 0.125 Mg Tab.Rapdis PO 0.25 mg DAILY LOGAN Administration Clozapine 75 mg 03/25/25 21:00 03/25/25 20:43 Clozapine 25 Mg Tablet PO 75 mg BEDTIME LOGAN Administration Clozapine 100 mg 03/25/25 21:00 03/25/25 20:42 Clozapine 100 Mg Tablet PO 100 mg BEDTIME LOGAN Administration Fenofibrate 160 mg 03/26/25 09:00 03/26/25 08:44 Fenofibrate 160 Mg Tablet PO 160 mg DAILY LOGAN Administration Haloperidol Decanoate 75 mg 03/25/25 19:00 03/25/25 21:09 Haloperidol Decanoate 50 Mg/Ml Vial IM Not Given Q28D LOGAN Propranolol HCl 10 mg 03/25/25 21:00 03/26/25 08:44 Propranolol Hcl 10 Mg Tablet PO 10 mg BID LOGAN Administration Protocol Sertraline HCl 100 mg 03/26/25 09:00 03/26/25 08:44 Sertraline Hcl 100 Mg Tablet PO 100 mg DAILY LOGAN Administration Discontinued Medications Generic Name Dose Route Start Last Admin Trade Name Jarek PRN Reason Stop Dose Admin Sodium Chloride 1,000 mls @ 999 mls/hr 03/25/25 14:30 03/25/25 17:30 Ns IV 03/25/25 15:30 Infused .Q1H1M ONE Infusion Medical Decision Making Medical Decision Making [facility] Narrative: This is a 39-year-old male who presents emergency department with concerns of increased depression and difficulties at home. Patient has been compliant on his medications. He states that he has had some dental problems however states that his pain overall has improved. Patient does report some palpitations which occurred yesterday. He does report cocaine use which he has not used in over a week. Vital signs within normal limits. He does allude to paranoid delusions expressing that he believes his mother is going to kill him. No suicidal or homicidal ideation. No auditory or visual hallucinations. 1:30 PM 03/25/2025 (Concepcion Campos PA-C): Labs returned, he has no leukocytosis, he has a normocytic anemia with an H&H of 12.9/39.3. Chemistry revealing slight elevation in liver transaminases an AST and ALT of 68 and went 22, similar to previous. He is followed up with his primary care in regards to this, hepatitis panel in 2019. We are going to recheck LFTs in 3 months. No evidence of UTI. Positive for marijuana. Negative alcohol. We will continue to closely monitor pending care team consultation. 2:30 PM 03/25/2025 (Concepcion Campos PA-C): CPK returns, elevated at 401, we will hydrate with IV fluids, we will repeat. EKG revealing no STEMI. We will continue to closely monitor. 6:23 PM 03/25/2025 (Concepcion Campos PA-C): CPK has improved to 350, he is drinking, eating, has no current complaints. Patient will be moved back to the pod. Patient may be going to respite, he will be staying overnight. Physician observation initiated. Differential Diagnosis Differential Diagnoses: The differential diagnosis associated with the presentation includes Paranoid schizophrenia, schizophrenia, schizoaffective disorder, depression, anxiety, SI, HI Lab Data [facility] Lab Attestation statement: I reviewed the patient's lab results. See [facility] 03/25/25 11:12 03/25/25 11:13 Labs: Lab Results 03/25/25 03/25/25 03/25/25 Range/Units 11:05 11:12 11:13 WBC 9.3 (4.8-10.8) X10*3/uL RBC 4.64 (4.60-5.80) X10*6/uL Hgb 12.9 L (14.0-18.0) g/dl Hct 39.3 L (42.0-52.0) % MCV 84.7 (80.0-98.0) fL MCH 27.8 (27.0-33.0) pg MCHC 32.8 (31.0-36.0) g/dl RDW 13.8 (11.0-16.0) % Plt Count 310 (160-400) X10*3/uL MPV 10.0 (9.4-12.4) fL Immature Gran % (Auto) 0.4 (0.0-0.4) % Neut % (Auto) 49.7 (45-73) % Lymph % (Auto) 37.5 (20-40) % Metcalfe % (Auto) 8.4 (2-11) % Eos % (Auto) 3.2 (0-4) % Baso % (Auto) 0.8 (0-2) % Lymph # (Auto) 3.5 (1.2-4.9) X10*3/uL Metcalfe # (Auto) 0.8 (0.1-1.2) X10*3/uL Eos # (Auto) 0.3 (0.0-0.4) X10*3/uL Baso # (Auto) 0.1 (0.0-0.2) X10*3/uL Abs Immat Gran (auto) 0.04 H (0.00-0.03) X10*3/uL Absolute Neuts (auto) 4.6 (2.0-8.3) x10*3/uL Absolute Nucleated RBC 0.000 (0.0-0.012) X10*3/uL Nucleated RBC % (auto) 0.0 (0.0-0.2) /100WBC Sodium 135 (135-145) mmol/L Potassium 3.7 (3.3-5.1) mmol/L Chloride 105 (96-108) mmol/L Carbon Dioxide 22 (22-29) mmol/L Anion Gap 12 (12-20) BUN 10 (9-16) mg/dL Creatinine 1.18 (0.5-1.4) mg/dL Estim Creat Clear Calc 108.6 Estimated GFR > 60 Random Glucose 116 H (60-115) mg/dL Calcium 9.5 (8.4-10.2) mg/dL Total Bilirubin 0.4 (0.0-1.0) mg/dL AST 68 H (5-37) U/L ALT 122 H (0-40) U/L Alkaline Phosphatase 65 (39-117) U/L Total Creatine Kinase 401 H (38-174) U/L Troponin I High Sens < 2.7 (<3.5-35.0) ng/L Total Protein 7.3 (6.5-8.0) g/dL Albumin 4.4 (3.5-5.0) g/dL Urine Color Yellow Urine Appearance Clear Urine pH 8.0 (5.0-9.0) Ur Specific Napoleon 1.015 (1.005-1.025) Urine Protein Negative (Neg-Trace) mg/dL Urine Glucose (UA) Negative (Negative) mg/dL Urine Ketones Negative (Negative) mg/dL Urine Blood Negative (Negative) Urine Nitrite Negative (Negative) Ur Leukocyte Esterase Trace H (Negative) Urine RBC 0-2 (0-2) /HPF Urine WBC 0-5 (0-5) /HPF Ur Squamous Epith Cells 0-2 (0-2) /HPF Urine Bacteria None Seen (None Seen) Hyaline Casts 0-2 (0-2) /LPF Urine Opiates Screen Not Detected (Not Detect) Ur Buprenorphine Scrn Not Detected (Not Detect) ng/mL Ur Oxycodone Screen Not Detected (Not Detect) ng/mL Urine Methadone Screen Not Detected (Not Detect) ng/mL Urine Fentanyl Screen Not Detected (Not Detect) Ur Barbiturates Screen Not Detected (Not Detect) Ur Phencyclidine Scrn Not Detected (Not Detect) Ur Amphetamines Screen Not Detected (Not Detect) U Benzodiazepines Scrn Not Detected (Not Detect) Urine Cocaine Screen Not Detected (Not Detect) U Marijuana (THC) Screen POSITIVE H (Not Detect) Ethyl Alcohol < 10 mg/dL 03/25/25 Range/Units 17:31 WBC (4.8-10.8) X10*3/uL RBC (4.60-5.80) X10*6/uL Hgb (14.0-18.0) g/dl Hct (42.0-52.0) % MCV (80.0-98.0) fL MCH (27.0-33.0) pg MCHC (31.0-36.0) g/dl RDW (11.0-16.0) % Plt Count (160-400) X10*3/uL MPV (9.4-12.4) fL Immature Gran % (Auto) (0.0-0.4) % Neut % (Auto) (45-73) % Lymph % (Auto) (20-40) % Metcalfe % (Auto) (2-11) % Eos % (Auto) (0-4) % Baso % (Auto) (0-2) % Lymph # (Auto) (1.2-4.9) X10*3/uL Metcalfe # (Auto) (0.1-1.2) X10*3/uL Eos # (Auto) (0.0-0.4) X10*3/uL Baso # (Auto) (0.0-0.2) X10*3/uL Abs Immat Gran (auto) (0.00-0.03) X10*3/uL Absolute Neuts (auto) (2.0-8.3) x10*3/uL Absolute Nucleated RBC (0.0-0.012) X10*3/uL Nucleated RBC % (auto) (0.0-0.2) /100WBC Sodium (135-145) mmol/L Potassium (3.3-5.1) mmol/L Chloride (96-108) mmol/L Carbon Dioxide (22-29) mmol/L Anion Gap (12-20) BUN (9-16) mg/dL Creatinine (0.5-1.4) mg/dL Estim Creat Clear Calc Estimated GFR Random Glucose (60-115) mg/dL Calcium (8.4-10.2) mg/dL Total Bilirubin (0.0-1.0) mg/dL AST (5-37) U/L ALT (0-40) U/L Alkaline Phosphatase (39-117) U/L Total Creatine Kinase 354 H (38-174) U/L Troponin I High Sens (<3.5-35.0) ng/L Total Protein (6.5-8.0) g/dL Albumin (3.5-5.0) g/dL Urine Color Urine Appearance Urine pH (5.0-9.0) Ur Specific Napoleon (1.005-1.025) Urine Protein (Neg-Trace) mg/dL Urine Glucose (UA) (Negative) mg/dL Urine Ketones (Negative) mg/dL Urine Blood (Negative) Urine Nitrite (Negative) Ur Leukocyte Esterase (Negative) Urine RBC (0-2) /HPF Urine WBC (0-5) /HPF Ur Squamous Epith Cells (0-2) /HPF Urine Bacteria (None Seen) Hyaline Casts (0-2) /LPF Urine Opiates Screen (Not Detect) Ur Buprenorphine Scrn (Not Detect) ng/mL Ur Oxycodone Screen (Not Detect) ng/mL Urine Methadone Screen (Not Detect) ng/mL Urine Fentanyl Screen (Not Detect) Ur Barbiturates Screen (Not Detect) Ur Phencyclidine Scrn (Not Detect) Ur Amphetamines Screen (Not Detect) U Benzodiazepines Scrn (Not Detect) Urine Cocaine Screen (Not Detect) U Marijuana (THC) Screen (Not Detect) Ethyl Alcohol mg/dL Independent Interpretation I performed an independent interpretation of an: EKG Interpretation: EKG normal sinus rhythm at a ventricular rate of 64 beats per minute, [place] interval 152, no STEMI. External Record Review External record reviewed: Inpatient record, Office record, Outpatient record, Prior outpatient labs, Prior outpatient radiology, Primary care record and Outside ED record Discharge Plan Discharge Clinical Impression: Depression Qualifiers: Depression Type: other depression Qualified Code(s): F32.89 - Other specified depressive episodes Patient Disposition: Home, Self-Care Additional Instructions: You were seen in our Emergency Department today for treatment of a behavioral health issue. It is important after your visit that you follow up with either your behavioral health provider or a primary care doctor within 7 days.? If you have trouble finding a therapist you can reach out to [address] [phone] The National Suicide and Crisis Lifeline can be reached 7 days a week 24 hours a day.? Call 988 to speak with someone.? Return for any worsening symptoms or concerns such as thoughts of self harm or harm to others. Please call 911 if you feel your mental health is worsening.? Prescriptions: No Action clozapine 100 mg tablet 100 mg PO BEDTIME 30 Days Qty: 30 0RF Rx Instructions: take with 25mg tab haloperidol decanoate 50 mg/mL Solution 75 mg IM Q28D 28 Days Qty: 1.5 0RF magnesium hydroxide [Milk of Magnesia] 400 mg/5 mL Suspension 30 ml PO DAILY PRN (Reason: Constipation) 30 Days Qty: 3780 0RF sertraline 100 mg tablet 100 mg PO DAILY 30 Days Qty: 30 0RF trazodone 100 mg tablet 100 mg PO BEDTIME PRN (Reason: insomnia) 30 Days Qty: 30 0RF propranolol 10 mg tablet 10 mg PO BID benztropine 1 mg tablet 1 mg PO DAILY clonazepam 0.25 mg tablet,disintegrating 0.25 mg PO DAILY clozapine 25 mg tablet 75 mg PO BEDTIME Rx Instructions: take with 100mg tab fenofibrate 160 mg tablet 160 mg PO DAILY 90 Days Qty: 90 1RF Interventions: [place]-Suicide Risk Severity Scale Last Done: 03/25/25 10:37 Print Language: Vietnamese
--- NOTE | 2025-03-25 13:30 | ECG_ITS ---
Test Reason : palpitations Blood Pressure : */* mmHG Vent. Rate : 64 BPM Atrial Rate : 64 BPM P-R Int : 152 ms QRS Dur : 84 ms QT Int : 418 ms P-R-T Axes : 7 18 34 degrees QTcB Int : 431 ms Normal sinus rhythm Normal ECG When compared with ECG of 12-Feb-2024 10:44, No significant change was found Referred By: Concepcion Campos Electronically Signed By: MARCELA PANDA MD
[2025-03-25 15:01] LABS: Troponin-I High Sensitivity < 2.7 ng/L (<3.5-35.0)
--- NOTE | 2025-03-25 17:43 | MHC.CARE ---
Patient evaluated by the CARE Team, recommended disposition is [facility]. Information faxed to [facility] and currently under review.
--- NOTE | 2025-03-25 18:29 | PHA.MEDREC ---
Pharmacy Consult ? Medication Reconciliation Nursing has completed the medication reconciliation. Reviewed by pharmacy, matches claim hx
--- NOTE | 2025-03-25 20:17 | PC.NURSE ---
awaiting scheduled IM medication from pharmacy
--- NOTE | 2025-03-25 20:47 | PC.NURSE ---
pt medicated per MAR, very hesitant to take medications. did take them, chewed them. Refusing scheduled IM medication. feels like he is going to tonight , very anxious.
[2025-03-25 21:03] VITALS: BP 115/69; PULSE 66; RESP 18; TEMP 36.2; O2SAT 95
--- NOTE | 2025-03-25 21:12 | PC.NURSE ---
pt reporting he wont take the IM haldol because an antibiotic he took awhile ago? that is why he feeling like dying now and gave him heart problems . pt educated on medication and the unrelated effects/purpose. pt still refused
--- NOTE | 2025-03-25 21:25 | PC.NURSE ---
pt resting comfortably with eyes closed, breathing even and unlabored. no apparent distress at this time.
--- NOTE | 2025-03-25 22:15 | PC.NURSE ---
went in to check on pt, he was coughing and gurgling while asleep. pt states he has sleep apnea and cant breath. pt seems more altered at this time. rn appeals aware. will move pt to Main ED for CPAP. pt sitting up, half asleep, breathing is altered, snoring while awake. KALLI Morataya aware. pt states he has asked for his dose to be lower but they dont listen
[2025-03-25 22:42] VITALS: PULSE 88; RESP 13; O2SAT 94
--- NOTE | 2025-03-25 23:03 | PC.NURSE ---
Pt moved from ED Pod to ED18 @ approx 2215. Pt placed on CPAP by RT. 1:1 at bedside.
[2025-03-25 23:08] VITALS: BP 112/74; PULSE 103; RESP 20; O2SAT 97
--- NOTE | 2025-03-25 23:51 | PC.NURSE ---
Pt non-compliant with CPAP. This RN and structural biologist have readjusted CPAP mask several times, patient continues to remove mask, stating it is bothering me . Pt snoring while awake. spO2 stable. KALLI Rojas aware.
--- NOTE | 2025-03-26 06:18 | PC.NURSE ---
pt back from the main ED, resting at this time, continues to have deep snores with periods of apnea breathing. laying supine in bed with multiple pillows
[2025-03-26 06:24] VITALS: BP 125/57; PULSE 75; RESP 12; TEMP 36.8; O2SAT 91
--- NOTE | 2025-03-26 07:53 | PC.NURSE ---
Assumed care, report received. Pt is currently sleeping, safety received.
[2025-03-26] MEDS: clonazePAM ODT 0.125 MG TAB.RAPDIS 0.25 MG PO (08:44)
--- NOTE | 2025-03-26 10:51 | MHC.CARE ---
Patient has been accepted to [facility] per KOFI Shirley at [facility]. They would like him to arrive 03/26/25 at 1630. His mother, All is called ([phone]). She will bring the medication to [facility], she is given their address and phone number. T/w called the [facility] ([phone]) and spoke with Radha on behalf of Belia, who expressed concern that she is not allowed to move/ transport the lockbox of meds. Radha with [facility] confirms that yes, patient's mother/ guardian can bring the patient's medication to either the ED or [facility] and then [facility] can call the [facility] for the lock box code. This is a practice [facility] should be familiar with.
[2025-03-26 16:05] VITALS: BP 125/57; PULSE 75; RESP 12; TEMP 36.8; O2SAT 91
== END 2025-03-26 16:14 | disposition home or self-care (01) ==
PROVIDERS: Physician Assistant Medical; Emergency Provider Emergency Medicine; PCP Internal Medicine
DX: F32.89 Other specified depressive episodes (principal); R00.2 Palpitations; J45.909 Unspecified asthma, uncomplicated; F17.200 Nicotine dependence, unspecified, uncomplicated; Z71.6 Tobacco abuse counseling; Z79.899 Other long term (current) drug therapy
CPT/HCPCS: 36415; 80053; 80307; 81001; 82550; 84484; 85025; 93005; 96360; 99285; S9485

== ENCOUNTER → 2025-03-25 13:30 | Outpatient (BNV) | payer OTHER, SELFPAY | PROVIDERS: Emergency Provider Emergency Medicine; PCP Internal Medicine; Visit Provider Internal Medicine Cardiovascular Disease | DX: R00.2 Palpitations (principal) | CPT/HCPCS: 93010 ==

== ENCOUNTER 2025-04-12 16:02 | Emergency (ER) | payer OTHER, SELFPAY ==
--- NOTE | ~2025-04-12 | XR_ITS ---
CLINICAL HISTORY: acute on chronic back pain 3 views lumbar spine Comparison: CR/SR - XR LUMBAR SPINE 2-3 VIEWS - 05/31/22 15:58 EST Findings: Normal alignment. No acute fractures or dislocation. No significant degenerative change. IMPRESSION: No acute findings. This document has been electronically signed by: Gabbie Barroso MD on 04/12/2025 20:41:21
[2025-04-12 16:14] VITALS: BP 123/75; PULSE 93; RESP 20; TEMP 36.3; O2SAT 95; BMI 40.4
--- NOTE | 2025-04-12 16:15 | ED.BACK ---
HPI - Back Pain/Injury General Chief Complaint: Back Pain/Injury Stated Complaint: Back Pain Time Seen by Provider: 04/12/25 20:09 Source: patient Mode of arrival: ambulatory Limitations: no limitations History of Present Illness ED Provider: Cesar MAHAN HPI Narrative: The patient is a 39-year-old male with a history of schizoaffective disorder, obesity, asthma, hyperlipidemia, and polysubstance abuse presenting for evaluation of recurrent low back pain. He reports an initial episode six months ago that resolved spontaneously. A second episode occurred 2?3 months ago for which he was seen at an urgent care clinic; prescribed medication which he believes was ibuprofen and claims was ineffective, however pain later resolved. Current episode began 2 days ago while standing outside waiting for his ride to his day program. Pain is located in the lower back, behind the right hip/buttock, and radiates toward the right knee. He describes constant pain that worsens with sitting and bending; as well as increased pain with coughing. No recent trauma, change in activity level, heavy lifting, falls, or motor-vehicle accidents. The patient denies any associated fever/chills, bowel or bladder dysfunction, urinary or fecal incontinence, or saddle or other lower-extremity paresthesias. Patient denies surgical spinal history. The patient also reports 4 days ago he remembers getting up from a couch at his day program when he felt a twinge in his back but no pain until 2 days ago. Today the patient did attempt ibuprofen given to him by his day program, but denies any relief. The patient has not yet discussed these recurrent episodes with his primary care physician. He reports after his episode 2-3 months ago he attended one physical-therapy session and received a home exercise program, but admits he was not consistently compliant with the program. Related Data Home Medications ?Medication ?Instructions ?Recorded ?Confirmed benztropine 1 mg tablet 1 mg PO DAILY 02/12/25 03/25/25 clonazepam 0.25 mg disintegrating 0.25 mg PO DAILY 02/12/25 03/25/25 tablet clozapine 25 mg tablet 75 mg PO BEDTIME 02/12/25 03/25/25 propranolol 10 mg tablet 10 mg PO BID 03/25/25 03/25/25 Previous Rx's ?Medication ?Instructions ?Recorded clozapine 100 mg tablet 100 mg PO BEDTIME 30 days #30 tabs 02/22/24 haloperidol decanoate 50 mg/mL 75 mg (1.5 mL) IM Q28D 28 days 02/22/24 intramuscular solution #1.5 mL magnesium hydroxide 400 mg/5 mL 30 ml PO DAILY PRN Constipation 30 02/22/24 oral suspension (Milk of Magnesia) days #3,780 mL sertraline 100 mg tablet 100 mg PO DAILY 30 days #30 tabs 02/22/24 trazodone 100 mg tablet 100 mg PO BEDTIME PRN insomnia 30 02/22/24 days #30 tabs fenofibrate 160 mg tablet 160 mg PO DAILY 90 days #90 tabs 02/12/25 acetaminophen 500 mg capsule 1,000 mg (2 x 500 mg) PO .q8 PRN 04/12/25 fever or pain #30 caps cyclobenzaprine 10 mg tablet 10 mg PO TID PRN muscle spasm #7 04/12/25 tabs ibuprofen 600 mg tablet 600 mg PO Q8H PRN fever or pain 04/12/25 #30 tabs Allergies Allergy/AdvReac Type Severity Reaction Status Date / Time paprika Allergy Severe DIFFICULTY Verified 03/25/25 10:30 BREATHING shrimp Allergy Severe ANAPHYLAXIS Verified 03/25/25 10:30 cranberry (CRANBERRY) Allergy Mild SWELLING Verified 03/25/25 10:30 OF HIS EAR strawberry (STRAWBERRY) Allergy Mild SWELLING Verified 03/25/25 10:30 OF HIS EAR cat dander (CATS) Allergy Unknown WATERY,ITCHY Verified 03/25/25 10:30 EYES clams (CLAMS) Allergy Unknown UNK Verified 03/25/25 10:30 amoxicillin Allergy Palpitation Verified 04/12/25 16:18 s shellfish derived Allergy Swelling Verified 03/25/25 10:30 Poultry AdvReac Unknown Verified 03/25/25 10:30 MARINARA Allergy Severe ANAPHYLAXIS Uncoded 03/25/25 10:30 ibuprofes Allergy Unknown renal Uncoded 03/25/25 10:30 insufficiency paprika, seafood, Allergy Unknown unknown Uncoded 03/25/25 10:30 strawberries SEAFOOD Allergy Unknown UNKNOWN Uncoded 03/25/25 10:30 Review of Systems Review of Systems: Yes all other systems are reviewed and are negative PMFSH Past Medical History Medical History (Updated 04/12/25 @ 20:49 by Cesar Ramires PA-C) Elevated LFTs Psychosis Cocaine use disorder Cannabis use disorder Vitamin D deficiency Obesity (BMI 30-39.9) Smoker Asthma Hypertriglyceridemia Surgical History No pertinent past surgical history Family History Family History Father Medical history unknown Mother Medical history unknown Family/Other FH: mental illness Social History Social History Household Members: Family Housing: Apartment Do you presently have visiting nurse or other home services: Yes Patient Tobacco Use Status: Current everyday Tobacco user Tobacco use type: Cigarette Cigarette Packs Per Day: 0.4 Cigarettes Per Day: 2 Years Smoked: 25 e-Cigarette/Vaping Use: Never Used Second Hand Smoke Exposure: No Substance Use Type: Crack/Cocaine, Marijuana and Caffiene Advance Directives: No Advance Directives Information Provided: No Do you have a plan to hurt others: No Plan service: No Current occupational status: disabled Sexual orientation: Straight/Heterosexual Cognitive needs: No Hearing needs: No Vision needs: No Physical Exam Vital Signs: Vital Signs: Last Vital Signs Temp 97.4 F 04/12/25 16:14 Pulse 93 04/12/25 16:14 Resp 20 04/12/25 16:14 BP 123/75 04/12/25 16:14 Pulse Ox 95 04/12/25 16:14 O2 Del Method Room Air 04/12/25 16:14 BMI result Body Mass Index 40.4 Course Course Course Narrative: This is a Rapid Medical Examination (RME) performed by Harpal Campbell PA-C in triage. Full HPI, ROS, assessment and treatment plan per primary provider in the Main ED. Hx: 39 yo M here from urgent care for acute on chronic lower back pain x6 months, worsening x1 week. taking motrin for pain at home w/o relief. no injury/trauma/heavy lifting. no hx IVDU or spinal surgery. states he was sent here from because they said they don't have medications strong enough . Received an expect from urgent care for intractable back pain - he was not given anything there. PE/vitals: intermittently tearful Plan: xr Medications Administered Discontinued Medications Generic Name Dose Route Start Last Admin Trade Name Freq PRN Reason Stop Dose Admin Acetaminophen 975 mg 11/29/25 20:30 04/12/25 20:47 Acetaminophen 325 Mg Tablet PO 04/12/25 20:31 975 mg ONCE ONE Administration Cyclobenzaprine HCl 10 mg 04/12/25 20:30 04/12/25 20:47 Cyclobenzaprine Hcl 10 Mg Tablet PO 04/12/25 20:31 10 mg ONCE ONE Administration Ketorolac Tromethamine 30 mg 04/12/25 20:30 04/12/25 20:47 Ketorolac Tromethamine 30 Mg/Ml Vial IM 04/12/25 20:31 30 mg ONCE ONE Administration Lidocaine 1 patch 04/12/25 20:30 04/12/25 20:47 Lidocaine 4 % Patch Adh..Patch TRANSDERMA 04/12/25 20:31 1 patch ONCE ONE Administration Protocol Medical Decision Making Medical Decision Making MDM Narrative: 8:35 PM 04/12/2025 (Harpal MAHAN): The patient is a 39-year-old male with a history of schizoaffective disorder, obesity, asthma, hyperlipidemia, and polysubstance abuse presenting for evaluation of recurrent low back pain. He reports an initial episode six months ago that resolved spontaneously. A second episode occurred 2?3 months ago for which he was seen at an urgent care clinic; prescribed medication which he believes was ibuprofen and claims was ineffective, however pain later resolved. Current episode began 2 days ago while standing outside waiting for his ride to his day program. Pain is located in the lower back, behind the right hip/buttock, and radiates toward the right knee. He describes constant pain that worsens with sitting and bending; as well as increased pain with coughing. No recent trauma, change in activity level, heavy lifting, falls, or motor-vehicle accidents. The patient denies any associated fever/chills, bowel or bladder dysfunction, urinary or fecal incontinence, or saddle or other lower-extremity paresthesias. Patient denies surgical spinal history. The patient also reports 4 days ago he remembers getting up from a couch at his day program when he felt a twinge in his back but no pain until 2 days ago. Today the patient did attempt ibuprofen given to him by his day program, but denies any relief. The patient has not yet discussed these recurrent episodes with his primary care physician. He reports after his episode 2-3 months ago he attended one physical-therapy session and received a home exercise program, but admits he was not consistently compliant with the program. On exam the patient has no midline spinous process tenderness, no crepitus. There is some tenderness reported with palpation of the lumbar paraspinal muscles on the right. No evidence of trauma. No other acute findings. Lumbar films obtained have not been reviewed by Radiology however upon this provider's review showed no evidence of acute fracture or vertebral height loss. The patient is likely suffering from musculoskeletal strain versus lumbar radiculopathy. The patient has no signs or symptoms of cauda equina, and no recent trauma, there is no indication for emergent advanced imaging. The patient will be treated with anti-inflammatories, topical analgesics, and cyclobenzaprine. Of note the patient takes clonazepam at baseline, as such we will avoid benzodiazepine based antispasmodics. The patient is also requesting to eat, we will provide a meal. 8:44 PM 04/12/2025 (Harpal MAHAN): Of note the patient is listed as having guardianship in effect, patient's mother was listed as primary contact, attempted to call patient's mother All Olivera at [phone], however there was no answer and the individual's voicemail mailbox was not set up, preventing this provider's ability to leave a message to confirm guardian's awareness of patient's presence in the ED. Admission/Observation Consideration of admission/observation: Escalation of care including admission/observation considered Independent Interpretation I performed an independent interpretation of an: Plain X-Ray Interpretation: This provider's interpretation of the patient's lumbar films demonstrate no obvious spinous process fracture, no loss of vertebral height, no other acute findings identified. Radiology Impression Discussion of test interpretation with radiology: I have reviewed the radiologist's reading. Radiologist Impression: 3 views lumbar spine Comparison: CR/SR - XR LUMBAR SPINE 2-3 VIEWS - 05/31/22 15:58 EST Findings: Normal alignment. No acute fractures or dislocation. No significant degenerative change. IMPRESSION: No acute findings. This document has been electronically signed by: Gabbie Barroso MD on 04/12/2025 20:41:21 External Record Review External record reviewed: Outpatient record and Prior outpatient labs Discharge Plan Discharge Clinical Impression: Strain of lumbar region, Lumbar radiculopathy Patient Disposition: Home, Self-Care Instructions: Low Back Strain (ED), Lumbar Radiculopathy (ED), P.R.I.C.E. Treatment (ED), Lower Back Exercises (ED) Additional Instructions: Thank you for choosing [facility]'s Emergency Department for your care today. Thankfully your x-ray today shows no evidence of any fracture or other acute abnormalities. Your symptoms do not indicate any need for emergent advanced imaging. At this time there is no indication for admission to the hospital or continued ED observation, and it is safe to discharge you home. You are likely suffering from a muscular strain of your low back, with possibly associated inflammation or entrapment of a lumbar nerve, known as lumbar radiculopathy. You should take alternating (staggered) doses of ibuprofen 600mg and Tylenol 1000mg every 4 hours as needed for any additional pain. Please rest the injured area, and apply ice for 20 minutes every hour. As a part of your care plan, you have also been prescribed a muscle relaxer called cyclobenzaprine. Please take this medication only for severe pain or spasm that is not relieved by ibuprofen and/or Tylenol. Muscle relaxer medications can carry high risk of unintentional addiction and abuse. Take this medication only as directed and only if absolutely necessary. This medicine can make you drowsy, you are not allowed to drive, operate heavy machinery, or be the sole care provider for children while taking this medication. We have treated you with a lidocaine patch, if you find this provides you significant relief additional patches can be purchased at any local pharmacy without a prescription. Please follow up with your primary care physician for re-evaluation, additional management of your symptoms, and continued preventative care. If you do not have a primary care physician, please call the [facility] at [phone] to establish a new primary care physician. While waiting to establish your new primary care physician, you can call our Walk-in Care Clinic at [phone] for non-emergency needs. Please return to the emergency department if you develop a severe or sudden change in your symptoms, a fever over 100.4 that does not improve with Tylenol or Ibuprofen, recurrent vomiting, or any other new or worsening symptoms or concerns. Prescriptions: New cyclobenzaprine 10 mg tablet 10 mg PO TID PRN (Reason: muscle spasm) Qty: 7 0RF ibuprofen 600 mg tablet 600 mg PO Q8H PRN (Reason: fever or pain) Qty: 30 0RF acetaminophen 500 mg capsule 1,000 mg PO .q8 PRN (Reason: fever or pain) Qty: 30 0RF No Action clozapine 100 mg tablet 100 mg PO BEDTIME 30 Days Qty: 30 0RF Rx Instructions: take with 25mg tab haloperidol decanoate 50 mg/mL Solution 75 mg IM Q28D 28 Days Qty: 1.5 0RF magnesium hydroxide [Milk of Magnesia] 400 mg/5 mL Suspension 30 ml PO DAILY PRN (Reason: Constipation) 30 Days Qty: 3780 0RF sertraline 100 mg tablet 100 mg PO DAILY 30 Days Qty: 30 0RF trazodone 100 mg tablet 100 mg PO BEDTIME PRN (Reason: insomnia) 30 Days Qty: 30 0RF propranolol 10 mg tablet 10 mg PO BID benztropine 1 mg tablet 1 mg PO DAILY clonazepam 0.25 mg tablet,disintegrating 0.25 mg PO DAILY clozapine 25 mg tablet 75 mg PO BEDTIME Rx Instructions: take with 100mg tab fenofibrate 160 mg tablet 160 mg PO DAILY 90 Days Qty: 90 1RF Referrals: Cresencio Monahan MD [Primary Care Provider, Internal Medicine] Clinical Impression: Lumbar radiculopathy; Strain of lumbar region Print Language: Croatian
--- OUTSIDE RECORDS SUMMARY | 2025-04-12 20:03 | XMS_ITS | Encounter Summary ---
Author Organization [employer] Address [address] [place] [address] Care Team Providers Care Asset Protection Manager Name Role Phone Unavailable Primary Care Provider Unavailabl e Encounter Details Date Type Department Care Team (Late st Contact Info) Description 04/01/2025 Telephone [facility] [address] [place] [address] Luís Coombs DMD [address] [place] [address] Social History Tobacco Use Types Packs/Day Years Used Date Smoking Tobacco: Every Day Cigarettes Smokeless Tobacco: Never Sex and Gender Information Value Date Recorded Sex Assigned at Male 03/14/2022 10:36 AM EDT Legal Sex Male 10:36 AM EDT Gender Identity Male 03/14/2022 10:36 AM EDT Sexual Orientation Straight 03/14/2022 10 :36 AM EDT documented as of this encounter Miscellaneous Notes * Telephone Encounter - Obi Cesar - 04/01/2025 8:43 AM EST UNABLE TO POST COVERAGE FOR TODAYS appointment documented in this encounter Plan of Treatment Not on file documented as of this encounter Visit Diagnoses Not on filedocumented in this encounter
--- OUTSIDE RECORDS SUMMARY | 2025-04-12 20:03 | XMS_ITS | Clinical Summary ---
Author Organization [employer] Address [address] [place] [address] Care Team Providers Care Stogy Roller Name Role Phone Unavailable Primary Care Provider Unavailabl e Allergies Active Allergy Reactions Criticality Noted Date Comments Amoxicillin 04/01/2025 Medications sertraline (Zoloft) 100 MG tablet 03/03/20 25 Active propranolol (Inderal) 10 MG tablet 03/03/20 25 Active Naloxone HCl (NARCAN NA) Administer 1 kit into affected nostril(s) 1 (one) time. 01/22/20 20 Active cloZAPine (Clozaril) 50 MG tablet 06/03/19 25 Active haloperidol (Haldol) 2 MG tablet 07/01/19 25 Active albuterol 108 (90 Base) MCG/ACT inhaler Inhale 2 puffs every 6 (six) hours if needed. 11/08/19 20 Active clonazePAM (KlonoPIN) 0.25 MG disintegrating tablet 03/03/20 25 Active fenofibrate (Triglide) 160 MG tablet 03/25/20 25 Active haloperidol decanoate (Haldol Decanoate) 50 MG/ML injection 03/25/20 25 Active traZODone (Desyrel) 100 MG tablet 01/25/20 25 Active triamcinolone (Kenalog) 0.1 % cream Apply topically 2 times daily. Active acetaminophen (Tylenol) 500 MG tablet Take 1 tablet (500 mg) by mouth every 6 (six) hours if needed for mild pain for up to 20 doses. 20 tablet 04/01/20 25 Active amoxicillin (Amoxil) 500 MG capsule take 1 capsule by mouth 3 times a day x 7 days 025 Discontin ued(Conta ct move - error) Active Problems Problem Noted Date Diagnosed Date SOB (shortness of breath) 10/31/2019 Paranoid schizophrenia (CMS/HCC) 04/16/2015 Asthma 04/16/2015 Encounters Date Type Department Care Team Description 04/01/2025 3:00 PM EST Office Visit [facility] [address] [place] [address] Luís Coombs DMD Symptomatic irreversible pulpitis (Primary Dx) 04/01/2025 11:30 AM EST Office Visit [facility] [address] [place] [address] Luís Coombs DMD Symptomatic irreversible pulpitis (Primary Dx) 04/01/2025 Telephone [facility] [address] [place] [address] Luís Coombs DMD from Last 3 Months Social History Tobacco Use Types Packs/Day Years Used Date Smoking Tobacco: Every Day Cigarettes Smokeless Tobacco: Never Tobacco Cessation:Ready to Q uit: Not Asked; Counseling Given: Not Answered Sex and Gender Information Value Date Recorded Sex Assigned at Male 03/14/2022 10:36 AM EDT Legal Sex Male 10:36 AM EDT Gender Identity Male 03/14/2022 10:36 AM EDT Sexual Orientation Straight 03/14/2022 10 :36 AM EDT Last Filed Vital Signs Vital Sign Reading Time Taken Comments Blood Pressure 110/62 04/01/2025 3:09 PM EST Pulse - - Temperature - - Respiratory Rate - - Oxygen Saturation - - Inhaled Oxygen Concentration - - Weight - - Height - - Body Mass Index - - Plan of Treatment Health Maintenance Due Date Last Done Comments Dental Prophylaxis 1983 Depression Screening 1983 HIV Screening 1983 Lipid Panel 1983 SDOH Screening 1983 Disability Screening 1983 Family Planning (PISQ) 1998 HPV Vaccines (1 - Male 3-dos e series) 1998 Hepatitis C Screening 2001 Hepatitis B Vaccines (1 of 3 - 19+ 3-dose series) 2002 Pneumococcal Vaccine: Pediatrics (0 to 5 Years) and At-Risk Patients (6 to 49) Years (1 of 2 - PCV) 2002 Dental Oral Exam 11/15/2019 05/16/2019, 01/08/2016, 12/03/2014 Dental X-Ray: Full Mouth 05/17/2022 020, 08/11/2015, 12/03/2014 COVID-19 Vaccine (1 - 2024-2 6 season) 2025 Influenza Vaccine (#1) 2025 Alcohol/Substance Use Screening 04/01/2026 04/01/2025 Tobacco Screening 04/01/2026 04/01/2025 Dental X-Ray: Bitewings 04/02/2026 04/01/20 25, 05/16/2019, 12/03/2014 DTaP/Tdap/Td Vaccines (2 - T d or Tdap) 06/18/2029 06/18/2019 Zoster Vaccines (1 of 2) 2033 RSV Patients and Patients Aged 60 years or older (1 - 1-dose 75+ series) 2058 HIB Vaccines Aged Out No longer eligi ble based on patient's age to complete this topic Hepatitis A Vaccines Aged Out No long er eligible based on patient's age to complete this topic IPV Vaccines Aged Out No longer eligi ble based on patient's age to complete this topic Meningococcal B Vaccine Aged Out No l onger eligible based on patient's age to complete this topic Meningococcal Vaccine Aged Out No kieran jose ramon eligible based on patient's age to complete this topic RSV under 20 months Aged Out No longe r eligible based on patient's age to complete this topic Rotavirus Vaccines Aged Out No longer eligible based on patient's age to complete this topic Procedures Procedure Name Priority Date/Time Associated Diagnosis Comments 18 EXTRACTION, ERUPTED TOOTH REQ REMOVAL OF BONE AND/OR SECTIONING OF TOOTH Routine 04/01/2025 3:00 PM EST Symptomatic irreversible pulpitis CASE PRESENTATION, DETAILED AND EXTENSIVE TREATMENT PLANNING Routine 04/01/2025 11:30 AM EST Symptomatic irreversible pulpitis INTRAORAL - PERIAPICAL FIRST RADIOGRAPHIC IMAGE Routine 04/01/2025 11:30 AM EST Symptomatic irreversible pulpitis BITEWING - SINGLE RADIOGRAPHIC IMAGE Routine 04/01/2025 11:30 AM EST Symptomatic irreversible pulpitis LIMITED ORAL EVALUATION - PROBLEM FOCUSED Routine 04/01/2025 11:30 AM EST Symptomatic irreversible pulpitis INTRAORAL - COMPLETE SERIES OF RADIOGRAPHIC IMAGES Routine 05/16/2019 12:00 AM EST COMPREHENSIVE ORAL EVALUATION - NEW OR ESTABLISHED PATIENT Routine 05/16/2019 12:00 AM EST from Last 3 Months or Most Recently Relevant to Health Maintenance Insurance [facility]
[2025-04-12] MEDS: Lidocaine 4 % Patch ADH..PATCH 1 PATCH TRANSDERMA (20:47)
[2025-04-12 20:59] VITALS: BP 123/75; PULSE 93; RESP 20; TEMP 36.3; O2SAT 95
== END 2025-04-12 21:00 | disposition home or self-care (01) ==
PROVIDERS: Emergency Provider Emergency Medicine; PCP Internal Medicine
DX: M54.16 Radiculopathy, lumbar region (principal); F17.210 Nicotine dependence, cigarettes, uncomplicated; Z79.899 Other long term (current) drug therapy
CPT/HCPCS: 72100; 96372; 99283; 99284; J1885

== ENCOUNTER → 2025-04-12 16:17 | Outpatient (BNV) | payer OTHER, SELFPAY | PROVIDERS: Emergency Provider Emergency Medicine; PCP Internal Medicine; Visit Provider Radiology Diagnostic Radiology | DX: M54.50 Low back pain, unspecified (principal) | CPT/HCPCS: 72100 ==